=== PATIENT | female | born 1930 | race Caucasian/White ===

== ENCOUNTER 2016-09-11 11:44 | Emergency (ER) | payer MEDICARE, BC ==
[~2016-09-11] VITALS: Ht 157.5 cm; Wt 69.5 kg
[~2016-09-11 11:44] MED LIST: ASPI-611 PO; ATEN100T77 PO; CALC-603 PO; DULERA AEROSOL; FURO-35 PO; GABA-215 PO; GLUC15002 PO; LOSA50TA17 PO; MELO-11 PO; MULT-543 PO; OMEP20CA81 PO
[2016-09-11 11:46] VITALS: Ht 157.5 cm; Wt 69.5 kg
--- OUTSIDE RECORDS SUMMARY | 2016-09-11 11:49 | XMS REPORT | Continuity of Care Document ---
Author Author Lily Bertrand Ambulatory Address [facility] [place] [address] Phone Unavailable Care Team Providers Care Bias Binding Folder Name Role Phone Jonathan Lamb PP Unavailable Payers Payer name Insurance type Covered democrat ID Authorization(s) Unknown Problems Condition Effective Dates (start - stop) Clinical Status Sicca syndrome - *Chronic Peripheral neuropathy - *Chronic COPD - *Chronic Hypercholesterolemia - *Chronic Osteoarthrosis, unspecified whether generalized or localized, involving unspecified site - *Chronic Hypertension, Benign - *Chronic Elevated sed rate - *Acute Unspecified idiopathic peripheral neuropathy - *Chronic COPD - *Chronic Hypercholesterolemia - *Chronic Osteoarthrosis, unspecified whether generalized or localized, involving unspecified site - *Chronic Hypertension, Benign - *Chronic Unspecified idiopathic peripheral neuropathy - Chronic COPD - Chronic Hypercholesterolemia - Chronic Osteoarthrosis, unspecified whether generalized or localized, involving unspecified site - Chronic Hypertension, Benign - Chronic Unspecified idiopathic peripheral neuropathy - *Chronic COPD - *Chronic Hypercholesterolemia - *Chronic Osteoarthrosis, unspecified whether generalized or localized, involving unspecified site - *Chronic Hypertension, Benign - *Chronic Pain in joint, site unspecified - *Chronic Other abnormal clinical findings - *Chronic Influenza Vaccine - Unspecified idiopathic peripheral neuropathy - Chronic COPD - Chronic Hypercholesterolemia - Chronic Osteoarthrosis, unspecified whether generalized or localized, involving unspecified site - Chronic Hypertension, Benign - Chronic Unspecified idiopathic peripheral neuropathy - *Chronic COPD - *Chronic Hypercholesterolemia - *Chronic Osteoarthrosis, unspecified whether generalized or localized, involving unspecified site - *Chronic Hypertension, Benign - *Chronic Sicca syndrome - *Chronic Unspecified idiopathic peripheral neuropathy - Chronic COPD - Chronic Hypercholesterolemia - Chronic Osteoarthrosis, unspecified whether generalized or localized, involving unspecified site - Chronic Hypertension, Benign - Chronic Unspecified idiopathic peripheral neuropathy - *Chronic COPD - *Chronic Hypercholesterolemia - *Chronic Osteoarthrosis, unspecified whether generalized or localized, involving unspecified site - *Chronic Hypertension, Benign - *Chronic OSTEOARTHROS NOS-UNSPEC - BENIGN HYPERTENSION - PURE HYPERCHOLESTEROLEM - Unspecified idiopathic peripheral neuropathy - Chronic COPD - Chronic Hypercholesterolemia - Chronic Osteoarthrosis, unspecified whether generalized or localized, involving unspecified site - Chronic Hypertension, Benign - Chronic Unspecified idiopathic peripheral neuropathy - *Chronic COPD - *Chronic Hypercholesterolemia - *Chronic Osteoarthrosis, unspecified whether generalized or localized, involving unspecified site - *Chronic Hypertension, Benign - *Chronic Family History Family Member Diagnosis Age At Onset Status Sister (Unknown) Hypertension Yes Father (Unknown) Myocardial infarction Yes Father (Unknown) Diabetes Yes Mother (Unknown) Hypertension Yes Mother (Unknown) CVA (Stroke) Yes Social History Social History Element Description Quantity alcohol 1 drink Allergies, Adverse Reactions, Alerts Substance Reaction Severity Status CEFDINIR diarrhea Unknown Medications Medication Instructions Dosage Effective Dates (start - stop) Status Aspirin Low Dose 81 mg tablet,delayed release take 1 tablet (81MG) by oral route every day 81 MG - Active Multiple Vitamins Daily tablet take 1 Tablet by Oral route every day 0 - Active gabapentin 600 mg tablet take 1 tablet (600MG) by oral route 2- 3 times every day 600 MG - Active Mobic 15 mg tablet Take 0.5 tablets by mouth twice a day. - Active furosemide 20 mg tablet Take 1 tablet by mouth every day. - Active tramadol 50 mg tablet take 1 tablet (50MG) by oral route every 6 hours as needed 50 MG - Active losartan 50 mg tablet Take 1 tablet by mouth every day. - Active hydroxychloroquine 200 mg tablet take 2 (400MG) by oral route every day 400 MG - Active atenolol 100 mg tablet Take 0.5 tablets by mouth twice a day. - Active Immunizations Vaccine Date Status Comments Tdap completed - Completed reason: other registry pneumo (2 yrs or older) (PPV23) completed - Completed reason: other registry Zoster completed - Completed reason: other registry Flu (split) (3 yrs or older) completed Flu (split) (3 yrs or older) completed Results Test Name Date and Time Measure Units Reference Range Abnormal Flag Comments Unknown Vital Signs Date / Time: Height Weight Pulse Rate Blood Pressure Temperature /10:33:00 62.25 in 180.00 lbs 64 /min 110/61 mm[Hg] 98.2 F Procedures Procedure Date Unknown Encounters Encounter Location Date Patient Visit [facility] Patient Visit [facility] Patient Visit [facility] Patient Visit [facility] Patient Visit [facility] Patient Visit [facility] Patient Visit [facility] Patient Visit [facility] Patient Visit [facility] Patient [facility] Patient Visit [facility] Patient Visit [facility] Patient Visit [facility] Patient Visit [facility] Advance Directives Directive Effective Date Unknown
--- OUTSIDE RECORDS SUMMARY | 2016-09-11 11:49 | XMS REPORT | Referral Summary ---
Author Organization Unknown Address Unknown Phone Unavailable Care Team Providers Care Social Media Marketer Name Role Phone Agustin Lamb Primary Care Physician [phone] Encounter VC Date(s): 07/31/14 - 07/31/14 [facility] [place] [id number]- Discharge Diagnosis: Benign essential hypertension Discharge Diagnosis: COPD (chronic obstructive pulmonary disease) Discharge Diagnosis: OA (osteoarthritis) Discharge Diagnosis: Anemia Discharge Diagnosis: Pure hypercholesterolemia Discharge Disposition: Home or Self Care Attending Physician: Jonathan Lamb MD Admitting Physician: Jonathan Lamb MD Vital Signs Most recent to 1 oldest [Reference Range]: Temperature Tympanic 36.5 degC [36.6-38.1 degC] *LOW* (07/31/14 2:10 PM) Peripheral Pulse 72 bpm Rate [60-100 bpm] (07/31/14 2:10 PM) Respiratory Rate 18 br/min [14-20 br/min] (07/31/14 2:10 PM) Blood Pressure 140/70 mmHg [90-140/60-90 mmHg] (07/31/14 2:10 PM) Problem List Condition Effective Dates Status Health Status Informant Arthritis(Confirmed) Resolved Benign essential Active hypertension (disorder)(Confirmed ) Bronchitis(Confirmed Resolved ) Cataracts(Confirmed) Resolved Chicken Resolved pox(Confirmed) COPD (chronic Active obstructive pulmonary disease)(Confirmed) Emphysema(Confirmed) Resolved Erosive Active osteoarthritis(Confi rmed) Hereditary and Active idiopathic peripheral neuropathy (disorder)(Confirmed ) High Resolved cholesterol(Confirme d) Hypertension(Confirm Resolved ed) Obesity(Confirmed) Active patient OA Active (osteoarthritis)(Con firmed) Pure Active hypercholesterolemia (disorder)(Confirmed ) Sjogren's Active syndrome(Confirmed) Ulnar neuropathy Lt Resolved fingers(Confirmed) Allergies, Adverse Reactions, Alerts Substance Reaction Severity Status cefdinir diarrhea Active Medications Aspirin Enteric Coated 81 mg oral delayed release tablet 1 tabs, Oral, Daily, 0 Refill(s) Start Date: 11/11/13 Status: Ordered atenolol 100 mg oral tablet See Instructions, TAKE 1/2 TABLET BY MOUTH TWO TIMES A DAY, # 90 tabs, 1 Refill( s), eRx: [facility] #[id number], TAKE 1/2 TABLET BY MOUTH TWO TIMES A DAY Special Instructions: TAKE 1/2 TABLET BY MOUTH TWO TIMES A DAY Start Date: 06/23/14 Status: Ordered gabapentin 600 mg oral tablet 1 tabs, Oral, TID, 0 Refill(s) Start Date: 11/11/13 Status: Ordered losartan-hydrochlorothiazide 100 mg-25 mg oral tablet 1 tabs, Oral, Daily, # 30 tabs, 6 Refill(s), Pharmacy: [facility] #[id number] Start Date: 07/03/14 Status: Ordered multivitamin 1 tabs, Oral, Daily, 0 Refill(s) Start Date: 11/11/13 Status: Ordered omeprazole 20 mg oral delayed release capsule 1 caps, Oral, Daily, # 30 caps, 0 Refill(s), Pharmacy: [facility] #[id number] , 1 caps Oral Daily Start Date: 07/31/14 Status: Ordered Parafon Forte DSC 500 mg oral tablet 1 tabs, Oral, BID, # 20 tabs, 0 Refill(s), Pharmacy: [facility] #[id number], 1 tabs Oral BID Start Date: 07/04/14 Stop Date: 08/01/14 Status: Ordered traMADol 50 mg oral tablet 2 tabs, Oral, q6hr, as needed for pain, n dilkm, # 60 tabs, 0 Refill(s), N dilkm Special Instructions: n calvinlobrittany Start Date: 07/23/14 Status: Ordered Results No data available for this section Immunizations Vaccine Date Refusal Reason tetanus/diphth/pertuss (Tdap) adult/adol 04/21/06 influenza virus vaccine, inactivated 02/21/14 influenza virus vaccine, live 02/07/13 influenza virus vaccine, live 03/09/12 pneumococcal 23-polyvalent vaccine 04/21/06 zoster vaccine live 02/07/11 Procedures Procedure Date Related Diagnosis Body Site Mammogram 01/11/12 DEXA - Dual energy X-ray photon 04/24/07 absorptiometry Appendectomy 11/2006 Cataract extraction Cholecystectomy History of back surgery1 Remove hardware from back 1x4 Social History Social History Type Response Smoking Status Former smoker Assessment and Plan Extracted from: Title: Ambulatory Patient Education Author: Jonathan Lamb MD Date: Family Medicine Hypertension As your heart beats, it forces blood through your arteries. This force is your blood pressure. If the pressure is too high, it is called hypertension (HTN) or high blood pressure. HTN is dangerous because you may have it and not know it. High blood pressure may mean that your heart has to work harder to pump blood. Your arteries may be narrow or stiff. The extra work puts you at risk for heart disease, stroke, and other problems. Blood pressure consists of two numbers, a higher number over a lower, 110/72, for example. It is stated as "110 over 72." The ideal is below 120 for the top number (systolic ) and under 80 for the bottom (diastolic ). Write down your blood pressure today. You should pay close attention to your blood pressure if you have certain conditions such as: Heart failure. Prior heart attack. Diabetes Chronic kidney disease. Prior stroke. Multiple risk factors for heart disease. To see if you have HTN, your blood pressure should be measured while you are seated with your arm held at the level of the heart. It should be measured at least twice. A one-time elevated blood pressure reading (especially in the Emergency Department) does not mean that you need treatment. There may be conditions in which the blood pressure is different between your right and left arms. It is important to see your caregiver soon for a recheck. Most people have essential hypertension which means that there is not a specific cause. This type of high blood pressure may be lowered by changing lifestyle factors such as: Stress. Smoking. Lack of exercise. Excessive weight. Drug/tobacco/alcohol use. Eating less salt. Most people do not have symptoms from high blood pressure until it has caused damage to the body. Effective treatment can often prevent, delay or reduce that damage. TREATMENT When a cause has been identified, treatment for high blood pressure is directed at the cause. There are a large number of medications to treat HTN. These fall into several categories, and your caregiver will help you select the medicines that are best for you. Medications may have side effects. You should review side effects with your caregiver. If your blood pressure stays high after you have made lifestyle changes or started on medicines, Your medication(s) may need to be changed. Other problems may need to be addressed. Be certain you understand your prescriptions, and know how and when to take your medicine. Be sure to follow up with your caregiver within the time frame advised ( usually within two weeks) to have your blood pressure rechecked and to review your medications. If you are taking more than one medicine to lower your blood pressure, make sure you know how and at what times they should be taken. Taking two medicines at the same time can result in blood pressure that is too low. SEEK IMMEDIATE MEDICAL CARE IF: You develop a severe headache, blurred or changing vision, or confusion. You have unusual weakness or numbness, or a faint feeling. You have severe chest or abdominal pain, vomiting, or breathing problems. MAKE SURE YOU: Understand these instructions. Will watch your condition. Will get help right away if you are not doing well or get worse. Document Released: 05/08/2006 Document Revised: 07/30/2012 Document Reviewed: [facility] Patient Information 2014 [email or web address]. No follow up information was provided. Extracted from: Title: Office Visit Note Author: Jonathan Lamb MD Date: 07/31/14 Assessment/Plan Anemia We talked about her anemia. We'll keep her on meloxicam and have her take iron sulfate 324 mg 2-3 times daily. Talked about further workup. She preferred to avoid any scoping procedures if possible. I recommended a repeat CBC and 1 month. If she continues to be anemic further evaluation would be warranted. She'll continue to take her omeprazole daily. Ordered: Office Visit Level 4 Est 70734 Benign essential hypertension Blood pressure is adequately controlled. No change in current treatment plan. Medications reviewed. Follow-up in 3 months. Ordered: Office Visit Level 4 Est 73800 COPD (chronic obstructive pulmonary disease) Overall appears stable. Follow-up in 3 months. Continue current treatment plan. Ordered: Office Visit Level 4 Est 67676 OA (osteoarthritis) She'll continue to use tramadol and Tylenol as needed for her pain. If she is having worsening pain she'll let us know. Ordered: Office Visit Level 4 Est 55190 Pure hypercholesterolemia Recent laboratory studies reviewed. She has a high HDL which is somewhat protective. No changes in treatment recommended. Follow-up in 3 months. Ordered: Office Visit Level 4 Est 53739 Orders: omeprazole, 1 caps, Oral, Daily, # 30 caps, 0 Refill(s), Pharmacy: [facility] #[id number], 1 caps Oral Daily
--- OUTSIDE RECORDS SUMMARY | 2016-09-11 11:49 | XMS REPORT | Referral Summary ---
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 Inseam Leveler Name Role Phone Agustin Lamb Primary Care Physician [phone] Encounter VC Date(s): 10/30/14 - 10/30/14 [facility] [address] [place] [address] [place] [id number] [place] Discharge Diagnosis: Spinal stenosis Discharge Diagnosis: Sjogren's syndrome Discharge Disposition: 01-Home or Self Care Attending Physician: Sobia Varghese MD Admitting Physician: Sobia Varghese MD Vital Signs Most recent to 1 oldest [Reference Range]: Peripheral Pulse 84 bpm Rate [60-100 bpm] (10/30/14 1:52 PM) Respiratory Rate 16 br/min [14-20 br/min] (10/30/14 1:52 PM) Blood Pressure 147/90 mmHg [90-140/60-90 mmHg] *HI* (10/30/14 1:52 PM) Problem List Condition Effective Dates Status [...] # 90 tabs, 1 Refill( s), eRx: [facility] #[id number], TAKE 1/2 TABLET BY MOUTH TWO TIMES A DAY Start Date: 12/19/14 Status: Ordered gabapentin 600 mg oral tablet See Instructions, TAKE ONE TABLET BY MOUTH THREE TIMES A DAY, # 90 tabs, 4 Refill(s), eRx: [facility] #[id number], TAKE ONE TABLET BY MOUTH THREE TIMES A DAY Start Date: 12/03/14 Status: Ordered losartan-hydrochlorothiazide 100 mg-25 mg oral tablet See Instructions, TAKE ONE TABLET BY MOUTH DAILY, # 30 tabs, 5 Refill(s), eRx: [facility] #[id number], TAKE ONE TABLET BY MOUTH DAILY Start Date: 01/15/15 Status: Ordered multivitamin 1 tabs, Oral, Daily, 0 Refill(s) Start Date: 11/11/13 Status: Ordered omeprazole 20 mg oral delayed release capsule 1 caps, Oral, Daily, # 30 caps, 0 Refill(s), Pharmacy: [facility] #[id number] , 1 caps Oral Daily Start Date: 07/31/14 Status: Ordered Parafon Forte DSC 500 mg oral tablet See Instructions, TAKE ONE TABLET BY MOUTH TWICE A DAY, # 20 tabs, eRx: [facility] #[id number], TAKE ONE TABLET BY MOUTH TWICE A DAY Start Date: 09/23/14 Status: Ordered Percocet 5/325 oral tablet 1 tabs, Oral, TID, Pain - Breakthrough, # 30 tabs, 0 Refill(s) Start Date: 03/25/15 Status: Ordered Tylenol Extra Strength mg, Oral, q6hr, as needed for pain, 0 Refill(s) Start Date: 02/09/15 Status: Ordered Results No data available for this section Immunizations Vaccine Date Refusal Reason tetanus/diphth/pertuss (Tdap) adult/adol 04/21/06 influenza virus vaccine, inactivated 02/21/14 influenza virus vaccine, live 02/07/13 influenza virus vaccine, live 03/09/12 pneumococcal 13-valent conjugate vaccine 11/06/14 pneumococcal 23-polyvalent vaccine 04/21/06 zoster vaccine live 02/07/11 Procedures Procedure Date Related Diagnosis Body Site Mammogram 01/11/12 DEXA - Dual energy X-ray photon 04/24/07 absorptiometry Appendectomy 11/2006 Cataract extraction Cholecystectomy History of back surgery1 Remove hardware from back 1x4 Social History Social History Type Response Smoking Status Former smoker Assessment and Plan Extracted from: Title: Office Visit Note Author: Sobia Varghese MD Date: 10/30/14 Assessment/Plan 1.Sjogren's syndrome Continue with conservative measures for managing her dry mouth and dry eyes. She also appears to have dry skin. I discussed possibly trying pilocarpine for dry mouth but she believes that she does well enough. 2.Spinal stenosis I discussed possibly trying duloxetine. [facility] also reviewed this medication ather last appointment. Discussed the potential risks which may occurwith medication including change in mood, hepatotoxicity , nausea, increased risks of bleeding etc. She was recently found to be anemic on labs of unclear etiology. She has been on iron supplementation. She will follow-up with her primary care doctor next week. I will follow with her after she has been seen by her PCP. I will give her hydrocodone to take as needed but discussed that sheshould use the tramadol and the reserve the hydrocodone for when she has worse pain. Orders: HYDROcodone-acetaminophen, 1 tabs, Oral, Daily, as needed for pain, # 30 tabs, 0 Refill(s)
--- OUTSIDE RECORDS SUMMARY | 2016-09-11 11:49 | XMS REPORT | Continuity of Care Document ---
Author Author Jonathan Lamb MD [facility] Ambulatory Address [address] [place] [address] Phone Care Team Providers Care Nurse Manager Name Role Phone Jonathan Lamb PP Unavailable Payers Payer name Insurance type Covered green party ID Authorization(s) Unknown Problems Condition Effective Dates (start - stop) Clinical Status Hypertension, Benign - *Chronic COPD - *Chronic Osteoarthrosis, unspecified whether generalized or localized, involving unspecified site - *Chronic Hypercholesterolemia - *Chronic Unspecified idiopathic peripheral neuropathy - *Chronic Sjogrens syndrome - *Chronic Hypertension, Benign - *Chronic Osteoarthrosis, unspecified whether generalized or localized, involving unspecified site - *Chronic Hypercholesterolemia - *Chronic COPD - *Chronic Peripheral neuropathy - *Chronic Hypertension, Benign - *Chronic Osteoarthrosis, unspecified whether generalized or localized, involving unspecified site - *Chronic Hypercholesterolemia - *Chronic COPD - *Chronic Unspecified idiopathic peripheral neuropathy - *Chronic Elevated sed rate - *Acute Hypertension, Benign - *Chronic Osteoarthrosis, unspecified whether generalized or localized, involving unspecified site - *Chronic Hypercholesterolemia - *Chronic COPD - *Chronic Unspecified idiopathic peripheral neuropathy - *Chronic Hypertension, Benign - Chronic Osteoarthrosis, unspecified whether generalized or localized, involving unspecified site - Chronic Hypercholesterolemia - Chronic COPD - Chronic Unspecified idiopathic peripheral neuropathy - Chronic Bronchitis, Acute - *Acute COPD - *Chronic Hypertension, Benign - *Chronic Hypercholesterolemia - *Chronic COPD - Chronic Hypertension, Benign - Chronic Hypercholesterolemia - Chronic PURE HYPERCHOLESTEROLEM - BENIGN HYPERTENSION - OSTEOARTHROS NOS-UNSPEC - Hypertension, Benign - *Chronic Osteoarthrosis, unspecified whether generalized or localized, involving unspecified site - *Chronic Hypercholesterolemia - *Chronic COPD - *Chronic Unspecified idiopathic peripheral neuropathy - *Chronic Hypertension, Benign - Chronic Osteoarthrosis, unspecified whether generalized or localized, involving unspecified site - Chronic Hypercholesterolemia - Chronic COPD - Chronic Unspecified idiopathic peripheral neuropathy - Chronic Sicca syndrome - *Chronic Other abnormal clinical findings - *Chronic Pain in joint, site unspecified - *Chronic Hypertension, Benign - *Chronic Osteoarthrosis, unspecified whether generalized or localized, involving unspecified site - *Chronic Hypercholesterolemia - *Chronic COPD - *Chronic Unspecified idiopathic peripheral neuropathy - *Chronic Hypertension, Benign - Chronic Osteoarthrosis, unspecified whether generalized or localized, involving unspecified site - Chronic Hypercholesterolemia - Chronic COPD - Chronic Unspecified idiopathic peripheral neuropathy - Chronic Sicca syndrome - *Chronic Hypertension, Benign - *Chronic Osteoarthrosis, unspecified whether generalized or localized, involving unspecified site - *Chronic Hypercholesterolemia - *Chronic COPD - *Chronic Unspecified idiopathic peripheral neuropathy - *Chronic Hypertension, Benign - Chronic Osteoarthrosis, unspecified whether generalized or localized, involving unspecified site - Chronic Hypercholesterolemia - Chronic COPD - Chronic Unspecified idiopathic peripheral neuropathy - Chronic Influenza Vaccine - Family History Family Member Diagnosis Age At Onset Status Sister (Unknown) Hypertension Yes Father (Unknown) Myocardial infarction Yes Father (Unknown) Diabetes Yes Mother (Unknown) Hypertension Yes Mother (Unknown) CVA (Stroke) Yes Social History Social History Element Description Quantity alcohol 1 drink Allergies, Adverse Reactions, Alerts Substance Reaction Severity Status CEFDINIR diarrhea Unknown Medications Medication Instructions Dosage Effective Dates (start - stop) Status losartan 50 mg tablet Take 1 tablet by mouth every day. - No Longer Active Aspirin Low Dose 81 mg tablet,delayed release take 1 tablet (81MG) by oral route every day 81 MG - Active Multiple Vitamins Daily tablet take 1 Tablet by Oral route every day 0 - Active gabapentin 600 mg tablet take 1 tablet (600MG) by oral route 2- 3 times every day 600 MG - Active tramadol 50 mg tablet take 1 tablet (50MG) by oral route every 6 hours as needed 50 MG - Active furosemide 20 mg tablet Take 1 tablet by mouth every day. - Active hydroxychloroquine 200 mg tablet take 2 (400MG) by oral route every day 400 MG - Active losartan 50 mg tablet Take 1 tablet by mouth every day. - Active Mobic 15 mg tablet Take 0.5 tablets by mouth twice a day. - Active Levaquin 500 mg tablet take 1 tablet (500MG) by oral route every 24 hours 500 MG - Active atenolol 100 mg tablet [...] Height Weight Pulse Rate Blood Pressure Temperature /10:27:00 62.25 in 179.00 lbs 72 /min 130/68 mm[Hg] 98.9 F Procedures Procedure Date Unknown Encounters Encounter Location Date Patient Visit [facility] Patient Visit [facility] Patient Visit [facility] Patient Visit [facility] Patient Visit [facility] Patient Visit [facility] Patient Visit [facility] Patient Visit [facility] Patient Visit [facility] Patient Visit [facility] Patient Visit [facility] Patient [facility] Patient Visit [facility] Patient Visit [facility] Patient Visit [facility] Advance Directives Directive Effective Date Unknown
--- OUTSIDE RECORDS SUMMARY | 2016-09-11 11:49 | XMS REPORT | Referral Summary ---
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 Phone Agustin Lamb Primary Care Physician [phone] Encounter VC Date(s): 06/26/14 - 06/26/14 [facility] Rheumatology [address] [place] [address] Dr [place] [id number]- Discharge Diagnosis: Chronic osteoarthritis Discharge Diagnosis: Sjogren's syndrome Discharge Diagnosis: Biceps tendonitis on left Discharge Disposition: Home or Self Care Attending Physician: Sobia Varghese MD Admitting Physician: Sobia Varghese MD Referring Physician: Jonathan Lamb MD Vital Signs Most recent to 1 oldest [Reference Range]: Peripheral Pulse 67 bpm Rate [60-100 bpm] (06/26/14 8:50 AM) Blood Pressure 159/79 mmHg [90-140/60-90 mmHg] *HI* (06/26/14 8:50 AM) Problem List Condition Effective Dates Status Health [...] # 90 tabs, 1 Refill( s), eRx: [facility] #[id number], TAKE 1/2 TABLET BY MOUTH TWO TIMES A DAY Special Instructions: TAKE 1/2 TABLET BY MOUTH TWO TIMES A DAY Start Date: 06/23/14 Status: Ordered furosemide 20 mg oral tablet 1 tabs, Oral, Daily, 0 Refill(s) Start Date: 11/11/13 Status: Ordered gabapentin 600 mg oral tablet 1 tabs, Oral, TID, 0 Refill(s) Start Date: 11/11/13 Status: Ordered losartan 100 mg oral tablet 1 tabs, Oral, Daily, # 90 tabs, 3 Refill(s), Pharmacy: [facility] #[id number] , 1 tabs Oral Daily Start Date: 02/21/14 Status: Ordered Mobic 15 mg oral tablet See Instructions, 0.5 tabs Oral BID, 0 Refill(s), 0.5 daily for 2 weeks and then stop if pain is doing ok. Special Instructions: 0.5 tabs Oral BID Start Date: 11/11/13 Status: Ordered multivitamin 1 tabs, Oral, Daily, 0 Refill(s) Start Date: 11/11/13 Status: Ordered traMADol 50 mg oral tablet 2 tabs, Oral, q6hr, as needed for pain, n dillons, # 60 tabs, 0 Refill(s), N dillons Special Instructions: n dillons Start Date: 06/09/14 Status: Ordered Results No data available for this section Immunizations Vaccine Date Refusal Reason tetanus/diphth/pertuss (Tdap) adult/adol 04/21/06 influenza virus vaccine, inactivated 02/21/14 influenza virus vaccine, live 02/07/13 influenza virus vaccine, live 03/09/12 pneumococcal 23-polyvalent vaccine 04/21/06 zoster vaccine live 02/07/11 Procedures Procedure Date Related Diagnosis Body Site Appendectomy 11/2006 Cataract extraction Cholecystectomy History of back surgery1 Remove hardware from back 1x4 Social History Social History Type Response Smoking Status Former smoker Assessment and Plan No data available for this section
--- OUTSIDE RECORDS SUMMARY | 2016-09-11 11:49 | XMS REPORT | Referral Summary ---
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 Discharge Diagnosis: OA (osteoarthritis) Discharge Diagnosis: Benign essential hypertension Discharge Diagnosis: Pure hypercholesterolemia Discharge Diagnosis: COPD (chronic obstructive pulmonary disease) Discharge Disposition: Home or Self Care Attending Physician: Jonathan Lamb MD Admitting Physician: Jonathan Lamb MD Vital Signs Most recent to 1 oldest [Reference Range]: Temperature Tympanic 36.0 degC [36.6-38.1 degC] *LOW* (07/03/14 2:27 PM) Peripheral Pulse 68 bpm Rate [60-100 bpm] (07/03/14 2:27 PM) Respiratory Rate 18 br/min [14-20 br/min] (07/03/14 2:27 PM) Blood Pressure 144/76 mmHg [90-140/60-90 mmHg] *HI* (07/03/14 2:27 PM) Problem List Condition Effective Dates Status [...] # 90 tabs, 1 Refill( s), eRx: [facility] #[id number], TAKE 1/2 TABLET BY MOUTH TWO TIMES [...] Daily, # 90 tabs, 3 Refill(s), Pharmacy: [facility] #[id number] , 1 tabs Oral Daily Start Date: 02/21/14 Status: Suspended losartan-hydrochlorothiazide 100 mg-25 mg oral tablet 1 tabs, Oral, Daily, # 30 tabs, 6 Refill(s), Pharmacy: [facility] #[id number] Start Date: 07/03/14 Status: Ordered Mobic 15 mg oral tablet [...] dillons, # 60 tabs, 0 Refill(s), N dillobrittany Special Instructions: n dillons Start Date: 07/02/14 Status: Ordered Results No data available for [...] Released: 05/08/2006 Document Revised: 07/30/2012 Document Reviewed: [employer] Patient Information 2014 [employer]. No follow up information was provided. Extracted from: Title: Office Visit Note Author: Jonathan Lamb MD Date: 07/03/14 Assessment/Plan Benign essential hypertension Blood pressure is a little bit high here today to running high at home. Have recommended discontinuing losartan beginning losartan/HCT 100/25 once daily. She is taking furosemide once a day and I encouraged her to consider stopping that and seeing how she does with the hydrochlorothiazide. I think this will be more effective for her blood pressure. Follow-up in one month is encouraged. Ordered: Office Visit Level 4 Est 51122 COPD (chronic obstructive pulmonary disease) Stable no change in current treatment plan. Ordered: Office Visit Level 4 Est 18531 Hereditary and idiopathic peripheral neuropathy Stable no change in current treatment plan. Ordered: Office Visit Level 4 Est 68771 OA (osteoarthritis) Stable no change in current treatment plan. Ordered: Office Visit Level 4 Est 58408 Pure hypercholesterolemia Stable no change in current treatment plan. Laboratory studies ordered for 1 month. Ordered: Office Visit Level 4 Est 48975 Orders: losartan-hydrochlorothiazide, 1 tabs, Oral, Daily, # 30 tabs, 6 Refill (s), Pharmacy: [facility] #[id number]
--- OUTSIDE RECORDS SUMMARY | 2016-09-11 11:49 | XMS REPORT | Referral Summary ---
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 (disorder) Discharge Disposition: 01-Home or Self Care Attending Physician: Jonathan Lamb MD Admitting Physician: Jonathan Lamb MD Vital Signs Most recent to 1 oldest [Reference Range]: Temperature Tympanic 36.8 degC [36.6-38.1 degC] (03/25/15 10:09 AM) Peripheral Pulse 72 bpm Rate [60-100 bpm] (03/25/15 10:09 AM) Respiratory Rate 16 br/min [14-20 br/min] (03/25/15 10:09 AM) Blood Pressure 142/74 mmHg [90-140/60-90 mmHg] *HI* (03/25/15 10:09 AM) Problem List Condition Effective Dates Status [...] # 90 tabs, 1 Refill( s), eRx: [facility] #[id number], TAKE 1/2 TABLET BY MOUTH TWO TIMES A DAY Start Date: 12/19/14 Status: Ordered gabapentin 600 mg oral tablet See Instructions, TAKE ONE TABLET BY MOUTH THREE TIMES A DAY, # 90 tabs, 4 Refill(s), eRx: [facility] #[id number], TAKE ONE TABLET BY MOUTH THREE TIMES A DAY Start Date: 12/03/14 Status: Ordered losartan-hydrochlorothiazide 100 mg-25 mg oral tablet See Instructions, TAKE ONE TABLET BY MOUTH DAILY, # 30 tabs, 5 Refill(s), eRx: [facility] #[id number], TAKE ONE TABLET BY MOUTH DAILY Start Date: 01/15/15 Status: Ordered multivitamin 1 tabs, Oral, Daily, 0 Refill(s) Start Date: 11/11/13 Status: Ordered omeprazole 20 mg oral delayed release capsule 1 caps, Oral, Daily, # 30 caps, 0 Refill(s), Pharmacy: [facility] #[id number] , 1 caps Oral Daily Start Date: 07/31/14 Status: Ordered Parafon Forte DSC 500 mg oral tablet See Instructions, TAKE ONE TABLET BY MOUTH TWICE A DAY, # 20 tabs, eRx: [facility] #[id number], TAKE ONE TABLET BY MOUTH TWICE A DAY Start Date: 09/23/14 Status: Ordered Percocet 5/325 oral tablet 1 tabs, Oral, TID, Pain - Breakthrough, # 30 tabs, 0 Refill(s) Start Date: 03/25/15 Status: Ordered Tylenol Extra Strength mg, Oral, q6hr, as needed for pain, 0 Refill(s) Start Date: 02/09/15 Status: Ordered Results Hematology Most recent to 1 oldest [Reference Range]: WBC [4.8-10.8 5.8 10*3/uL 10*3/uL] (03/25/15 10:40 AM) RBC [4.00-5.20] 3.58 *LOW* (03/25/15 10:40 AM) Hgb [12.0-16.0 11.0 gm/dL gm/dL] *LOW* (03/25/15 10:40 AM) Hct [37.0-47.0 %] 32.8 % *LOW* (03/25/15 10:40 AM) MCV [82.0-99.0 fL] 91.6 fL (03/25/15 10:40 AM) MCH [27.0-32.0 pg] 30.7 pg (03/25/15 10:40 AM) MCHC [32.0-36.0 33.5 gm/dL gm/dL] (03/25/15 10:40 AM) RDW [11.5-14.5 %] 12.7 % (03/25/15 10:40 AM) Platelet [150-400 255 10*3/uL 10*3/uL] (03/25/15 10:40 AM) MPV [8.8-14.8 fL] 12.7 fL (03/25/15 10:40 AM) Immature 0.2 % Granulocytes (03/25/15 10:40 AM) [0.0-1.0 %] Neutrophils [51-75 69 % %] (03/25/15 10:40 AM) Lymphocytes [20-46 18 % %] *LOW* (03/25/15 10:40 AM) Monocytes [4-11 %] 9 % (03/25/15 10:40 AM) Eosinophils [0-4 %] 3 % (03/25/15 10:40 AM) Basophils [0-2 %] 1 % (03/25/15 10:40 AM) Neutro Absolute 4.03 10*3 [1.90-7.00 10*3] (03/25/15 10:40 AM) Lymph Absolute 1.02 10*3 [0.80-3.30 10*3] (03/25/15 10:40 AM) Cobb Absolute 0.53 10*3 [0.30-1.00 10*3] (03/25/15 10:40 AM) Eos Absolute 0.17 10*3 [0.00-0.50 10*3] (03/25/15 10:40 AM) Baso Absolute 0.05 10*3 [0.00-0.20 10*3] (03/25/15 10:40 AM) Chemistry Most recent to 1 oldest [Reference Range]: Sodium Lvl [135-144 133 mEq/L mEq/L] *LOW* (03/25/15 10:40 AM) Potassium Lvl 4.5 mEq/L [3.5-5.2 mEq/L] (03/25/15 10:40 AM) Chloride [99-111 96 mEq/L mEq/L] *LOW* (03/25/15 10:40 AM) CO2 [22-31 mEq/L] 29 mEq/L (03/25/15 10:40 AM) AGAP [3-20] 8 (03/25/15 10:40 AM) BUN [10-20 mg/dL] 24 mg/dL *HI* (03/25/15 10:40 AM) Glucose Lvl [70-99 101 mg/dL mg/dL] *HI* (03/25/15 10:40 AM) Creatinine Lvl 1.05 mg/dL [0.57-1.11 mg/dL] (03/25/15 10:40 AM) eGFR [>60 mL/min] 50 mL/min 1 *ABN* (03/25/15 10:40 AM) Calcium Lvl 10.3 mg/dL [8.9-10.5 mg/dL] (03/25/15 10:40 AM) Albumin Lvl [3.4-4.8 4.0 gm/dL gm/dL] (03/25/15 10:40 AM) Total Protein 6.5 gm/dL [6.2-8.1 gm/dL] (03/25/15 10:40 AM) Globulin [1.8-4.0 2.5 gm/dL gm/dL] (03/25/15 10:40 AM) ALT [0-55 U/L] 15 U/L (03/25/15 10:40 AM) AST [5-34 U/L] 21 U/L (03/25/15 10:40 AM) Alk Phos [40-150 62 U/L U/L] (03/25/15 10:40 AM) Bili Total [0.2-1.2 0.5 mg/dL mg/dL] (03/25/15 10:40 AM) TSH with Reflex Free 1.69 T4 [0.35-4.94] (03/25/15 10:40 AM) 1Result Comment: Multiply eGFR results by 1.21 for race. Immunizations Vaccine Date Refusal Reason tetanus/diphth/pertuss (Tdap) [...] Patient Education Author: Jonathan Lamb MD Date: 03/25/15 ENT Dizziness Dizziness is a common problem. It is a feeling of unsteadiness or light- headedness. You may feel like you are about to faint. Dizziness can lead to injury if you stumble or fall. A person of any age group can suffer from dizziness, but dizziness is more common in older adults. CAUSES Dizziness can be caused by many different things, including: Middle ear problems. Standing for too long. Infections. An allergic reaction. Aging. An emotional response to something, such as the sight of blood. Side effects of medicines. Tiredness. Problems with circulation or blood pressure. Excessive use of alcohol or medicines, or illegal drug use. Breathing too fast (hyperventilation). An irregular heart rhythm (arrhythmia). A low red blood cell count (anemia). . Vomiting, diarrhea, fever, or other illnesses that cause body fluid loss ( dehydration). Diseases or conditions such as Parkinson's disease, high blood pressure ( hypertension), diabetes, and thyroid problems. Exposure to extreme heat. DIAGNOSIS Your health care provider will ask about your symptoms, perform a physical exam , and perform an electrocardiogram (ECG) to record the electrical activity of your heart. Your health care provider may also perform other heart or blood tests to determine the cause of your dizziness. These may include: Transthoracic echocardiogram (TTE). During echocardiography, sound waves are used to evaluate how blood flows through your heart. Transesophageal echocardiogram (CARIDAD). Cardiac monitoring. This allows your health care provider to monitor your heart rate and rhythm in real time. Holter monitor. This is a portable device that records your heartbeat and can help diagnose heart arrhythmias. It allows your health care provider to track your heart activity for several days if needed. Stress tests by exercise or by giving medicine that makes the heart beat faster. TREATMENT Treatment of dizziness depends on the cause of your symptoms and can vary greatly. HOME CARE INSTRUCTIONS Drink enough fluids to keep your urine clear or pale yellow. This is especially important in very hot weather. In older adults, it is also important in cold weather. Take your medicine exactly as directed if your dizziness is caused by medicines. When taking blood pressure medicines, it is especially important to get up slowly. Rise slowly from chairs and steady yourself until you feel okay. In the morning, first sit up on the side of the bed. When you feel okay, stand slowly while holding onto something until you know your balance is fine. 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 Tighten and relax your muscles in your legs while standing. Have someone stay with you for 12 days if dizziness continues to be a problem. Do this until you feel you are well enough to stay alone. Have the person call your health care provider if he or she notices changes in you that are concerning. Do not drive or use heavy machinery if you feel dizzy. Do not drink alcohol. SEEK IMMEDIATE MEDICAL CARE IF: Your dizziness or light-headedness gets worse. You feel nauseous or vomit. You have problems talking, walking, or using your arms, hands, or legs. You feel weak. You are not thinking clearly or you have trouble forming sentences. It may take a friend or family member to notice this. You have chest pain, abdominal pain, shortness of breath, or sweating. Your vision changes. You notice any bleeding. You have side effects from medicine that seems to be getting worse rather than better. MAKE SURE YOU: Understand these instructions. Will watch your condition. Will get help right away if you are not doing well or get worse. Document Released: 11/01/2001 Document Revised: 05/13/2014 Document Reviewed: [employer] Patient Information 2015 [employer]. This information is not intended to replace advice given to you by your health care provider. Make sure you discuss any questions you have with your health care provider. No follow up information was provided. Extracted from: Title: Office Visit Note Author: Jonathan Lamb MD Date: 03/25/15 Assessment/Plan Benign essential hypertension Blood pressure appears to be adequately controlled no change in current treatment recommended. Ordered: Office Visit Level 4 Est 49722 COPD (chronic obstructive pulmonary disease) COPD appears to be stable no change in current treatment. Ordered: Office Visit Level 4 Est 62969 Dizziness It's unclear what the etiology of this problem areas. I've told her not to take Parafon forte at all. I've asked her to reduce her gabapentin to 600 mg twice a day. I've recommended some lab work as listed below. If no improvement in the dizziness over the next week she'll let me now. Ordered: CBC w/ Differential Comprehensive Metabolic Panel Office Visit Level 4 Est 33849 TSH with Reflex Free T4 Hereditary and idiopathic peripheral neuropathy (disorder) I'm concerned gabapentin may be contributing to her dizziness have asked her to reduce it to 600 mg twice a day. For neuropathy worsen she'll let us now. Ordered: CBC w/ Differential Comprehensive Metabolic Panel Office Visit Level 4 Est 06278 TSH with Reflex Free T4 Left leg pain I think this is likely neuropathic pain. We'll continue gabapentin. 100 have her discontinue tramadol and I gave her a prescription for Percocet 5/325 to be taken up to 3 times a day as needed. Orders: oxyCODONE-acetaminophen, 1 tabs, Oral, TID, Pain - Breakthrough, # 30 tabs, 0 Refill(s)
--- OUTSIDE RECORDS SUMMARY | 2016-09-11 11:50 | XMS REPORT | Referral Summary ---
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 Senior Loan Officer Name Role Phone Agustin Lamb Primary Care Physician [phone] Encounter VC Date(s): 10/30/14 - 10/30/14 [facility] [address] [place] [address] [place] [id number] [place] Discharge Diagnosis: Spinal stenosis Discharge Diagnosis: [...] pox(Confirmed) COPD (chronic Active obstructive pulmonary disease)(Confirmed) OA Active (osteoarthritis)(Con firmed) Emphysema(Confirmed) Resolved Erosive Active osteoarthritis(Confi rmed) Hereditary and Active idiopathic peripheral neuropathy (disorder)(Confirmed ) High Resolved cholesterol(Confirme d) Hypertension(Confirm Resolved ed) Obesity(Confirmed) Active patient Pure Active hypercholesterolemia (disorder)(Confirmed ) Sjogren's Active [...] # 90 tabs, 1 Refill( s), eRx: [facility] #[id number], TAKE 1/2 TABLET BY MOUTH TWO TIMES A DAY Start Date: 12/19/14 Status: Ordered gabapentin 600 mg oral tablet See Instructions, TAKE ONE TABLET BY MOUTH THREE TIMES A DAY, # 90 tabs, 1 Refill(s), eRx: [facility] #[id number], TAKE ONE TABLET BY MOUTH THREE TIMES A DAY Start Date: 04/21/15 Status: Ordered losartan-hydrochlorothiazide 100 mg-25 mg oral tablet See Instructions, TAKE ONE TABLET BY MOUTH DAILY, # 30 tabs, 5 Refill(s), eRx: [facility] #[id number], TAKE ONE TABLET BY MOUTH DAILY Start Date: 01/15/15 Status: Ordered multivitamin 1 tabs, Oral, Daily, 0 Refill(s) Start Date: 11/11/13 Status: Ordered omeprazole 20 mg oral delayed release capsule 1 caps, Oral, Daily, # 30 caps, 0 Refill(s), Pharmacy: [facility] #[id number] , 1 caps Oral Daily Start Date: 07/31/14 Status: Ordered Parafon Forte DSC 500 mg oral tablet See Instructions, TAKE ONE TABLET BY MOUTH TWICE A DAY, # 20 tabs, eRx: [facility] #[id number], TAKE ONE TABLET BY MOUTH TWICE A DAY Start Date: 09/23/14 Status: Ordered traMADol 50 mg oral tablet 100 mg 2 tabs, Oral, q6hr, as needed for pain, n dillons, # 60 tabs, 0 Refill(s) , N dillons Start Date: 05/04/15 Status: Ordered Tylenol Extra Strength mg, Oral, [...] 2.Spinal stenosis I discussed possibly trying duloxetine. [facility] also reviewed this medication ather last [...]
--- OUTSIDE RECORDS SUMMARY | 2016-09-11 11:50 | XMS REPORT | Referral Summary ---
Author Author [facility], [facility] Organization [facility] Address Unknown Phone Unavailable Care Team Providers Care Golf Ball Trimmer Name Role Phone Agustin Lamb Primary Care Physician [phone] Encounter VC Date(s): 05/11/15 - 05/11/15 [facility] [address] [place] [id number] Discharge Diagnosis: Benign essential hypertension Discharge Diagnosis: Pure hypercholesterolemia Discharge Diagnosis: COPD (chronic obstructive pulmonary disease) Discharge Diagnosis: OA (osteoarthritis) Discharge Disposition: 01-Home or Self Care Attending Physician: Jonathan Lamb MD Admitting Physician: Jonathan Lamb MD Vital Signs Most recent to 1 oldest [Reference Range]: Temperature Tympanic 36.6 degC [36.6-38.1 degC] (05/11/15 8:41 AM) Peripheral Pulse 76 bpm Rate [60-100 bpm] (05/11/15 8:41 AM) Respiratory Rate 16 br/min [14-20 br/min] (05/11/15 8:41 AM) Blood Pressure 150/88 mmHg [90-140/60-90 mmHg] *HI* (05/11/15 8:41 AM) Problem List Condition Effective Dates Status [...] 90 tabs, 1 Refill( s), eRx: [facility] #[id number], TAKE 1/2 TABLET BY MOUTH TWO TIMES A DAY Start Date: 12/19/14 Status: Ordered gabapentin 600 mg oral tablet See Instructions, TAKE ONE TABLET BY MOUTH THREE TIMES A DAY, # 90 tabs, 1 Refill(s), eRx: [facility] #[id number], TAKE ONE TABLET BY MOUTH THREE TIMES A DAY Start Date: 04/21/15 Status: Ordered losartan-hydrochlorothiazide 100 mg-25 mg oral tablet See Instructions, TAKE ONE TABLET BY MOUTH DAILY, # 30 tabs, 5 Refill(s), eRx: [facility] #[id number], TAKE ONE TABLET BY MOUTH DAILY Start Date: 01/15/15 Status: Ordered multivitamin 1 tabs, Oral, Daily, 0 Refill(s) Start Date: 11/11/13 Status: Ordered omeprazole 20 mg oral delayed release capsule 1 caps, Oral, Daily, # 30 caps, 0 Refill(s), Pharmacy: [facility] #[id number] , 1 caps Oral Daily Start Date: 07/31/14 Status: Ordered Parafon Forte DSC 500 mg oral tablet See Instructions, TAKE ONE TABLET BY MOUTH TWICE A DAY, # 20 tabs, eRx: [facility] #[id number], TAKE ONE TABLET BY MOUTH TWICE A [...] Patient Education Author: Jonathan Lamb MD Date: 05/11/15 Family Medicine Chronic Obstructive Pulmonary Disease Chronic obstructive pulmonary disease (COPD) is a common lung condition in which airflow from the lungs is limited. COPD is a general term that can be used to describe many different lung problems that limit airflow, including both chronic bronchitis and emphysema. If you have COPD, your lung function will probably never return to normal, but there are measures you can take to improve lung function and make yourself feel better. CAUSES Smoking (common). Exposure to secondhand smoke. Genetic problems. Chronic inflammatory lung diseases or recurrent infections. SYMPTOMS Shortness of breath, especially with physical activity. Deep, persistent (chronic) cough with a large amount of thick mucus. Wheezing. Rapid breaths (tachypnea). Chan or bluish discoloration (cyanosis) of the skin, especially in fingers , toes, or lips. Fatigue. Weight loss. Frequent infections or episodes when breathing symptoms become much worse ( exacerbations). Chest tightness. DIAGNOSIS Your health care provider will take a medical history and perform a physical examination to make the initial diagnosis. Additional tests for COPD may include: Lung (pulmonary) function tests. Chest X-ray. CT scan. Blood tests. TREATMENT Treatment available to help you feel better when you have COPD includes: Inhaler and nebulizer medicines. These help manage the symptoms of COPD and make your breathing more comfortable. Supplemental oxygen. Supplemental oxygen is only helpful if you have a low oxygen level in your blood. Exercise and physical activity. These are beneficial for nearly all people with COPD. Some people may also benefit from a pulmonary rehabilitation program. HOME CARE INSTRUCTIONS Take all medicines (inhaled or pills) as directed by your health care provider. Avoid rdey-evn-nxjnyxp medicines or cough syrups that dry up your airway ( such as antihistamines) and slow down the elimination of secretions unless instructed otherwise by your health care provider. If you are a smoker, the most important thing that you can do is stop smoking. Continuing to smoke will cause further lung damage and breathing trouble. Ask your health care provider for help with quitting smoking. He or she can direct you to community resources or hospitals that provide support. Avoid exposure to irritants such as smoke, chemicals, and fumes that aggravate your breathing. Use oxygen therapy and pulmonary rehabilitation if directed by your health care provider. If you require home oxygen therapy, ask your health care provider whether you should purchase a pulse oximeter to measure your oxygen level at home. Avoid contact with individuals who have a contagious illness. Avoid extreme temperature and humidity changes. Eat healthy foods. Eating smaller, more frequent meals and resting before meals may help you maintain your strength. Stay active, but balance activity with periods of rest. Exercise and physical activity will help you maintain your ability to do things you want to do. Preventing infection and hospitalization is very important when you have COPD. Make sure to receive all the vaccines your health care provider recommends , especially the pneumococcal and influenza vaccines. Ask your health care provider whether you need a pneumonia vaccine. Learn and use relaxation techniques to manage stress. Learn and use controlled breathing techniques as directed by your health care provider. Controlled breathing techniques include: Pursed lip breathing. Start by breathing in (inhaling) through your nose for 1 second. Then, purse your lips as if you were going to whistle and breathe out (exhale) through the pursed lips for 2 seconds. Diaphragmatic breathing. Start by putting one hand on your abdomen just above your waist. Inhale slowly through your nose. The hand on your abdomen should move out. Then purse your lips and exhale slowly. You should be able to feel the hand on your abdomen moving in as you exhale. Learn and use controlled coughing to clear mucus from your lungs. Controlled coughing is a series of short, progressive coughs. The steps of controlled coughing are: 1. Lean your head slightly forward. 2. Breathe in deeply using diaphragmatic breathing. 3. Try to hold your breath for 3 seconds. 4. Keep your mouth slightly open while coughing twice. 5. Spit any mucus out into a tissue. 6. Rest and repeat the steps once or twice as needed. SEEK MEDICAL CARE IF: You are coughing up more mucus than usual. There is a change in the color or thickness of your mucus. Your breathing is more labored than usual. Your breathing is faster than usual. SEEK IMMEDIATE MEDICAL CARE IF: You have shortness of breath while you are resting. You have shortness of breath that prevents you from: Being able to talk. Performing your usual physical activities. You have chest pain lasting longer than 5 minutes. Your skin color is more cyanotic than usual. You measure low oxygen saturations for longer than 5 minutes with a pulse oximeter. MAKE SURE YOU: Understand these instructions. Will watch your condition. Will get help right away if you are not doing well or get worse. Document Released: 02/15/2006 Document Revised: 09/22/2014 Document Reviewed: [facility] Patient Information 2015 [employer]. This information is not intended to replace advice given to you by your health care provider. Make sure you discuss any questions you have with your health care provider. No follow up information was provided. Extracted from: Title: Office Visit Note Author: Jonathan Lamb MD Date: 05/11/15 Assessment/Plan Benign essential hypertension Blood pressure is mildly elevated here but normal at home. Occasions and treatments reviewed no changes are recommended. Report card reviewed and provided and recent laboratory studies reviewed. Follow-up in 3 months. Ordered: Office Visit Level 4 Est 20501 COPD (chronic obstructive pulmonary disease) Chronic stable. We talked about checking an overnight oximetry but will hold off for now. She'll continue to use her oxygen on an as-needed basis no change in treatment otherwise. Ordered: Office Visit Level 4 Est 74426 OA (osteoarthritis) Chronic stable no change in current treatment. Ordered: Office Visit Level 4 Est 33396 Pure hypercholesterolemia Laboratory studies reviewed from January no change in current treatment is recommended. Ordered: Office Visit Level 4 Est 62774
--- OUTSIDE RECORDS SUMMARY | 2016-09-11 11:50 | XMS REPORT | Continuity of Care Document ---
Author Author [facility] Organization [facility] Address Unknown Phone Unavailable Allergies Medications Problems Procedures Results Encounters ACCT No. Visit Date/Time Discharge Status Pt. Type Provider Facility Loc./Unit Complaint [id number] 08/15/2013 10:19:00 08/15/2013 23 :59:59 CLS Outpatient [id number] 05/30/2013 09:32:00 05/30/2013 23 :59:59 CLS Outpatient
--- OUTSIDE RECORDS SUMMARY | 2016-09-11 11:50 | XMS REPORT | Referral Summary ---
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 Name Role Phone Agustin Lamb Primary Care Physician [phone] Encounter VC Date(s): 11/06/14 - 11/06/14 [facility] [address] [place] [phone]- [place] Discharge Diagnosis: Sjogren's syndrome Discharge Diagnosis: Erosive osteoarthritis Discharge Diagnosis: Benign essential hypertension Discharge Diagnosis: Pure hypercholesterolemia Discharge Diagnosis: COPD (chronic obstructive pulmonary disease) Discharge Diagnosis: OA (osteoarthritis) Discharge Disposition: 01-Home or Self Care Attending Physician: Jonathan Lamb MD Admitting Physician: Jonathan Lamb MD Vital Signs Most recent to 1 oldest [Reference Range]: Temperature Tympanic 36.2 degC [36.6-38.1 degC] *LOW* (11/06/14 2:33 PM) Peripheral Pulse 80 bpm Rate [60-100 bpm] (11/06/14 2:33 PM) Respiratory Rate 16 br/min [14-20 br/min] (11/06/14 2:33 PM) Blood Pressure 156/84 mmHg [90-140/60-90 mmHg] *HI* (11/06/14 2:33 PM) Problem List Condition Effective Dates Status [...] # 90 tabs, 1 Refill( s), eRx: [facility] #[id number], TAKE 1/2 TABLET BY MOUTH TWO TIMES A DAY Start Date: 12/19/14 Status: Ordered gabapentin 600 mg oral tablet See Instructions, TAKE ONE TABLET BY MOUTH THREE TIMES A DAY, # 90 tabs, 4 Refill(s), eRx: [facility] #[id number], TAKE ONE TABLET BY MOUTH THREE TIMES A DAY Start Date: 12/03/14 Status: Ordered losartan-hydrochlorothiazide 100 mg-25 mg oral tablet See Instructions, TAKE ONE TABLET BY MOUTH DAILY, # 30 tabs, 5 Refill(s), eRx: [facility] #[id number], TAKE ONE TABLET BY MOUTH DAILY Start Date: 01/15/15 Status: Ordered multivitamin 1 tabs, Oral, Daily, 0 Refill(s) Start Date: 11/11/13 Status: Ordered omeprazole 20 mg oral delayed release capsule 1 caps, Oral, Daily, # 30 caps, 0 Refill(s), Pharmacy: [facility] #[id number] , 1 caps Oral Daily Start Date: 07/31/14 Status: Ordered Parafon Forte DSC 500 mg oral tablet See Instructions, TAKE ONE TABLET BY MOUTH TWICE A DAY, # 20 tabs, eRx: [facility] #[id number], TAKE ONE TABLET BY MOUTH TWICE A [...] Released: 05/08/2006 Document Revised: 07/30/2012 Document Reviewed: [facility] Patient Information 2014 [employer]. No follow up information was provided. Extracted from: Title: Office Visit Note Author: Jonathan Lamb MD Date: 11/06/14 Assessment/Plan Benign essential hypertension Blood pressure is elevated here but consistently normal at home. No changes in current medications are recommended at this time. Recent laboratory studies are reviewed her kidney function is actually showed some improvement. We'll continue current treatment plan without change. Check in 3 months. Ordered: pneumococcal 13-valent conjugate vaccine, 0.5 mL, IntraMuscular, Once, First Dose: 11/06/14 15:00:00 CDT, Stop Date: 11/06/14 15:00:00 CDT, Form: Injection Office Visit Level 4 Est 89115 COPD (chronic obstructive pulmonary disease) Overall stable no change in current treatment. I did recommend and give Prevnar today. Follow-up in 3 months. Ordered: pneumococcal 13-valent conjugate vaccine, 0.5 mL, IntraMuscular, Once, First Dose: 11/06/14 15:00:00 CDT, Stop Date: 11/06/14 15:00:00 CDT, Form: Injection Office Visit Level 4 Est 13665 Erosive osteoarthritis We talked about her chronic pain. I've asked her to increase her gabapentin to 600 mg twice a day and see if that doesn't help. Side effects were reviewed. She may continue to use her hydrocodone and tramadol as she is doing. Ordered: Office Visit Level 4 Est 83676 Pure hypercholesterolemia Chronic stable no change in current treatment plan. Ordered: Office Visit Level 4 Est 74247 Sjogren's syndrome Overall stable. Continue follow-up with Dr. Varghese. Ordered: Office Visit Level 4 Est 36137 Orders: gabapentin, 600 mg 1 tabs, Oral, BID, # 90 tabs, 3 Refill(s), Pharmacy : [facility] #[id number], 1 tabs Oral TID
--- OUTSIDE RECORDS SUMMARY | 2016-09-11 11:50 | XMS REPORT | Referral Summary ---
Author Author [facility], [facility] Organization [facility] Address Unknown Phone Unavailable Care Team Providers Care Cosmetics And Toiletries Salesperson Name Role Phone Agustin Lamb Primary Care Physician [phone] Encounter VC Date(s): 02/01/16 - 02/01/16 [facility] [address] [place] [phone]- [place] Discharge Diagnosis: Benign essential hypertension Discharge Diagnosis: Erosive osteoarthritis Discharge Diagnosis: COPD (chronic obstructive pulmonary disease) Discharge Diagnosis: Pure hypercholesterolemia Discharge Disposition: 01-Home or Self Care Attending Physician: Jonathan Lamb MD Admitting Physician: Jonathan Lamb MD Vital Signs Most recent to 1 oldest [Reference Range]: Temperature Tympanic 36.3 degC [36.6-38.1 degC] *LOW* (02/01/16 9:39 AM) Peripheral Pulse 64 bpm Rate [60-100 bpm] (02/01/16 9:39 AM) Blood Pressure 154/66 mmHg [90-140/60-90 mmHg] *HI* (02/01/16 9:39 AM) Problem List Condition Effective Dates Status [...] # 90 tabs, 1 Refill( s), eRx: [facility] #[id number], TAKE 1/2 TABLET BY MOUTH TWO TIMES A DAY Start Date: 11/30/15 Status: Ordered chlorzoxazone 500 mg oral tablet See Instructions, TAKE ONE TABLET BY MOUTH TWICE A DAY, # 20 tabs, eRx: [facility] #[id number], TAKE ONE TABLET BY MOUTH TWICE A DAY Start Date: 10/12/15 Status: Ordered gabapentin 600 mg oral tablet See Instructions, TAKE ONE TABLET BY MOUTH THREE TIMES A DAY, # 90 tabs, 2 Refill(s), eRx: [facility] #[id number], TAKE ONE TABLET BY MOUTH THREE TIMES A DAY Start Date: 12/09/15 Status: Ordered losartan-hydrochlorothiazide 100 mg-25 mg oral tablet 1 tabs, Oral, Daily, X 90 days, # 90 tabs, 3 Refill(s), Pharmacy: [facility] #[id number] Start Date: 08/14/15 Stop Date: 08/08/16 Status: Ordered multivitamin 1 tabs, Oral, Daily, 0 Refill(s) Start Date: 11/11/13 Status: Ordered omeprazole 20 mg oral delayed release capsule 1 caps, Oral, Daily, # 30 caps, 0 Refill(s), Pharmacy: [facility] #[id number] , 1 caps Oral Daily Start Date: 07/31/14 Status: Ordered traMADol 50 mg oral tablet 100 mg 2 tabs, Oral, q6hr, as needed for pain, n dillons, # 60 tabs, 0 Refill(s) , N dillons Start Date: 01/06/16 Status: Ordered Tylenol Extra Strength mg, Oral, q6hr, as needed for pain, 0 Refill(s) Start Date: 02/09/15 Status: Ordered Results No data available for this section Immunizations Vaccine Date Refusal Reason tetanus/diphth/pertuss (Tdap) adult/adol 04/21/06 influenza virus vaccine, inactivated 02/01/16 influenza virus vaccine, inactivated 02/21/14 influenza virus [...] Author: Jonathan Lamb MD Date: Family Medicine Chronic Obstructive Pulmonary Disease Chronic obstructive pulmonary disease (COPD) is a common lung problem. In COPD, the flow of air from the lungs is limited. The way your lungs work will probably never return to normal, but there are things you can do to improve your lungs and make yourself feel better. Your doctor may treat your condition with: Medicines. Oxygen. Lung surgery. Changes to your diet. Rehabilitation. This may involve a team of specialists. HOME CARE Take all medicines as told by your doctor. Avoid medicines or cough syrups that dry up your airway (such as antihistamines) and do not allow you to get rid of thick spit. You do not need to avoid them if told differently by your doctor. If you smoke, stop. Smoking makes the problem worse. Avoid being around things that make your breathing worse (like smoke, chemicals, and fumes). Use oxygen therapy and therapy to help improve your lungs (pulmonary rehabilitation) if told by your doctor. If you need home oxygen therapy, ask your doctor if you should buy a tool to measure your oxygen level (oximeter). Avoid people who have a sickness you can catch (contagious). Avoid going outside when it is very hot, cold, or humid. Eat healthy foods. Eat smaller meals more often. Rest before meals. Stay active, but remember to also rest. Make sure to get all the shots (vaccines) your doctor recommends. Ask your doctor if you need a pneumonia shot. Learn and use tips on how to relax. Learn and use tips on how to control your breathing as told by your doctor. Try: Breathing in (inhaling) through your nose for 1 second. Then, pucker your lips and breath out (exhale) through your lips for 2 seconds. Putting one hand on your belly (abdomen). Breathe in slowly through your nose for 1 second. Your hand on your belly should move out. Pucker your lips and breathe out slowly through your lips. Your hand on your belly should move in as you breathe out. Learn and use controlled coughing to clear thick spit from your lungs. The steps are: 1.Lean your head a little forward. 2.Breathe in deeply. 3.Try to hold your breath for 3 seconds. 4.Keep your mouth slightly open while coughing 2 times. 5.Spit any thick spit out into a tissue. 6.Rest and do the steps again 1 or 2 times as needed. GET HELP IF: You cough up more thick spit than usual. There is a change in the color or thickness of the spit. It is harder to breathe than usual. Your breathing is faster than usual. GET HELP RIGHT AWAY IF: You have shortness of breath while resting. You have shortness of breath that stops you from: Being able to talk. Doing normal activities. You chest hurts for longer than 5 minutes. Your skin color is more blue than usual. Your pulse oximeter shows that you have low oxygen for longer than 5 minutes. MAKE SURE YOU: Understand these instructions. Will watch your condition. Will get help right away if you are not doing well or get worse. This information is not intended to replace advice given to you by your health care provider. Make sure you discuss any questions you have with your health care provider. Document Released: 10/24/2008 Document Revised: 05/29/2015 Document Reviewed: [facility] Patient Information 2016 [employer] [facility]. No follow up information was provided. Extracted from: Title: Office Visit Note Author: Jonathan Lamb MD Date: 02/01/16 Assessment/Plan 1.Benign essential hypertension, Essential (primary) hypertension Blood pressurehas been normal at home no change in current treatment is recommended. Previous laboratory studies reviewed. Report card reviewed and provided. Recheck in 3 months. Ordered: influenza virus vaccine, inactivated, 0.5 mL, IntraMuscular, Once, First Dose: 02/01/16 10:00:00 CDT, Stop Date: 02/01/16 10:00:00 CDT Office Visit Level 4 Est 22624 2.COPD (chronic obstructive pulmonary disease), Chronic obstructive pulmonary disease, unspecified Chronic currently stable no change in current treatment she is up-to-date on vaccinations and flu shot was given today. Follow-up in 3 months. Ordered: influenza virus vaccine, inactivated, 0.5 mL, IntraMuscular, Once, First Dose: 02/01/16 10:00:00 CDT, Stop Date: 02/01/16 10:00:00 CDT Office Visit Level 4 Est 42202 3.Erosive osteoarthritis, Erosive (osteo)arthritis Chronic relatively stable. Therapy was been helpful for her back encouraged her to continue to stay active and do her regular exercises. She has more difficulties or concerns she'll let us now. Ordered: Office Visit Level 4 Est 01411 4.Pure hypercholesterolemia, Pure hypercholesterolemia Chronic stable no change in current treatment recheck in 3 months with fasting lab. Ordered: Office Visit Level 4 Est 37155 5. Hives Not sure these are coming from. I've recommended a regular dose of either Claritin or Zyrtecfor the next few weeks and see if that will calm down. If they're worsening or she has further problems she'll let us know.
--- OUTSIDE RECORDS SUMMARY | 2016-09-11 11:50 | XMS REPORT | Referral Summary ---
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 #[id number], TAKE 1/2 TABLET BY MOUTH TWO TIMES A DAY Start Date: 12/19/14 Status: Ordered gabapentin 600 mg oral tablet See Instructions, TAKE ONE TABLET BY MOUTH THREE TIMES A DAY, # 90 tabs, 4 Refill(s), eRx: [facility] #[id number], TAKE ONE TABLET BY MOUTH THREE TIMES A DAY Start Date: 12/03/14 Status: Ordered losartan-hydrochlorothiazide 100 mg-25 mg oral tablet See Instructions, TAKE ONE TABLET BY MOUTH DAILY, # 30 tabs, 5 Refill(s), eRx: [facility] #[id number], TAKE ONE TABLET BY MOUTH DAILY Start Date: 01/15/15 Status: Ordered multivitamin 1 tabs, Oral, Daily, 0 Refill(s) Start Date: 11/11/13 Status: Ordered omeprazole 20 mg oral delayed release capsule 1 caps, Oral, Daily, # 30 caps, 0 Refill(s), Pharmacy: [facility] #[id number] , 1 caps Oral Daily Start Date: 07/31/14 Status: Ordered Parafon Forte DSC 500 mg oral tablet See Instructions, TAKE ONE TABLET BY MOUTH TWICE A DAY, # 20 tabs, eRx: [facility] #[id number], TAKE ONE TABLET BY MOUTH TWICE A [...] Extracted from: Title: Office Visit Note Author: Sobai Varghese MD Date: 10/30/14 Assessment/Plan 1.Sjogren's syndrome Continue with conservative measures for managing her dry mouth and dry eyes. She also appears to have dry skin. I discussed possibly trying pilocarpine for dry mouth but she believes that she does well enough. 2.Spinal stenosis I discussed possibly trying duloxetine. [facility] also reviewed this medication ather last appointment. [...]
--- OUTSIDE RECORDS SUMMARY | 2016-09-11 11:50 | XMS REPORT | Referral Summary ---
Author Author [facility], [facility] Organization [facility] Address Unknown Phone Unavailable Care Team Providers Care User Experience Architect Name Role Phone Agustin Lamb Primary Care Physician [phone] Encounter VC Date(s): 11/06/14 - 11/06/14 [facility] [address] [place] [phone] Discharge Diagnosis: Sjogren's syndrome Discharge Diagnosis: [...] # 90 tabs, 1 Refill( s), eRx: [facility] #[id number], TAKE 1/2 TABLET BY MOUTH TWO TIMES A DAY Start Date: 12/19/14 Status: Ordered gabapentin 600 mg oral tablet See Instructions, TAKE ONE TABLET BY MOUTH THREE TIMES A DAY, # 90 tabs, 4 Refill(s), eRx: [facility] #[id number], TAKE ONE TABLET BY MOUTH THREE TIMES A DAY Start Date: 12/03/14 Status: Ordered losartan-hydrochlorothiazide 100 mg-25 mg oral tablet See Instructions, TAKE ONE TABLET BY MOUTH DAILY, # 30 tabs, 5 Refill(s), eRx: [facility] #[id number], TAKE ONE TABLET BY MOUTH DAILY Start Date: 01/15/15 Status: Ordered multivitamin 1 tabs, Oral, Daily, 0 Refill(s) Start Date: 11/11/13 Status: Ordered omeprazole 20 mg oral delayed release capsule 1 caps, Oral, Daily, # 30 caps, 0 Refill(s), Pharmacy: [facility] #[id number] , 1 caps Oral Daily Start Date: 07/31/14 Status: Ordered Parafon Forte DSC 500 mg oral tablet See Instructions, TAKE ONE TABLET BY MOUTH TWICE A DAY, # 20 tabs, eRx: [facility] #[id number], TAKE ONE TABLET BY MOUTH TWICE A [...] Released: 05/08/2006 Document Revised: 07/30/2012 Document Reviewed: [facility] Patient Information 2014 [email or web address]. No follow up information was provided. Extracted [...] Form: Injection Office Visit Level 4 Est 28145 COPD (chronic obstructive pulmonary disease) Overall stable no change in current treatment. I did recommend and give Prevnar today. Follow-up in 3 months. Ordered: pneumococcal 13-valent conjugate vaccine, 0.5 mL, IntraMuscular, Once, First Dose: 11/06/14 15:00:00 CDT, Stop Date: 11/06/14 15:00:00 CDT, Form: Injection Office Visit Level 4 Est 87814 Erosive osteoarthritis We talked about her chronic pain. I've asked her to increase her gabapentin to 600 mg twice a day and see if that doesn't help. Side effects were reviewed. She may continue to use her hydrocodone and tramadol as she is doing. Ordered: Office Visit Level 4 Est 82724 Pure hypercholesterolemia Chronic stable no change in current treatment plan. Ordered: Office Visit Level 4 Est 43884 Sjogren's syndrome Overall stable. Continue follow-up with Dr. Varghese. Ordered: Office Visit Level 4 Est 28190 Orders: gabapentin, 600 mg 1 tabs, Oral, BID, # 90 tabs, 3 Refill(s), Pharmacy : [facility] #[id number], 1 tabs Oral TID
--- OUTSIDE RECORDS SUMMARY | 2016-09-11 11:50 | XMS REPORT | Referral Summary ---
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 Mosaic Tile Maker Name Role Phone Agustin Lamb Primary Care Physician [phone] Encounter VC Date(s): 10/30/14 - 10/30/14 [facility] [address] [place] [address] [place] [phone] [place] Discharge Diagnosis: Spinal stenosis Discharge Diagnosis: [...] # 90 tabs, 1 Refill( s), eRx: [facility] #[id number], TAKE 1/2 TABLET BY MOUTH TWO TIMES A DAY Start Date: 12/19/14 Status: Ordered gabapentin 600 mg oral tablet See Instructions, TAKE ONE TABLET BY MOUTH THREE TIMES A DAY, # 90 tabs, 4 Refill(s), eRx: [facility] #[id number], TAKE ONE TABLET BY MOUTH THREE TIMES A DAY Start Date: 12/03/14 Status: Ordered losartan-hydrochlorothiazide 100 mg-25 mg oral tablet See Instructions, TAKE ONE TABLET BY MOUTH DAILY, # 30 tabs, 5 Refill(s), eRx: [facility] #[id number], TAKE ONE TABLET BY MOUTH DAILY Start Date: 01/15/15 Status: Ordered multivitamin 1 tabs, Oral, Daily, 0 Refill(s) Start Date: 11/11/13 Status: Ordered omeprazole 20 mg oral delayed release capsule 1 caps, Oral, Daily, # 30 caps, 0 Refill(s), Pharmacy: [facility] #[id number] , 1 caps Oral Daily Start Date: 07/31/14 Status: Ordered Parafon Forte DSC 500 mg oral tablet See Instructions, TAKE ONE TABLET BY MOUTH TWICE A DAY, # 20 tabs, eRx: [facility] #[id number], TAKE ONE TABLET BY MOUTH TWICE A [...] 2.Spinal stenosis I discussed possibly trying duloxetine. [facility] also reviewed this medication ather last appointment. [...]
--- OUTSIDE RECORDS SUMMARY | 2016-09-11 11:50 | XMS REPORT | Referral Summary ---
Author Author [facility], [facility] Organization [facility] Address Unknown Phone Unavailable Care Team Providers Care Private Pilot Name Role Phone Agustin Lamb Primary Care Physician [phone] Encounter VC Date(s): 11/16/15 - 11/16/15 [facility] [place] [phone] [place] Discharge Diagnosis: COPD (chronic obstructive pulmonary disease) Discharge Diagnosis: Benign essential hypertension Discharge Diagnosis: Obesity Discharge Diagnosis: Mixed hypoglycemia Discharge Diagnosis: Mixed hyperlipidemia Discharge Diagnosis: Radicular leg pain Discharge Diagnosis: Polyosteoarthritis Discharge Disposition: 01-Home or Self Care Attending Physician: Jonathan Lamb MD Admitting Physician: Jonathan Lamb MD Vital Signs Most recent to 1 oldest [Reference Range]: Temperature Tympanic 36.0 degC [36.6-38.1 degC] *LOW* (11/16/15 9:29 AM) Peripheral Pulse 76 bpm Rate [60-100 bpm] (11/16/15 9:29 AM) Respiratory Rate 20 br/min [14-20 br/min] (11/16/15 9:29 AM) Blood Pressure 156/84 mmHg [90-140/60-90 mmHg] *HI* (11/16/15 9:29 AM) Problem List Condition Effective Dates Status [...] # 90 tabs, 1 Refill( s), eRx: [facility] #[id number], TAKE 1/2 TABLET BY MOUTH TWO TIMES A DAY Start Date: 06/10/15 Status: Ordered chlorzoxazone 500 mg oral tablet See Instructions, TAKE ONE TABLET BY MOUTH TWICE A DAY, # 20 tabs, eRx: [facility] #[id number], TAKE ONE TABLET BY MOUTH TWICE A DAY Start Date: 10/12/15 Status: Ordered gabapentin 600 mg oral tablet See Instructions, TAKE ONE TABLET BY MOUTH THREE TIMES A DAY, # 90 tabs, 2 Refill(s), eRx: [facility] #[id number], TAKE ONE TABLET BY MOUTH THREE TIMES A DAY Start Date: 08/11/15 Status: Ordered losartan-hydrochlorothiazide 100 mg-25 mg oral tablet 1 tabs, Oral, Daily, X 90 days, # 90 tabs, 3 Refill(s), Pharmacy: [facility] #[id number] Start Date: 08/14/15 Stop Date: 08/08/16 Status: Ordered multivitamin 1 tabs, Oral, Daily, 0 Refill(s) Start Date: 11/11/13 Status: Ordered omeprazole 20 mg oral delayed release capsule 1 caps, Oral, Daily, # 30 caps, 0 Refill(s), Pharmacy: [facility] #[id number] , 1 caps Oral Daily Start Date: 07/31/14 Status: Ordered traMADol 50 mg oral tablet 100 mg 2 tabs, Oral, q6hr, as needed for pain, n dillobrittany, # 60 tabs, 0 Refill(s) , N dillons Start Date: 11/16/15 Status: Ordered Tylenol Extra Strength mg, Oral, [...] Patient Education Author: Jonathan Lamb MD Date: Preventive Medicine Heart Disease Prevention Heart disease is a leading cause of . There are many things you can do to help prevent heart disease. BE PHYSICALLY ACTIVE Physical activity is good for your heart. It helps control your blood pressure, cholesterol levels, and weight. Try to be physically active every day. Ask your health care provider what activities are best for you. BE A HEALTHY WEIGHT Extra weight can strain your heart and affect your blood pressure and cholesterol levels. Lose weight with diet and exercise if recommended by your health care provider. EAT HEART-HEALTHY FOODS Follow a healthy eating plan as recommended by your health care provider or dietitian. Heart-healthy foods include: High-fiber foods. These include oat bran, oatmeal, and whole-grain breads and cereals. Fruits and vegetables. Avoid: Alcohol. Fried foods. Foods high in saturated fat. These include meats, butter, whole dairy products, shortening, and coconut or palm oil. Salty foods. These include canned food, luncheon meat, salty snacks, and fast food. KEEP YOUR CHOLESTEROL LEVELS UNDER CONTROL Cholesterol is a substance that is used for many important functions. When your cholesterol levels are high, cholesterol can stick to the insides of your blood vessels, making them narrow or clog. This can lead to chest pain (angina) and a heart attack. Keep your cholesterol levels under control as recommended by your health care provider. Have your cholesterol checked at least once a year. Target cholesterol levels (in mg/dL) for most people are: Total cholesterol below 200. LDL cholesterol below 100. HDL cholesterol above 40 in men and above 50 in women. Triglycerides below 150. KEEP YOUR BLOOD PRESSURE UNDER CONTROL Having high blood pressure (hypertension) puts you at risk for stroke and other forms of heart disease. Keep your blood pressure under control as recommended by your health care provider. Ask your health care provider if you need treatment to lower your blood pressure. If you are 1839 years of age, have your blood pressure checked every 35 years. If you are 40 years of age or older, have your blood pressure checked every year. DO NOT USE TOBACCO PRODUCTS Tobacco smoke can damage your heart and blood vessels. Do not use any tobacco products including cigarettes, chewing tobacco, or electronic cigarettes. If you need help quitting, ask your health care provider. TAKE MEDICINES DIRECTED Take medicines only as directed by your health care provider. Ask your health care provider whether you should take an aspirin every day. Taking aspirin can help reduce your risk of heart disease and stroke. FOR MORE INFORMATION To find out more about heart disease, visit the [place] [employer]'s website at www.americanheart.org This information is not intended to replace advice given to you by your health care provider. Make sure you discuss any questions you have with your health care provider. Document Released: 12/20/2004 Document Revised: 05/29/2015 Document Reviewed: [employer] Patient Information 2016 [employer]. No follow up information was provided. Extracted from: Title: Office Visit Note Author: Jonathan Lamb MD Date: 11/16/15 Assessment/Plan 1.Benign essential hypertension, Essential (primary) hypertension Blood pressures a little high here today but she's checking it at home and it'sconsistently in the normal range. Medications and treatments reviewed no changes are recommended. She'll continue to monitor at home. Follow-up in 3 months. Recent laboratory work was reviewed and report card reviewed and provided. Ordered: Office Visit Level 4 Est 93739 2.COPD (chronic obstructive pulmonary disease), Chronic obstructive pulmonary disease, unspecified Chronic and stable off of oxygen no furtherchange in treatment is recommended. Recheck in 3 months. Ordered: Office Visit Level 4 Est 59763 3.Polyosteoarthritis, Polyosteoarthritis, unspecified Chronic persistenttramadol refilled no change in treatment otherwise. Ordered: Office Visit Level 4 Est 29372 6.Mixed hyperlipidemia, Mixed hyperlipidemia Recent laboratory studies reviewed triglycerides are mildly elevated. HDL to total cholesterol ratio reasonable no change in current treatment recommended. Ordered: Office Visit Level 4 Est 37666 7.Radicular leg pain, Radiculopathy, site unspecified Recommended continuinggabapentin and refills on tramadol. I've recommended [facility] Ordered: Office Visit Level 4 Est 12022 Orders: traMADol, 100 mg 2 tabs, Oral, q6hr, as needed for pain, n larry, # 60 tabs, 0 Refill(s), N larry
--- OUTSIDE RECORDS SUMMARY | 2016-09-11 11:50 | XMS REPORT | Referral Summary ---
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 Warehouse Order Picker Name Role Phone Agustin Lamb Primary Care Physician [phone] Encounter VC Date(s): 10/30/14 - 10/30/14 [facility] [address] [place] [address] [place] [phone] [place] Discharge Diagnosis: Spinal stenosis Discharge Diagnosis: [...] # 90 tabs, 1 Refill( s), eRx: [facility] #[id number], TAKE 1/2 TABLET BY MOUTH TWO TIMES A DAY Start Date: 12/19/14 Status: Ordered gabapentin 600 mg oral tablet See Instructions, TAKE ONE TABLET BY MOUTH THREE TIMES A DAY, # 90 tabs, 4 Refill(s), eRx: [facility] #[id number], TAKE ONE TABLET BY MOUTH THREE TIMES A DAY Start Date: 12/03/14 Status: Ordered losartan-hydrochlorothiazide 100 mg-25 mg oral tablet See Instructions, TAKE ONE TABLET BY MOUTH DAILY, # 30 tabs, 5 Refill(s), eRx: [facility] #[id number], TAKE ONE TABLET BY MOUTH DAILY Start Date: 01/15/15 Status: Ordered multivitamin 1 tabs, Oral, Daily, 0 Refill(s) Start Date: 11/11/13 Status: Ordered omeprazole 20 mg oral delayed release capsule 1 caps, Oral, Daily, # 30 caps, 0 Refill(s), Pharmacy: [facility] #[id number] , 1 caps Oral Daily Start Date: 07/31/14 Status: Ordered Parafon Forte DSC 500 mg oral tablet See Instructions, TAKE ONE TABLET BY MOUTH TWICE A DAY, # 20 tabs, eRx: [facility] #[id number], TAKE ONE TABLET BY MOUTH TWICE A [...] 2.Spinal stenosis I discussed possibly trying duloxetine. [facility] also reviewed this medication ather last [...]
--- OUTSIDE RECORDS SUMMARY | 2016-09-11 11:50 | XMS REPORT | Referral Summary ---
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 Rn Chemical Dependency Name Role Phone Agustin Lamb Primary Care Physician [phone] Encounter VC Date(s): 10/30/14 - 10/30/14 [facility] [address] [place] [address] [place] [phone] [place] Discharge Diagnosis: Spinal stenosis Discharge Diagnosis: [...] [facility] #[id number], TAKE 1/2 TABLET BY MOUTH TWO TIMES A DAY Start Date: 12/19/14 Status: Ordered gabapentin 600 mg oral tablet See Instructions, TAKE ONE TABLET BY MOUTH THREE TIMES A DAY, # 90 tabs, 4 Refill(s), eRx: [facility] #[id number], TAKE ONE TABLET BY MOUTH THREE TIMES A DAY Start Date: 12/03/14 Status: Ordered losartan-hydrochlorothiazide 100 mg-25 mg oral tablet See Instructions, TAKE ONE TABLET BY MOUTH DAILY, # 30 tabs, 5 Refill(s), eRx: [facility] #[id number], TAKE ONE TABLET BY MOUTH DAILY Start Date: 01/15/15 Status: Ordered multivitamin 1 tabs, Oral, Daily, 0 Refill(s) Start Date: 11/11/13 Status: Ordered omeprazole 20 mg oral delayed release capsule 1 caps, Oral, Daily, # 30 caps, 0 Refill(s), Pharmacy: [facility] #[id number] , 1 caps Oral Daily Start Date: 07/31/14 Status: Ordered Parafon Forte DSC 500 mg oral tablet See Instructions, TAKE ONE TABLET BY MOUTH TWICE A DAY, # 20 tabs, eRx: [facility] #[id number], TAKE ONE TABLET BY MOUTH TWICE A [...] 2.Spinal stenosis I discussed possibly trying duloxetine. [place] also reviewed this medication ather last appointment. [...]
--- OUTSIDE RECORDS SUMMARY | 2016-09-11 11:50 | XMS REPORT | Referral Summary ---
Author Author [facility], [facility] Organization [facility] Address Unknown Phone Unavailable Care Team Providers Care Wool Merchant Name Role Phone Agustin Lamb Primary Care Physician [phone] Encounter VC Date(s): 11/06/14 - 11/06/14 [facility] [address] [place] [phone] [place] Discharge Diagnosis: Sjogren's syndrome Discharge Diagnosis: [...] # 90 tabs, 1 Refill( s), eRx: [facility] #[id number], TAKE 1/2 TABLET BY MOUTH TWO TIMES A DAY Start Date: 12/19/14 Status: Ordered gabapentin 600 mg oral tablet See Instructions, TAKE ONE TABLET BY MOUTH THREE TIMES A DAY, # 90 tabs, 1 Refill(s), eRx: [facility] #[id number], TAKE ONE TABLET BY MOUTH THREE TIMES A DAY Start Date: 04/21/15 Status: Ordered losartan-hydrochlorothiazide 100 mg-25 mg oral tablet See Instructions, TAKE ONE TABLET BY MOUTH DAILY, # 30 tabs, 5 Refill(s), eRx: [facility] #[id number], TAKE ONE TABLET BY MOUTH DAILY Start Date: 01/15/15 Status: Ordered multivitamin 1 tabs, Oral, Daily, 0 Refill(s) Start Date: 11/11/13 Status: Ordered omeprazole 20 mg oral delayed release capsule 1 caps, Oral, Daily, # 30 caps, 0 Refill(s), Pharmacy: [facility] #[id number] , 1 caps Oral Daily Start Date: 07/31/14 Status: Ordered Parafon Forte DSC 500 mg oral tablet See Instructions, TAKE ONE TABLET BY MOUTH TWICE A DAY, # 20 tabs, eRx: [facility] #[id number], TAKE ONE TABLET BY MOUTH TWICE A [...] Released: 05/08/2006 Document Revised: 07/30/2012 Document Reviewed: [facility] Patient Information 2014 [employer]. No follow up information was provided. Extracted [...] Form: Injection Office Visit Level 4 Est 23861 COPD (chronic obstructive pulmonary disease) Overall stable no change in current treatment. I did recommend and give Prevnar today. Follow-up in 3 months. Ordered: pneumococcal 13-valent conjugate vaccine, 0.5 mL, IntraMuscular, Once, First Dose: 11/06/14 15:00:00 CDT, Stop Date: 11/06/14 15:00:00 CDT, Form: Injection Office Visit Level 4 Est 34234 Erosive osteoarthritis We talked about her chronic pain. I've asked her to increase her gabapentin to 600 mg twice a day and see if that doesn't help. Side effects were reviewed. She may continue to use her hydrocodone and tramadol as she is doing. Ordered: Office Visit Level 4 Est 64896 Pure hypercholesterolemia Chronic stable no change in current treatment plan. Ordered: Office Visit Level 4 Est 28301 Sjogren's syndrome Overall stable. Continue follow-up with Dr. Varghese. Ordered: Office Visit Level 4 Est 86869 Orders: gabapentin, 600 mg 1 tabs, Oral, BID, # 90 tabs, 3 Refill(s), Pharmacy : [facility] #[id number], 1 tabs Oral TID
--- OUTSIDE RECORDS SUMMARY | 2016-09-11 11:50 | XMS REPORT | Referral Summary ---
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 Discharge Diagnosis: Benign essential hypertension Discharge Diagnosis: COPD (chronic obstructive pulmonary disease) Discharge Disposition: 01-Home or Self Care Attending Physician: Jonathan Lamb MD Admitting Physician: Jonathan Lamb MD Vital Signs Most recent to 1 oldest [Reference Range]: Temperature Tympanic 36.4 degC [36.6-38.1 degC] *LOW* (08/14/15 8:57 AM) Peripheral Pulse 72 bpm Rate [60-100 bpm] (08/14/15 8:57 AM) Respiratory Rate 16 br/min [14-20 br/min] (08/14/15 8:57 AM) Blood Pressure 140/70 mmHg [90-140/60-90 mmHg] (08/14/15 8:57 AM) Problem List Condition Effective Dates Status [...] 90 tabs, 1 Refill( s), eRx: [facility] #[id number], TAKE 1/2 TABLET BY MOUTH TWO TIMES A DAY Start Date: 06/10/15 Status: Ordered gabapentin 600 mg oral tablet See Instructions, TAKE ONE TABLET BY MOUTH THREE TIMES A DAY, # 90 tabs, 2 Refill(s), eRx: [facility] #[id number], TAKE ONE TABLET BY MOUTH THREE TIMES A DAY Start Date: 08/11/15 Status: Ordered losartan-hydrochlorothiazide 100 mg-25 mg oral tablet 1 tabs, Oral, Daily, X 90 days, # 90 tabs, 3 Refill(s), Pharmacy: [facility] #[id number] Start Date: 08/14/15 Stop Date: 08/08/16 Status: Ordered multivitamin 1 tabs, Oral, Daily, 0 Refill(s) Start Date: 11/11/13 Status: Ordered omeprazole 20 mg oral delayed release capsule 1 caps, Oral, Daily, # 30 caps, 0 Refill(s), Pharmacy: [facility] #[id number] , 1 caps Oral Daily Start Date: 07/31/14 Status: Ordered Parafon Forte DSC 500 mg oral tablet See Instructions, TAKE ONE TABLET BY MOUTH TWICE A DAY, # 20 tabs, 0 Refill(s), Pharmacy: [facility] #[id number], TAKE ONE TABLET BY MOUTH TWICE A DAY Start Date: 08/14/15 Status: Ordered traMADol 50 mg oral tablet 100 mg 2 tabs, Oral, q6hr, as needed for pain, n dillons, # 60 tabs, 0 Refill(s) , N dillons Start Date: 07/01/15 Status: Ordered Tylenol Extra Strength mg, Oral, [...] Patient Education Author: Jonathan Lamb MD Date: Emergency Medicine Chronic Obstructive Pulmonary Disease Chronic obstructive [...] discoloration (cyanosis) of the skin, especially in your fingers, toes, or lips. Fatigue. Weight loss. Frequent infections or episodes when breathing symptoms become much worse (exacerbations). Chest tightness. DIAGNOSIS Your health care provider will take a medical history and perform a physical examination to diagnose COPD. Additional tests for COPD may include: Lung (pulmonary) function tests. Chest X-ray. CT scan. Blood tests. TREATMENT Treatment for COPD may include: Inhaler and nebulizer medicines. These help manage the symptoms of COPD and make your breathing more comfortable. Supplemental oxygen. Supplemental oxygen is only helpful if you have a low oxygen level in your blood. Exercise and physical activity. These are beneficial for nearly all people with COPD. Lung surgery or transplant. Nutrition therapy to gain weight, if you are underweight. Pulmonary rehabilitation. This may involve working with a team of health care providers and specialists, such as respiratory, occupational, and physical therapists. HOME CARE INSTRUCTIONS Take all medicines (inhaled or pills) as directed by your health care provider. Avoid cger-upv-cpiqigm medicines or cough syrups that dry up your airway (such as antihistamines) and slow down the elimination [...] coughs. The steps of controlled coughing are: 1.Lean your head slightly forward. 2.Breathe in deeply using diaphragmatic breathing. 3.Try to hold your breath for 3 seconds. 4.Keep your mouth slightly open while coughing twice. 5.Spit any mucus out into a tissue. 6.Rest and repeat the steps once or twice [...] with your health care provider. Document Released: 02/15/2006 Document Revised: 02/24/2015 Document Reviewed: [facility] Patient Information 2015 [employer]. No follow up information was provided. Extracted from: Title: Office Visit Note Author: Jonathan Lamb MD Date: 08/14/15 Assessment/Plan Benign essential hypertension Blood pressure is well controlled. Medications and treatmentsreviewed and no changes are recommended. Report card reviewed and provided. Follow-up in 3 months with labprior to that appointment. Ordered: Office Visit Level 4 Est 40103 COPD (chronic obstructive pulmonary disease) This appears to be chronic and stable. Will schedule an overnight oximetry see if she still needs oxygen. Ordered: Office Visit Level 4 Est 89390 Hereditary and idiopathic neuropathy Chronic stable no change in current treatment. Ordered: Office Visit Level 4 Est 45050 Polyosteoarthritis Chronic and stable no change in current treatment. I did refill chlorzoxazone for her to be used when necessary warned about drowsiness andpotential increased for fall risk. Ordered: Office Visit Level 4 Est 69666 Orders: chlorzoxazone, See Instructions, TAKE ONE TABLET BY MOUTH TWICE A DAY , # 20 tabs, 0 Refill(s), Pharmacy: [facility] #[id number], TAKE ONE TABLET BY MOUTH TWICE A DAY losartan-hydrochlorothiazide, 1 tabs, Oral, Daily, X 90 days, # 90 tabs, 3 Refill(s), Pharmacy: [facility] #[id number]
--- OUTSIDE RECORDS SUMMARY | 2016-09-11 11:50 | XMS REPORT | Referral Summary ---
Author Author [facility], [facility] Organization [facility] Address Unknown Phone Unavailable Care Team Providers Care Production Scheduler Name Role Phone Agustin Lamb Primary Care Physician [phone] Encounter VC Date(s): 02/09/15 - 02/09/15 [facility] [address] [place] [phone] Discharge Diagnosis: Benign essential hypertension Discharge Diagnosis: COPD (chronic obstructive pulmonary disease) Discharge Diagnosis: Erosive osteoarthritis Discharge Diagnosis: Pure hypercholesterolemia Discharge Disposition: 01-Home or Self Care Attending Physician: Jonathan Lamb MD Admitting Physician: Jonathan Lamb MD Vital Signs Most recent to 1 oldest [Reference Range]: Temperature Tympanic 36.1 degC [36.6-38.1 degC] *LOW* (02/09/15 9:51 AM) Peripheral Pulse 64 bpm Rate [60-100 bpm] (02/09/15 9:51 AM) Blood Pressure 136/76 mmHg [90-140/60-90 mmHg] (02/09/15 9:51 AM) Problem List Condition Effective Dates Status [...] # 90 tabs, 1 Refill( s), eRx: [facility] #[id number], TAKE 1/2 TABLET BY MOUTH TWO TIMES A DAY Start Date: 06/10/15 Status: Ordered gabapentin 600 mg oral tablet See Instructions, TAKE ONE TABLET BY MOUTH THREE TIMES A DAY, # 90 tabs, 2 Refill(s), eRx: [facility] #[id number], TAKE ONE TABLET BY MOUTH THREE TIMES A DAY Start Date: 08/11/15 Status: Ordered losartan-hydrochlorothiazide 100 mg-25 mg oral tablet 1 tabs, Oral, Daily, X 90 days, # 90 tabs, 3 Refill(s), Pharmacy: [facility] #[id number] Start Date: 08/14/15 Stop Date: 08/08/16 Status: Ordered multivitamin 1 tabs, Oral, Daily, 0 Refill(s) Start Date: 11/11/13 Status: Ordered omeprazole 20 mg oral delayed release capsule 1 caps, Oral, Daily, # 30 caps, 0 Refill(s), Pharmacy: [facility] #[id number] , 1 caps Oral Daily Start Date: 07/31/14 Status: Ordered Parafon Forte DSC 500 mg oral tablet See Instructions, TAKE ONE TABLET BY MOUTH TWICE A DAY, # 20 tabs, 0 Refill(s), Pharmacy: [facility] #[id number], TAKE ONE TABLET BY MOUTH TWICE A [...] vaccine, inactivated 02/21/14 influenza virus vaccine, live 9/19/13 influenza virus vaccine, live 03/09/12 pneumococcal 13-valent [...] Visit Note Author: Jonathan Lamb MD Date: 02/09/15 Assessment/Plan Benign essential hypertension Blood pressure is adequately controlled. Report card reviewed and provided. Medications reviewed no changes recommended. Recent laboratory studies reviewed. Follow-up in 3 months. Ordered: Office Visit Level 4 Est 84379 COPD (chronic obstructive pulmonary disease) Chronic stable no change in current treatment recommended. Ordered: Office Visit Level 4 Est 21251 Erosive osteoarthritis Chronic with worsening left shoulder pain. We discussed cortisone injection as well as orthopedic referral. She's like to see an orthopedic doctor for this and we'll set her up with an appointment. Ordered: Office Visit Level 4 Est 49879 Pure hypercholesterolemia Chronic stable no change in current treatment. Laboratory studies reviewed. Ordered: Office Visit Level 4 Est 14452
--- OUTSIDE RECORDS SUMMARY | 2016-09-11 11:51 | XMS REPORT | Referral Summary ---
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 Television Script Writer Name Role Phone Agustin Lamb Primary Care Physician [phone] Encounter VC Date(s): 10/30/14 - 10/30/14 [facility] [address] [place] [address] [place] [phone] [place] Discharge Diagnosis: Spinal stenosis Discharge Diagnosis: [...] # 90 tabs, 1 Refill( s), eRx: [facility] #[id number], TAKE 1/2 TABLET BY MOUTH TWO TIMES A DAY Start Date: 12/19/14 Status: Ordered gabapentin 600 mg oral tablet See Instructions, TAKE ONE TABLET BY MOUTH THREE TIMES A DAY, # 90 tabs, 4 Refill(s), eRx: [facility] #[id number], TAKE ONE TABLET BY MOUTH THREE TIMES A DAY Start Date: 12/03/14 Status: Ordered losartan-hydrochlorothiazide 100 mg-25 mg oral tablet See Instructions, TAKE ONE TABLET BY MOUTH DAILY, # 30 tabs, 5 Refill(s), eRx: [facility] #[id number], TAKE ONE TABLET BY MOUTH DAILY Start Date: 01/15/15 Status: Ordered multivitamin 1 tabs, Oral, Daily, 0 Refill(s) Start Date: 11/11/13 Status: Ordered omeprazole 20 mg oral delayed release capsule 1 caps, Oral, Daily, # 30 caps, 0 Refill(s), Pharmacy: [facility] #[id number] , 1 caps Oral Daily Start Date: 07/31/14 Status: Ordered Parafon Forte DSC 500 mg oral tablet See Instructions, TAKE ONE TABLET BY MOUTH TWICE A DAY, # 20 tabs, eRx: [facility] #[id number], TAKE ONE TABLET BY MOUTH TWICE A [...] 2.Spinal stenosis I discussed possibly trying duloxetine. [facility] [...]
--- OUTSIDE RECORDS SUMMARY | 2016-09-11 11:51 | XMS REPORT | Referral Summary ---
Author Author [facility], [facility] Organization [facility] Address Unknown Phone Unavailable Care Team Providers Care Paraplanner Name Role Phone Agustin Lamb Primary Care Physician [phone] Encounter VC Date(s): 11/06/14 - 11/06/14 [facility] [address] [place] [phone] Discharge Diagnosis: Sjogren's syndrome Discharge Diagnosis: [...] 90 tabs, 1 Refill( s), eRx: [facility] #[id number], TAKE 1/2 TABLET BY MOUTH TWO TIMES A DAY Start Date: 12/19/14 Status: Ordered gabapentin 600 mg oral tablet See Instructions, TAKE ONE TABLET BY MOUTH THREE TIMES A DAY, # 90 tabs, 4 Refill(s), eRx: [facility] #[id number], TAKE ONE TABLET BY MOUTH THREE TIMES A DAY Start Date: 12/03/14 Status: Ordered losartan-hydrochlorothiazide 100 mg-25 mg oral tablet See Instructions, TAKE ONE TABLET BY MOUTH DAILY, # 30 tabs, 5 Refill(s), eRx: [facility] #[id number], TAKE ONE TABLET BY MOUTH DAILY Start Date: 01/15/15 Status: Ordered multivitamin 1 tabs, Oral, Daily, 0 Refill(s) Start Date: 11/11/13 Status: Ordered omeprazole 20 mg oral delayed release capsule 1 caps, Oral, Daily, # 30 caps, 0 Refill(s), Pharmacy: [facility] #[id number] , 1 caps Oral Daily Start Date: 07/31/14 Status: Ordered Parafon Forte DSC 500 mg oral tablet See Instructions, TAKE ONE TABLET BY MOUTH TWICE A DAY, # 20 tabs, eRx: [facility] #[id number], TAKE ONE TABLET BY MOUTH TWICE A [...] Released: 05/08/2006 Document Revised: 07/30/2012 Document Reviewed: [facility] Patient Information 2014 [employer]. No follow up information was provided. Extracted [...] Form: Injection Office Visit Level 4 Est 00196 COPD (chronic obstructive pulmonary disease) Overall stable no change in current treatment. I did recommend and give Prevnar today. Follow-up in 3 months. Ordered: pneumococcal 13-valent conjugate vaccine, 0.5 mL, IntraMuscular, Once, First Dose: 11/06/14 15:00:00 CDT, Stop Date: 11/06/14 15:00:00 CDT, Form: Injection Office Visit Level 4 Est 44252 Erosive osteoarthritis We talked about her chronic pain. I've asked her to increase her gabapentin to 600 mg twice a day and see if that doesn't help. Side effects were reviewed. She may continue to use her hydrocodone and tramadol as she is doing. Ordered: Office Visit Level 4 Est 50774 Pure hypercholesterolemia Chronic stable no change in current treatment plan. Ordered: Office Visit Level 4 Est 41953 Sjogren's syndrome Overall stable. Continue follow-up with Dr. Varghese. Ordered: Office Visit Level 4 Est 81562 Orders: gabapentin, 600 mg 1 tabs, Oral, BID, # 90 tabs, 3 Refill(s), Pharmacy : [facility] #[id number], 1 tabs Oral TID
[2016-09-11] MEDS ORDERED: TRAM50TA4 PO (12:02)
[2016-09-11] MEDS ORDERED: LOSA1TAB96 PO (12:02)
[2016-09-11] MEDS ORDERED: ATEN100T PO (12:02)
[2016-09-11] MEDS ORDERED: ELDERBERRY PO (12:03)
[2016-09-11] MEDS ORDERED: CHLO500T2 PO (12:04)
--- NOTE | 2016-09-11 12:08 | ERPDOC ---
Departure Disposition Decision Date: Sep 11, 2016 Disposition Decision Time: 14:26 Disposition: 01 DISCHARGED HOME, SELF-CARE Impression Impression Impression: Primary Impression: Viral syndrome Additional Impressions: Chronic anemia Hyponatremia Sciatica of right side Left shoulder pain Chronicity: chronic Qualified Codes: G89.29 - Other chronic pain; M25.512 - Pain in left shoulder Severity: Moderate Condition: Improved Seen By: Mid-level only Referrals: STEPHANIE PEDRO MD (Family) Patient Instructions: Anemia (ED), Sciatica (ED), Viral Syndrome (ED) Problems/Meds/Labs Reviewed?: Yes Medications reviewed and manag: Yes Additional Instructions: Your CBC indicates you have a viral illness. Your hemoglobin is low which appears to be chronic. Your sodium is also low. Please follow this week with Dr. Pedro for re-evaluation and follow up on hemoglobin, sodium, sciatica and shoulder pain. You may take norco 5/325m, 1-2 tabs every 4-6 hours as needed for pain. Start with 1 tab to see how you tolerated medication. This medication may cause drowsiness so avoid operating heavy machinery, driving or drinking alcohol. This medication may cause constipation so you may need to take a stool softener while taking. You may dissolve 1 Zofran 4mg ODT tab on tongue for nausea as needed. Follow up care ordered?: Yes Mental Status: Alert, Oriented Scripts Ondansetron (Zofran Odt) 4 Mg Tab.rapdis 4 MG PO Q6-8HPRN for NAUSEA &/OR VOMITING, #15 TAB Oral disintegrating tablet Prov: ALLYSON MENDIOLA BURRING WHEEL OPERATOR 09/11/16 Hydrocodone/Acetaminophen ([place] 5-325 Tablet) 5-325 Tablet 1-2 TAB PO Q4-6HPRN Y for PAIN, #30 TAB Prov: ALLYSON MENDIOLA BURRING WHEEL OPERATOR 09/11/16 HPI - General Medical General Chief Complaint: General Stated Complaint: LEFT SHOULDER PAIN, NASEAU, RIGHT HIP/BACK PAIN Time Seen by Provider: 12:07 Source: patient HPI - General Medical Initial Comments 86-year-old female presents to ER with complaint of right buttocks pain radiating into right thigh, nausea, left shoulder pain, decreased appetite and generalized malaise since 09-08-16. Patient states that she thought she might just have the "flu" but her symptoms have not improved. Patient does report that she had 4 lower back surgeries in the past so has history of this same type of back pain. Also has history of left shoulder pain for past 2 years. Admits rhinorrhea, sinus congestion, chronic cough, intermittent abdominal cramping and one diarrhea stool. Patient denies fever, chills, chest pain, SOA , dysuria, urinary frequency, recent fall or trauma. Associated Symptoms: DENIES: chest pain, diaphoresis, fever/chills, shortness of breath, weakness Allergies: Coded Allergies: cefdinir (Verified Allergy, Mild, DIARRHEA, 09/11/16) Past History Past Medical History Metabolic: hypertension Cardiac: CHF Respiratory: COPD, pneumonia Female: DENIES: renal insufficiency Neurological: DENIES: seizures Musculoskeletal: back pain Psychological: DENIES: depression Surgical History General: appendix, back, gallbladder Family History Family PMH: FOUND: NM, diabetes, hypertension Vaccines Hx Influenza Vaccination: Yes (FEB 2011) Hx Pneumococcal Vaccination: Yes (2005) Social History Current Occupational Status: retired Review of Systems Constitutional Constitutional: appetite decrease, other (malaise), DENIES: chills, dizziness, fever, weakness Eyes General: DENIES: erythema, exudate Lids/Accessories: DENIES: erythema, swelling ENMT Ears: DENIES: pain Hearing: hearing loss Sinuses: congestion, rhinorrhea Mouth/Throat: DENIES: sore throat Cardiovascular Cardiac: DENIES: chest pain, murmur Rhythm/Rate: DENIES: palpitations Pulmonary Respiratory: DENIES: cough, dyspnea GI Upper Abdomen: nausea, DENIES: pain, vomiting Lower Abdomen: pain (intermittent mild abdominal cramping), DENIES: blood in stool, diarrhea General: DENIES: dysuria, frequency, pain, urgency Musculoskeletal General: joint pain, pain, see HPI, DENIES: tenderness Integumentary Skin: DENIES: color change, itching, rash Neurological General: DENIES: ataxia, change in strength, numbness, paralysis/paresis, weakness Psychiatric Psychiatric: DENIES: anxiety, depression, nervousness Physical Exam General General Nourishment: well nourished, well developed, no acute distress, adult General Body Habitus: well groomed Vitals and Pain First Documented Vital Signs Date Time Temp Pulse Resp B/P Pulse Ox O2 Delivery O2 Flow Rate FiO2 09/11/16 11:46 97.9 70 16 188/77 98 Room Air Weight: Kilograms: 69.500 Height (feet): 5 Height (inches): 2.00 Triage Pain Scale: Eyes (brief) Eyes Brief: found: EOMI, PERRL ENMT (brief) ENMT Brief: FOUND: TM clear, TM good light reflex, mucosa moist, NOT FOUND: nasal exudate, nasal swelling, pharnyx erythema Neck (brief) Neck: FOUND: trachea midline, NOT FOUND: adenopathy, tenderness, thyromegaly Respiratory (brief) Respiratory: FOUND: clear all aden, equal bilaterally, symmetrical Cardiovascular (brief) Cardiac: FOUND: regular rate, regular rhythm Pulses: all distal extremities, equal, strong Abdomen Inspection: NOT FOUND: distention Palpation: FOUND: soft, NOT FOUND: involuntary guarding, rebound, tender, voluntary guarding (no reproducible tenderness to palpation) Auscultation: FOUND: normoactive (x4) Musculoskeletal Joint #1: Side: Right Joint: hip, knee Joint Findings: NOT FOUND: ROM limited, deformity, discoloration, instability, pain (no reproducible hip pain), swelling Joint #2: Side: Left Joint: shoulder Joint Findings: FOUND: ROM limited (which is chronic according to patient), pain (mild TTP over AC joint), NOT FOUND: deformity, discoloration, instability , swelling Joint #3: Side: Left Joint: elbow Joint Findings: NOT FOUND: instability, pain, swelling Back: NOT FOUND: spasm, spine point tenderness, tenderness Integumentary (brief) Integumentary Brief: FOUND: dry, pink, warm Neurologic (brief) Neurological Brief: FOUND: CN w/o gross def to obs Neurologic Mental Status: FOUND: alert, oriented Cranial Nerves: NOT FOUND: facial asymmetry Motor : Motor Side: bilateral Motor Location: finger extensors, foot extension, housekeeper manager strength Motor Degree: 5 Psychiatric (brief) Psychiatric Brief: FOUND: normal affect Differential Diagnoses Considering: Acute NM, Depression, Hypo/Hyperglycemia, Hypo/Hyperkalemia, Hypo/ Hypernatremia, UTI, Other (Viral illness, OA, sciatica) Progress Results/Orders Orders Procedure Category Date Status Time Iv Lock (Ed Only) EDM 09/11/16 Transmitted 12:20 Nothing By Mouth (Ed EDM 09/11/16 Transmitted Only) 12:20 Cbc W/Auto LAB 4/23/17 Complete Diff-Reflex Manual 12:20 Cmp - Comprehensive LAB 09/11/16 Complete Metabolic 12:20 Ua, Dip Wreflex LAB 09/11/16 Complete Microsc & Retail Key Holder 12:20 Normal Saline (Normal PHA 09/11/16 Complete Saline Iv) 12:20 Ondansetron Inj PHA 09/11/16 Complete (Zofran) 12:30 Troponin I W LAB 09/11/16 Complete Hemolysis Index EKG EKG 09/11/16 Logged Morphine Sulfate PHA 09/11/16 Complete (Morphine) 13:45 Lab Results Laboratory Tests Test 09/11/16 12:45 09/11/16 13:43 White Blood Count 5.2T/MM3 Red Blood Count 3.49M/MM3 Hemoglobin 7.5GM/DL Hematocrit 25.4% Mean Corpuscular Volume 72.8UM3 Mean Corpuscular Hemoglobin 21.5UUG Mean Corpuscular Hemoglobin Concent 29.5GM/DL RDW Standard Deviation 39.0FL Platelet Count 226T/MM3 Mean Platelet Volume 10.7UM3 Immature Granulocyte % (Auto) 0.0% Neutrophils (%) (Auto) 77.6% Lymphocytes (%) (Auto) 10.1% Monocytes (%) (Auto) 9.7% Eosinophils (%) (Auto) 1.4% Basophils (%) (Auto) 1.2% Absolute Immature Granulocyte (auto 0.00T/MM3 Absolute Neutrophils (auto) 4.0T/MM3 Absolute Lymphocytes (auto) 0.5T/MM3 Absolute Monocytes (auto) 0.5T/MM3 Absolute Eosinophils (auto) 0.1T/MM3 Absolute Basophils (auto) 0.1T/MM3 Turbidity < 20 Sodium Level 129MEQ/L Potassium Level 3.9MEQ/L Chloride Level 92MEQ/L Carbon Dioxide Level 26MEQ/L Anion Gap 11MEQ/L Blood Urea Nitrogen 17.0MG/DL Creatinine 1.1MG/DL Glomerular Filtration Rate Calc 47 BUN/Creatinine Ratio 16RATIO Glucose Level 114MG/DL Calculated Osmolality 252MOSM/KG Calcium Level 9.7MG/DL Total Bilirubin 0.90MG/DL Icterus Index < 2 Aspartate Amino Transf (AST/SGOT) 28U/L Alanine Aminotransferase (ALT/SGPT) 33U/L Alkaline Phosphatase 58U/L Troponin I < 0.012ng/ml Total Protein 6.6G/DL Albumin 3.9G/DL Globulin 2.7G/DL Albumin/Globulin Ratio 1.4RATIO Chemistry Specimen Hemolysis < 15 Urine Collection Type Cleancatch-midstream Urine Color Yellow Urine Turbidity Clear Urine pH 6.0 Urine Specific [place] 1.010 Urine Protein Negative Urine Glucose (UA) Negative Urine Ketones Negative Urine Blood Negative Urine Nitrite Negative Urine Bilirubin Negative Urine Urobilinogen 0.2EU/DL Urine Leukocyte Esterase Negative Urinalysis Comment Microscopic not ind. Medications Current ED Medications Sodium Chloride (Normal Saline IV) 1,000 ml @ 0 mls/hr Q0M ONCE IV Last administered on 09/11/16 12:45; Start 09/11/16 at 12:20; Stop 09/11/16 at 12:23 ; Status DC Ondansetron HCl (Zofran) 4 mg O ONCE IV Last administered on 09/11/16 12:46; Start 09/11/16 at 12:30; Stop 09/11/16 at 12:31; Status DC Morphine Sulfate (Morphine) 2 mg O ONCE IV Last administered on 09/11/16 13: 56; Start 09/11/16 at 13:45; Stop 09/11/16 at 13:46; Status DC Progress Progress WBC 5.2 with Hgb 7.5 (last Hgb in our ED in 2010 and was 8.8 with past lab indicating a chronic anemia) NA 129 Troponin < 0.012 Patient reports improvement of pain after morphine and improvement of nausea after zofran. I discussed labs with patient and patient confirmed she does have hx. of chronic anemia and was doing better so was taken off of iron. I also discussed that if feel some of her symptoms (nausea, generalized body aches, malaise) are viral related. The increased sciatic and shoulder pain may be related to barometric pressure changes. Patient instructed to follow with PCP this week for re-evaluation and follow up on anemia, sodium and joint pain. Patient and her daughter verbalized understanding of discharge instruction, close follow up with PCP and return precautions. EKG EKG : Rate: 60-100 Rhythm: sinus [place]te: normal QRS: normal Intervals: normal ST/T: normal Interpreted by: signing physician (Dr. Mancini) ALLYSON MENDIOLA APRN Sep 11, 2016 12:08
--- NOTE | 2016-09-11 12:09 | NUR ---
PROVIDER Rui MENDIOLA APRN AT BEDSIDE FOR EXAM.
--- OUTSIDE RECORDS SUMMARY | 2016-09-11 12:15 | XMS REPORT | Continuity of Care Document ---
Author Author [facility] Organization [facility] Address Unknown Phone Unavailable Allergies Medications Problems Procedures Results Encounters ACCT No. Visit Date/Time Discharge Status Pt. Type Provider Facility Loc./Unit Complaint [id number] 08/15/2013 10:19:00 08/15/2013 23 :59:59 CLS Outpatient [id number] 05/30/2013 09:32:00 05/30/2013 23 :59:59 CLS Outpatient
[2016-09-11] MEDS ORDERED: NORMAL SALINE 1,000 ML IV ONE (12:20)
[2016-09-11] MEDS ORDERED: ONDANSETRON 4mg/2ml INJECTION IV ONE (12:30)
[2016-09-11 12:51] LABS: BASOPHILS # (AUTO) 0.1 T/MM3 (0-0.2); BASOPHILS % (AUTO) 1.2 % (0-2); EOSINOPHILS # (AUTO) 0.1 T/MM3 (0-0.5); EOSINOPHILS % (AUTO) 1.4 % (0-4); HCT - HEMATOCRIT 25.4 % (36-46); HGB - HEMOGLOBIN 7.5 GM/DL (12-16); LYMPHOCYTES # (AUTO) 0.5 T/MM3 (1-4.8); LYMPHOCYTES % (AUTO) 10.1 % (23-45); MEAN CORPUSCULAR HGB 21.5 UUG (26-34); MEAN CORPUSCULAR HGB CONC(MCHC 29.5 GM/DL (31-37); MEAN CORPUSCULAR VOLUME 72.8 UM3 (80-100); MEAN PLATELET VOLUME 10.7 UM3 (9.4-12.4); MONOCYTES # (AUTO) 0.5 T/MM3 (0-0.8); MONOCYTES % (AUTO) 9.7 % (0-9.0); NEUTROPHILS % (AUTO) 77.6 % (33-66); RED BLOOD COUNT 3.49 M/MM3 (4.00-5.20); WBC - WHITE BLOOD COUNT 5.2 T/MM3 (4.5-11.0)
[2016-09-11 13:01] LABS: ALBUMIN 3.9 G/DL (3.5-5.0); ALBUMIN/GLOBULIN RATIO 1.4 RATIO (1.1-2.2); ALKALINE PHOSPHATASE 58 U/L (38-126); ALT (SGPT) 33 U/L (9-52); ANION GAP 11 MEQ/L (5-15); AST (SGOT) 28 U/L (14-36); BUN/CREATININE RATIO 16 RATIO (6-26); CALCIUM 9.7 MG/DL (8.4-10.2); CHLORIDE 92 MEQ/L (98-107); CO2 - CARBON DIOXIDE 26 MEQ/L (22-30); CREATININE 1.1 MG/DL (0.7-1.2); GLOMERULAR FILTRATION RATE 47; GLUCOSE 114 MG/DL (65-110); POTASSIUM 3.9 MEQ/L (3.6-5); SODIUM 129 MEQ/L (134-144); TOTAL PROTEIN 6.6 G/DL (6.3-8.2)
--- NOTE | 2016-09-11 13:20 | NUR ---
STATUS 500CC BOLUS COMPLETE AT THIS TIME. PT DENIES COMPLAINT AT THIS TIME. REPORTS PAIN "DOESN'T BOTHER ME" WHILE LAYING IN BED. CALL LIGHT WITHIN REACH, VSS. WILL CONTINUE TO MONITOR.
[2016-09-11] MEDS ORDERED: MORPHINE SULFATE 2 MG SYRINGE IV ONE (13:45)
[2016-09-11 13:47] LABS: BLOOD, URINE NEGATIVE (NEGATIVE); COLOR,URINE YELLOW (YELLOW); LEUKOCYTE ESTERASE ,URINE NEGATIVE (NEGATIVE); NITRITE,URINE NEGATIVE (NEGATIVE); UROBILINOGEN,URINE 0.2 EU/DL (NORMAL)
--- NOTE | 2016-09-11 13:51 | NUR ---
PROVIDER Rui MENDIOLA APRN AT BEDSIDE TO SPEAK WITH PT.
--- NOTE | 2016-09-11 14:18 | NUR ---
PROVIDER Rui MENDIOLA APRN AT BEDSIDE FOR RECTAL EXAM ACCOMP BY THIS RN.
[2016-09-11] MEDS ORDERED: ONDA4TAB7 PO (14:41)
[2016-09-11] MEDS ORDERED: HYDR-4246 PO (14:41)
[2016-09-11 15:15] VITALS: BP 151/69; PULSE 65; RESP 24; TEMP 97.9; O2SAT 96
== END 2016-09-11 15:15 | disposition home or self-care (01) ==
LOC: ED 11:44
DX: M54.31 Sciatica, right side (principal); M25.512 Pain in left shoulder; G89.29 Other chronic pain; B34.9 Viral infection, unspecified; D64.9 Anemia, unspecified; E87.1 Hypo-osmolality and hyponatremia
CPT/HCPCS: 36415; 80053; 81003; 84484; 85025; 93005; 96361; 96374; 96375; 99284; J2405; J7030

== ENCOUNTER 2016-10-13 06:54 | Day surgery (SDC) | payer MEDICARE, BC ==
[~2016-10-13] VITALS: Ht 157.5 cm; Wt 68.5 kg
[~2016-10-13 06:54] MED LIST changes: +ATEN100T PO; -ATEN100T77 PO; -CALC-603 PO; +CHLO500T2 PO; -DULERA AEROSOL; +ELDERBERRY PO; -FURO-35 PO; -GABA-215 PO; +HYDR-4246 PO; +LOSA1TAB96 PO; -LOSA50TA17 PO; -MELO-11 PO; +OMEP20CA10 PO; -OMEP20CA81 PO; +ONDA4TAB7 PO
--- OUTSIDE RECORDS SUMMARY | 2016-10-13 06:59 | XMS REPORT | Continuity of Care Document ---
Author Author [facility] Organization [facility] Address Unknown Phone Unavailable Allergies Medications Problems Procedures Results Encounters ACCT No. Visit Date/Time Discharge Status Pt. Type Provider Facility Loc./Unit Complaint [id number] 08/15/2013 10:19:00 08/15/2013 23 :59:59 CLS Outpatient [id number] 05/30/2013 09:32:00 05/30/2013 23 :59:59 CLS Outpatient
[2016-10-13] MEDS ORDERED: LR 1,000 ML IV SCH (07:00)
[2016-10-13] MEDS ORDERED: LIDOCAINE 1% (10mg/ml) 2ml SDV INJ ONE (07:00)
--- OUTSIDE RECORDS SUMMARY | 2016-10-13 07:00 | XMS REPORT | Continuity of Care Document ---
Author Author [facility] Organization [facility] Address Unknown Phone Unavailable Support Name Relationship Address Phone KLEVERTAMI Lon BERNAL Caregiver [address] [place] [address] Unavailable STEPHANIE PEDRO MD Caregiver [address] [place] [address] Unavailable KATYAMARISSAMARLON Next Of Kin [address] [place], [place] [id number] Insurance Providers Guarantor Neptali,Nicolás L Address [address] [facility] [address] [place] [address] Email [email or web address] Payer Medicare Policy Number [id number] Subscriber's Name Padma Putnamjorie Ritesh Relationship 18 Self Effective Date 97 [facility] Policy Number [id number] Subscriber's Name Nicolás Putnam Ritesh Relationship 18 Self Group Number [id number] Chief Complaint and Reason for Visit Chief Complaint General Reason for Visit Sciatica of right side Hyponatremia [id number] Left shoulder pain Chronic anemia Problems Past Problems Medical Problem Onset Date Chronic anemia Unknown Hyponatremia Unknown Left shoulder pain Unknown Sciatica of right side Unknown Viral syndrome Unknown Medications Current Home Medications Medication Dose Units Route Directions Days Qty Instructions Start Date Aspirin 81 Mg Tablet 81 Mg Oral Daily 09/02/09 Atenolol 100 Mg Tablet 50 Mg Oral Twice A Day 09/11/16 Chlorzoxazone (Parafon Forte Dsc) 500 Mg Tablet 500 Mg Oral As Needed 09/11/16 Elderberry Caps 1 Cap Oral Daily 09/11/16 Glucosamine Hcl 1,500 Mg Tablet 1,500 Mg Oral Twice A Day Hydrocodone/Acetaminophen ([place] 5-325 Tablet) 5-325 Tablet 1-2 Tab Oral Every 4-6 Hours Prn as needed for Pain 30 Tablet 09/11/16 Losartan/Hydrochlorothiazide (Losartan-Hctz 100-25 Mg Tab) 1 Each Tablet 1 Tab Oral Daily 09/11/16 Multivitamins (Multiple Vitamin) 1 Tab Tablet 1 Tab Oral Daily Ondansetron (Zofran Odt) 4 Mg Tab.rapdis 4 Mg Oral Every 6-8 Hours Prn for Nausea &/Or Vomiting 15 Tablet Oral disintegrating tablet 09/11/16 Tramadol Hcl 50 Mg Tablet 50 Mg Oral As Needed 09/11/16 Past Home Medications Medication Directions Ordered Status Miller-3 Fatty Acids (Miller-3) 1,000 Mg Capsule, 600 Mg Oral Twice A Day 09/02 Discontinued Social History Social History Problem Response Recorded Date/Time Onset Date Status Chewing Tobacco Status No 09/11/2016 12:50pm Not Applicable Not Applicable Hx Substance Use No 09/11/2016 12:50pm Not Applicable Not Applicable Hx Alcohol Use Y SOCIALLY 09/11/2016 12:50pm Not Applicable Not Applicable Query Response Start Date Stop Date Smoking Status Former smoker Hospital Discharge Instructions No hospital discharge instructions. Plan of Care Discharge Date 09/11/16 3:15pm Disposition 01 DISCHARGED HOME, SELF-CARE Condition at Discharge Improved Instructions/Education Provided Sciatica (ED) Viral Syndrome (ED) Anemia (ED) Prescriptions See Medication Section Referrals STEPHANIE PEDRO MD Address: [address] [place] [address] [phone] Additional Instructions/Education Your CBC indicates you have a viral illness. Your hemoglobin is low which appears to be chronic. Your sodium is also low. Please follow this week with Dr. Pedro for re-evaluation and follow up on hemoglobin, sodium, sciatica and shoulder pain. You may take norco 5/325m, 1-2 tabs every 4-6 hours as needed for pain. Start with 1 tab to see how you tolerated medication. This medication may cause drowsiness so avoid operating heavy machinery, driving or drinking alcohol. This medication may cause constipation so you may need to take a stool softener while taking. You may dissolve 1 Zofran 4mg ODT tab on tongue for nausea as needed. Care Plan and Goals Physician Care Plan Problem: Viral Syndrome, sciatica, chronic anemia, shoulder pain, hyponatremia Goal: Follow up with primary care provider Instructions: Take medications and follow care plan as discussed/written Functional Status No functional status results. Allergies, Adverse Reactions, Alerts Allergen Type Severity Reaction Status Last Updated Cefdinir Allergy Mild DIARRHEA Active 09/11/16 Immunizations Query Response on File Recorded Date/Time Hx Influenza Vaccination Y FEB 2011 03/26/11 12:17am Hx Pneumococcal Vaccination Y 200503/26/11 12:17am Hx Influenza Vaccination Y FEB 2011 03/26/11 12:17am Vital Signs Acute Vital Signs Vital Response Date/Time Temperature (Fahrenheit) 97.9 deg F (96.8 - 99.1) 09/11/2016 3:15pm Temperature (Calculated Celsius) 36.99591 degrees C (36.0 - 37.3) 09/11/2016 3:15pm Pulse Rate (adult) 65 bpm (60 - 100) 09/11/2016 3:15pm Respiratory Rate 24 breaths/min (10 - 20) 09/11/2016 3:15pm O2 Sat by Pulse Oximetry 96 % (90 - 100) 09/11/2016 3:15pm Blood Pressure 151/69 mm Hg 09/11/2016 3:15pm Height (Feet) 5 feet 09/11/2016 11:46am Height (Inches) 2.00 inches 09/11/2016 11:46am Weight (Kilograms) 69.500 kg 09/11/2016 11:46am Body Mass Index (BMI) 28.0 09/11/2016 11:46am Results Laboratory Results Test Name Result Units Flags Reference Collection Date/Time Result Date/ Time Comments White Blood Count 5.2 T/MM3 4.5-11.0 09/11/2016 12:45pm 09/11/2016 12: 51pm Red Blood Count 3.49 M/MM3 L 4.00-5.20 09/11/2016 12:45pm 09/11/2016 12: 51pm Hemoglobin 7.5 GM/DL L 12-16 09/11/2016 12:45pm 09/11/2016 12:51pm Hematocrit 25.4 % L 36-46 09/11/2016 12:45pm 09/11/2016 12:51pm Mean Corpuscular Volume 72.8 UM3 L 80-100 09/11/2016 12:45pm 09/11/2016 12:51pm Mean Corpuscular Hemoglobin 21.5 UUG L 26-34 09/11/2016 12:45pm 2016 12:51pm Mean Corpuscular Hemoglobin Concent 29.5 GM/DL L 31-37 09/11/2016 12: 45pm 09/11/2016 12:51pm RDW Standard Deviation 39.0 FL 36.9-50.2 09/11/2016 12:45pm 09/11/2016 12:51pm Platelet Count 226 T/MM3 130-400 09/11/2016 12:45pm 09/11/2016 12:51pm Mean Platelet Volume 10.7 UM3 9.4-12.4 09/11/2016 12:45pm 09/11/2016 12 :51pm Neutrophils (%) (Auto) 77.6 % H 33-66 09/11/2016 12:45pm 09/11/2016 12: 51pm Lymphocytes (%) (Auto) 10.1 % L 23-45 09/11/2016 12:45pm 09/11/2016 12: 51pm Monocytes (%) (Auto) 9.7 % H 0-9.0 09/11/2016 12:45pm 09/11/2016 12: 51pm Eosinophils (%) (Auto) 1.4 % 0-4 09/11/2016 12:45pm 09/11/2016 12:51pm Basophils (%) (Auto) 1.2 % 0-2 09/11/2016 12:45pm 09/11/2016 12:51pm Immature Granulocyte % (Auto) 0.0 % 0.0-0.5 09/11/2016 12:45pm 2016 12:51pm Absolute Neutrophils (auto) 4.0 T/MM3 1.8-7.7 09/11/2016 12:45pm 2016 12:51pm Absolute Lymphocytes (auto) 0.5 T/MM3 L 1-4.8 09/11/2016 12:45pm 2016 12:51pm Absolute Monocytes (auto) 0.5 T/MM3 0-0.8 09/11/2016 12:45pm 2016 12:51pm Absolute Eosinophils (auto) 0.1 T/MM3 0-0.5 09/11/2016 12:45pm 2016 12:51pm Absolute Basophils (auto) 0.1 T/MM3 0-0.2 09/11/2016 12:45pm 2016 12:51pm Absolute Immature Granulocyte (auto 0.00 T/MM3 0.00-0.03 09/11/2016 12: 45pm 09/11/2016 12:51pm Icterus Index < 2 0-7 09/11/2016 12:45pm 09/11/2016 1:01pm Chemistry Specimen Hemolysis < 15 0-25 09/11/2016 12:45pm 09/11/2016 1:25pm 0-25: Specimen Exhibited No Hemolysis. Turbidity < 20 0-20 09/11/2016 12:45pm 09/11/2016 1:01pm Sodium Level 129 MEQ/L L 134-144 09/11/2016 12:45pm 09/11/2016 1:01pm Potassium Level 3.9 MEQ/L 3.6-5 09/11/2016 12:45pm 09/11/2016 1:01pm Chloride Level 92 MEQ/L L 98-107 09/11/2016 12:45pm 09/11/2016 1:01pm Carbon Dioxide Level 26 MEQ/L 22-30 09/11/2016 12:45pm 09/11/2016 1: 01pm Anion Gap 11 MEQ/L 5-15 09/11/2016 12:45pm 09/11/2016 1:01pm Blood Urea Nitrogen 17.0 MG/DL 7-17 09/11/2016 12:45pm 09/11/2016 1: 01pm Creatinine 1.1 MG/DL 0.7-1.2 09/11/2016 12:45pm 09/11/2016 1:01pm BUN/Creatinine Ratio 16 RATIO 6-26 09/11/2016 12:45pm 09/11/2016 1: 01pm Glomerular Filtration Rate Calc 47 09/11/2016 12:45pm 09/11/2016 1: 01pm Glucose Level 114 MG/DL H 65-110 09/11/2016 12:45pm 09/11/2016 1:01pm Calculated Osmolality 252 MOSM/KG L 261-280 09/11/2016 12:45pm 2016 1:01pm Calcium Level 9.7 MG/DL 8.4-10.2 09/11/2016 12:45pm 09/11/2016 1:01pm Total Bilirubin 0.90 MG/DL 0.20-1.30 09/11/2016 12:45pm 09/11/2016 1: 01pm Alkaline Phosphatase 58 U/L 38-126 09/11/2016 12:45pm 09/11/2016 1: 01pm Total Protein 6.6 G/DL 6.3-8.2 09/11/2016 12:45pm 09/11/2016 1:01pm Albumin 3.9 G/DL 3.5-5.0 09/11/2016 12:45pm 09/11/2016 1:01pm Globulin 2.7 G/DL 2.4-3.6 09/11/2016 12:45pm 09/11/2016 1:01pm Albumin/Globulin Ratio 1.4 RATIO 1.1-2.2 09/11/2016 12:45pm 09/11/2016 1:01pm Aspartate Amino Transf (AST/SGOT) 28 U/L 14-36 09/11/2016 12:45pm 09/11 1:01pm Alanine Aminotransferase (ALT/SGPT) 33 U/L 9-52 09/11/2016 12:45pm 1:01pm Troponin I < 0.012 ng/ml 0-0.12 09/11/2016 12:45pm 09/11/2016 1:25pm Troponin values with a difference of 55% increase from orginal troponin value represent a true biological DELTA value. (%increase Calc=Orginal Troponin value, divided by subsequent Troponin value, multiplied by 100) Urine Collection Type CLEANCATCH-MIDSTREAM 09/11/2016 1:43pm 2016 1:47pm Urine Color YELLOW YELLOW 09/11/2016 1:43pm 09/11/2016 1:47pm Urine Turbidity CLEAR CLEAR 09/11/2016 1:43pm 09/11/2016 1:47pm Urine Specific Vincent 1.010 L 1.015-1.025 09/11/2016 1:43pm 2016 1:47pm Urine pH 6.0 5.0-8.0 09/11/2016 1:43pm 09/11/2016 1:47pm Urine Leukocyte Esterase NEGATIVE NEGATIVE 09/11/2016 1:43pm 2016 1:47pm Urine Nitrite NEGATIVE NEGATIVE 09/11/2016 1:43pm 09/11/2016 1:47pm Urine Protein NEGATIVE NEGATIVE 09/11/2016 1:43pm 09/11/2016 1:47pm Urine Glucose (UA) NEGATIVE NEGATIVE 09/11/2016 1:43pm 09/11/2016 1: 47pm Urine Ketones NEGATIVE NEGATIVE 09/11/2016 1:43pm 09/11/2016 1:47pm Urine Urobilinogen 0.2 EU/DL NORMAL 09/11/2016 1:43pm 09/11/2016 1: 47pm Urine Bilirubin NEGATIVE NEGATIVE 09/11/2016 1:43pm 09/11/2016 1: 47pm Urine Blood NEGATIVE NEGATIVE 09/11/2016 1:43pm 09/11/2016 1:47pm Urinalysis Comment MICROSCOPIC NOT IND. 09/11/2016 1:43pm 2016 1:47pm Procedures No known history of procedures. Encounters Encounter Location Arrival/Admit Date Discharge/Depart Date Attending Provider Departed Emergency Room [facility] 09/11/16 11:44am 09/11/16 3: 15pm TAMI ERNST DO Recent Diagnosis
[2016-10-13 07:10] VITALS: BP 143/93; PULSE 64; RESP 14; TEMP 98.8; O2SAT 96; Ht 157.5 cm; Wt 68.5 kg
[2016-10-13] MEDS: FLEET PHOSPHO-SODA 133 ML ENEMA RECTALLY PRN (07:59)
--- NOTE | 2016-10-13 09:09 | ANESPREOP ---
Anesthesia Record Date and Time DATE: 10/13/16 TIME: 09:07 Pre-Op Diagnosis Anemia Proposed Surgical Procedure EGD & COLONOSCOPY NPO since: Midnight Allergies: Coded Allergies: cefdinir (Verified Adverse Reaction, Mild, DIARRHEA, 10/13/16) Ht/Wt/BMI Height: 5 ' 2.00 " Weight: 68.500 kg BMI: 27.6 kg/m2 Vital Signs Date Time Temp Pulse Resp B/P Pulse Ox O2 Delivery O2 Flow Rate FiO2 10/13/16 07:10 98.8 64 14 143/93 96 Room Air Medications Inpatient Medications Current Medications Medications (Trade) Dose Ordered Sig/Juan Start Time Stop Time Status Last Admin Dose Admin Lactated Ringer's (Lactated Ringers) 1,000 ml @ 30 mls/hr Q24H 10/13/16 07:00 10/13/16 08:16 30 MLS/HR Sodium Biphosphate/ Sodium Phosphate (Fleet Enema) 1 enema PRN PRN 10/13/16 07:30 10/13/16 07:59 1 ENEMA Aspirin (Aspirin) 81 Mg Tablet, 81 MG PO DAILY, (Reported) Last Taken: on Unknown Date & Time Atenolol (Atenolol) 100 Mg Tablet, 50 MG PO BID, (Reported) Last Taken: on 10/13/16 0530 Chlorzoxazone (Parafon Forte Dsc) 500 Mg Tablet , 500 MG PO PRN, (Reported) Last Taken: on Unknown Date & Time Glucosamine Hcl (Glucosamine Hcl) 1,500 Mg Tablet, 1,500 MG PO BID, (Reported) Last Taken: on Unknown Date & Time Hydrocodone/Acetaminophen ([place] 5-325 Tablet) 5-325 Tablet, 1-2 TAB PO Q4-6HPRN PRN for PAIN Last Taken: on 10/13/16 0500 Losartan/Hydrochlorothiazide (Losartan-Hctz 100 -25 mg Tab) 1 Each Tablet, 1 TAB PO DAILY, (Reported) Last Taken: on 10/12/16 0700 Multivitamins (Multiple Vitamin) 1 Tab Tablet, 1 TAB PO DAILY, (Reported) Last Taken: on Unknown Date & Time Omeprazole (Omeprazole) 20 Mg Capsule.dr , 20 MG PO ACB, (Reported) Take 1 capsule, by mouth, one time a day (before breakfast). Last Taken: on Unknown Date & Time Ondansetron (Zofran Odt) 4 Mg Tab.rapdis , 4 MG PO Q6-8HPRN Oral disintegrating tablet Last Taken: on 10/12/16 0700 [Elderberry Caps] , 1 CAP PO DAILY, (Reported) Last Taken: on Unknown Date & Time Currently on Beta Ilsa: Yes Beta Ilsa Last Taken: ATENOLOL AT 0630 Medical/Surgical History Anesthesia PMH: Reports: *Dyspnea, *Hypertension, Arthritis (OA ), COPD, Pneumonia, Reflux, Denies: *Angina, *OR, Anesthesia Reactions (NO AIRWAY ISSUES) , Asthma, CHF, CVA/Stroke/TIA, Cancer, Clotting Problems, Deep Vein Thrombosis, Glaucoma, Headaches, Hepatitis, Hiatal Hernia, Malignant Hyperthermia, Rheumatic Fever, Seizures, Sleep Apnea, Tuberculosis Smoking Status: Former smoker Has pt. smoked today?: No Use Chewing Tobacco?: No Second Hand Exposure: No Substance Use Type: does not use Alcohol Intake: none HX of Last Menstrual Period: MID 40'S Past Surgical History Orthopedic Surgeries: Yes - Back surgery X 4 Abdominal Surgeries: Yes - APPY. 2006, JASSI 03/24/11 Genitourinary Surgeries: No Cardiac Surgeries: No Endocrine Surgeries: No Reproductive Surgeries: Neurological Surgeries: No Ear Surgeries: No Nose Surgeries: No Throat Surgeries: No Other Surgeries: Yes - cataract-NGUYỄN. , GANGLION TUMOR R. HAND, Anesthesia Adverse Reactions: FOUND none Family Hx of Anesthesia Advers: none Hx of Motion Sickness: No Pertinent Findings EKG Rhythm: Sinus Rhythm Physical Exam Respiratory: Lungs clear Cardiovascular: FOUND Regular rate, rhythm Airway Assessment Mallampati Score: II TMD: 3 Fingerbreadths Neck Extension: Good Overall Assessment: No Airway Concerns ASA: 3 Plan Anesthesia Plan: TIVA Discussion Discussed risks/options/alternatives of anesthesia and questions answered. Patient consents. Nursing pain assessment noted. Present: Spouse Attestation Statement Prior to the delivery of any anesthetic medication, I examined the patient, developed the plan, obtained the patient's consent and discussed the risk and benefits of the procedure with the patient/guardian. CASSIDY RUIZ CRNA October 13, 2016 09:09
[2016-10-13] MEDS ORDERED: LIDOCAINE VISCOUS 2% Oral Soln 15ml UD ONE (09:15)
[2016-10-13] MEDS ORDERED: PROPOFOL 500mg 50 ML IV ONE (09:37)
[2016-10-13] MEDS ORDERED: PROPOFOL 200mg 20 ML IV ONE (10:07)
[2016-10-13 10:20] VITALS: BP 113/56; PULSE 56; RESP 16; TEMP 96.9; O2SAT 100
[2016-10-13 10:35] VITALS: BP 117/56; PULSE 57; RESP 22; O2SAT 99
[2016-10-13 10:50] VITALS: BP 113/63; PULSE 56; RESP 21; O2SAT 98
--- NOTE | 2016-10-13 10:50 | ANESPO ---
Post-Op Note Date 10/13/16 Time: 10:50 Status Pt Participated in Evaluation: Pt participated in person Vital Signs Date Time Temp Pulse Resp B/P Pulse Ox O2 Delivery O2 Flow Rate FiO2 10/13/16 10:35 57 22 117/56 99 Room Air 10/13/16 10:20 96.9 4.00 Respiratory Function: Airway patent Cardiovascular Function: Regular pulse Telemetry Pattern: SR Mental Status: Alert/oriented Pain Level Intensity: 0 Hydration: IV infusing Complications during Recovery None apparent Follow-Up Instructions Instructions Per Surgeon CASSIDY RUIZ CRNA October 13, 2016 10:50
--- NOTE | 2016-10-14 11:46 | OPNOTEF ---
DATE OF SERVICE 10/13/2016 SURGEON Paxton Nation MD PREOPERATIVE DIAGNOSIS Personal history for anemia. POSTOPERATIVE DIAGNOSIS Personal history for anemia, hiatal hernia, distal esophagitis, rectal polyp, polyp at 25 cm from the anal verge, sigmoid diverticulosis, slight mucosal changes present at ileocecal valve, component of "friability/colitis" involving mucosa within cecum and ascending colon. PROCEDURE Esophagogastroduodenoscopy with biopsies from distal esophagus, colonoscopy with polypectomies via cold biopsy technique and snare polypectomy technique, biopsies from ileocecal valve region as well as from cecal/ascending colon region. ANESTHESIA TIVA BRIEF HISTORY/INDICATIONS The patient is an 86-year-old female who recently was sent to my office as a result of her history for anemia of uncertain etiology. It was recommended that she undergo bidirectional endoscopy for further evaluation. For completeness please refer to notes included in the patient's chart. FINDINGS Upon upper endoscopy the esophagus, stomach and duodenum were found to be without marked abnormalities with the exception the patient was found to have a small to moderate sized hiatal hernia. There was a component of distal esophagitis in addition. There was, however, no evidence of blood upon the surface of the mucosa within the esophagus, stomach or duodenum to suggest recent bleeding. Upon colonoscopy the patient was found to have numerous diverticula within the sigmoid colon region. She was found to have a fairly large polyp at 25 cm from the anal verge that was pedunculated in nature. The polyp was perhaps on the order of about 1.5 to 2 cm in greatest diameter. This polyp was able to be transected via snare polypectomy technique. The patient was found to have a polyp within the rectal vault that was on the order of about 5-6 mm in diameter and removed in its entirety via cold biopsy technique. Upon entering into the cecal region, one could see some blood upon the surface of the mucosa. The blood was irrigated off the mucosa and I did not see any marked mucosal abnormalities beneath the blood. I did spend a considerable amount of time inspecting the cecal region and ascending colon where the blood was present. One could see the ileocecal valve region. Scope was unable advanced into the terminal ileum but biopsies were obtained from the ileocecal valve region. There did appear to be some slight mucosal changes present although this did not appear to be neoplastic in nature. I did appear that the mucosa involving the cecal and ascending colon region was more friable in nature and did bleed fairly easily. Biopsies were obtained from the cecal region and ascending colon region as well via cold biopsy technique. DESCRIPTION OF PROCEDURE After informed consent was obtained, the patient was brought to the endoscopy suite, placed on the table in left lateral decubitus position. The patient subsequently underwent total intravenous anesthesia by the nurse trial management associate per my request. Formal time-out was then completed. Next an Olympus gastroscope was inserted into the oral hypopharynx and subsequently the esophagus under direct visualization. Gastroscope was advanced through the esophagus, stomach, pylorus, duodenal bulb to the second portion of the duodenum. Scope was slowly withdrawn. First and second portions of duodenum were within normal limits. No evidence of duodenitis or ulcerations were noted. Scope was withdrawn back to the prepyloric region and antrum. Again no marked mucosal abnormalities were noted. A J-maneuver was then performed. Cardia and fundus were within normal limits. The patient was found to have a small to moderate sized hiatal hernia. Scope was allowed to straighten and slowly withdrawn. The remaining corpus of the stomach was well visualized and again without noted abnormalities. Scope was withdrawn back to the squamocolumnar junction which was about 5-6 cm above the level the diaphragm. There did appear to be a component of some erythema involving the distal esophagus. I did not see any endoscopic evidence for العلي's metaplasia. As stated above, there is no evidence for blood upon the surface of the esophagus, stomach or duodenum to suggest recent bleeding. Biopsies were obtained from the distal esophagus as a result of this esophagitis that was present. Scope was then slowly withdrawn. The remaining esophageal mucosa was found to be within normal limits. Next attention was directed towards performing the colonoscopy. First, digital rectal examination was performed. Normal sphincter tone. No rectal masses were appreciated. Olympus colonoscope was inserted in the anus and into the rectal vault. One could then see a polyp on the order of about 5-6 mm in diameter within the rectal vault. This polyp was grasped and removed in its entirety via cold biopsy technique. Scope was then advanced up to about 25 cm from the anal verge where the patient was found to have a large pedunculated polyp. Snare was placed around a good portion of the polyp and the polyp was transected. This polyp was perhaps on the order of about 2 cm in diameter. There was still some residual adenomatous appearing polyp upon the stalk. The snare was then repositioned around the remaining portion of the polyp and this additional portion of the polyp was also transected via snare polypectomy technique. The two portions of the polyp that were transected were suctioned against the colonoscope and withdrawn out through the anal verge and the scope was then reinserted. Once these portions of the polyp had been retrieved, the scope was then advanced under direct visualization at all times until the cecum was ascertained. Upon entering the proximal ascending colon and cecal region one could see some fresh blood upon the surface of the mucosa. First I felt that I would likely find an underlying neoplastic process as a result of the blood upon the mucosa. Blood was however irrigated in the cecal region and proximal ascending colon region was carefully inspected and was without any type of underlying neoplastic process. It did appear that the mucosa was more friable in nature. Biopsies were obtained from the mid ascending colon region and cecal region and placed within a single container. Attempt was made at cannulating the ileocecal valve so that the terminal ileum could be inspected. This was to no avail. There did appear to be some slight changes around the ileocecal valve region of the mucosa. This did not appear however suspicious in nature. To err on the cautious side, some additional biopsies were also obtained from the ileocecal valve region. As stated above, a fair amount of time was spent carefully inspecting the cecal and the ascending colon region but I did not see any marked mucosal abnormalities to explain the blood that was noted upon the surface of the mucosa. Scope was slowly withdrawn and the colonic mucosa was continued to be carefully inspected. The patient was found to have numerous diverticula within the sigmoid colon region. No additional abnormalities were noted within the colon. Scope was then continued to be withdrawn until it was brought forth back to the rectal vault. J-maneuver was then performed. No worrisome perianal pathology was noted. Scope was allowed to straighten and withdrawn through the anal verge. The patient tolerated the procedure without difficulty and was sent back to the preop area in stable condition. We will await the biopsy results from today's EGD and colonoscopy and proceed accordingly with further recommendations thereafter. Additionally one may wish to also obtain a small bowel series on an outpatient basis for further evaluation of her small bowel given the fact that she was found to have some blood within the cecal and proximal ascending colon region. [facility]
== END 2016-10-13 11:09 | disposition home or self-care (01) ==
LOC: SCU 06:54
PROVIDERS: ATTEND Surgery
DX: K20.9 Esophagitis, unspecified (principal); D50.0 Iron deficiency anemia secondary to blood loss (chronic); K44.9 Diaphragmatic hernia without obstruction or gangrene; K62.1 Rectal polyp; D12.6 Benign neoplasm of colon, unspecified; K63.3 Ulcer of intestine; K52.89 Other specified noninfective gastroenteritis and colitis; K57.30 Diverticulosis of large intestine without perforation or abscess without bleeding; K59.01 Slow transit constipation; I10 Essential (primary) hypertension; J43.9 Emphysema, unspecified; G60.8 Other hereditary and idiopathic neuropathies; E78.00 Pure hypercholesterolemia, unspecified; M35.00 Sjogren syndrome, unspecified; G89.29 Other chronic pain; Z79.899 Other long term (current) drug therapy; Z87.891 Personal history of nicotine dependence
CPT/HCPCS: 43239; 45380; 45385; A9270; J2704; J7120

== ENCOUNTER 2017-02-15 15:24 | Inpatient (IN) ==
[2017-02-15] MEDS ORDERED: NS 1,000 ML IV ONE (15:44)
--- NOTE | 2017-02-15 16:41 | XRay Report ---
Indication: pain PROCEDURE: XR chest 1V: Encounter: Initial Comparison: March 25, 2011 Findings: The lungs are stable in appearance without new focal airspace consolidation. Calcified granulomas in the right infrahilar region and right lower lobe. There is no pleural effusion or pneumothorax. The cardiac silhouette remains moderately enlarged. The pulmonary vascularity and mediastinal contours are unchanged. Moderate to large hiatal hernia. IMPRESSION: Stable appearance of the chest without acute cardiopulmonary disease. .
--- NOTE | 2017-02-15 17:08 | Emergency Department Report ---
General Adult HPI - General Chief complaint: Fall Stated complaint: fall/dec bp Time Seen by Provider: 02/15/17 15:43 Source: patient, EMS Mode of arrival: EMS Limitations: no limitations - History of Present Illness HPI narrative: 86-year-old female presents to the emergency department with the chief complaint of a fall. Patient states she has been experiencing low blood pressure while at home. Patient states she took her blood pressure at [facility] a few days ago and it was in the 70s systolic. Patient notes that she is on a beta desiree and ARB for blood pressure control. She is still taking those medications. Patient felt lightheaded and fell prior to arrival to the emergency department today. She notes only a minor dull posterior headache where she hit her head. She denies any neck pain or discomfort. Patient denies any chest pain or shortness of breath. No other complaints or associated symptoms. Patient's blood pressure was noted to be 62/40 with EMS arrival. She was given IV fluid bolus. Patient does not note any exacerbating or remitting factors. No other complaints or associated symptoms. - Related Data Home Medications Medication Instructions Recorded Confirmed Atenolol 50 mg PO BID #0 09/11/16 02/15/17 Losartan/Hydrochlorothiazide 1 tab PO DAILY #0 09/11/16 02/15/17 [Losartan-Hctz 100-25 mg Tab] Aspirin [Zortman Aspirin] 81 mg PO DAILY 02/15/17 02/15/17 Calcium Carbonate [Calcium] 500 mg PO DAILY 02/15/17 02/15/17 Cranberry Fruit [Cranberry] 400 mg PO DAILY 02/15/17 02/15/17 Elderberry Fruit/Honey [Little 1 dose PO DAILY 02/15/17 02/15/17 Remedies Cough-Immune] Gabapentin [Neurontin] 600 mg PO TID 02/15/17 02/15/17 Glucosamine 500 mg PO DAILY 02/15/17 02/15/17 Multivitamin [One Daily] 1 each PO DAILY 02/15/17 02/15/17 Tramadol [Ultram] 50 mg PO PRN 02/15/17 02/15/17 Allergies Allergy/AdvReac Type Severity Reaction Status Date / Time cefdinir AdvReac Mild DIARRHEA Verified 02/15/17 16:05 Review of Systems Constitutional: Denies: fever, chills Eyes: Denies: eye pain, vision change ENT: Denies: ear pain, throat pain Cardiovascular: Denies: chest pain, palpitations Respiratory: Denies: cough, dyspnea, wheezes Gastrointestinal: Denies: abdominal pain, nausea, vomiting, diarrhea Genitourinary: Denies: urgency, dysuria Musculoskeletal: Denies: back pain, arthralgia Integumentary: Denies: erythema, rash Neurological: Reports: headache. Denies: numbness Psychiatric: Denies: anxiety, depression Endocrine: Denies: fatigue, heat or cold intolerance Hematological/Lymphatic: Denies: easy bleeding, easy bruising Allergic/Immunologic: Denies: facial swelling, urticaria PFSH Patient Stated Medical History Hypertension Yes Pneumonia Yes Post Menopausal Yes Surgical History: Appendectomy, cholecystectomy, Back Family History: Reviewed and noncontributory. - Social History Smoking status: Never smoker Substance use type: does not use Alcohol intake frequency: does not drink Physical Exam - Limitations Limitations: no limitations - General General appearance: alert, in no apparent distress - Normal Exams: Head:: Normocephalic without trauma Eyes:: Pupils are PERRLA w/ EOMI, No scleral icterus, irritation, or foreign bodies noted ENMT:: No facial trauma, nasal exudates, pharyngeal erythema, or exudates are noted Dental: No fractured, loose, or missing teeth noted Neck:: Full range of motion, without adenopathy, JVD, bruits or thyromegaly Chest/Respirations:: Clear all aden, with good airflow, and symmetry bilaterally Cardiovascular:: Regular rate and rhythm, without murmur or gallop, Pulses 2+ all extremities, capillary refill, <2 seconds all extremities Abdomen:: Bowel sounds positive, soft, non-tender, non-distended, no hepatosplenomegaly, masses or bruits noted Lymphatic:: No lymphadenopathy, or lymphedema noted Musculoskeletal:: No tenderness, or deformity noted, good range of motion, all extremities Integumentary:: No rashes, hives, or bruising noted, hair and nails, without abnormality Neurological:: Patient is alert, and oriented, cranial nerves, motor/sensory/ cerebellar, exams w/o gross deficits, to observation Psychiatric:: Patient exhibits, appropriate attention, emotion and affect Course Vital Signs Pulse Oximetry 91 02/15/17 15:32 Temperature 97.8 F 02/15/17 15:35 Pulse Rate 71 09/28/17 06:00 Respiratory Rate 22 02/16/17 06:00 Blood Pressure 95/56 02/16/17 06:00 Pulse Oximetry 84 L 02/16/17 06:00 Medical Decision Making - MDM Narrative Medical decision making narrative: Labs/imaging were discussed in detail with the patient and family and questions are answered. Patient is given 3 L normal saline intravenously in the emergency department. She is started on Levaquin intravenously when sepsis is considered at 1745 but no source is found. Patient does slowly show improvement in blood pressure during her emergency department stay. Patient is up to 100 systolic at time of admission. Patient's EKG is reviewed by Dr. Linares of cardiology and stat echo is ordered to be read by Dr. Linares. Patient's is admitted to the service of the hospitalist Dr. Pierre in improved condition. CT scan of the head will be obtained by Dr. Cyr when the patient's blood pressure is in an appropriate level as we are concerned for potential complication due to the hypotension with taking the patient to CT. After a negative head CT which will be obtained by the hospitalist service, the patient will be started on a heparin drip which will be initiated and managed by the hospitalist service due to the changes noted on Echo read by Dr. Linares. The heparin with started as treatment as PE is considered but unable to be ruled out with a V/Q scan or CT angiogram of the chest at this time. Heparin will be continued until V/Q scan or CTA of the chest is obtained to rule out PE. Patient is admitted to the ICU in improved condition. Patient and family are in agreement with the current plan of management. No further orders from accepting or consulting physicians who were in agreement with the current plan of management. - Differential Diagnosis dehydration, MO, metabolic process, acute renal failure - Lab Data Result diagrams: 02/16/17 03:16 02/16/17 03:16 Lab Results 02/15/17 02/15/17 02/15/17 Range/Units 16:11 16:11 16:11 WBC 13.4 H (4.5-11.0) T/MM3 RBC 3.60 L (4.00-5.20) M/MM3 Hgb 11.4 L (12-16) GM/DL Hct 34.8 L (36-46) % MCV 96.7 (80-100) UM3 MCH 31.7 (26-34) UUG MCHC 32.8 (31-37) GM/DL RDW Std Deviation 47.6 (36.9-50.2) FL Plt Count 221 (130-400) T/MM3 MPV 12.3 (9.4-12.4) UM3 Immature Gran % (Auto) 0.1 (0.0-0.5) % Neut % (Auto) 82.1 H (33-66) % Lymph % (Auto) 10.4 L (23-45) % [place] % (Auto) 6.5 (0-9.0) % Eos % (Auto) 0.7 (0-4) % Baso % (Auto) 0.2 (0-2) % Neut # (Auto) 11.0 H (1.8-7.7) T/MM3 Lymph # (Auto) 1.4 (1-4.8) T/MM3 [place] # (Auto) 0.9 H (0-0.8) T/MM3 Eos # (Auto) 0.1 (0-0.5) T/MM3 Baso # (Auto) 0.0 (0-0.2) T/MM3 Abs Immat Gran (auto) 0.02 (0.00-0.03) T/MM3 APTT (24-36) SEC Turbidity < 20 (0-20) Sodium 129 L (134-144) MEQ/L Potassium 4.6 (3.6-5) MEQ/L Chloride 91 L (98-107) MEQ/L Carbon Dioxide 24 (22-30) MEQ/L Anion Gap 14 (5-15) MEQ/L BUN 52.0 H* (7-17) MG/DL Creatinine 2.4 H (0.7-1.2) MG/DL GFR Calculation 19 BUN/Creatinine Ratio 22 (6-26) RATIO Glucose 143 H (65-110) MG/DL Calculated Osmolality 265 (261-280) MOSM/KG Calcium 9.9 (8.4-10.2) MG/DL Total Bilirubin 0.60 (0.20-1.30) MG/DL Icterus Index < 2 (0-7) AST 45 H (14-36) U/L ALT 41 (9-52) U/L Alkaline Phosphatase 76 (38-126) U/L Troponin I 0.047 (0-0.12) ng/ml Total Protein 6.6 (6.3-8.2) G/DL Albumin 3.7 (3.5-5.0) G/DL Globulin 2.9 (2.4-3.6) G/DL Albumin/Globulin Ratio 1.3 (1.1-2.2) RATIO Plasma Lactate 2.3 H (0.6-2.2) MMOL/L Procalcitonin 0.11 NG/ML Specimen Hemolysis < 15 (0-25) Ur Collection Type Urine Color (YELLOW) Urine Clarity Urine pH (5.0-8.0) Ur Specific [place] (1.015-1.025) Urine Protein (NEGATIVE) Urine Glucose (UA) (NEGATIVE) Urine Ketones (NEGATIVE) Urine Occult Blood (NEGATIVE) Urine Nitrate (NEGATIVE) Urine Bilirubin (NEGATIVE) Urine Urobilinogen (NORMAL) EU/DL Ur Leukocyte Esterase (NEGATIVE) Urinalysis Comment 02/15/17 02/15/17 Range/Units 16:11 16:27 WBC (4.5-11.0) T/MM3 RBC (4.00-5.20) M/MM3 Hgb (12-16) GM/DL Hct (36-46) % MCV (80-100) UM3 MCH (26-34) UUG MCHC (31-37) GM/DL RDW Std Deviation (36.9-50.2) FL Plt Count (130-400) T/MM3 MPV (9.4-12.4) UM3 Immature Gran % (Auto) (0.0-0.5) % Neut % (Auto) (33-66) % Lymph % (Auto) (23-45) % [place] % (Auto) (0-9.0) % Eos % (Auto) (0-4) % Baso % (Auto) (0-2) % Neut # (Auto) (1.8-7.7) T/MM3 Lymph # (Auto) (1-4.8) T/MM3 [place] # (Auto) (0-0.8) T/MM3 Eos # (Auto) (0-0.5) T/MM3 Baso # (Auto) (0-0.2) T/MM3 Abs Immat Gran (auto) (0.00-0.03) T/MM3 APTT 26.1 (24-36) SEC Turbidity (0-20) Sodium (134-144) MEQ/L Potassium (3.6-5) MEQ/L Chloride (98-107) MEQ/L Carbon Dioxide (22-30) MEQ/L Anion Gap (5-15) MEQ/L BUN (7-17) MG/DL Creatinine (0.7-1.2) MG/DL GFR Calculation BUN/Creatinine Ratio (6-26) RATIO Glucose (65-110) MG/DL Calculated Osmolality (261-280) MOSM/KG Calcium (8.4-10.2) MG/DL Total Bilirubin (0.20-1.30) MG/DL Icterus Index (0-7) AST (14-36) U/L ALT (9-52) U/L Alkaline Phosphatase (38-126) U/L Troponin I (0-0.12) ng/ml Total Protein (6.3-8.2) G/DL Albumin (3.5-5.0) G/DL Globulin (2.4-3.6) G/DL Albumin/Globulin Ratio (1.1-2.2) RATIO Plasma Lactate (0.6-2.2) MMOL/L Procalcitonin NG/ML Specimen Hemolysis (0-25) Ur Collection Type Urine, catheter Urine Color Yellow (YELLOW) Urine Clarity Clear Urine pH 5.0 (5.0-8.0) Ur Specific [place] 1.025 (1.015-1.025) Urine Protein Negative (NEGATIVE) Urine Glucose (UA) Negative (NEGATIVE) Urine Ketones Trace A (NEGATIVE) Urine Occult Blood Negative (NEGATIVE) Urine Nitrate Negative (NEGATIVE) Urine Bilirubin Negative (NEGATIVE) Urine Urobilinogen 0.2 (NORMAL) EU/DL Ur Leukocyte Esterase Negative (NEGATIVE) Urinalysis Comment Microscopic not ind. - Radiology Data CXR - No acute processes. CT HEAD - Pending. - EKG Data EKG #1 EKG results narrative: Sinus rhythm. 78 bpm. No STEMI. Right bundle-branch block. Critical Care Time Critical Care Time: Yes Total Critical Care Time: 76 Attestation: 76 minutes of critical care time was assessed to the patient due to hypotension and ongoing management of blood pressure during her emergency department stay. Patient required complex medical decision making, had potential for decompensation, and required repeated assessment at the bedside. Critical care time was spent treating the patient, documenting the medical record, updating family, and making telephone calls on the patient's behalf. Patient was admitted to the ICU for further evaluation and treatment. Disposition Clinical Impression: Acute kidney injury Hypotension Qualifiers: Hypotension type: other hypotension type Qualified Code(s): I95.89 - Other hypotension Disposition: 02 To [facility] [place] Acute Care Condition: Stable Time of Disposition: 17:30 (Admit. Dr. Pierre. ) - Seen By: physician
[2017-02-15] MEDS ORDERED: LEVOFLOXACIN PB 500 MG/100 ML BAG IV SCH (17:45)
--- NOTE | 2017-02-15 18:05 | History & Physical Report ---
<Bharti Rome - Last Filed: 02/15/17 19:55> History of Present Illness Date: 02/15/17 Chief complaint: low BP and frequent falls HPI: Patient is an 86-year-old female who was transferred by EMS to the ER following a fall. She states yesterday she fell while walking into the [place]. At that point she had a headache, but that has since resolved. Today she fell again and hit her head. She states she had profuse bleeding from her scalp, but bleeding stopped by the time she reached the emergency room. No headache today, but she does have some pain across her back and neck today. She states she's had "spells " where she feels weak and her legs just "didn't want to work." She states a week ago she felt "sick" with nausea, but no vomiting. She states she went into her doctor and they thought she may have had a virus. She states she felt sick for about 3-4 days. She has not felt back to normal since that time. She did not have any loss of consciousness with falls. She's had no recent change in her medications. She has been taking tramadol for back pain. She does report she has been taking this a bit more frequently lately. Patient was evaluated in the emergency room with her daughter at her side. At this point, she has no major complaints other than she feels achy from lying on the table for so long. She does report that off and on in the past she's had dizzy spells, but none that have caused her to fall like she has a past 2 days. She was recently treated for anemia with iron, but she states that her doctor took her off of this a month ago. She's had no black stools she's been off iron. She does reports problems with constipation and diarrhea ever since her colonoscopy and EGD in September. Her last bowel movement was today. Review of Systems All systems PM: 10-point ROS was reviewed, no additional remarkable complaints except - Constitutional Constitutional: Present: weakness (feels like her legs give out during her "spells") - Respiratory Respiratory: Present: cough (x few days) - Gastrointestinal Gastrointestinal: Present: abdominal pain (occasional cramps), constipation ( and diarrhea since colonoscopy in September.) - Musculoskeletal Musculoskeletal: Present: back pain (chronic) PFSH Medical History HTN COPD Idiopathic peripheral neuropathy Osteoarthritis Hyperlipidemia Sjogren's syndrome Chronic back pain GERD Surgical History: [facility] (11/2006), cataract surgery, cholecystectomy, back surgery 4, ganglion cyst removal from hand (), colonoscopy with polypectomy and EGD with biopsy (10/13/16) Family History: Father-coronary artery disease, diabetes, [place] Mother-hypertension, CVA Paternal grandmother-diabetes Sister-hypertension - Social History Smoking status: Former smoker (quit 20 years ago) Substance use type: does not use Alcohol intake frequency: other (drinks a mixed cocktail or wine once a week with her daughter) Housing: apartment (independent living at [facility]) Household members: none Current occupational status: retired Social history: Dr. Lamb-PCP Patient's daughter, María Morin-DPOA-H phone #[phone] Medications Home Medications Medication Instructions Recorded Confirmed Type Atenolol 50 mg PO BID #0 09/11/16 02/15/17 History Losartan/Hydrochlorothiazide 1 tab PO DAILY #0 09/11/16 02/15/17 History [Losartan-Hctz 100-25 mg Tab] Aspirin [[place] Aspirin] 81 mg PO DAILY 02/15/17 02/15/17 History Calcium Carbonate [Calcium] 500 mg PO DAILY 02/15/17 02/15/17 History Cranberry Fruit [Cranberry] 400 mg PO DAILY 02/15/17 02/15/17 History Elderberry Fruit/Honey [Little 1 dose PO DAILY 02/15/17 02/15/17 History Remedies Cough-Immune] Gabapentin [Neurontin] 600 mg PO TID 02/15/17 02/15/17 History Glucosamine 500 mg PO DAILY 02/15/17 02/15/17 History Multivitamin [One Daily] 1 each PO DAILY 02/15/17 02/15/17 History Tramadol [Ultram] 50 mg PO PRN 02/15/17 02/15/17 History Allergies Allergy/AdvReac Type Severity Reaction Status Date / Time cefdinir AdvReac Mild DIARRHEA Verified 02/15/17 16:05 Exam Vital Signs: Temperature 97.8 F 02/15/17 15:35 Pulse Rate 71 02/15/17 16:36 Respiratory Rate 23 02/15/17 16:36 Blood Pressure 68/47 02/15/17 16:36 Pulse Oximetry 90 02/15/17 16:36 Height/Weight/BMI: Height 1.6 m Weight 67 kg - Constitutional Present: no acute distress, well nourished, well developed - Routine HEENT Exam Head: Present: normocephalic, atraumatic, abrasion (posterior scalp) Eye: Present: EOMI, PERRL ENT: Present: mucous membranes moist, oropharynx clear - Routine Neck Exam Present: supple, full ROM - Routine Respiratory Exam Present: CTA bilaterally. Absent: wheezes - Routine Cardiovascular Exam Present: RRR, S1, S2. Absent: murmur - Routine Abdominal Exam Present: soft, normoactive bowel sounds, non distended. Absent: tenderness - Routine Extremities Exam Present: edema (trace bilaterally), normal capillary refill - Routine Skin Exam Present: dry, warm - Routine Neurological Exam Present: alert, oriented X3, CN II-XII intact - Routine Psychiatric Exam Present: normal affect, normal thought process, cooperative Results - Labs CBC & Chem 7: 02/15/17 16:11 02/15/17 16:11 Labs: Laboratory Tests 02/15/17 02/15/17 16:11 16:11 Plasma Lactate 2.3 H Procalcitonin 0.11 Laboratory Tests 02/15/17 16:11 Total Bilirubin 0.60 AST 45 H ALT 41 Troponin I 0.047 Total Protein 6.6 Albumin 3.7 Globulin 2.9 Albumin/Globulin Ratio 1.3 Laboratory Tests 02/15/17 16:27 Ur Collection Type Urine, catheter Urine Color Yellow Urine Clarity Clear Urine pH 5.0 Ur Specific [place] 1.025 Urine Protein Negative Urine Glucose (UA) Negative Urine Ketones Trace A Urine Occult Blood Negative Urine Nitrate Negative Urine Bilirubin Negative Urine Urobilinogen 0.2 Ur Leukocyte Esterase Negative Microbiology Results: Microbiology 02/15/17 16:21 Peripheral/Iv Start Blood Culture - Preliminary Culture Initiated - Results Pending 02/15/17 16:23 Peripheral/Iv Start Blood Culture - Preliminary Culture Initiated - Results Pending - Imaging and Cardiology Chest x-ray Additional comments: Findings: The lungs are stable in appearance without new focal airspace consolidation. Calcified granulomas in the right infrahilar region and right lower lobe. There is no pleural effusion or pneumothorax. The cardiac silhouette remains moderately enlarged. The pulmonary vascularity and mediastinal contours are unchanged. Moderate to large hiatal hernia. IMPRESSION: Stable appearance of the chest without acute cardiopulmonary disease. Assessment and Plan (1) Hypotension Current visit: Yes Status: Acute (2) Fall (on) (from) other stairs and steps, initial encounter Current visit: Yes Status: Acute (3) Acute kidney injury Current visit: Yes Status: Acute DVT Prophylaxis: SCD's, Heparin drip Resuscitation Status: Do Not Resuscitate Assessment and Plan: Impression Hypotension Acute kidney injury Frequent falls Scalp laceration Elevated lactate (POA) Leukocytosis (POA) Hyponatremia (POA) HTN COPD Idiopathic peripheral neuropathy Osteoarthritis Hyperlipidemia Sjogren's syndrome Chronic back pain GERD Plan Admit to CCU under the hospitalist service, Dr. Cyr attending. After discussion with ED doctor, did elect to give Levaquin 500 mg IV as urine results were pending - did have concern for potential of sepsis given her hypotension, elevated lactate, and leukocytosis. IV fluids for hypotension. Heparin drip (per protocol) initiated at the request of Dr. Linares as he is suspicious patient could have PE given some right heart strain seen on echo in the ED. Check CT head given her recent falls prior to starting heparin drip. Check D-Dimer. If positive, will proceed with CTA when renal function permits. Check Renal ultrasound given the acute kidney injury Magnesium, phosphorus, repeat CBC, CMP, procalcitonin in a.m. SCDs for VTE prophylaxis Hold patient's home antihypertensive medication Patient request CODE STATUS DO NOT RESUSCITATE. This order is written Upon discharge, patient's care to return to her PCP, Dr. Lamb. Hospital Course Summary Disclaimer: The visit summary below is not to be considered part of the above Progress Note. Hospital Course: Hypotension Acute kidney injury Frequent falls Scalp laceration Elevated lactate (POA) Leukocytosis (POA) Hyponatremia (POA) HTN COPD Idiopathic peripheral neuropathy Osteoarthritis Hyperlipidemia Sjogren's syndrome Chronic back pain GERD 02/15/17 - Hospital Admission to CCU Admit to CCU under the hospitalist service, Dr. Cyr attending. After discussion with ED doctor, did elect to give Levaquin 500 mg IV as urine results were pending - did have concern for potential of sepsis given her hypotension, elevated lactate, and leukocytosis. IV fluids for hypotension. Heparin drip (per protocol) initiated at the request of Dr. Linares as he is suspicious patient could have PE given some right heart strain seen on echo in the ED. Check CT head given her recent falls prior to starting heparin drip. Check D-Dimer. If positive, will proceed with CTA when renal function permits. Check Renal ultrasound given the acute kidney injury Magnesium, phosphorus, repeat CBC, CMP, procalcitonin in a.m. SCDs for VTE prophylaxis Hold patient's home antihypertensive medication Patient request CODE STATUS DO NOT RESUSCITATE. This order is written Upon discharge, patient's care to return to her PCP, Dr. Lamb. <Ethan Cyr D - Last Filed: 02/15/17 20:56> History of Present Illness Date: 02/15/17 [facility] Patient Stated Medical History Hypertension Yes Pneumonia Yes Osteoarthritis Yes Post Menopausal Yes Exam Vital Signs: Temperature 97.8 F 02/15/17 15:35 Pulse Rate 80 02/15/17 20:28 Respiratory Rate 18 02/15/17 20:28 Blood Pressure 84/57 02/15/17 19:30 Pulse Oximetry 93 02/15/17 20:28 Height/Weight/BMI: Height 1.57 m Weight 71.2 kg Body Mass Index 28.7 Results - Labs CBC & Chem 7: 02/15/17 16:11 02/15/17 16:11 Assessment and Plan (1) Hypotension Current visit: Yes Status: Acute (2) Fall (on) (from) other stairs and steps, initial encounter Current visit: Yes Status: Acute (3) Acute kidney injury Current visit: Yes Status: Acute Assessment and Plan: Impression Hypotension Acute kidney injury Frequent falls Scalp laceration Elevated lactate (POA) Leukocytosis (POA) Hyponatremia (POA) HTN COPD Idiopathic peripheral neuropathy Osteoarthritis Hyperlipidemia Sjogren's syndrome Chronic back pain GERD Have independently interviewed and examined pt. Chart reviewed. Case discussed with ED physician and my PA. Care plan developed with my supervision; agree with above. Has been feeling weak and dizzy when up. Dizziness only when up. Has had 2 falls in the past 2 days-feels weak and legs go out on her. Had some nausea and upset stomach 4 days ago. Chilled at that time. Other weakness, has been feeling okay. Breathing well-not SOA or congested. No chest pressure or pain. No loose stool. Urinating well. No skin rashes or lesions. Denies sinus congestion, pressure or pain. No mouth or tooth pain (saw dentist within the last week and had normal check up). Presents to ED secondary to weakness and falls. BP very decreased on presentation. Given 2L fluid with minimal increase. CXR showing no infiltrate or pulmonary edema. UA showing no evidence of infection. ECHO done in ED-not showing pericardia effusion. Right heart strain noted. Creatinine with elevation at 2.1. Place in impatient admission status at [facility]U for care. Lungs: clear CV: regular AB; soft nt/nd +BS EXT: no edema Skin: warm and dry. No mottling. MSE: awake alert appropriate. Communicates well. Thoughts linear Plan: Inpatient admission to [facility] CCU for treatment of significant hypotension. Anticipate greater than 2 midnights of care needed. Did have some concern for sepsis when I initially spoke with ED provider - UA not back; WBC was elevated and Lactate 2.2 -- however patient not looking like septic. Did give dose of Levaquin to have antimicrobial therapy on board in case UA showed infection. Urine returned clear. In discussion with patient, I cannot find any identifiable sources of infection. Significant hypotension still very concerning - after IVF boluses BP did increase to 90'2 systolic with MAP >65. Will continue with IVF. Hold BB and ARB as likely these agents are contributing to hypotension. Recheck Lactate due to low BP. Nation and renal US due to FIONA. Recheck CXR in am to monitor for pulmonary edema secondary to IVF use. With right heart strain, will start Heparin drip in case of PE (not able to do CTA due to FIONA). CT Brain showing no bleed. Monitor lab. Hope to see BP continue to improve and creatinine gradually improve. Time spent with patient care greater than 35 minutes. Hospital Course Summary Disclaimer: The visit summary below is not to be considered part of the above Progress Note.
[2017-02-15] MEDS ORDERED: HEPARIN 1,000unit/ml INJECTION 10ml IVP ONE (18:45)
[2017-02-15] MEDS ORDERED: NS 1,000 ML IV SCH (19:00)
[2017-02-15] MEDS: NS 1,000 ML IV SCH ×2 (19:45→23:47)
[2017-02-15] MEDS: HEPARIN DRIP 20,000 UNIT/500 ML BAG IV SCH (19:45)
[2017-02-15 19:59] VITALS: BMI 28.7
[2017-02-15] MEDS ORDERED: ONDANSETRON 4 MG/2 ML INJECTION IVP PRN (20:20)
[2017-02-15] MEDS: ACETAMINOPHEN 325 MG TABLET PO PRN (21:29)
[2017-02-16] MEDS: NS 1,000 ML IV SCH ×3 (03:14→19:50)
--- NOTE | 2017-02-16 07:13 | Pharmacy Consult ---
Pharmacy Consult-Heparin - Laboratory Information Heparin Plt Count 159 T/MM3 (130-400) 02/16/17 03:16 APTT 84.9 SEC (24-36) H 02/16/17 03:16 - Consult Information HEPARIN CONSULT (Recurring): PTT = 84.9 Sec. Platelet count = 221 T/mm3. Will adjust Heparin Drip to 880 units/hr (22 ml/hr). Will recheck PTT and adjust regimen as needed. Thank you.
[2017-02-16] MEDS: OMEPRAZOLE 20 MG CAPSULE PO SCH (07:17)
--- NOTE | 2017-02-16 08:22 | CT Scan Report ---
Indication: s/p fall, head injury PROCEDURE: CT head/brain wo con: Encounter: Initial Comparison: None Technique: Axial CT images through the head were performed without contrast. Iterative Reconstruction dose reducing technique was utilized. FINDINGS: The ventricles are of normal size, shape, and contour for the patient's age. There are extensive areas of low attenuation in the white matter which most likely represent changes from chronic microvascular ischemia. The brainstem, cerebellum, and cerebral hemispheres otherwise have a normal morphology and CT attenuation. There is no evidence of midline displacement. No hemorrhage, signs of acute territorial stroke, mass effect, mass lesions, or edema is evident. The visualized portions of the skull base, midface, and calvarium demonstrate no abnormality. The paranasal sinuses are well aerated and free of significant disease. The tympanic and mastoid cavities appear normal. Posterior scalp swelling. IMPRESSION: No acute intracranial abnormality or hemorrhage. There is a preliminary report by [facility]. .
--- NOTE | 2017-02-16 08:53 | XRay Report ---
Indication: F/U, on oxygen PROCEDURE: XR chest 1V: Encounter: Initial Comparison: February 15, 2017 Findings: The lungs are stable in appearance without new focal airspace consolidation. There is no pleural effusion or pneumothorax. The heart size, pulmonary vascularity and mediastinal contours are unchanged. IMPRESSION: Stable appearance of the chest without acute cardiopulmonary disease. .
--- NOTE | 2017-02-16 08:55 | Ultrasound Report ---
Indication: Acute kidney injury PROCEDURE: US renal BI: Encounter: Initial Comparison: None Technique: Grayscale and color Doppler sonographic imaging of both kidneys was performed. FINDINGS: Both kidneys are present with normal cortical thickness and echogenicity. No evidence for collecting system dilatation, contour deforming mass, nephrolithiasis, or abnormal perinephric fluid collection. The right kidney measures 10 cm in length, and the left kidney measures 10.4 cm in length. Granulomatous disease incidentally noted in the spleen. 2.9 cm simple appearing left renal cyst. IMPRESSION: No hydronephrosis. .
[2017-02-16] MEDS: CALCIUM CARBONATE 500 MG TABLET PO SCH (09:03)
[2017-02-16] MEDS: MULTI-VITAMIN PLAIN TABLET PO SCH (09:03)
--- NOTE | 2017-02-16 09:48 | Progress Note ---
Subjective: F/U: Profound hypotension, FIONA, Hyponatremia Doing well this morning. Slept okay. Breathing feels normal-not feeling more congested, SOA, or working to breath. No pain with breathing. Denies cough. Not having chest pressure or heaviness. No nausea or ab pain-ate breakfast without problems. Denies itching. Mentation normal, thinking well. Moving arms and legs well. No f/c. Objective Vital signs: Temperature 97.8 F 02/15/17 15:35 Pulse Rate 71 02/16/17 06:00 Respiratory Rate 22 02/16/17 06:00 Blood Pressure 95/56 02/16/17 06:00 Pulse Oximetry 84 L 02/16/17 06:00 Rhythm: Normal Sinus Rhythm Height/Weight/BMI: Height 1.57 m Weight 71.2 kg Body Mass Index 28.7 - Constitutional Present: well nourished, well developed, cooperative. Absent: combative, agitated - Routine HEENT Exam Head: Present: normocephalic, atraumatic Eye: Present: EOMI, PERRL ENT: Present: mucous membranes moist - Routine Respiratory Exam Present: CTA bilaterally. Absent: rales, respiratory distress, rhonchi, wheezes , crackles - Routine Cardiovascular Exam Present: RRR, no murmur - Routine Abdominal Exam Present: soft, normoactive bowel sounds, non distended, non tender. Absent: guarding - Routine Extremities Exam Present: no edema. Absent: cyanosis, clubbing Comments: SCD in place - Routine Musculoskeletal Exam Musculoskeletal: Present: no clubbing or cyanosis, normal strength - Routine Skin Exam Present: dry, warm. Absent: pallor, mottling - Routine Neurological Exam Present: alert, oriented X3, CN II-XII intact, moving all extremities, normal tone, vision grossly intact, hearing grossly intact. Absent: motor deficit - Routine Psychiatric Exam Present: normal affect, normal thought process, cooperative, good insight, good judgment Results - Labs CBC & Chem 7: 02/16/17 03:16 02/16/17 03:16 - Imaging and Cardiology Chest x-ray Status: image reviewed by me Additional comments: IMPRESSION: Stable appearance of the chest without acute cardiopulmonary disease. Assessment and Plan (1) Hypotension Current visit: Yes Status: Acute (2) Fall (on) (from) other stairs and steps, initial encounter Current visit: Yes Status: Acute (3) Acute kidney injury Current visit: Yes Status: Acute DVT Prophylaxis: SCD's, Heparin drip Resuscitation Status: Do Not Resuscitate Assessment and Plan: Impression Hypotension Acute kidney injury Frequent falls Scalp laceration Elevated lactate (POA) Leukocytosis (POA) Hyponatremia (POA) HTN COPD Idiopathic peripheral neuropathy Osteoarthritis Hyperlipidemia Sjogren's syndrome Chronic back pain GERD Plan Continue with NS at 125cc/hr - BP improving, creatinine showing decrease to 2.0. Urine output improving. No evidence of volume overload. No need to continue antibiotics - not seeing evidence for infection or sepsis. Continue to hold BB and ARB as BP still low (improve to 100's systolic). PT/OT to help increase strength. Will check V/Q scan to exclude PE due to right heart strain noted on ECHO and hypotension. Recheck CMP in am due to FIONA and hypotension. Will recheck CBC in am due to leukocytosis POA. As patient clinically improving, will transfer to medical floor for continuation of care. Case discussed with CCU nursing. Hospital Course Summary Disclaimer: The visit summary below is not to be considered part of the above Progress Note. Hospital Course: Hypotension Acute kidney injury Frequent falls Scalp laceration Elevated lactate (POA) Leukocytosis (POA) Hyponatremia (POA) HTN COPD Idiopathic peripheral neuropathy Osteoarthritis Hyperlipidemia Sjogren's syndrome Chronic back pain GERD 02/15/17 - Hospital Admission to CCU Admit to inpatient CCU under the hospitalist service, Dr. Cyr attending. After discussion with ED doctor, did elect to give Levaquin 500 mg IV as urine results were pending - did have concern for potential of sepsis given her hypotension, elevated lactate, and leukocytosis. IV fluids for hypotension. Heparin drip (per protocol) initiated at the request of Dr. Linares as he is suspicious patient could have PE given some right heart strain seen on echo in the ED. Check CT head given her recent falls prior to starting heparin drip. Check D-Dimer. If positive, will proceed with CTA when renal function permits. Check Renal ultrasound given the acute kidney injury Magnesium, phosphorus, repeat CBC, CMP, procalcitonin in a.m. SCDs for VTE prophylaxis Hold patient's home antihypertensive medication Patient request CODE STATUS DO NOT RESUSCITATE. This order is written Upon discharge, patient's care to return to her PCP, Dr. Lamb. 02/16/17 Continue with NS at 125cc/hr - BP improving, creatinine showing decrease to 2.0. Urine output improving. No evidence of volume overload. No need to continue antibiotics - not seeing evidence for infection or sepsis. Continue to hold BB and ARB as BP still low (improve to 100's systolic). PT/OT to help increase strength. Will check V/Q scan to exclude PE due to right heart strain noted on ECHO and hypotension. Recheck CMP in am due to FIONA and hypotension. Will recheck CBC in am due to leukocytosis POA. As patient clinically improving, will transfer to medical floor for continuation of care.
--- NOTE | 2017-02-16 10:53 | Pharmacy Consult ---
Pharmacy Consult-Heparin - Laboratory Information Heparin Plt Count 159 T/MM3 (130-400) 02/16/17 03:16 APTT 69.1 SEC (24-36) H 02/16/17 10:12 - Consult Information HEPARIN CONSULT (Recurring): PTT = 69.1 Sec. Platelet count = 159 T/mm3. Will CONTINUE Heparin Drip at 880 units/hr (22 ml/hr). Will recheck PTT and adjust regimen as needed. Thank you.
--- NOTE | 2017-02-16 13:59 | Echocardiogram ---
DATE OF PROCEDURE February 15, 2017 This is a two-dimensional echo with spectral Doppler, color-flow and M-mode. It was obtained in a patient with hypertension. Left atrial dimension is normal. Left ventricle end-diastolic dimension is normal. Left ventricular wall thickness is normal. LV systolic function is normal with ejection fraction of about 75%. Right atrium is markedly dilated. Right ventricle is markedly dilated and hypokinetic. Aortic root dimension is normal. Mitral valve annulus is calcified. Mitral valve leaflets are normal. Aortic valve shows fibrocalcific changes with no stenosis or insufficiency. Tricuspid valve shows severe tricuspid regurgitation with severe pulmonary hypertension with estimated pulmonary artery systolic pressure of 75-80. Pulmonary valve shows mild pulmonary insufficiency. There is no pericardial effusion. IMPRESSION 1. Normal LV systolic function with ejection fraction of 75%. 2. Right atrial dilation. 3. Right ventricular dilation with hypokinesia. 4. Mitral annulus calcification. 5. Aortic sclerosis. 6. Severe tricuspid regurgitation with severe pulmonary hypertension with estimated pulmonary artery systolic pressure of 75-80. 7. Mild pulmonary insufficiency. MTDD
[2017-02-16] MEDS: ACETAMINOPHEN 325 MG TABLET PO PRN ×2 (14:20→22:27)
[2017-02-16] MEDS: HEPARIN DRIP 20,000 UNIT/500 ML BAG IV SCH (16:43)
[2017-02-17] MEDS: NS 1,000 ML IV SCH ×3 (04:03→15:13)
[2017-02-17] MEDS: OMEPRAZOLE 20 MG CAPSULE PO SCH (06:42)
--- NOTE | 2017-02-17 08:04 | Pharmacy Consult ---
Pharmacy Consult-Heparin - Laboratory Information Heparin Plt Count 141 T/MM3 (130-400) 02/17/17 03:48 APTT 57.4 SEC (24-36) H 02/16/17 19:08 - Consult Information HEPARIN CONSULT (Recurring): PTT = 57.4 Sec. at 1908 on 02/16. Platelet count = 141 T/mm3. Will continue Heparin Drip to 880 units/hr (22 ml/hr). Will recheck PTT and adjust regimen as needed. Thank you.
--- OUTSIDE RECORDS SUMMARY | 2017-02-17 08:10 | External Medical Summary | Referral Summary ---
:1930 Author Organization [facility] [address] [place] [address] Care Team Providers Name Role Phone Jonathan Lamb Primary Care Physician Encounter VC Date(s): 10/30/14 - 10/30/14 [facility] [address] [place] [address] [place] [phone] [place] Discharge Diagnosis: Spinal stenosis Discharge Diagnosis: Sjogren's syndrome Discharge Disposition: 01-Home or Self Care Attending Physician: Sobia Varghese MD Admitting Physician: Sobia Varghese MD Vital Signs Most recent to oldest [Reference Range]: 1 Peripheral Pulse Rate [60-100 bpm] 84 bpm (10/30/14 1:52 PM) Respiratory Rate [14-20 br/min] 16 br/min (10/30/14 1:52 PM) Blood Pressure [90-140/60-90 mmHg] 147/90 mmHg *HI* (10/30/14 1:52 PM) Problem List Condition Effective Dates Status Health Status Informant Arthritis(Confirmed) Resolved Benign essential hypertension Active (disorder)(Confirmed) Bronchitis(Confirmed) Resolved Cataracts(Confirmed) Resolved Chicken pox(Confirmed) Resolved COPD (chronic obstructive pulmonary Active disease)(Confirmed) OA (osteoarthritis)(Confirmed) Active Emphysema(Confirmed) Resolved Erosive osteoarthritis(Confirmed) Active Hereditary and idiopathic peripheral Active neuropathy (disorder)(Confirmed) High cholesterol(Confirmed) Resolved Hypertension(Confirmed) Resolved Obesity(Confirmed) Active patient Pure hypercholesterolemia Active (disorder)(Confirmed) Sjogren's syndrome(Confirmed) Active Ulnar neuropathy Lt Resolved fingers(Confirmed) Allergies, Adverse Reactions, Alerts Substance Reaction Severity Status cefdinir diarrhea Active Medications Aspirin Enteric Coated 81 mg oral delayed release tablet 1 tabs, Oral, Daily, 0 Refill(s) Start Date: 11/11/13 Status: Orderedatenolol 100 mg oral tablet See Instructions, TAKE 1/2 TABLET BY MOUTH TWO TIMES A DAY, # 90 tabs, 1 Refill( s), eRx: [facility] #[id number], TAKE 1/2 TABLET BY MOUTH TWO TIMES A DAY Start Date: 12/19/14 Status: Orderedgabapentin 600 mg oral tablet See Instructions, TAKE ONE TABLET BY MOUTH THREE TIMES A DAY, # 90 tabs, 1 Refill(s), eRx: [facility] #[id number], TAKE ONE TABLET BY MOUTH THREE TIMES A DAY Start Date: 04/21/15 Status: Orderedlosartan-hydrochlorothiazide 100 mg-25 mg oral tablet See Instructions, TAKE ONE TABLET BY MOUTH DAILY, # 30 tabs, 5 Refill(s), eRx: [facility] #[id number], TAKE ONE TABLET BY MOUTH DAILY Start Date: 01/15/15 Status: Orderedmultivitamin 1 tabs, Oral, Daily, 0 Refill(s) Start Date: 11/11/13 Status: Orderedomeprazole 20 mg oral delayed release capsule 1 caps, Oral, Daily, # 30 caps, 0 Refill(s), Pharmacy: [facility] #[id number] , 1 caps Oral Daily Start Date: 07/31/14 Status: OrderedParafon Forte DSC 500 mg oral tablet See Instructions, TAKE ONE TABLET BY MOUTH TWICE A DAY, # 20 tabs, eRx: [facility] #[id number], TAKE ONE TABLET BY MOUTH TWICE A DAY Start Date: 09/23/14 Status: OrderedtraMADol 50 mg oral tablet 100 mg 2 tabs, Oral, q6hr, as needed for pain, n dillons, # 60 tabs, 0 Refill(s) , N dillons Start Date: 05/04/15 Status: OrderedTylenol Extra Strength mg, Oral, q6hr, as needed [...] 01/11/12 DEXA - Dual energy X-ray photon absorptiometry 04/24/07 Appendectomy 11/2006 Cataract extraction Cholecystectomy History of [...] 2.Spinal stenosis I discussed possibly trying duloxetine. [facility] also reviewed this medication ather last appointment. Discussed the potential risks which may occurwith medication includin g change in mood, hepatotoxicity, nausea, increased risks of bleeding etc. She [...]
--- OUTSIDE RECORDS SUMMARY | 2017-02-17 08:10 | External Medical Summary | Referral Summary ---
:1930 Author Organization [facility] Rhe[facility] [address] [place] [address] Care Team Providers Name Role Phone Jonathan Lamb Primary Care Physician Encounter VC Date(s): 10/30/14 - 10/30/14 [facility] [address] [place] [address] [place] [phone] [place] Discharge Diagnosis: Spinal [...] Resolved COPD (chronic obstructive pulmonary Active disease)(Confirmed) Emphysema(Confirmed) Resolved Erosive osteoarthritis(Confirmed) Active Hereditary and idiopathic peripheral Active neuropathy (disorder)(Confirmed) High cholesterol(Confirmed) Resolved Hypertension(Confirmed) Resolved Obesity(Confirmed) Active patient OA (osteoarthritis)(Confirmed) Active Pure hypercholesterolemia Active (disorder)(Confirmed) Sjogren's syndrome(Confirmed) Active [...] Refill( s), eRx: [facility] #[id number], TAKE 1/2 TABLET BY MOUTH TWO TIMES A DAY Start Date: 12/19/14 Status: Orderedgabapentin 600 mg oral tablet See Instructions, TAKE ONE TABLET BY MOUTH THREE TIMES A DAY, # 90 tabs, 4 Refill(s), eRx: [facility] #[id number], TAKE ONE TABLET BY MOUTH THREE TIMES A DAY Start Date: 12/03/14 Status: Orderedlosartan-hydrochlorothiazide 100 mg-25 mg oral tablet See Instructions, TAKE ONE TABLET BY MOUTH DAILY, # 30 tabs, 5 Refill(s), eRx: [facility] #[id number], TAKE ONE TABLET BY MOUTH DAILY Start Date: 01/15/15 Status: Orderedmultivitamin 1 tabs, Oral, Daily, 0 Refill(s) Start Date: 11/11/13 Status: Orderedomeprazole 20 mg oral delayed release capsule 1 caps, Oral, Daily, # 30 caps, 0 Refill(s), Pharmacy: [facility] #[id number] , 1 caps Oral Daily Start Date: 07/31/14 Status: OrderedParafon Forte DSC 500 mg oral tablet See Instructions, TAKE ONE TABLET BY MOUTH TWICE A DAY, # 20 tabs, eRx: [facility] #[id number], TAKE ONE TABLET BY MOUTH TWICE A DAY Start Date: 09/23/14 Status: OrderedPercocet 5/325 oral tablet 1 tabs, Oral, TID, Pain - Breakthrough, # 30 tabs, 0 Refill(s) Start Date: 03/25/15 Status: OrderedTylenol Extra Strength mg, Oral, q6hr, [...] 2.Spinal stenosis I discussed possibly trying duloxetine. Ihad also reviewed this medication ather last appointment. [...]
--- OUTSIDE RECORDS SUMMARY | 2017-02-17 08:10 | External Medical Summary | Referral Summary ---
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 Diagnosis: Polyosteoarthritis Discharge Diagnosis: Benign essential hypertension Discharge Diagnosis: COPD (chronic obstructive pulmonary disease) Discharge Disposition: 01-Home or Self Care Attending Physician: Jonathan Lamb MD Admitting Physician: Jonathan Lamb MD Vital Signs Most recent to oldest [Reference Range]: 1 Temperature Tympanic [36.6-38.1 degC] 36.4 degC *LOW* (08/14/15 8:57 AM) Peripheral Pulse Rate [60-100 bpm] 72 bpm (08/14/15 8:57 AM) Respiratory Rate [14-20 br/min] 16 br/min (08/14/15 8:57 AM) Blood Pressure [90-140/60-90 mmHg] 140/70 mmHg (08/14/15 8:57 AM) Problem List Condition Effective [...] 90 tabs, 1 Refill( s), eRx: [facility] #[id number], TAKE 1/2 TABLET BY MOUTH TWO TIMES A DAY Start Date: 06/10/15 Status: Orderedgabapentin 600 mg oral tablet See Instructions, TAKE ONE TABLET BY MOUTH THREE TIMES A DAY, # 90 tabs, 2 Refill(s), eRx: [facility] #[id number], TAKE ONE TABLET BY MOUTH THREE TIMES A DAY Start Date: 08/11/15 Status: Orderedlosartan-hydrochlorothiazide 100 mg-25 mg oral tablet 1 tabs, Oral, Daily, X 90 days, # 90 tabs, 3 Refill(s), Pharmacy: [facility] #[id number] Start Date: 08/14/15 Stop Date: 08/08/16 Status: Orderedmultivitamin 1 tabs, Oral, Daily, 0 Refill(s) Start Date: 11/11/13 Status: Orderedomeprazole 20 mg oral delayed release capsule 1 caps, Oral, Daily, # 30 caps, 0 Refill(s), Pharmacy: [facility] #[id number] , 1 caps Oral Daily Start Date: 07/31/14 Status: OrderedParafon Forte DSC 500 mg oral tablet See Instructions, TAKE ONE TABLET BY MOUTH TWICE A DAY, # 20 tabs, 0 Refill(s), Pharmacy: [facility] #[id number], TAKE ONE TABLET BY MOUTH TWICE A DAY Start Date: 08/14/15 Status: OrderedtraMADol 50 mg oral tablet 100 mg 2 tabs, Oral, q6hr, as needed for pain, n larry, # 60 tabs, 0 Refill(s) , [facility] Start Date: 07/01/15 Status: OrderedTylenol Extra Strength mg, Oral, q6hr, [...] Patient Education Author: Jonathan Lamb MD Date: 08/13 Emergency Medicine Chronic Obstructive Pulmonary Disease Chronic [...] directed by your health care provider. Avoid [id number] medicines or cough syrups that dry up your airway (such as antihistamines) and slow down the elimination of secretions unless instructed otherwise by your health care provider. If you are a smoker, the most important thing that you can do is stop smoking. Continuing to smoke will cause further lung damage and breathing trouble. Ask your health care provider for help wit h quitting smoking. He or she can direct [...] all the vaccines your health care provider recommends, especially the pneumococcal and influenz a vaccines. Ask your health care provider whether [...] move out. Then purse your lips and exhal e slowly. You should be able to feel [...] Released: 02/15/2006 Document Revised: 02/24/2015 Document Reviewed: 01/02/2014 [facility] Patient Information 2015 [employer]. No follow up information was provided. Extracted from: Title: Office Visit Note Author: Jonathan Lamb MD Date: 08/14/15 Assessment/Plan Benign essential hypertension Blood pressure is well controlled. Medications and treatmentsreviewed and no changes are recommended. Report card reviewed and provided. Follow-up in 3 months with labprior to that appointment. Ordered: Office Visit Level 4 Est 52380 COPD (chronic obstructive pulmonary disease) This appears to be chronic and stable. Will schedule an overnight oximetry see if she still needs oxygen. Ordered: Office Visit Level 4 Est 73160 Hereditary and idiopathic neuropathy Chronic stable no change in current treatment. Ordered: Office Visit Level 4 Est 52103 Polyosteoarthritis Chronic and stable no change in current treatment. I did refill chlorzoxazone for her to be used when necessary warned about drowsiness andpotential increased for fall risk. Ordered: Office Visit Level 4 Est 22436 Orders: chlorzoxazone, See Instructions, TAKE ONE TABLET BY MOUTH TWICE A DAY , # 20 tabs, 0 Refill(s), Pharmacy: [facility] #[id number], TAKE ONE TABLET BY MOUTH TWICE A DAY losartan-hydrochlorothiazide, 1 tabs, Oral, Daily, X 90 days, # 90 tabs, 3 Refill(s), Pharmacy: [facility] #[id number]
--- OUTSIDE RECORDS SUMMARY | 2017-02-17 08:10 | External Medical Summary | Referral Summary ---
:1930 Author Organization [facility] Rhe[facility]ology [address] [place] [address] Care Team Providers Name Role Phone Jonathan Lamb Primary Care Physician Encounter VC Date(s): 10/30/14 - 10/30/14 [facility] [address] [place] [address] [place] [phone] [place] Discharge Diagnosis: Spinal [...] # 90 tabs, 1 Refill( s), eRx: [facility] #[id number], TAKE 1/2 TABLET BY MOUTH TWO TIMES A DAY Start Date: 12/19/14 Status: Orderedgabapentin 600 mg oral tablet See Instructions, TAKE ONE TABLET BY MOUTH THREE TIMES A DAY, # 90 tabs, 4 Refill(s), eRx: [facility] #[id number], TAKE ONE TABLET BY MOUTH THREE TIMES A DAY Start Date: 12/03/14 Status: Orderedlosartan-hydrochlorothiazide 100 mg-25 mg oral tablet See Instructions, TAKE ONE TABLET BY MOUTH DAILY, # 30 tabs, 5 Refill(s), eRx: [facility] #[id number], TAKE ONE TABLET BY MOUTH DAILY Start Date: 01/15/15 Status: Orderedmultivitamin 1 tabs, Oral, Daily, 0 Refill(s) Start Date: 11/11/13 Status: Orderedomeprazole 20 mg oral delayed release capsule 1 caps, Oral, Daily, # 30 caps, 0 Refill(s), Pharmacy: [facility] #[id number] , 1 caps Oral Daily Start Date: 07/31/14 Status: OrderedParafon Forte DSC 500 mg oral tablet See Instructions, TAKE ONE TABLET BY MOUTH TWICE A DAY, # 20 tabs, eRx: [facility] #[id number], TAKE ONE TABLET BY MOUTH TWICE A [...]
--- OUTSIDE RECORDS SUMMARY | 2017-02-17 08:10 | External Medical Summary | Referral Summary ---
:1930 Author Organization [facility] [address] [place] [address] Care Team Providers Name Role Phone Jonathan Lamb Primary Care Physician Encounter VC Date(s): 11/06/14 - 11/06/14 [facility] [place] [phone] [place] Discharge Diagnosis: Sjogren's syndrome Discharge Diagnosis: Erosive osteoarthritis Discharge Diagnosis: Benign essential hypertension Discharge Diagnosis: Pure hypercholesterolemia Discharge Diagnosis: COPD (chronic obstructive pulmonary disease) Discharge Diagnosis: OA (osteoarthritis) Discharge Disposition: 01-Home or Self Care Attending Physician: Jonathan Lamb MD Admitting Physician: Jonathan Lamb MD Vital Signs Most recent to oldest [Reference Range]: 1 Temperature Tympanic [36.6-38.1 degC] 36.2 degC *LOW* (11/06/14 2:33 PM) Peripheral Pulse Rate [60-100 bpm] 80 bpm (11/06/14 2:33 PM) Respiratory Rate [14-20 br/min] 16 br/min (11/06/14 2:33 PM) Blood Pressure [90-140/60-90 mmHg] 156/84 mmHg *HI* (11/06/14 2:33 PM) Problem List Condition [...] 90 tabs, 1 Refill( s), eRx: [facility] #[id number], TAKE 1/2 TABLET BY MOUTH TWO TIMES A DAY Start Date: 12/19/14 Status: Orderedgabapentin 600 mg oral tablet See Instructions, TAKE ONE TABLET BY MOUTH THREE TIMES A DAY, # 90 tabs, 4 Refill(s), eRx: [facility] #[id number], TAKE ONE TABLET BY MOUTH THREE TIMES A DAY Start Date: 12/03/14 Status: Orderedlosartan-hydrochlorothiazide 100 mg-25 mg oral tablet See Instructions, TAKE ONE TABLET BY MOUTH DAILY, # 30 tabs, 5 Refill(s), eRx: [facility] #[id number], TAKE ONE TABLET BY MOUTH DAILY Start Date: 01/15/15 Status: Orderedmultivitamin 1 tabs, Oral, Daily, 0 Refill(s) Start Date: 11/11/13 Status: Orderedomeprazole 20 mg oral delayed release capsule 1 caps, Oral, Daily, # 30 caps, 0 Refill(s), Pharmacy: [facility] #[id number] , 1 caps Oral Daily Start Date: 07/31/14 Status: OrderedParafon Forte DSC 500 mg oral tablet See Instructions, TAKE ONE TABLET BY MOUTH TWICE A DAY, # 20 tabs, eRx: [facility] #[id number], TAKE ONE TABLET BY MOUTH TWICE A [...] Vaccine Date Refusal Reason tetanus/diphth/pertuss (Tdap) adult/adol 12/1/06 influenza virus vaccine, inactivated 02/21/14 influenza virus [...] Patient Education Author: Jonathan Lamb MD Date: 11/06 Family Medicine Hypertension As your heart beats, it forces blood through your arteries. This force is your blood pressure. If the pressure is too high, it is called hypertension (HTN) or high blood pressure. HTN is dangerous becau se you may have it and not know [...] (systolic ) and under 80 for the botto m (diastolic ). Write down your blood pressure [...] Released: 05/08/2006 Document Revised: 07/30/2012 Document Reviewed: 12/26/2008 [facility] Patient Information 2014 [employer] No follow up information was provided. Extracted from: Title: Office Visit Note Author: Jonathan Lamb MD Date: 11/06/14 Assessment/Plan Benign essential hypertension Blood pressure is elevated here but consistently normal at home. No changes in current medications are recommended at this time. Recent laboratory studies are revie wed her kidney function is actually showed some improvement. We'll continue current treatment plan without change. Check in 3 months. Ordered: pneumococcal 13-valent conjugate vaccine, 0.5 mL, IntraMuscular, Once, First Dose: 11/06/14 15:00:00 CDT, Stop Date: 11/06/14 15:00:00 CDT, Form: Injection Office Visit Level 4 Est 14720 COPD (chronic obstructive pulmonary disease) Overall stable no change in current treatment. I did recommend and give Prevnar today. Follow-up in 3 months. Ordered: pneumococcal 13-valent conjugate vaccine, 0.5 mL, IntraMuscular, Once, First Dose: 11/06/14 15:00:00 CDT, Stop Date: 11/06/14 15:00:00 CDT, Form: Injection Office Visit Level 4 Est 46605 Erosive osteoarthritis We talked about her chronic pain. I've asked her to increase her gabapentin to 600 mg twice a day and see if that doesn't help. Side effects were reviewed. She may luther nue to use her hydrocodone and tramadol as she is doing. Ordered: Office Visit Level 4 Est 54909 Pure hypercholesterolemia Chronic stable no change in current treatment plan. Ordered: Office Visit Level 4 Est 68733 Sjogren's syndrome Overall stable. Continue follow-up with Dr. Varghese. Ordered: Office Visit Level 4 Est 77617 Orders: gabapentin, 600 mg 1 tabs, Oral, BID, # 90 tabs, 3 Refill(s), Pharmacy: [facility] #[id number], 1 tabs Oral TID
--- OUTSIDE RECORDS SUMMARY | 2017-02-17 08:10 | External Medical Summary | Referral Summary ---
:1930 Author Organization [facility] Rhe[facility] [address] [place] [address] Care Team Providers Name Role Phone Jonathan Lamb Primary Care Physician Encounter VC Date(s): 10/30/14 - 10/30/14 [facility] [address] [place] [address] [place] [phone] [place] Discharge Diagnosis: Spinal [...] # 90 tabs, 1 Refill( s), eRx: [facility] #[id number], TAKE 1/2 TABLET BY MOUTH TWO TIMES A DAY Start Date: 12/19/14 Status: Orderedgabapentin 600 mg oral tablet See Instructions, TAKE ONE TABLET BY MOUTH THREE TIMES A DAY, # 90 tabs, 4 Refill(s), eRx: [facility] #[id number], TAKE ONE TABLET BY MOUTH THREE TIMES A DAY Start Date: 12/03/14 Status: Orderedlosartan-hydrochlorothiazide 100 mg-25 mg oral tablet See Instructions, TAKE ONE TABLET BY MOUTH DAILY, # 30 tabs, 5 Refill(s), eRx: [facility] #[id number], TAKE ONE TABLET BY MOUTH DAILY Start Date: 01/15/15 Status: Orderedmultivitamin 1 tabs, Oral, Daily, 0 Refill(s) Start Date: 11/11/13 Status: Orderedomeprazole 20 mg oral delayed release capsule 1 caps, Oral, Daily, # 30 caps, 0 Refill(s), Pharmacy: [facility] #[id number] , 1 caps Oral Daily Start Date: 07/31/14 Status: OrderedParafon Forte DSC 500 mg oral tablet See Instructions, TAKE ONE TABLET BY MOUTH TWICE A DAY, # 20 tabs, eRx: [facility] #[id number], TAKE ONE TABLET BY MOUTH TWICE A [...]
--- OUTSIDE RECORDS SUMMARY | 2017-02-17 08:10 | External Medical Summary | Referral Summary ---
:1930 Author Organization [facility] [address] [place] [address] Care Team Providers Name Role Phone Jonathan Lamb Primary Care Physician Encounter VC Date(s): 10/30/14 - 10/30/14 [facility] [address] [place] [address] [place] [phone] [place] Discharge Diagnosis: Spinal stenosis Discharge Diagnosis: Sjogren's syndrome Discharge Disposition: 01-Home or Self Care Attending Physician: Sobia aVrghese MD Admitting Physician: Sobia Varghese MD Vital [...] Refill( s), eRx: [facility] #[id number], TAKE 1/2 TABLET BY MOUTH TWO TIMES A DAY Start Date: 12/19/14 Status: Orderedgabapentin 600 mg oral tablet See Instructions, TAKE ONE TABLET BY MOUTH THREE TIMES A DAY, # 90 tabs, 4 Refill(s), eRx: [facility] #[id number], TAKE ONE TABLET BY MOUTH THREE TIMES A DAY Start Date: 12/03/14 Status: Orderedlosartan-hydrochlorothiazide 100 mg-25 mg oral tablet See Instructions, TAKE ONE TABLET BY MOUTH DAILY, # 30 tabs, 5 Refill(s), eRx: [facility] #[id number], TAKE ONE TABLET BY MOUTH DAILY Start Date: 01/15/15 Status: Orderedmultivitamin 1 tabs, Oral, Daily, 0 Refill(s) Start Date: 11/11/13 Status: Orderedomeprazole 20 mg oral delayed release capsule 1 caps, Oral, Daily, # 30 caps, 0 Refill(s), Pharmacy: [facility] #[id number] , 1 caps Oral Daily Start Date: 07/31/14 Status: OrderedParafon Forte DSC 500 mg oral tablet See Instructions, TAKE ONE TABLET BY MOUTH TWICE A DAY, # 20 tabs, eRx: [facility] #[id number], TAKE ONE TABLET BY MOUTH TWICE A [...]
--- OUTSIDE RECORDS SUMMARY | 2017-02-17 08:10 | External Medical Summary | Referral Summary ---
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) Discharge Disposition: 01-Home or Self Care Attending Physician: Jonathan Lamb MD Admitting Physician: Jonathan Lamb MD Vital Signs Most recent to oldest [Reference Range]: 1 Temperature Tympanic [36.6-38.1 degC] 36.8 degC (03/25/15 10:09 AM) Peripheral Pulse Rate [60-100 bpm] 72 bpm (03/25/15 10:09 AM) Respiratory Rate [14-20 br/min] 16 br/min (03/25/15 10:09 AM) Blood Pressure [90-140/60-90 mmHg] 142/74 mmHg *HI* (03/25/15 10:09 AM) Problem List Condition [...] s), eRx: [facility] #[id number], TAKE 1/2 TABLET BY MOUTH TWO TIMES A DAY Start Date: 12/19/14 Status: Orderedgabapentin 600 mg oral tablet See Instructions, TAKE ONE TABLET BY MOUTH THREE TIMES A DAY, # 90 tabs, 4 Refill(s), eRx: [facility] #[id number], TAKE ONE TABLET BY MOUTH THREE TIMES A DAY Start Date: 12/03/14 Status: Orderedlosartan-hydrochlorothiazide 100 mg-25 mg oral tablet See Instructions, TAKE ONE TABLET BY MOUTH DAILY, # 30 tabs, 5 Refill(s), eRx: [facility] #[id number], TAKE ONE TABLET BY MOUTH DAILY Start Date: 01/15/15 Status: Orderedmultivitamin 1 tabs, Oral, Daily, 0 Refill(s) Start Date: 11/11/13 Status: Orderedomeprazole 20 mg oral delayed release capsule 1 caps, Oral, Daily, # 30 caps, 0 Refill(s), Pharmacy: [facility] #[id number] , 1 caps Oral Daily Start Date: 07/31/14 Status: OrderedParafon Forte DSC 500 mg oral tablet See Instructions, TAKE ONE TABLET BY MOUTH TWICE A DAY, # 20 tabs, eRx: [facility] #[id number], TAKE ONE TABLET BY MOUTH TWICE A DAY Start Date: 09/23/14 Status: OrderedPercocet 5/325 oral tablet 1 tabs, Oral, TID, Pain - Breakthrough, # 30 tabs, 0 Refill(s) Start Date: 03/25/15 Status: OrderedTylenol Extra Strength mg, Oral, q6hr, as needed for pain, 0 Refill(s) Start Date: 02/09/15 Status: Ordered Results Hematology Most recent to oldest [Reference Range]: 1 WBC [4.8-10.8 10*3/uL] 5.8 10*3/uL (11/4/15 10:40 AM) RBC [4.00-5.20] 3.58 *LOW* (03/25/15 10:40 AM) Hgb [12.0-16.0 gm/dL] 11.0 gm/dL *LOW* (03/25/15 10:40 AM) Hct [37.0-47.0 %] 32.8 % *LOW* (03/25/15 10:40 AM) MCV [82.0-99.0 fL] 91.6 fL (03/25/15 10:40 AM) MCH [27.0-32.0 pg] 30.7 pg (03/25/15 10:40 AM) MCHC [32.0-36.0 gm/dL] 33.5 gm/dL (03/25/15 10:40 AM) RDW [11.5-14.5 %] 12.7 % (03/25/15 10:40 AM) Platelet [150-400 10*3/uL] 255 10*3/uL (03/25/15 10:40 AM) MPV [8.8-14.8 fL] 12.7 fL (03/25/15 10:40 AM) Immature Granulocytes [0.0-1.0 %] 0.2 % (03/25/15 10:40 AM) Neutrophils [51-75 %] 69 % (03/25/15 10:40 AM) Lymphocytes [20-46 %] 18 % *LOW* (03/25/15 10:40 AM) Monocytes [4-11 %] 9 % (03/25/15 10:40 AM) Eosinophils [0-4 %] 3 % (03/25/15 10:40 AM) Basophils [0-2 %] 1 % (03/25/15 10:40 AM) Neutro Absolute [1.90-7.00 10*3] 4.03 10*3 (03/25/15 10:40 AM) Lymph Absolute [0.80-3.30 10*3] 1.02 10*3 (03/25/15 10:40 AM) [place] Absolute [0.30-1.00 10*3] 0.53 10*3 (03/25/15 10:40 AM) Eos Absolute [0.00-0.50 10*3] 0.17 10*3 (03/25/15 10:40 AM) Baso Absolute [0.00-0.20 10*3] 0.05 10*3 (03/25/15 10:40 AM) Chemistry Most recent to oldest [Reference Range]: 1 Sodium Lvl [135-144 mEq/L] 133 mEq/L *LOW* (03/25/15 10:40 AM) Potassium Lvl [3.5-5.2 mEq/L] 4.5 mEq/L (03/25/15 10:40 AM) Chloride [99-111 mEq/L] 96 mEq/L *LOW* (03/25/15 10:40 AM) CO2 [22-31 mEq/L] 29 mEq/L (03/25/15 10:40 AM) AGAP [3-20] 8 (03/25/15 10:40 AM) BUN [10-20 mg/dL] 24 mg/dL *HI* (03/25/15 10:40 AM) Glucose Lvl [70-99 mg/dL] 101 mg/dL *HI* (03/25/15 10:40 AM) Creatinine Lvl [0.57-1.11 mg/dL] 1.05 mg/dL (03/25/15 10:40 AM) eGFR [>60 mL/min] 50 mL/min 1 *ABN* (03/25/15 10:40 AM) Calcium Lvl [8.9-10.5 mg/dL] 10.3 mg/dL (03/25/15 10:40 AM) Albumin Lvl [3.4-4.8 gm/dL] 4.0 gm/dL (03/25/15 10:40 AM) Total Protein [6.2-8.1 gm/dL] 6.5 gm/dL (03/25/15 10:40 AM) Globulin [1.8-4.0 gm/dL] 2.5 gm/dL (03/25/15 10:40 AM) ALT [0-55 U/L] 15 U/L (03/25/15 10:40 AM) AST [5-34 U/L] 21 U/L (03/25/15 10:40 AM) Alk Phos [40-150 U/L] 62 U/L (03/25/15 10:40 AM) Bili Total [0.2-1.2 mg/dL] 0.5 mg/dL (03/25/15 10:40 AM) TSH with Reflex Free T4 [0.35-4.94] 1.69 (03/25/15 10:40 AM) 1Result Comment: Multiply eGFR [...] Patient Education Author: Jonathan Lamb MD Date: 03/25 ENT Dizziness Dizziness is a common problem. It is a feeling of unsteadiness or light- headedness. You may feel like you are about to faint. Dizziness can lead to injury if you stumble or fall. A person of any age genia up can suffer from dizziness, but dizziness is [...] your heart. 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 Tighten [...] Released: 11/01/2001 Document Revised: 05/13/2014 Document Reviewed: 11/25/2011 [employer] Patient Information 2015 [employer]. This information is not intended to replace [...] recommended. Ordered: Office Visit Level 4 Est 88711 COPD (chronic obstructive pulmonary disease) COPD appears to be stable no change in current treatment. Ordered: Office Visit Level 4 Est 74367 Dizziness It's unclear what the etiology of [...] Metabolic Panel Office Visit Level 4 Est 30574 TSH with Reflex Free T4 Hereditary and idiopathic peripheral neuropathy (disorder) I'm concerned gabapentin may be contributing to her dizziness have asked her to reduce it to 600 mg twice a day. For neuropathy worsen she'll let us now. Ordered: CBC w/ Differential Comprehensive Metabolic Panel Office Visit Level 4 Est 69965 TSH with Reflex Free T4 Left leg [...]
--- OUTSIDE RECORDS SUMMARY | 2017-02-17 08:11 | External Medical Summary | Referral Summary ---
:1930 Author Organization [facility] [address] [place] [address] Care Team Providers Name Role Phone Jonathan Lamb Primary Care Physician Encounter VC Date(s): 11/06/14 - 11/06/14 [facility] [place] [phone] [place] Discharge Diagnosis: [...] s), eRx: [facility] #[id number], TAKE 1/2 TABLET BY MOUTH TWO TIMES A DAY Start Date: 12/19/14 Status: Orderedgabapentin 600 mg oral tablet See Instructions, TAKE ONE TABLET BY MOUTH THREE TIMES A DAY, # 90 tabs, 1 Refill(s), eRx: [facility] #[id number], TAKE ONE TABLET BY MOUTH THREE TIMES A DAY Start Date: 04/21/15 Status: Orderedlosartan-hydrochlorothiazide 100 mg-25 mg oral tablet See Instructions, TAKE ONE TABLET BY MOUTH DAILY, # 30 tabs, 5 Refill(s), eRx: [facility] #[id number], TAKE ONE TABLET BY MOUTH DAILY Start Date: 01/15/15 Status: Orderedmultivitamin 1 tabs, Oral, Daily, 0 Refill(s) Start Date: 11/11/13 Status: Orderedomeprazole 20 mg oral delayed release capsule 1 caps, Oral, Daily, # 30 caps, 0 Refill(s), Pharmacy: [facility] #[id number] , 1 caps Oral Daily Start Date: 07/31/14 Status: OrderedParafon Forte DSC 500 mg oral tablet See Instructions, TAKE ONE TABLET BY MOUTH TWICE A DAY, # 20 tabs, eRx: [facility] #[id number], TAKE ONE TABLET BY MOUTH TWICE A [...] 05/08/2006 Document Revised: 07/30/2012 Document Reviewed: 12/26/2008 [facility] Patient Information 2014 [employer]. No follow up information was provided. Extracted [...] Form: Injection Office Visit Level 4 Est 21506 COPD (chronic obstructive pulmonary disease) Overall stable no change in current treatment. I did recommend and give Prevnar today. Follow-up in 3 months. Ordered: pneumococcal 13-valent conjugate vaccine, 0.5 mL, IntraMuscular, Once, First Dose: 11/06/14 15:00:00 CDT, Stop Date: 11/06/14 15:00:00 CDT, Form: Injection Office Visit Level 4 Est 39188 Erosive osteoarthritis We talked about her chronic pain. I've asked her to increase her gabapentin to 600 mg twice a day and see if that doesn't help. Side effects were reviewed. She may luther nue to use her hydrocodone and tramadol as she is doing. Ordered: Office Visit Level 4 Est 11066 Pure hypercholesterolemia Chronic stable no change in current treatment plan. Ordered: Office Visit Level 4 Est 32285 Sjogren's syndrome Overall stable. Continue follow-up with Dr. Varghese. Ordered: Office Visit Level 4 Est 35847 Orders: gabapentin, 600 mg 1 tabs, Oral, BID, # 90 tabs, 3 Refill(s), Pharmacy: [facility] #[id number], 1 tabs Oral TID
--- OUTSIDE RECORDS SUMMARY | 2017-02-17 08:11 | External Medical Summary | Continuity of Care Document ---
:1930 Author Organization Via [facility] Allergies Medications Problems Procedures Results Encounters ACCT No. Visit Discharge Status Pt. Type Provider Facility Loc./Unit Complaint Date/Time [id number] 08/15/2013 08/15/2013 CLS Outpatient 10:19:00 23:59:59 [id number] 05/30/2013 05/30/2013 CLS Outpatient 09:32:00 23:59:59
--- OUTSIDE RECORDS SUMMARY | 2017-02-17 08:11 | External Medical Summary | Referral Summary ---
:1930 Author Organization [facility], Rheumatology [address] [place] [address] Care Team Providers Name Role Phone Jonathan Lamb Primary Care Physician Encounter VC Date(s): 10/30/14 - 10/30/14 [facility], Rheumatology [address] [place] [address] [place] [phone] [place] Discharge Diagnosis: Spinal [...] # 90 tabs, 1 Refill( s), eRx: [facility] #[id number], TAKE 1/2 TABLET BY MOUTH TWO TIMES A DAY Start Date: 12/19/14 Status: Orderedgabapentin 600 mg oral tablet See Instructions, TAKE ONE TABLET BY MOUTH THREE TIMES A DAY, # 90 tabs, 4 Refill(s), eRx: [facility] #[id number], TAKE ONE TABLET BY MOUTH THREE TIMES A DAY Start Date: 12/03/14 Status: Orderedlosartan-hydrochlorothiazide 100 mg-25 mg oral tablet See Instructions, TAKE ONE TABLET BY MOUTH DAILY, # 30 tabs, 5 Refill(s), eRx: [facility] #[id number], TAKE ONE TABLET BY MOUTH DAILY Start Date: 01/15/15 Status: Orderedmultivitamin 1 tabs, Oral, Daily, 0 Refill(s) Start Date: 11/11/13 Status: Orderedomeprazole 20 mg oral delayed release capsule 1 caps, Oral, Daily, # 30 caps, 0 Refill(s), Pharmacy: [facility] #[id number] , 1 caps Oral Daily Start Date: 07/31/14 Status: OrderedParafon Forte DSC 500 mg oral tablet See Instructions, TAKE ONE TABLET BY MOUTH TWICE A DAY, # 20 tabs, eRx: [facility] #[id number], TAKE ONE TABLET BY MOUTH TWICE A [...] from: Title: Office Visit Note Author: Sobia Varghees MD Date: 10/30/14 Assessment/Plan 1.Sjogren's syndrome Continue [...]
--- OUTSIDE RECORDS SUMMARY | 2017-02-17 08:11 | External Medical Summary | Referral Summary ---
:1930 Author Organization [facility], Rheumatology [address] [place] [address] Care Team Providers Name Role Phone Jonathan Lamb Primary Care Physician Encounter VC Date(s): 10/30/14 - 10/30/14 [facility], Rheumatology [address] [place] [address] [place] [phone] [place] Discharge Diagnosis: Spinal stenosis Discharge Diagnosis: Sjogren's syndrome Discharge Disposition: 01-Home or Self Care Attending Physician: Sobia Varghese MD Admitting Physician: oSbia Varghese MD Vital Signs Most recent to [...] Refill( s), eRx: [facility] #[id number], TAKE 1/2 TABLET BY MOUTH TWO TIMES A DAY Start Date: 12/19/14 Status: Orderedgabapentin 600 mg oral tablet See Instructions, TAKE ONE TABLET BY MOUTH THREE TIMES A DAY, # 90 tabs, 4 Refill(s), eRx: [facility] #[id number], TAKE ONE TABLET BY MOUTH THREE TIMES A DAY Start Date: 12/03/14 Status: Orderedlosartan-hydrochlorothiazide 100 mg-25 mg oral tablet See Instructions, TAKE ONE TABLET BY MOUTH DAILY, # 30 tabs, 5 Refill(s), eRx: [facility] #[id number], TAKE ONE TABLET BY MOUTH DAILY Start Date: 01/15/15 Status: Orderedmultivitamin 1 tabs, Oral, Daily, 0 Refill(s) Start Date: 11/11/13 Status: Orderedomeprazole 20 mg oral delayed release capsule 1 caps, Oral, Daily, # 30 caps, 0 Refill(s), Pharmacy: [facility] #[id number] , 1 caps Oral Daily Start Date: 07/31/14 Status: OrderedParafon Forte DSC 500 mg oral tablet See Instructions, TAKE ONE TABLET BY MOUTH TWICE A DAY, # 20 tabs, eRx: [facility] #[id number], TAKE ONE TABLET BY MOUTH TWICE A [...]
--- OUTSIDE RECORDS SUMMARY | 2017-02-17 08:11 | External Medical Summary | Referral Summary ---
:1930 Author Organization [facility] [address] [place] [address] Care Team Providers Name Role Phone Jonathan Lamb Primary Care Physician Encounter VC Date(s): 05/11/15 - 05/11/15 [facility] [place] [phone] [place] Discharge Diagnosis: Benign essential hypertension Discharge Diagnosis: Pure hypercholesterolemia Discharge Diagnosis: COPD (chronic obstructive pulmonary disease) Discharge Diagnosis: OA (osteoarthritis) Discharge Disposition: 01-Home or Self Care Attending Physician: Jonathan Lamb MD Admitting Physician: Jonathan Lamb MD Vital Signs Most recent to oldest [Reference Range]: 1 Temperature Tympanic [36.6-38.1 degC] 36.6 degC (05/11/15 8:41 AM) Peripheral Pulse Rate [60-100 bpm] 76 bpm (05/11/15 8:41 AM) Respiratory Rate [14-20 br/min] 16 br/min (05/11/15 8:41 AM) Blood Pressure [90-140/60-90 mmHg] 150/88 mmHg *HI* (05/11/15 8:41 AM) Problem List Condition [...] s), eRx: [facility] #[id number], TAKE 1/2 TABLET BY MOUTH TWO TIMES A DAY Start Date: 12/19/14 Status: Orderedgabapentin 600 mg oral tablet See Instructions, TAKE ONE TABLET BY MOUTH THREE TIMES A DAY, # 90 tabs, 1 Refill(s), eRx: [facility] #[id number], TAKE ONE TABLET BY MOUTH THREE TIMES A DAY Start Date: 04/21/15 Status: Orderedlosartan-hydrochlorothiazide 100 mg-25 mg oral tablet See Instructions, TAKE ONE TABLET BY MOUTH DAILY, # 30 tabs, 5 Refill(s), eRx: [facility] #[id number], TAKE ONE TABLET BY MOUTH DAILY Start Date: 01/15/15 Status: Orderedmultivitamin 1 tabs, Oral, Daily, 0 Refill(s) Start Date: 11/11/13 Status: Orderedomeprazole 20 mg oral delayed release capsule 1 caps, Oral, Daily, # 30 caps, 0 Refill(s), Pharmacy: [facility] #[id number] , 1 caps Oral Daily Start Date: 07/31/14 Status: OrderedParafon Forte DSC 500 mg oral tablet See Instructions, TAKE ONE TABLET BY MOUTH TWICE A DAY, # 20 tabs, eRx: [facility] #[id number], TAKE ONE TABLET BY MOUTH TWICE A [...] directed by your health care provider. Avoid [id number] medicines or cough syrups that dry up [...] Released: 02/15/2006 Document Revised: 09/22/2014 Document Reviewed: 01/02/2014 [facility] Patient Information 2015 [employer]. This information is not intended to replace [...] recommended. Report card reviewed and provided and recen t laboratory studies reviewed. Follow-up in 3 months. Ordered: Office Visit Level 4 Est 93735 COPD (chronic obstructive pulmonary disease) Chronic stable. We talked about checking an overnight oximetry but will hold off for now. She'll continue to use her oxygen on an as-needed basis no change in treatment otherwise. Ordered: Office Visit Level 4 Est 68482 OA (osteoarthritis) Chronic stable no change in current treatment. Ordered: Office Visit Level 4 Est 71143 Pure hypercholesterolemia Laboratory studies reviewed from January no change in current treatment is recommended. Ordered: Office Visit Level 4 Est 08657
--- OUTSIDE RECORDS SUMMARY | 2017-02-17 08:11 | External Medical Summary | Referral Summary ---
:1930 Author Organization [facility] [address] [place] [address] Care Team Providers Name Role Phone Jonathan Lamb Primary Care Physician Encounter VC Date(s): 02/09/15 - 02/09/15 [facility] [place] [address] [place] Discharge Diagnosis: Benign essential hypertension Discharge Diagnosis: COPD (chronic obstructive pulmonary disease) Discharge Diagnosis: Erosive osteoarthritis Discharge Diagnosis: Pure hypercholesterolemia Discharge Disposition: 01-Home or Self Care Attending Physician: Jonathan Lamb MD Admitting Physician: Jonathan Lamb MD Vital Signs Most recent to oldest [Reference Range]: 1 Temperature Tympanic [36.6-38.1 degC] 36.1 degC *LOW* (02/09/15 9:51 AM) Peripheral Pulse Rate [60-100 bpm] 64 bpm (02/09/15 9:51 AM) Blood Pressure [90-140/60-90 mmHg] 136/76 mmHg (02/09/15 9:51 AM) Problem List Condition Effective [...] # 90 tabs, 1 Refill( s), eRx: [facility] #[id number], TAKE 1/2 TABLET BY MOUTH TWO TIMES A DAY Start Date: 06/10/15 Status: Orderedgabapentin 600 mg oral tablet See Instructions, TAKE ONE TABLET BY MOUTH THREE TIMES A DAY, # 90 tabs, 2 Refill(s), eRx: [facility] #[id number], TAKE ONE TABLET BY MOUTH THREE TIMES A DAY Start Date: 08/11/15 Status: Orderedlosartan-hydrochlorothiazide 100 mg-25 mg oral tablet 1 tabs, Oral, Daily, X 90 days, # 90 tabs, 3 Refill(s), Pharmacy: [facility] #[id number] Start Date: 08/14/15 Stop Date: 08/08/16 Status: Orderedmultivitamin 1 tabs, Oral, Daily, 0 Refill(s) Start Date: 11/11/13 Status: Orderedomeprazole 20 mg oral delayed release capsule 1 caps, Oral, Daily, # 30 caps, 0 Refill(s), Pharmacy: [facility] #[id number] , 1 caps Oral Daily Start Date: 07/31/14 Status: OrderedParafon Forte DSC 500 mg oral tablet See Instructions, TAKE ONE TABLET BY MOUTH TWICE A DAY, # 20 tabs, 0 Refill(s), Pharmacy: [facility] #[id number], TAKE ONE TABLET BY MOUTH TWICE A DAY Start Date: 08/14/15 Status: OrderedtraMADol 50 mg oral tablet 100 mg 2 tabs, Oral, q6hr, as needed for pain, n dillons, # 60 tabs, 0 Refill(s) , N dillons Start Date: 07/01/15 Status: OrderedTylenol Extra Strength mg, Oral, q6hr, as needed for pain, 0 Refill(s) Start Date: 02/09/15 Status: Ordered Results No data available for this section Immunizations Vaccine Date Refusal Reason tetanus/diphth/pertuss (Tdap) adult/adol 04/21/06 influenza virus vaccine, inactivated 10/3/14 influenza virus vaccine, live 02/07/13 influenza virus [...] months. Ordered: Office Visit Level 4 Est 38901 COPD (chronic obstructive pulmonary disease) Chronic stable no change in current treatment recommended. Ordered: Office Visit Level 4 Est 15749 Erosive osteoarthritis Chronic with worsening left shoulder pain. We discussed cortisone injection as well as orthopedic referral. She's like to see an orthopedic doctor for this and we'll set her up with an appointment. Ordered: Office Visit Level 4 Est 61126 Pure hypercholesterolemia Chronic stable no change in current treatment. Laboratory studies reviewed. Ordered: Office Visit Level 4 Est 58854
--- OUTSIDE RECORDS SUMMARY | 2017-02-17 08:11 | External Medical Summary | Referral Summary ---
:1930 Author Organization [facility] [address] [place] [address] Care Team Providers Name Role Phone Jonathan Lamb Primary Care Physician Encounter VC Date(s): 11/06/14 - 11/06/14 [facility] [place] [address] [place] Discharge Diagnosis: [...] # 90 tabs, 1 Refill( s), eRx: [facility] #[id number], TAKE 1/2 TABLET BY MOUTH TWO TIMES A DAY Start Date: 12/19/14 Status: Orderedgabapentin 600 mg oral tablet See Instructions, TAKE ONE TABLET BY MOUTH THREE TIMES A DAY, # 90 tabs, 4 Refill(s), eRx: [facility] #[id number], TAKE ONE TABLET BY MOUTH THREE TIMES A DAY Start Date: 12/03/14 Status: Orderedlosartan-hydrochlorothiazide 100 mg-25 mg oral tablet See Instructions, TAKE ONE TABLET BY MOUTH DAILY, # 30 tabs, 5 Refill(s), eRx: [facility] #[id number], TAKE ONE TABLET BY MOUTH DAILY Start Date: 01/15/15 Status: Orderedmultivitamin 1 tabs, Oral, Daily, 0 Refill(s) Start Date: 11/11/13 Status: Orderedomeprazole 20 mg oral delayed release capsule 1 caps, Oral, Daily, # 30 caps, 0 Refill(s), Pharmacy: [facility] #[id number] , 1 caps Oral Daily Start Date: 07/31/14 Status: OrderedParafon Forte DSC 500 mg oral tablet See Instructions, TAKE ONE TABLET BY MOUTH TWICE A DAY, # 20 tabs, eRx: [facility] #[id number], TAKE ONE TABLET BY MOUTH TWICE A [...] 05/08/2006 Document Revised: 07/30/2012 Document Reviewed: 12/26/2008 [facility] Patient Information 2014 [employer]. No follow up information was provided. Extracted [...] Form: Injection Office Visit Level 4 Est 44872 COPD (chronic obstructive pulmonary disease) Overall stable no change in current treatment. I did recommend and give Prevnar today. Follow-up in 3 months. Ordered: pneumococcal 13-valent conjugate vaccine, 0.5 mL, IntraMuscular, Once, First Dose: 11/06/14 15:00:00 CDT, Stop Date: 11/06/14 15:00:00 CDT, Form: Injection Office Visit Level 4 Est 88251 Erosive osteoarthritis We talked about her chronic pain. I've asked her to increase her gabapentin to 600 mg twice a day and see if that doesn't help. Side effects were reviewed. She may luther nue to use her hydrocodone and tramadol as she is doing. Ordered: Office Visit Level 4 Est 92833 Pure hypercholesterolemia Chronic stable no change in current treatment plan. Ordered: Office Visit Level 4 Est 49670 Sjogren's syndrome Overall stable. Continue follow-up with Dr. Varghese. Ordered: Office Visit Level 4 Est 84544 Orders: gabapentin, 600 mg 1 tabs, Oral, BID, # 90 tabs, 3 Refill(s), Pharmacy: [facility] #[id number], 1 tabs Oral TID
--- OUTSIDE RECORDS SUMMARY | 2017-02-17 08:11 | External Medical Summary | Referral Summary ---
:1930 Author Organization [facility] [address] [place] [address] Care Team Providers Name Role Phone Jonatahn Lamb Primary Care Physician Encounter VC Date(s): 11/06/14 - 11/06/14 [facility] [place] [phone] [place] Discharge Diagnosis: [...] 1 Refill( s), eRx: [facility] #[id number], TAKE 1/2 TABLET BY MOUTH TWO TIMES A DAY Start Date: 12/19/14 Status: Orderedgabapentin 600 mg oral tablet See Instructions, TAKE ONE TABLET BY MOUTH THREE TIMES A DAY, # 90 tabs, 4 Refill(s), eRx: [facility] #[id number], TAKE ONE TABLET BY MOUTH THREE TIMES A DAY Start Date: 12/03/14 Status: Orderedlosartan-hydrochlorothiazide 100 mg-25 mg oral tablet See Instructions, TAKE ONE TABLET BY MOUTH DAILY, # 30 tabs, 5 Refill(s), eRx: [facility] #[id number], TAKE ONE TABLET BY MOUTH DAILY Start Date: 01/15/15 Status: Orderedmultivitamin 1 tabs, Oral, Daily, 0 Refill(s) Start Date: 11/11/13 Status: Orderedomeprazole 20 mg oral delayed release capsule 1 caps, Oral, Daily, # 30 caps, 0 Refill(s), Pharmacy: [facility] #[id number] , 1 caps Oral Daily Start Date: 07/31/14 Status: OrderedParafon Forte DSC 500 mg oral tablet See Instructions, TAKE ONE TABLET BY MOUTH TWICE A DAY, # 20 tabs, eRx: [facility] #[id number], TAKE ONE TABLET BY MOUTH TWICE A [...] 05/08/2006 Document Revised: 07/30/2012 Document Reviewed: 12/26/2008 [facility] Patient Information 2014 G3. No follow up information was provided. Extracted [...] Form: Injection Office Visit Level 4 Est 81571 COPD (chronic obstructive pulmonary disease) Overall stable no change in current treatment. I did recommend and give Prevnar today. Follow-up in 3 months. Ordered: pneumococcal 13-valent conjugate vaccine, 0.5 mL, IntraMuscular, Once, First Dose: 11/06/14 15:00:00 CDT, Stop Date: 11/06/14 15:00:00 CDT, Form: Injection Office Visit Level 4 Est 68086 Erosive osteoarthritis We talked about her chronic pain. I've asked her to increase her gabapentin to 600 mg twice a day and see if that doesn't help. Side effects were reviewed. She may luther nue to use her hydrocodone and tramadol as she is doing. Ordered: Office Visit Level 4 Est 48989 Pure hypercholesterolemia Chronic stable no change in current treatment plan. Ordered: Office Visit Level 4 Est 40779 Sjogren's syndrome Overall stable. Continue follow-up with Dr. Varghese. Ordered: Office Visit Level 4 Est 20869 Orders: gabapentin, 600 mg 1 tabs, Oral, BID, # 90 tabs, 3 Refill(s), Pharmacy: [facility] #[id number], 1 tabs Oral TID
--- OUTSIDE RECORDS SUMMARY | 2017-02-17 08:11 | External Medical Summary | Referral Summary ---
:1930 Author Organization [facility] [place] [address] Care Team Providers Name Role Phone Jonathan Lamb Primary Care Physician Encounter VC Date(s): 11/16/15 - 11/16/15 [facility] [place] [phone] [place] Discharge Diagnosis: [...] [Reference Range]: 1 Temperature Tympanic [36.6-38.1 degC] 36.0 degC *LOW* (11/16/15 9:29 AM) Peripheral Pulse Rate [60-100 bpm] 76 bpm (11/16/15 9:29 AM) Respiratory Rate [14-20 br/min] 20 br/min (11/16/15 9:29 AM) Blood Pressure [90-140/60-90 mmHg] 156/84 mmHg *HI* (11/16/15 9:29 AM) Problem List Condition [...] Refill( s), eRx: [facility] #[id number], TAKE 1/2 TABLET BY MOUTH TWO TIMES A DAY Start Date: 06/10/15 Status: Orderedchlorzoxazone 500 mg oral tablet See Instructions, TAKE ONE TABLET BY MOUTH TWICE A DAY, # 20 tabs, eRx: [facility] #[id number], TAKE ONE TABLET BY MOUTH TWICE A DAY Start Date: 10/12/15 Status: Orderedgabapentin 600 mg oral tablet See Instructions, TAKE ONE TABLET BY MOUTH THREE TIMES A DAY, # 90 tabs, 2 Refill(s), eRx: [facility] #[id number], TAKE ONE TABLET BY MOUTH THREE TIMES A DAY Start Date: 08/11/15 Status: Orderedlosartan-hydrochlorothiazide 100 mg-25 mg oral tablet 1 tabs, Oral, Daily, X 90 days, # 90 tabs, 3 Refill(s), Pharmacy: [facility] #[id number] Start Date: 08/14/15 Stop Date: 08/08/16 Status: Orderedmultivitamin 1 tabs, Oral, Daily, 0 Refill(s) Start Date: 11/11/13 Status: Orderedomeprazole 20 mg oral delayed release capsule 1 caps, Oral, Daily, # 30 caps, 0 Refill(s), Pharmacy: [facility] #[id number] , 1 caps Oral Daily Start Date: 07/31/14 Status: OrderedtraMADol 50 mg oral tablet 100 mg 2 tabs, Oral, q6hr, as needed for pain, n dillobrittany, # 60 tabs, 0 Refill(s) , N dillons Start Date: 11/16/15 Status: OrderedTylenol Extra Strength mg, Oral, q6hr, [...] Patient Education Author: Jonathan Lamb MD Date: 11/15 Preventive Medicine Heart Disease Prevention Heart disease is a leading cause of . There are many things you can do to help prevent heart disease. BE PHYSICALLY ACTIVE Physical activity is good for your heart. It helps control your blood pressure , cholesterol levels, and weight. Try to be [...] by your health care provider. Ask your [facility] care provider if you need treatment to [...] out more about heart disease, visit the [employer]'s website at www.americanheart.org This information is not intended to replace advice given to you by your health care provider. Make sure you discuss any questions you have with your health care provider. Document Released: 12/20/2004 Document Revised: 05/29/2015 Document Reviewed: 07/02/2014 [facility] [place] Patient Information 2016 [employer]. No follow up information was provided. Extracted [...] provided. Ordered: Office Visit Level 4 Est 08950 2.COPD (chronic obstructive pulmonary disease), Chronic obstructive pulmonary disease, unspecified Chronic and stable off of oxygen no furtherchange in treatment is recommended. Recheck in 3 months. Ordered: Office Visit Level 4 Est 86428 3.Polyosteoarthritis, Polyosteoarthritis, unspecified Chronic persistenttramadol refilled no change in treatment otherwise. Ordered: Office Visit Level 4 Est 48970 6.Mixed hyperlipidemia, Mixed hyperlipidemia Recent laboratory studies reviewed triglycerides are mildly elevated. HDL to total cholesterol ratio reasonable no change in current treatment recommended. Ordered: Office Visit Level 4 Est 52957 7.Radicular leg pain, Radiculopathy, site unspecified Recommended continuinggabapentin and refills on tramadol. I've recommended some [facility]. Ordered: Office Visit Level 4 Est 53126 Orders: traMADol, 100 mg 2 tabs, Oral, q6hr, as needed for pain, n dillons, # 60 tabs, 0 Refill(s), N dillons
--- OUTSIDE RECORDS SUMMARY | 2017-02-17 08:11 | External Medical Summary | Referral Summary ---
:1930 Author Organization [facility] [place] [address] Care Team Providers Name Role Phone Jonathan Lamb Primary Care Physician Encounter VC Date(s): 02/01/16 - 02/01/16 [facility] [place] [phone] [place] Discharge Diagnosis: Benign essential hypertension Discharge Diagnosis: Erosive osteoarthritis Discharge Diagnosis: COPD (chronic obstructive pulmonary disease) Discharge Diagnosis: Pure hypercholesterolemia Discharge Disposition: 01-Home or Self Care Attending Physician: Jonathan Lamb MD Admitting Physician: Jonathan Lamb MD Vital Signs Most recent to oldest [Reference Range]: 1 Temperature Tympanic [36.6-38.1 degC] 36.3 degC *LOW* (02/01/16 9:39 AM) Peripheral Pulse Rate [60-100 bpm] 64 bpm (02/01/16 9:39 AM) Blood Pressure [90-140/60-90 mmHg] 154/66 mmHg *HI* (02/01/16 9:39 AM) Problem List Condition [...] # 90 tabs, 1 Refill( s), eRx: [facility] #[id number], TAKE 1/2 TABLET BY MOUTH TWO TIMES A DAY Start Date: 11/30/15 Status: Orderedchlorzoxazone 500 mg oral tablet See Instructions, TAKE ONE TABLET BY MOUTH TWICE A DAY, # 20 tabs, eRx: [facility] #[id number], TAKE ONE TABLET BY MOUTH TWICE A DAY Start Date: 10/12/15 Status: Orderedgabapentin 600 mg oral tablet See Instructions, TAKE ONE TABLET BY MOUTH THREE TIMES A DAY, # 90 tabs, 2 Refill(s), eRx: [facility] #[id number], TAKE ONE TABLET BY MOUTH THREE TIMES A DAY Start Date: 12/09/15 Status: Orderedlosartan-hydrochlorothiazide 100 mg-25 mg oral tablet 1 tabs, Oral, Daily, X 90 days, # 90 tabs, 3 Refill(s), Pharmacy: [facility] #[id number] Start Date: 08/14/15 Stop Date: 08/08/16 Status: Orderedmultivitamin 1 tabs, Oral, Daily, 0 Refill(s) Start Date: 11/11/13 Status: Orderedomeprazole 20 mg oral delayed release capsule 1 caps, Oral, Daily, # 30 caps, 0 Refill(s), Pharmacy: [facility] #[id number] , 1 caps Oral Daily Start Date: 07/31/14 Status: OrderedtraMADol 50 mg oral tablet 100 mg 2 tabs, Oral, q6hr, as needed for pain, n dillons, # 60 tabs, 0 Refill(s) , N dillons Start Date: 01/06/16 Status: OrderedTylenol Extra Strength mg, Oral, q6hr, [...] Patient Education Author: Jonathan Lamb MD Date: 01/31 Family Medicine Chronic Obstructive Pulmonary Disease Chronic obstructive pulmonary disease (COPD) is a common lung problem. In COPD , the flow of air from the lungs is limited. The way your lungs work will probably never return to normal, but there are thi ngs you can do to improve your lungs [...] and breathe out slowly through your lips. You r hand on your belly should move in [...] Released: 10/24/2008 Document Revised: 05/29/2015 Document Reviewed: 01/02/2014 [employer] Patient Information 2016 [employer] [facility]. No follow up information was provided. Extracted from: Title: Office Visit Note Author: Jonathan Lamb MD Date: 02/01/16 Assessment/Plan 1.Benign essential hypertension, Essential (primary) hypertension Blood pressurehas been normal at home no change in current treatment is recommended. Previous laboratory studies reviewed. Report card reviewed and provided. Recheck in 3 months. Ordered: influenza virus vaccine, inactivated, 0.5 mL, IntraMuscular, Once, First Dose : 02/01/16 10:00:00 CDT, Stop Date: 02/01/16 10:00:00 CDT Office Visit Level 4 Est 17154 2.COPD (chronic obstructive pulmonary disease), Chronic obstructive pulmonary disease, unspecified Chronic currently stable no change in current treatment she is up-to-date on vaccinations and flu shot was given today. Follow-up in 3 months. Ordered: influenza virus vaccine, inactivated, 0.5 mL, IntraMuscular, Once, First Dose : 02/01/16 10:00:00 CDT, Stop Date: 02/01/16 10:00:00 CDT Office Visit Level 4 Est 99592 3.Erosive osteoarthritis, Erosive (osteo)arthritis Chronic relatively stable. Therapy was been helpful for her back encouraged her to continue to stay active and do her regular exercises. She has more difficulties or concerns she'll let us now. Ordered: Office Visit Level 4 Est 10367 4.Pure hypercholesterolemia, Pure hypercholesterolemia Chronic stable no change in current treatment recheck in 3 months with fasting lab. Ordered: Office Visit Level 4 Est 79331 5. Hives Not sure these are coming from. I've recommended a regular dose of either Claritin or Zyrtecfor the next few weeks and see if that will calm down. If they're worsening or she has further problems she'll let us know.
[2017-02-17] MEDS: MULTI-VITAMIN PLAIN TABLET PO SCH (08:42)
[2017-02-17] MEDS: CALCIUM CARBONATE 500 MG TABLET PO SCH (08:42)
[2017-02-17] MEDS ORDERED: FUROSEMIDE 20 MG/2 ML INJECTION IVP ONE (10:23)
[2017-02-17] MEDS ORDERED: BISACODYL 10 MG SUPPOSITORY RECTALLY PRN (10:35)
[2017-02-17] MEDS ORDERED: POLYETHYL GLYCOL 3350 17gm PACKET PO PRN (10:35)
--- NOTE | 2017-02-17 10:40 | Progress Note ---
Subjective: F/U: Profound hypotension, FIONA, Hyponatremia Worked with therapy today-challenging. Still feeling unsteady when up. Weak- couldn't go far. Breathing more congested-needing O2. No pain with breathing, little cough. Eating okay. Did pass stool. No f/c. Notes arthritic discomfort- would like tramadol restarted. Objective Vital signs: Temperature 97.1 F 02/17/17 07:24 Pulse Rate 84 02/17/17 07:24 Respiratory Rate 20 02/17/17 07:24 Blood Pressure 153/84 H 02/17/17 07:24 Pulse Oximetry 1 L 02/17/17 07:24 Rhythm: Normal Sinus Rhythm Height/Weight/BMI: Height 1.57 m Weight 77.1 kg Body Mass Index 28.7 - Constitutional Present: well nourished, well developed, cooperative - Routine HEENT Exam Head: Present: normocephalic, atraumatic Eye: Present: EOMI, PERRL ENT: Present: mucous membranes moist - Routine Respiratory Exam Present: decreased breath sounds, crackles (Faint crackles ), diminished air movement. Absent: rhonchi, wheezes - Routine Cardiovascular Exam Present: RRR, no murmur - Routine Abdominal Exam Present: soft, normoactive bowel sounds, non distended, non tender - Routine Extremities Exam Present: cyanosis, clubbing, edema (+1 BLE ) Comments: SCD in place - Routine Musculoskeletal Exam Musculoskeletal: Present: no clubbing or cyanosis. Absent: normal gait - Routine Skin Exam Present: dry, warm - Routine Neurological Exam Present: alert, oriented X3, CN II-XII intact, moving all extremities, vision grossly intact, hearing grossly intact. Absent: motor deficit - Routine Psychiatric Exam Present: normal affect, normal thought process, cooperative, good insight, good judgment. Absent: anxious, agitated Results - Labs CBC & Chem 7: 02/17/17 03:48 02/17/17 03:49 Assessment and Plan (1) Hypotension Current visit: Yes Status: Acute (2) Fall (on) (from) other stairs and steps, initial encounter Current visit: Yes Status: Acute (3) Acute kidney injury Current visit: Yes Status: Acute DVT Prophylaxis: SCD's, Heparin drip Resuscitation Status: Do Not Resuscitate Assessment and Plan: Impression Hypotension Acute kidney injury Chronic stage III CKD Frequent falls Scalp laceration Elevated lactate (POA) - resolved; no evidence for sepsis Leukocytosis (POA) - resolved Hyponatremia (POA) HTN COPD Idiopathic peripheral neuropathy Osteoarthritis Hyperlipidemia Sjogren's syndrome Chronic back pain GERD Plan Creatinine decreased to 1.5; Weight up from IVF resuscitation. Blood pressure increased. Potassium with decrease to 3.5. Sodium increased to 133. Will decrease NS to 75cc/hr. Lasix 20mg IV x1 to help decrease volume - monitor BP response with Lasix. Continue to hold BB and ARB. Possible use of amlodipine if BP still elevated. PT/OT working with patient - still very weak and unstable. Nursing to ambulate TID. Check on V/Q results - if negative will d/c Heparin drip. Oral potassium 20mEq x1 to normalize potassium. May restart tramadol for pain. Recheck CMP in am due to FIONA and electrolyte abnormalities. Monitor CBC due to heparin drip. 1745 Rechecked on patient this evening. Breathing easier. Worked with nursing for ambulation-still very weak. V/Q scan came back intermediate probability. Will stop Heparin drip and start low dose Lovenox. Has been accepted to IRU, but clinically I do not feel patient ready for this. In discussion with her, she also feels strength too decrease now to tolerate 3 hours of rehab a day. Case discussed with CM. Time spent with patient care 25 minutes. Hospital Course Summary Disclaimer: The visit summary below is not to be considered part of the above Progress Note. Hospital Course: Hypotension Acute kidney injury Frequent falls Scalp laceration Elevated lactate (POA) Leukocytosis (POA) Hyponatremia (POA) HTN COPD Idiopathic peripheral neuropathy Osteoarthritis Hyperlipidemia Sjogren's syndrome Chronic back pain GERD 02/15/17 - Hospital Admission to CCU Admit to inpatient CCU under the hospitalist service, Dr. Cyr attending. After discussion with ED doctor, did elect to give Levaquin 500 mg IV as urine results were pending - did have concern for potential of sepsis given her hypotension, elevated lactate, and leukocytosis. IV fluids for hypotension. Heparin drip (per protocol) initiated at the request of Dr. Linares as he is suspicious patient could have PE given some right heart strain seen on echo in the ED. Check CT head given her recent falls prior to starting heparin drip. Check D-Dimer. If positive, will proceed with CTA when renal function permits. Check Renal ultrasound given the acute kidney injury Magnesium, phosphorus, repeat CBC, CMP, procalcitonin in a.m. SCDs for VTE prophylaxis Hold patient's home antihypertensive medication Patient request CODE STATUS DO NOT RESUSCITATE. This order is written Upon discharge, patient's care to return to her PCP, Dr. Lamb. 02/16/17 Continue with NS at 125cc/hr - BP improving, creatinine showing decrease to 2.0. Urine output improving. No evidence of volume overload. No need to continue antibiotics - not seeing evidence for infection or sepsis. Continue to hold BB and ARB as BP still low (improve to 100's systolic). PT/OT to help increase strength. Will check V/Q scan to exclude PE due to right heart strain noted on ECHO and hypotension. Recheck CMP in am due to FIONA and hypotension. Will recheck CBC in am due to leukocytosis POA. As patient clinically improving, will transfer to medical floor for continuation of care. 02/17/17 Creatinine decreased to 1.5; Weight up from IVF resuscitation. Blood pressure increased. Potassium with decrease to 3.5. Sodium increased to 133. Will decrease NS to 75cc/hr. Lasix 20mg IV x1 to help decrease volume - monitor BP response with Lasix. Continue to hold BB and ARB. Possible use of amlodipine if BP still elevated. PT/OT working with patient - still very weak and unstable. Nursing to ambulate TID. Check on V/Q results - if negative will d/c Heparin drip. Oral potassium 20mEq x1 to normalize potassium. May restart tramadol for pain. Recheck CMP in am due to FIONA and electrolyte abnormalities. Monitor CBC due to heparin drip. 1744 Rechecked on patient this evening. Breathing easier. Worked with nursing for ambulation-still very weak. V/Q scan came back intermediate probability. Will stop Heparin drip and start low dose Lovenox. Has been accepted to IRU, but clinically I do not feel patient ready for this. In discussion with her, she also feels strength too decrease now to tolerate 3 hours of rehab a day.
[2017-02-17] MEDS: TRAMADOL 50 MG TABLET PO PRN ×2 (10:43→19:53)
--- NOTE | 2017-02-17 11:08 | Pharmacy Consult ---
Pharmacy Consult-Heparin - Laboratory Information Heparin Plt Count 141 T/MM3 (130-400) 02/17/17 03:48 APTT 53.8 SEC (24-36) H 02/17/17 03:48 - Consult Information HEPARIN CONSULT (Recurring): PTT = 53.8 Sec. Platelet count = 141 T/mm3. Will adjust Heparin Drip to 960 units/hr (24 ml/hr). Will recheck PTT and adjust regimen as needed. Thank you.
[2017-02-17] MEDS ORDERED: SALINE FLUSH 10ml SYRINGE ONE (11:54)
--- NOTE | 2017-02-17 13:44 | Nuclear Medicine Report ---
Indication: Right heart strain/hypotension - ? PE PROCEDURE: NM pul vent and perfuse: Comparison: None Technique: The patient received 42.3mCi aerosolized Tc-99m DTPA prior to obtaining ventilation images. Next, 6.1 mCi of Tc-99m MAA was administered intravenously prior to obtaining perfusion images in the standard 8 views. A chest x-ray from today was reviewed. Findings: Ventilation images demonstrate radiotracer uptake throughout both lungs with severely heterogeneous uptake. Multifocal areas of decreased perfusion in both lower and upper lobes. Perfusion images are also quite heterogeneous with multifocal nonsegmental perfusion defects that appear roughly matched to the ventilation deficits. No segmental or larger mismatched defect. Impression: Intermediate probability scan for pulmonary embolus, approximately 20% probability. .
--- NOTE | 2017-02-17 13:45 | XRay Report ---
Indication: 1V CXR FOR VQ PROCEDURE: XR chest 1V for NM procedure: Encounter: Initial Comparison: February 16, 2017 Findings: Chest is stable in appearance. No acute pneumonia seen. Mild hypoinflation. Calcified granulomas. No pneumothorax. Heart size and mediastinal contours are stable. Pulmonary vascularity appears normal. Impression: No change. .
--- NOTE | 2017-02-17 14:10 | Pharmacy Consult- Renal Dosing ---
[facility]-Renal Dosing - Laboratory Information 02/16/17 02/17/17 03:16 03:49 BUN 47.0 H 39.0 H Creatinine 2.0 H D 1.5 H D - Consult Information RENAL DOSING: Today's SCr = 1.5 mg/dl. Calculated CrCl = 27 ml/min. Dose of enoxaparin to be 30mg sq daily.
[2017-02-17] MEDS: HEPARIN DRIP 20,000 UNIT/500 ML BAG IV SCH (14:41)
[2017-02-17] MEDS: ENOXAPARIN 30 MG/0.3 ML INJECTION SQ SCH (15:13)
[2017-02-17] MEDS ORDERED: NS 1,000 ML IV SCH (18:00)
[2017-02-18] MEDS: OMEPRAZOLE 20 MG CAPSULE PO SCH (05:56)
[2017-02-18] MEDS: TRAMADOL 50 MG TABLET PO PRN ×2 (05:56→22:07)
[2017-02-18] MEDS: ENOXAPARIN 30 MG/0.3 ML INJECTION SQ SCH (10:41)
[2017-02-18] MEDS: ATENOLOL 50 MG TABLET PO SCH ×2 (10:41→20:41)
[2017-02-18] MEDS: MULTI-VITAMIN PLAIN TABLET PO SCH (10:42)
[2017-02-18] MEDS: CALCIUM CARBONATE 500 MG TABLET PO SCH (10:42)
[2017-02-18] MEDS: FUROSEMIDE 20 MG TABLET PO SCH (10:42)
--- NOTE | 2017-02-18 12:57 | Progress Note ---
Subjective: Doing well overall but still feels very weak. Has concerns about going back home alone. Would like to consider IRU admission and waiting to hear further plans from IRU currently. BP elevated last night and this morning; atenolol restarted. Discussed her medications, blood pressure, living situation. Daughter from [place] is planning to bring some clothing today or tomorrow. Objective Vital signs: Temperature 96.1 F L 02/18/17 11:52 Pulse Rate 89 02/18/17 11:52 Respiratory Rate 18 02/18/17 11:52 Blood Pressure 154/81 H 02/18/17 11:52 Pulse Oximetry 93 02/18/17 11:52 Rhythm: Normal Sinus Rhythm Height/Weight/BMI: Height 1.57 m Weight 76.5 kg Body Mass Index 28.7 - Constitutional Present: no acute distress, well nourished, well developed - Routine HEENT Exam Head: Present: normocephalic, atraumatic Eye: Present: EOMI, PERRL - Routine Respiratory Exam Present: decreased breath sounds. Absent: accessory muscle use, rales, rhonchi - Routine Cardiovascular Exam Present: RRR. Absent: murmur - Routine Abdominal Exam Present: soft, non distended, non tender - Routine Extremities Exam Present: normal capillary refill. Absent: cyanosis, edema - Routine Skin Exam Present: dry, warm. Absent: rash - Routine Neurological Exam Present: alert, oriented X3, normal speech - Routine Psychiatric Exam Present: normal affect, normal thought process Results - Labs CBC & Chem 7: 02/18/17 04:31 02/18/17 04:31 Assessment and Plan DVT Prophylaxis: Lovenox Resuscitation Status: Do Not Resuscitate Assessment and Plan: Impression Hypotension Acute kidney injury Chronic stage III CKD Frequent falls Scalp laceration Elevated lactate (POA) - resolved; no evidence for sepsis Leukocytosis (POA) - resolved Hyponatremia (POA) HTN COPD Idiopathic peripheral neuropathy Osteoarthritis Hyperlipidemia Sjogren's syndrome Chronic back pain GERD Anxiety Moderate PCM with albumin 2.6 Plan Creatinine improving, will monitor off of IVF today and give a dose of lasix 20 mg po x1. Encouraged protein intake. Resume atenolol and monitor today on the med to ensure no hypotension. Continue to hold losartan; may resume tomorrow. Monitor blood cultures; NGTD. Follow up on IRU screen to determine if this is a viable plan for dispo, perhaps on Monday if stable. Encouraged ambulation with assistance as able. Monitor closely given high fall risk. Orthostatic BP in AM for surveillance as well as renal panel, CBC. Discussed with CM today. Hospital Course Summary Disclaimer: The visit summary below is not to be considered part of the above Progress Note. Hospital Course: Hypotension Acute kidney injury Frequent falls Scalp laceration Elevated lactate (POA) Leukocytosis (POA) Hyponatremia (POA) HTN COPD Idiopathic peripheral neuropathy Osteoarthritis Hyperlipidemia Sjogren's syndrome Chronic back pain GERD 02/15/17 - Hospital Admission to CCU Admit to inpatient CCU under the hospitalist service, Dr. Cyr attending. After discussion with ED doctor, did elect to give Levaquin 500 mg IV as urine results were pending - did have concern for potential of sepsis given her hypotension, elevated lactate, and leukocytosis. IV fluids for hypotension. Heparin drip (per protocol) initiated at the request of Dr. Linares as he is suspicious patient could have PE given some right heart strain seen on echo in the ED. Check CT head given her recent falls prior to starting heparin drip. Check D-Dimer. If positive, will proceed with CTA when renal function permits. Check Renal ultrasound given the acute kidney injury Magnesium, phosphorus, repeat CBC, CMP, procalcitonin in a.m. SCDs for VTE prophylaxis Hold patient's home antihypertensive medication Patient request CODE STATUS DO NOT RESUSCITATE. This order is written Upon discharge, patient's care to return to her PCP, Dr. Lamb. 02/16/17 Continue with NS at 125cc/hr - BP improving, creatinine showing decrease to 2.0. Urine output improving. No evidence of volume overload. No need to continue antibiotics - not seeing evidence for infection or sepsis. Continue to hold BB and ARB as BP still low (improve to 100's systolic). PT/OT to help increase strength. Will check V/Q scan to exclude PE due to right heart strain noted on ECHO and hypotension. Recheck CMP in am due to FIONA and hypotension. Will recheck CBC in am due to leukocytosis POA. As patient clinically improving, will transfer to medical floor for continuation of care. 02/17/17 Creatinine decreased to 1.5; Weight up from IVF resuscitation. Blood pressure increased. Potassium with decrease to 3.5. Sodium increased to 133. Will decrease NS to 75cc/hr. Lasix 20mg IV x1 to help decrease volume - monitor BP response with Lasix. Continue to hold BB and ARB. Possible use of amlodipine if BP still elevated. PT/OT working with patient - still very weak and unstable. Nursing to ambulate TID. Check on V/Q results - if negative will d/c Heparin drip. Oral potassium 20mEq x1 to normalize potassium. May restart tramadol for pain. Recheck CMP in am due to FIONA and electrolyte abnormalities. Monitor CBC due to heparin drip. 1744 Rechecked on patient this evening. Breathing easier. Worked with nursing for ambulation-still very weak. V/Q scan came back intermediate probability. Will stop Heparin drip and start low dose Lovenox. Has been accepted to IRU, but clinically I do not feel patient ready for this. In discussion with her, she also feels strength too decrease now to tolerate 3 hours of rehab a day. 02/18/17 Creatinine improving, will monitor off of IVF today and give a dose of lasix 20 mg po x1. Encouraged protein intake. Resume atenolol and monitor today on the med to ensure no hypotension. Continue to hold losartan; may resume tomorrow. Monitor blood cultures; NGTD. Follow up on IRU screen to determine if this is a viable plan for dispo, perhaps on Monday if stable. Encouraged ambulation with assistance as able. Monitor closely given high fall risk. Orthostatic BP in AM for surveillance as well as renal panel, CBC.
[2017-02-19] MEDS: TRAMADOL 50 MG TABLET PO PRN ×2 (05:14→22:21)
[2017-02-19] MEDS: OMEPRAZOLE 20 MG CAPSULE PO SCH (05:59)
[2017-02-19] MEDS: CALCIUM CARBONATE 500 MG TABLET PO SCH (08:44)
[2017-02-19] MEDS: ATENOLOL 50 MG TABLET PO SCH ×2 (08:44→20:24)
[2017-02-19] MEDS: MAGNESIUM OXIDE 400 MG TABLET PO SCH ×2 (08:44→20:24)
[2017-02-19] MEDS: MULTI-VITAMIN PLAIN TABLET PO SCH (08:44)
[2017-02-19] MEDS: FUROSEMIDE 20 MG TABLET PO SCH (08:44)
[2017-02-19] MEDS: ENOXAPARIN 30 MG/0.3 ML INJECTION SQ SCH (08:45)
[2017-02-19] MEDS: LOSARTAN 100 MG TABLET PO SCH (10:29)
[2017-02-19] MEDS: MAGNESIUM SULFATE 1gm PREMIX 1 GM/100 ML BAG IV SCH ×4 (10:30→17:32)
--- NOTE | 2017-02-19 11:08 | Progress Note ---
Subjective: Feeling okay today but still feels like it is premature to transfer to rehab. No orthostasis; BP has been in the 150-160 range after resuming atenolol. Discussed replacing magnesium today as well as resuming her losartan. Edema improved on lasix. Objective Vital signs: Temperature 97.4 F 02/19/17 07:19 Pulse Rate 74 02/19/17 07:19 Respiratory Rate 18 02/19/17 07:19 Blood Pressure 153/84 H 02/19/17 07:19 Pulse Oximetry 96 02/19/17 07:19 Rhythm: Normal Sinus Rhythm Height/Weight/BMI: Height 1.57 m Weight 76.5 kg Body Mass Index 28.7 - Constitutional Present: no acute distress, well nourished, well developed - Routine HEENT Exam Head: Present: normocephalic, atraumatic Eye: Present: EOMI, PERRL ENT: Present: mucous membranes moist, oropharynx clear - Routine Respiratory Exam Present: CTA bilaterally. Absent: accessory muscle use - Routine Cardiovascular Exam Present: RRR. Absent: murmur - Routine Abdominal Exam Present: soft, non distended, non tender - Routine Extremities Exam Present: edema (trace ankles ), pulses intact, normal capillary refill - Routine Skin Exam Present: dry, warm. Absent: rash - Routine Neurological Exam Present: alert, oriented X3, normal speech - Routine Psychiatric Exam Present: normal thought process, anxious Results - Labs CBC & Chem 7: 02/19/17 04:26 02/19/17 04:26 Labs: Mg 1.5, phos 2.4 today Assessment and Plan DVT Prophylaxis: Lovenox Resuscitation Status: Do Not Resuscitate Assessment and Plan: Impression Hypotension Acute kidney injury Chronic stage III CKD Frequent falls Scalp laceration Elevated lactate (POA) - resolved; no evidence for sepsis Leukocytosis (POA) - resolved Hyponatremia (POA) HTN COPD Idiopathic peripheral neuropathy Osteoarthritis Hyperlipidemia Sjogren's syndrome Chronic back pain GERD Anxiety Moderate PCM with albumin 2.6 Plan Creatinine has normalized, off IVF, will continue lasix 20 mg daily today Replete Mg IV today and start low dose po mag oxide Encouraged protein intake and ambulation Resume losartan (atenolol restarted 02/18) and monitor today on the meds to ensure no hypotension. Monitor blood cultures; NGTD. IRU screen reviewed; may be able to DC tomorrow to rehab. Monitor closely given high fall risk. Renal panel, CBC, Mg in AM for surveillance Hospital Course Summary Disclaimer: The visit summary below is not to be considered part of the above Progress Note. Hospital Course: Hypotension Acute kidney injury Frequent falls Scalp laceration Elevated lactate (POA) Leukocytosis (POA) Hyponatremia (POA) HTN COPD Idiopathic peripheral neuropathy Osteoarthritis Hyperlipidemia Sjogren's syndrome Chronic back pain GERD 02/15/17 - Hospital Admission to CCU Admit to inpatient CCU under the hospitalist service, Dr. Cyr attending. After discussion with ED doctor, did elect to give Levaquin 500 mg IV as urine results were pending - did have concern for potential of sepsis given her hypotension, elevated lactate, and leukocytosis. IV fluids for hypotension. Heparin drip (per protocol) initiated at the request of Dr. Linares as he is suspicious patient could have PE given some right heart strain seen on echo in the ED. Check CT head given her recent falls prior to starting heparin drip. Check D-Dimer. If positive, will proceed with CTA when renal function permits. Check Renal ultrasound given the acute kidney injury Magnesium, phosphorus, repeat CBC, CMP, procalcitonin in a.m. SCDs for VTE prophylaxis Hold patient's home antihypertensive medication Patient request CODE STATUS DO NOT RESUSCITATE. This order is written Upon discharge, patient's care to return to her PCP, Dr. Lamb. 02/16/17 Continue with NS at 125cc/hr - BP improving, creatinine showing decrease to 2.0. Urine output improving. No evidence of volume overload. No need to continue antibiotics - not seeing evidence for infection or sepsis. Continue to hold BB and ARB as BP still low (improve to 100's systolic). PT/OT to help increase strength. Will check V/Q scan to exclude PE due to right heart strain noted on ECHO and hypotension. Recheck CMP in am due to FIONA and hypotension. Will recheck CBC in am due to leukocytosis POA. As patient clinically improving, will transfer to medical floor for continuation of care. 02/17/17 Creatinine decreased to 1.5; Weight up from IVF resuscitation. Blood pressure increased. Potassium with decrease to 3.5. Sodium increased to 133. Will decrease NS to 75cc/hr. Lasix 20mg IV x1 to help decrease volume - monitor BP response with Lasix. Continue to hold BB and ARB. Possible use of amlodipine if BP still elevated. PT/OT working with patient - still very weak and unstable. Nursing to ambulate TID. Check on V/Q results - if negative will d/c Heparin drip. Oral potassium 20mEq x1 to normalize potassium. May restart tramadol for pain. Recheck CMP in am due to FIONA and electrolyte abnormalities. Monitor CBC due to heparin drip. 1744 Rechecked on patient this evening. Breathing easier. Worked with nursing for ambulation-still very weak. V/Q scan came back intermediate probability. Will stop Heparin drip and start low dose Lovenox. Has been accepted to IRU, but clinically I do not feel patient ready for this. In discussion with her, she also feels strength too decrease now to tolerate 3 hours of rehab a day. 02/18/17 Creatinine improving, will monitor off of IVF today and give a dose of lasix 20 mg po x1. Encouraged protein intake. Resume atenolol and monitor today on the med to ensure no hypotension. Continue to hold losartan; may resume tomorrow. Monitor blood cultures; NGTD. Follow up on IRU screen to determine if this is a viable plan for dispo, perhaps on Monday if stable. Encouraged ambulation with assistance as able. Monitor closely given high fall risk. Orthostatic BP in AM for surveillance as well as renal panel, CBC. 02/19/17 Creatinine has normalized, off IVF, will continue lasix 20 mg daily today Replete Mg IV today and start low dose po mag oxide Encouraged protein intake and ambulation Resume losartan (atenolol restarted 02/18) and monitor today on the meds to ensure no hypotension. Monitor blood cultures; NGTD. IRU screen reviewed; may be able to DC tomorrow to rehab. Monitor closely given high fall risk. Renal panel, CBC, Mg in AM for surveillance
[2017-02-20] MEDS: TRAMADOL 50 MG TABLET PO PRN (05:43)
[2017-02-20] MEDS: OMEPRAZOLE 20 MG CAPSULE PO SCH (05:44)
[2017-02-20 07:41] VITALS: O2SAT 95
[2017-02-20] MEDS ORDERED: ENOXAPARIN 40 MG/0.4 ML INJECTION SQ SCH (09:00)
[2017-02-20] MEDS: CALCIUM CARBONATE 500 MG TABLET PO SCH (09:58)
[2017-02-20] MEDS: MAGNESIUM OXIDE 400 MG TABLET PO SCH (09:58)
[2017-02-20] MEDS: LOSARTAN 100 MG TABLET PO SCH (09:58)
[2017-02-20] MEDS: MULTI-VITAMIN PLAIN TABLET PO SCH (09:58)
[2017-02-20] MEDS: FUROSEMIDE 20 MG TABLET PO SCH (09:58)
[2017-02-20] MEDS: ATENOLOL 50 MG TABLET PO SCH (10:07)
--- NOTE | 2017-02-20 10:08 | Progress Note ---
Subjective: F/U: Severe Hypotension, FIONA Doing well today. Breathing well-not feeling congested or struggling to breath. Eating well, but did note slight nausea after breakfast this morning. Reports having this nausea sensation all summer. Working with nursing and therapy to help increase strength - feels making gains. Urinating well. No f/c. Objective Vital signs: Temperature 95.9 F L 02/20/17 07:40 Pulse Rate 71 02/20/17 07:40 Respiratory Rate 16 02/20/17 07:40 Blood Pressure 155/77 H 02/20/17 07:40 Pulse Oximetry 95 02/20/17 07:40 Rhythm: Normal Sinus Rhythm Height/Weight/BMI: Height 1.57 m Weight 74.8 kg Body Mass Index 28.7 - Constitutional Present: well nourished, well developed, cooperative - Routine HEENT Exam Head: Present: normocephalic, atraumatic Eye: Present: EOMI, PERRL ENT: Present: mucous membranes moist - Routine Respiratory Exam Present: CTA bilaterally. Absent: respiratory distress, rhonchi, stridor, wheezes, crackles - Routine Cardiovascular Exam Present: RRR, no murmur - Routine Abdominal Exam Present: soft, normoactive bowel sounds, non distended, non tender. Absent: guarding - Routine Extremities Exam Present: edema (+1 ), pulses intact. Absent: cyanosis, clubbing - Routine Musculoskeletal Exam Musculoskeletal: Present: no clubbing or cyanosis, no joint swelling - Routine Skin Exam Present: intact, dry, warm - Routine Neurological Exam Present: alert, oriented X3, CN II-XII intact, moving all extremities, vision grossly intact, hearing grossly intact. Absent: motor deficit, altered mental status - Routine Psychiatric Exam Present: normal affect, normal thought process, cooperative, good insight, good judgment. Absent: agitated Results - Labs CBC & Chem 7: 02/20/17 04:04 02/20/17 04:04 Assessment and Plan (1) Hypotension Current visit: Yes Status: Acute (2) Fall (on) (from) other stairs and steps, initial encounter Current visit: Yes Status: Acute (3) Acute kidney injury Current visit: Yes Status: Acute DVT Prophylaxis: SCD's Resuscitation Status: Do Not Resuscitate Assessment and Plan: Impression Hypotension - resolved Acute kidney injury - resolved Chronic stage III CKD Frequent falls Scalp laceration Elevated lactate (POA) - resolved; no evidence for sepsis Leukocytosis (POA) - resolved Hyponatremia (POA) HTN COPD Idiopathic peripheral neuropathy Osteoarthritis Hyperlipidemia Sjogren's syndrome Chronic back pain GERD Anxiety Moderate PCM with albumin 2.6 Plan Medically improved. Does need continue therapy to improve functional status. Hope for IRU transfer today to maximize abilities to allow for return to home. Continue with current antihypertensive - continue to monitor BP and creatinine. Patient accepted to IRU. Medically stable for discharge. Patient to f/u with Dr Lamb after discharge from IRU. See orders for details. Case discussed with CM. Time spent with patient care and discharge greater than 30 minutes. Hospital Course Summary Disclaimer: The visit summary below is not to be considered part of the above Progress Note. Hospital Course: Hypotension Acute kidney injury Frequent falls Scalp laceration Elevated lactate (POA) Leukocytosis (POA) Hyponatremia (POA) HTN COPD Idiopathic peripheral neuropathy Osteoarthritis Hyperlipidemia Sjogren's syndrome Chronic back pain GERD 02/15/17 - Hospital Admission to CCU Admit to inpatient CCU under the hospitalist service, Dr. Cyr attending. After discussion with ED doctor, did elect to give Levaquin 500 mg IV as urine results were pending - did have concern for potential of sepsis given her hypotension, elevated lactate, and leukocytosis. IV fluids for hypotension. Heparin drip (per protocol) initiated at the request of Dr. Linares as he is suspicious patient could have PE given some right heart strain seen on echo in the ED. Check CT head given her recent falls prior to starting heparin drip. Check D-Dimer. If positive, will proceed with CTA when renal function permits. Check Renal ultrasound given the acute kidney injury Magnesium, phosphorus, repeat CBC, CMP, procalcitonin in a.m. SCDs for VTE prophylaxis Hold patient's home antihypertensive medication Patient request CODE STATUS DO NOT RESUSCITATE. This order is written Upon discharge, patient's care to return to her PCP, Dr. Lamb. 02/16/17 Continue with NS at 125cc/hr - BP improving, creatinine showing decrease to 2.0. Urine output improving. No evidence of volume overload. No need to continue antibiotics - not seeing evidence for infection or sepsis. Continue to hold BB and ARB as BP still low (improve to 100's systolic). PT/OT to help increase strength. Will check V/Q scan to exclude PE due to right heart strain noted on ECHO and hypotension. Recheck CMP in am due to FIONA and hypotension. Will recheck CBC in am due to leukocytosis POA. As patient clinically improving, will transfer to medical floor for continuation of care. 02/17/17 Creatinine decreased to 1.5; Weight up from IVF resuscitation. Blood pressure increased. Potassium with decrease to 3.5. Sodium increased to 133. Will decrease NS to 75cc/hr. Lasix 20mg IV x1 to help decrease volume - monitor BP response with Lasix. Continue to hold BB and ARB. Possible use of amlodipine if BP still elevated. PT/OT working with patient - still very weak and unstable. Nursing to ambulate TID. Check on V/Q results - if negative will d/c Heparin drip. Oral potassium 20mEq x1 to normalize potassium. May restart tramadol for pain. Recheck CMP in am due to FIONA and electrolyte abnormalities. Monitor CBC due to heparin drip. 1744 Rechecked on patient this evening. Breathing easier. Worked with nursing for ambulation-still very weak. V/Q scan came back intermediate probability. Will stop Heparin drip and start low dose Lovenox. Has been accepted to IRU, but clinically I do not feel patient ready for this. In discussion with her, she also feels strength too decrease now to tolerate 3 hours of rehab a day. 02/18/17 Creatinine improving, will monitor off of IVF today and give a dose of lasix 20 mg po x1. Encouraged protein intake. Resume atenolol and monitor today on the med to ensure no hypotension. Continue to hold losartan; may resume tomorrow. Monitor blood cultures; NGTD. Follow up on IRU screen to determine if this is a viable plan for dispo, perhaps on Monday if stable. Encouraged ambulation with assistance as able. Monitor closely given high fall risk. Orthostatic BP in AM for surveillance as well as renal panel, CBC. 02/19/17 Creatinine has normalized, off IVF, will continue lasix 20 mg daily today Replete Mg IV today and start low dose po mag oxide Encouraged protein intake and ambulation Resume losartan (atenolol restarted 02/18) and monitor today on the meds to ensure no hypotension. Monitor blood cultures; NGTD. IRU screen reviewed; may be able to DC tomorrow to rehab. Monitor closely given high fall risk. Renal panel, CBC, Mg in AM for surveillance 02/20/17 Creatinine 0.9. Electrolytes normal. Medically improved. Does need continue therapy to improve functional status. Hope for IRU transfer today to maximize abilities to allow for return to home. Continue with current antihypertensive - continue to monitor BP and creatinine. Patient accepted to IRU. Medically stable for discharge. Patient to f/u with Dr Lamb after discharge from IRU. See orders for details.
--- NOTE | 2017-02-20 11:15 | Discharge Summary ---
Discharge Information Date of admission: 02/15/17 17:31 Anticipated date of discharge: 02/20/17 Attending Physician: Ethan Cry MD Primary care physician: Jonathan Lamb MD Consults: Pharmacy Consult: Heparin PT/OT - Discharge Diagnosis (1) Hypotension Status: Acute (2) Fall (on) (from) other stairs and steps, initial encounter Status: Acute (3) Acute kidney injury Status: Acute Discharge Diagnosis: Discharge diagnosis Hypotension - resolved Associated conditions and complications Acute kidney injury - resolved Chronic stage III CKD Frequent falls Scalp laceration Elevated lactate (POA) - resolved; no evidence for sepsis Leukocytosis (POA) - resolved Hyponatremia (POA) - resolved HTN COPD Idiopathic peripheral neuropathy Osteoarthritis Hyperlipidemia Sjogren's syndrome Chronic back pain GERD Anxiety Moderate PCM with albumin 2.6 - Procedures Procedures: Date of Exam: 02/15/17 Type of Exam: US echo doppler complete Left atrial dimension is normal. Left ventricle end-diastolic dimension is normal. Left ventricular wall thickness is normal. LV systolic function is normal with ejection fraction of about 75%. Right atrium is markedly dilated. Right ventricle is markedly dilated and hypokinetic. Aortic root dimension is normal. Mitral valve annulus is calcified. Mitral valve leaflets are normal. Aortic valve shows fibrocalcific changes with no stenosis or insufficiency. Tricuspid valve shows severe tricuspid regurgitation with severe pulmonary hypertension with estimated pulmonary artery systolic pressure of 75-80. Pulmonary valve shows mild pulmonary insufficiency. There is no pericardial effusion. IMPRESSION 1. Normal LV systolic function with ejection fraction of 75%. 2. Right atrial dilation. 3. Right ventricular dilation with hypokinesia. 4. Mitral annulus calcification. 5. Aortic sclerosis. 6. Severe tricuspid regurgitation with severe pulmonary hypertension with estimated pulmonary artery systolic pressure of 75-80. 7. Mild pulmonary insufficiency. - Laboratory Labs: Admit Lab 02/15/17 16:11 WBC 13.4 H RBC 3.60 L Hgb 11.4 L Hct 34.8 L MCV 96.7 Plt Count 221 Neut % (Auto) 82.1 H Lymph % (Auto) 10.4 L Admit Lab 02/15/17 16:11 Sodium 129 L Potassium 4.6 Chloride 91 L Carbon Dioxide 24 Anion Gap 14 BUN 52.0 H* Creatinine 2.4 H GFR Calculation 19 BUN/Creatinine Ratio 22 Glucose 143 H Calculated Osmolality 265 Total Bilirubin 0.60 Icterus Index < 2 AST 45 H ALT 41 Alkaline Phosphatase 76 Troponin I 0.047 Total Protein 6.6 Albumin 3.7 Plasma Lactate 2.3 H 02/20/17 04:04 02/20/17 04:04 - Radiology Radiology: Date of Exam: 02/15/17 PROCEDURE: XR chest 1V Findings: The lungs are stable in appearance without new focal airspace consolidation. Calcified granulomas in the right infrahilar region and right lower lobe. There is no pleural effusion or pneumothorax. The cardiac silhouette remains moderately enlarged. The pulmonary vascularity and mediastinal contours are unchanged. Moderate to large hiatal hernia. IMPRESSION: Stable appearance of the chest without acute cardiopulmonary disease. --- Date of Exam: 02/15/17 PROCEDURE: CT head/brain wo con FINDINGS: The ventricles are of normal size, shape, and contour for the patient' s age. There are extensive areas of low attenuation in the white matter which most likely represent changes from chronic microvascular ischemia. The brainstem, cerebellum, and cerebral hemispheres otherwise have a normal morphology and CT attenuation. There is no evidence of midline displacement. No hemorrhage, signs of acute territorial stroke,mass effect, mass lesions, or edema is evident. The visualized portions of the skull base, midface, and calvarium demonstrate no abnormality. The paranasal sinuses are well aerated and free of significant disease. The tympanic and mastoid cavities appear normal. Posterior scalp swelling. IMPRESSION: No acute intracranial abnormality or hemorrhage. - Date of Exam: 02/16/17 PROCEDURE: US renal BI FINDINGS: Both kidneys are present with normal cortical thickness and echogenicity. No evidence for collecting system dilatation, contour deforming mass, nephrolithiasis, or abnormal perinephric fluid collection. The right kidney measures 10 cm in length, and the left kidney measures 10.4 cm in length. Granulomatous disease incidentally noted in the spleen. 2.9 cm simple appearing left renal cyst. IMPRESSION: No hydronephrosis - Date of Exam: 02/17/17 PROCEDURE: NM pul vent and perfuse Findings: Ventilation images demonstrate radiotracer uptake throughout both lungs with severely heterogeneous uptake. Multifocal areas of decreased perfusion in both lower and upper lobes. Perfusion images are also quite heterogeneous with multifocal nonsegmental perfusion defects that appear roughly matched to the ventilation deficits. No segmental or larger mismatched defect. Impression: Intermediate probability scan for pulmonary embolus, approximately 20% probability. History of Present Illness HPI: Patient is an 86-year-old female who was transferred by EMS to the ER following a fall. She states yesterday she fell while walking into the [place]. At that point she had a headache, but that has since resolved. Today she fell again and hit her head. She states she had profuse bleeding from her scalp, but bleeding stopped by the time she reached the emergency room. No headache today, but she does have some pain across her back and neck today. She states she's had "spells " where she feels weak and her legs just "didn't want to work." She states a week ago she felt "sick" with nausea, but no vomiting. She states she went into her doctor and they thought she may have had a virus. She states she felt sick for about 3-4 days. She has not felt back to normal since that time. She did not have any loss of consciousness with falls. She's had no recent change in her medications. She has been taking tramadol for back pain. She does report she has been taking this a bit more frequently lately. Patient was evaluated in the emergency room with her daughter at her side. At this point, she has no major complaints other than she feels achy from lying on the table for so long. She does report that off and on in the past she's had dizzy spells, but none that have caused her to fall like she has a past 2 days. She was recently treated for anemia with iron, but she states that her doctor took her off of this a month ago. She's had no black stools she's been off iron. She does reports problems with constipation and diarrhea ever since her colonoscopy and EGD in September. Her last bowel movement was today. For complete details of the H&P refer to that document. Objective Vital signs: Temperature 95.9 F L 02/20/17 07:40 Pulse Rate 71 02/20/17 07:40 Respiratory Rate 16 02/20/17 07:40 Blood Pressure 155/77 H 02/20/17 07:40 Pulse Oximetry 95 02/20/17 07:40 Rhythm: Normal Sinus Rhythm Height/Weight/BMI: Height 1.57 m Weight 74.8 kg Body Mass Index 28.7 Hospital Course This is a general summary of the patient's hospital course. For more details refer to the complete medical record. Hospital course: Assessment Hypotension Acute kidney injury Frequent falls Scalp laceration Elevated lactate (POA) Leukocytosis (POA) Hyponatremia (POA) HTN COPD Idiopathic peripheral neuropathy Osteoarthritis Hyperlipidemia Sjogren's syndrome Chronic back pain GERD 02/15/17 - Hospital Admission to CCU Admit to inpatient CCU under the hospitalist service, Dr. Cyr attending. After discussion with ED doctor, did elect to give Levaquin 500 mg IV as urine results were pending - did have concern for potential of sepsis given her hypotension, elevated lactate, and leukocytosis. IV fluids for hypotension. Heparin drip (per protocol) initiated at the request of Dr. Linares as he is suspicious patient could have PE given some right heart strain seen on echo in the ED. Check CT head given her recent falls prior to starting heparin drip. Check D-Dimer. If positive, will proceed with CTA when renal function permits. Check Renal ultrasound given the acute kidney injury Magnesium, phosphorus, repeat CBC, CMP, procalcitonin in a.m. SCDs for VTE prophylaxis Hold patient's home antihypertensive medication Patient request CODE STATUS DO NOT RESUSCITATE. This order is written Upon discharge, patient's care to return to her PCP, Dr. Lamb. 02/16/17 Continue with NS at 125cc/hr - BP improving, creatinine showing decrease to 2.0. Urine output improving. No evidence of volume overload. No need to continue antibiotics - not seeing evidence for infection or sepsis. Continue to hold BB and ARB as BP still low (improve to 100's systolic). PT/OT to help increase strength. Will check V/Q scan to exclude PE due to right heart strain noted on ECHO and hypotension. Recheck CMP in am due to FIONA and hypotension. Will recheck CBC in am due to leukocytosis POA. As patient clinically improving, will transfer to medical floor for continuation of care. 02/17/17 Creatinine decreased to 1.5; Weight up from IVF resuscitation. Blood pressure increased. Potassium with decrease to 3.5. Sodium increased to 133. Will decrease NS to 75cc/hr. Lasix 20mg IV x1 to help decrease volume - monitor BP response with Lasix. Continue to hold BB and ARB. Possible use of amlodipine if BP still elevated. PT/OT working with patient - still very weak and unstable. Nursing to ambulate TID. Check on V/Q results - if negative will d/c Heparin drip. Oral potassium 20mEq x1 to normalize potassium. May restart tramadol for pain. Recheck CMP in am due to FIONA and electrolyte abnormalities. Monitor CBC due to heparin drip. 1745 Rechecked on patient this evening. Breathing easier. Worked with nursing for ambulation-still very weak. V/Q scan came back intermediate probability. Will stop Heparin drip and start low dose Lovenox. Has been accepted to IRU, but clinically I do not feel patient ready for this. In discussion with her, she also feels strength too decrease now to tolerate 3 hours of rehab a day. 02/18/17 Creatinine improving, will monitor off of IVF today and give a dose of lasix 20 mg po x1. Encouraged protein intake. Resume atenolol and monitor today on the med to ensure no hypotension. Continue to hold losartan; may resume tomorrow. Monitor blood cultures; NGTD. Follow up on IRU screen to determine if this is a viable plan for dispo, perhaps on Monday if stable. Encouraged ambulation with assistance as able. Monitor closely given high fall risk. Orthostatic BP in AM for surveillance as well as renal panel, CBC. 02/19/17 Creatinine has normalized, off IVF, will continue lasix 20 mg daily today Replete Mg IV today and start low dose po mag oxide Encouraged protein intake and ambulation Resume losartan (atenolol restarted 02/18) and monitor today on the meds to ensure no hypotension. Monitor blood cultures; NGTD. IRU screen reviewed; may be able to DC tomorrow to rehab. Monitor closely given high fall risk. Renal panel, CBC, Mg in AM for surveillance 02/20/17 Creatinine 0.9. Electrolytes normal. Medically improved. Does need continue therapy to improve functional status. Hope for IRU transfer today to maximize abilities to allow for return to home. Continue with current antihypertensive - continue to monitor BP and creatinine. Patient accepted to IRU. Medically stable for discharge. Patient to f/u with Dr Lamb after discharge from IRU. See orders for details. Time spent with patient: discharge greater than 30 minutes DVT Prophylaxis: SCD's Discharge Plan - Med Rec/Dispo Referrals/Follow Up: Jonathan Lamb MD [Family Provider] - (Will need to follow up with Dr Lamb 1 week after discharge from IRU. ) Major Instructions: Hypotension (GEN) Prescriptions: New Furosemide [Lasix] 20 mg PO DAILY tablet Enoxaparin Sodium [Lovenox] 40 mg SQ DAILY syringe Acetaminophen [Tylenol] 650 mg PO Q5H PRN tablet PRN Reason: Discomfort Omeprazole [Prilosec] 20 mg PO ACB capsule Potassium Chloride [K-Dur] 20 meq PO BIDWM tablet Milk of Magnesia [Mom] 30 ml PO DAILY PRN udc PRN Reason: Constipation Magnesium Oxide [Magox] 400 mg PO BID tablet Bisacodyl Supp [Dulcolax] 10 mg RECTALLY DAILY PRN supp PRN Reason: Constipation Continue Atenolol 50 mg PO BID #0 Multivitamin [One Daily] 1 each PO DAILY Gabapentin [Neurontin] 600 mg PO TID Calcium Carbonate [Calcium] 500 mg PO DAILY Cranberry Fruit [Cranberry] 400 mg PO DAILY Elderberry Fruit/Honey [Little Remedies Cough-Immune] 1 dose PO DAILY Aspirin [Hudspeth Aspirin] 81 mg PO DAILY Losartan/Hydrochlorothiazide [Losartan-Hctz 100-25 mg Tab] 1 tab PO DAILY #0 Glucosamine 500 mg PO DAILY Tramadol [Ultram] 50 mg PO PRN Discharge Instructions/Outpatient Orders: Final Provider Discharge Instructions Location: Determined By Patient - Disposition 62 To [facility] [place] INPT Rehab - Attestation Attestation Narrative: 02/20/17 11:29 I have independently interviewed and examined patient prior to discharge. See my progress note for details. Medically stable for discharge to IRU.
[2017-02-20 12:59] VITALS: BP 166/75; PULSE 74; RESP 18; TEMP 97.6
== END 2017-02-20 14:00 | DRG 315 ==
LOC: ED 15:24 → CCU 17:31 → MED 02-16 11:40
PROVIDERS: ADMIT Hospitalist; ATTEND Hospitalist

== ENCOUNTER 2017-02-20 14:26 | Inpatient (IN) ==
[2017-02-20] MEDS ORDERED: BISACODYL 10 MG SUPPOSITORY RECTALLY PRN (14:35)
[2017-02-20] MEDS ORDERED: POLYETHYL GLYCOL 3350 17gm PACKET PO PRN (14:35)
[2017-02-20 14:42] VITALS: BMI 30.5
--- NOTE | 2017-02-20 14:57 | IRU History & Physical Report ---
[facility] IRU Date: 443 Chief complaint: My legs give out and I fall HPI: Ms. Putnam is an 86-year-old female who lives independently in her own apartment by herself. Referring physician is Dr. Ethan Cyr. Her primary care physician is Dr. Jonathan Lamb. She was recently admitted to the [facility] on 02/15/2017. She had fallen twice on succeeding days prior to admission. The second time she did hit her head and there was quite a bit of scalp bleeding. In the emergency department she was noted to have a blood pressure of 68/47. Serum lactate was elevated. Blood cultures were negative however and there was no other evidence of infection or sepsis. She was admitted to the intensive care unit under the hospitalist service. She was given IV fluids. Echocardiogram revealed substantial pulmonary hypertension (RVSP = 75-80 mmHg) but with normal contractility. There was concern about possible pulmonary embolus. Her creatinine was elevated at 2.4 and for that reason a CT angiogram was not able to be performed initially. She was on heparin drip for a short time because of suspicion for pulmonary embolus, but this was discontinued subsequently. Pulmonary VQ scan was done demonstrating intermediate probability at about 20% for a pulmonary embolus. It is noted that her d-dimer was elevated although she had fallen recently which likely resulted in some bleeding/bruising and thus clotting.. She states that she has episodes where she gets very weak in the legs and suddenly she goes down. She does have a warning when she falls. She has fallen numerous times she states over the years but it has been much worse recently. She will get a warning as though her legs are getting weak and perhaps has a bit of dizziness or lightheadedness. The latter symptom has been present for about a week. She tries to grab onto something but is unable to do that at times and simply goes down. She denies loss of consciousness. There has been no seizure activity. There has been no evidence of blurred vision or visual changes although she does report some diplopia which has been improved with the use of new glasses. She was stabilized in the [facility] with IV fluids. Renal ultrasound was done demonstrating no evidence of hydronephrosis. Echocardiogram as mentioned showed normal contractility and ejection fraction but with elevated pulmonary pressures. Chest x-ray was unremarkable. She seemed to respond to the administration of IV fluids. Her creatinine was initially elevated at 2.4 but is now back to normal at 0.9 after hydration. It is also noted that she has had elevated liver enzymes and hypomagnesemia. Her platelet count initially was 113, 000 but it has normalized at present. She has had new development of hypoxemia. She has had use of oxygen with activity here in the hospital. She says that in the past with pneumonia she used oxygen for a short time at night but otherwise did not use oxygen at home. She states that she has not had a breathing test done in the past to her knowledge. Of note, she reports a 50 pound weight loss over the past 2 years. She attributes this to working harder with a recent move. She states that her appetite is fair. She has had no nausea or vomiting. In addition she is treated for chronic anemia. She had an extensive workup apparently the spring including upper GI versus EGD plus colonoscopy. A nonmalignant polyp was removed. She remains on iron supplementation. She denies any chest pain or palpitations. She denies any loss of consciousness or other neurologic changes. She does not have any stairs to climb at home. She lives independently. She does not use a walker at home. Prior level of functioning in her home was that she was independent with eating , grooming, upper and lower body dressing and modified independent with bathing. She was modified independent with toileting, bed/chair/wheelchair transfers and toilet transfers. She was independent with walking and modified independent with stair climbing. Assessment here in the hospital indicates that she is independent with eating but minimal assistance with grooming, moderate assistance with bathing, supervision with upper body dressing and moderate assistance with lower body dressing. She has moderate assistance with toileting minimal assistance with bed /chair/wheelchair transfers, total assistance with walking with a rolling walker some 20 feet. The following medical conditions are noted and require active monitoring and/or management: 1. Hypoxemia: This is a new diagnosis and of uncertain cause. She is at risk for further hypoxemia and this needs to be closely monitored for worsening. I am suspicious of underlying pulmonary disease in view of the pulmonary hypertension identified. 2. Hypotension: Has had recent episode of hypotension in conjunction with her fall. Her blood pressures need to be monitored carefully. 3. Acute kidney injury with hypomagnesemia: She has received intravenous magnesium supplement during the acute care stay. Her creatinine is improved down to 0.9 from a high of 2.4. Her creatinine and magnesium and potassium need to be monitored carefully during the rehabilitation stay. 4. Elevated liver enzymes: Etiology of this is not clear but may be related to her hypotension. This will need to be monitored as well. 5. Frequent falling episodes with leg weakness: She has had previous back surgery and is at risk for further leg weakening. She may have a degree of acquired spinal stenosis. 6. Hypoalbuminemia: She is at risk for malnutrition. She states that she has lost some 50 pounds gradually over the past 2 years. She blames this on doing more work in their move to a different location but in view of the hypoalbuminemia I am concerned about her nutritional status. The following therapies will be needed: 1. Physical therapy: for transfers and ambulation and stairs. 2. Occupational therapy: for ADL's and transfers. 3. Dietitian: She is at risk for malnutrition view of the hypoalbuminemia as well as her weight loss. We will involve the dietitian for nutritional counseling and monitoring. 4. Medical management: for the above conditions. 5. 24 hour Rehabilitation Nursing to monitor and address the following: Close monitoring of blood pressure in view of the recent hypotension, oxygen saturations in view of the new use of oxygen supplementation. [facility] Patient Stated Medical History Hypertension Yes Pneumonia Yes Osteoarthritis Yes Post Menopausal Yes Medical History Updates: Has chronic anemia. Was worked up this spring with colonoscopy and EGD with a benign polyp removed from the colon. Surgical History: Appendectomy, cholecystectomy, Back Family History: Her mother of stroke and hypertension. Father of heart attack. - Social History Smoking status: Former smoker Packs per day: 0.8 (smoked less than one pack daily between ages 20 and 67) Packs-years: 45 Substance use type: does not use Alcohol intake: current Alcohol intake frequency: a few times a month (some vodka once weekly socially) Housing: apartment Household members: none Current occupational status: retired Current residence: Apartment/Private Home Social history: Ms. Putnam's 2 years ago. She lives by herself in an apartment. 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 Review of Systems - Constitutional Constitutional: Present: fatigue, headache(s) (had transient headache shortly after her fall but this has not recurred.), weight loss (reports a 50 pound weight loss over the past 4 years). Absent: fever(s) - EENMT Eyes: Present: blurry vision, diplopia (has some diplopia but this is apparently better with the use of new glasses) Ears: Absent: ear discharge Balance: Absent: vertigo, falling to one side, ataxia Mouth/Throat: Absent: pain - Cardiovascular Cardiovascular: Present: dyspnea on exertion (reports her dyspnea as being somewhat new.). Absent: chest pain, palpitations, syncope, orthopnea, edema Rhythm: Present: regular rhythm Vascular: Absent: Raynaud's, atrophy - Respiratory Respiratory: Present: cough (reports a cough with clear and scant sputum), dyspnea, dyspnea on exertion. Absent: hemoptysis, wheezing, pain on inspiration - Gastrointestinal Gastrointestinal: Present: change in bowel habits (had colonoscopy in September 2016 with intermittent diarrhea and constipation since), constipation, diarrhea. Absent: abdominal pain, early satiety, hematemesis, hematochezia, melena, nausea - Musculoskeletal Musculoskeletal: Absent: abnormal gait, arthralgias - Integumentary/Breasts Integumentary: Absent: alopecia, erythema, lesions - Neurological Neurological: Present: frequent falls. Absent: abnormal gait, abnormal movements, abnormal speech, burning sensations, confusion, convulsions, dizziness, focal weakness, radicular pain - Psychiatric Psychiatric: Absent: abnormal sleep pattern, anhedonia, anxiety, depression, difficulty concentrating Medications Home Medications Medication Instructions Recorded Confirmed Type Atenolol 50 mg PO BID #0 09/11/16 02/15/17 History Losartan/Hydrochlorothiazide 1 tab PO DAILY #0 09/11/16 02/15/17 History [Losartan-Hctz 100-25 mg Tab] Aspirin [[place] Aspirin] 81 mg PO DAILY 02/15/17 02/15/17 History Calcium Carbonate [Calcium] 500 mg PO DAILY 02/15/17 02/15/17 History Cranberry Fruit [Cranberry] 400 mg PO DAILY 02/15/17 02/15/17 History Elderberry Fruit/Honey [Little 1 dose PO DAILY 02/15/17 02/15/17 History Remedies Cough-Immune] Gabapentin [Neurontin] 600 mg PO TID 02/15/17 02/15/17 History Glucosamine 500 mg PO DAILY 02/15/17 02/15/17 History Multivitamin [One Daily] 1 each PO DAILY 02/15/17 02/15/17 History Tramadol [Ultram] 50 mg PO PRN 02/15/17 02/15/17 History Allergies Allergy/AdvReac Type Severity Reaction Status Date / Time cefdinir AdvReac Mild DIARRHEA Verified 02/15/17 16:05 Results IRU - Labs Labs: I have reviewed the extensive inpatient notes. Exam Height/Weight/BMI: Height 1.57 m Weight 75.8 kg Body Mass Index 30.5 - Constitutional Present: no acute distress, well nourished, well developed, obese, cooperative - Routine HEENT Exam Head: Present: normocephalic. Absent: atraumatic, cushingoid faces, abrasion, laceration, hematoma Eye: Present: EOMI, PERRL. Absent: conjunctival icterus, scleral injection, conjunctivae pink ENT: Present: mucous membranes moist. Absent: oropharynx clear - Routine Neck Exam Present: supple, full ROM. Absent: JVD, carotid bruit, lymphadenopathy, thyromegaly, tenderness - Routine Chest/Breast/Axilla Exam Chest wall: Absent: tenderness - Routine Respiratory Exam Present: dyspnea, CTA bilaterally. Absent: accessory muscle use, decreased breath sounds, prolonged expiratory phase, rales, respiratory distress, rhonchi , stridor, wheezes, crackles, distant breath sounds - Routine Cardiovascular Exam Present: RRR, S1, S2, no murmur. Absent: S3, S4 - Routine Abdominal Exam Present: soft, normoactive bowel sounds, non distended, non tender. Absent: organomegaly, mass, hernia - Routine Extremities Exam Present: edema (has trace of edema at present.). Absent: cyanosis, clubbing - Routine Skin Exam Present: intact, dry, warm. Absent: cyanosis, erythema, pallor, mottling, petechiae, urticaria, lesions, jaundice - Routine Neurological Exam Present: alert, oriented X3, CN II-XII intact, moving all extremities, normal tone. Absent: sensory deficit, motor deficit - Routine Psychiatric Exam Present: normal affect, normal thought process, cooperative, good insight, good judgment Sepsis Assessment - Evaluation Confirmed Suspected Infection: No SIRS Criteria: none IRU A/P (1) Hypotension Qualifiers: Hypotension type: other hypotension type Qualified Code(s): I95.89 - Other hypotension Current visit: No Status: Resolved Patient had an episode of acute hypotension at the time of admission to acute care. After IV fluid administration her blood pressures have been stable. She will need to be monitored for her blood pressure however. (2) Fall (on) (from) other stairs and steps, initial encounter Current visit: No Status: Acute She has had frequent falls. These seem to be preceded by a warning of some kind. She is a bit vague exactly as to the warning but at least part of it is weakness in the legs. May be an element of dizziness as well. (3) Hypoxemia Current visit: Yes Status: Acute Oxygen requirements are variable. She has had use supplemental oxygen while on acute care. (4) Pulmonary hypertension Current visit: Yes Status: Acute She has evidence for severe pulmonary hypertension on echocardiogram. She likely has underlying severe lung disease. We will need to monitor oxygen carefully with activity as well as at night prior to dismissal. (5) Weight loss, abnormal Current visit: Yes Status: Chronic She reports a 50 pound weight loss over the past 4 years on a gradual basis. Reports her appetite as being adequate. (6) Hypoalbuminemia Current visit: Yes Status: Acute Albumin is consistently low. We will investigate as to whether this is related to protein calorie malnutrition. Dietary involvement will be requested. DVT Prophylaxis: Lovenox Resuscitation Status: Do Not Resuscitate (I personally interviewed the patient and she absolutely requests no heroic efforts be undertaken in the event of an arrest.) - Course Hospital Course: Hosea Nolan MD: - Interventions to Obtain Goals PT Treatment Plan: Balance/Proprioception, Functional Activities, Gait Training , Patient/Family Education OT Treatment Plan: ADL (Basic Care), Balance Training, Pt./Family Education Goals Progress/Modifications: An intensive individualized therapy program will be developed for this patient to include balance training, endurance, and increased ability to perform functional activities for home. I anticipate she will be able to return to her own apartment at modified independent level of functioning. In addition she will require 24 hour rehabilitation nursing monitoring of her oxygen saturations, blood pressure in view of the hypotension as well as dietary involvement regarding her weight loss and hypoalbuminemia. She will require active medical management and monitoring of her hypoxemia, blood pressure, electrolytes including magnesium and kidney function.
--- NOTE | 2017-02-20 15:21 | IRU 24Hr Post Admit Eval ---
24 Hr Post Admission Physical - Relevant Changes Relevant Changes: No Reviewed: I have reviewed the patient's information and concur with the finding and results of the pre-admission screen. Certification: I certify the patient for rehabilitation. - Patient Condition (1) Hypotension Status: Resolved Qualifiers: Hypotension type: other hypotension type Qualified Code(s): I95.89 - Other hypotension Code(s): I95.9 - Hypotension, unspecified Classification: Diagnosis Requiring Medical Follow Up Additional Information: Her hypotension appears to be resolved. However she will require close blood pressure monitoring to ensure it does not return. (2) Fall (on) (from) other stairs and steps, initial encounter Status: Acute Code(s): W10.8XXA - Fall (on) (from) other stairs and steps, initial encounter Classification: Present on IRF Admission, IRF Tx That Should Address Diagnosis, Diagnosis Requiring Medical Follow Up Additional Information: Has had frequent falls for some time, seemingly worsening over the past week or so. Has sudden onset of leg weakness. (3) Hypoxemia Status: Acute Code(s): R09.02 - Hypoxemia Classification: Present on IRF Admission, IRF Tx That Should Address Diagnosis, Diagnosis Requiring Medical Follow Up (4) Pulmonary hypertension Status: Acute Code(s): I27.2 - Other secondary pulmonary hypertension Classification: Present on IRF Admission, IRF Tx That Should Address Diagnosis, Diagnosis Requiring Medical Follow Up (5) Weight loss, abnormal Status: Chronic Code(s): R63.4 - Abnormal weight loss Classification: Present on IRF Admission, IRF Tx That Should Address Diagnosis, Diagnosis Requiring Medical Follow Up (6) Hypoalbuminemia Status: Acute Code(s): E88.09 - Other disorders of plasma-protein metabolism, not elsewhere classified Classification: Present on IRF Admission, IRF Tx That Should Address Diagnosis, Diagnosis Requiring Medical Follow Up - Prior Functional Status Lives With: Alone Residence Type: Apartment/Private Home Assitive Devices: None Prior Functional Status: Indep. at home or school, Used no assistive device - Current Functional Status Current Level of Function: Assessment here in the hospital indicates that she is independent with eating but minimal assistance with grooming, moderate assistance with bathing, supervision with upper body dressing and moderate assistance with lower body dressing. She has moderate assistance with toileting minimal assistance with bed /chair/wheelchair transfers, total assistance with walking with a rolling walker some 20 feet. Failed Alternative Therapy: Arrived from Acute Care Patient Requirements: The patient requires oversight by rehabilitation physician to manage their rehabilitation treatment plan and multidisciplinary approach to care that can only be provided in an IRF and requires a multidisciplinary approach to care, provided by professional PTs, OTs, STs, dieticians, RTs, rehabilitation nurses and is not available in lesser levels of care. Physical Therapy Minutes: 90 Occupational Therapy Minutes: 90 Therapy: The patient is to receive therapy at least 5 days a week. - Complications/Comorbidities Impact on Functional Outcomes: Her hypoxemia and dyspnea will likely will impact her functional recovery. The hypoxemia and dyspnea appear to be new according to the patient. Barriers to Discharge: Weakness, Endurance, Medical Limitation - Plan to Avoid Complications Plan to Avoid Complications: The patient cannot receive this care in a lesser intensive setting such as Group Home or Outpatient Therapy due to the patient requiring the following : Close monitoring of oxygen saturation, blood pressures and frequent monitoring of electrolytes and renal function. .
[2017-02-20] MEDS: TRAMADOL 50 MG TABLET PO PRN (19:56)
[2017-02-20] MEDS: ATENOLOL 50 MG TABLET PO SCH ×2 (19:57→21:00)
[2017-02-20] MEDS: MAGNESIUM OXIDE 400 MG TABLET PO SCH ×2 (19:58→21:00)
[2017-02-21] MEDS: ONDANSETRON 4 MG/2 ML INJECTION IVP PRN (04:48)
[2017-02-21] MEDS: OMEPRAZOLE 20 MG CAPSULE PO SCH (05:40)
[2017-02-21] MEDS: ACETAMINOPHEN 325 MG TABLET PO PRN (05:40)
[2017-02-21] MEDS: ATENOLOL 50 MG TABLET PO SCH ×2 (08:17→20:43)
[2017-02-21] MEDS: MULTI-VITAMIN PLAIN TABLET PO SCH (08:18)
[2017-02-21] MEDS: CALCIUM CARBONATE 500 MG TABLET PO SCH (08:18)
[2017-02-21] MEDS: LOSARTAN 100 MG TABLET PO SCH (08:18)
[2017-02-21] MEDS: MAGNESIUM OXIDE 400 MG TABLET PO SCH ×3 (08:19→20:43)
[2017-02-21] MEDS ORDERED: ENOXAPARIN 40 MG/0.4 ML INJECTION SQ SCH (09:00)
[2017-02-21] MEDS ORDERED: FUROSEMIDE 20 MG TABLET PO SCH (09:00)
--- NOTE | 2017-02-21 10:43 | IRU Progress Note ---
- Subjective/Serverity of Illness Ms. Putnam was evaluated on the IRU. She returns from her pulmonary function testing. She does report dyspnea with activity which includes even walking from her room out to the dining area. She does have a cough with "clear and milky" sputum. She denies any chest pain. She does have a smoking history but has not smoked for the past 20 years. She does have about a [id number] history of tobacco use. In addition she reports that the onset of her pulmonary problems started when she was and had severe bronchitis. She did have pneumonia about 9 years ago which apparently was bilateral and quite severe. She states that she has seen a adapted physical education teacher here in [place] in the past and was on an inhaler for a time. Has not been on anything for some time. She did use oxygen in the past at nighttime but again has not used that for at least 3 years if not more. I reviewed with her the results of her pulmonary function studies. 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 There was no improvement with bronchodilator. In addition she does have air trapping with increased residual volume. RV/TLC is 153% of predicted. Finally she does have significant reduced diffusion capacity at 31%. Even stepping 3 steps during the pulmonary function studies revealed saturations dropping to 80% on room air. Today while walking with therapy her sats did drop down into the mid 80s on room air but then rapidly responded to rest when she was sitting, with sats going back up in the 93% range on room air. I told her I would like to have Dr. Dean see her and I will give him a call in this regard. Update on medical problems as follows: 1. Hypoxemia: She does have abnormal pulmonary function studies with small airways disease, air trapping and reduced diffusion capacity. I mentioned this is related to her chronic tobacco use although previous insult from pneumonia could be a factor. She is no longer smoking. We will ask Dr. Brink to see her as well as start oxygen with activity. She will likely need to go home with oxygen. 2. Hypotension: Has had recent episode of hypotension in conjunction with her fall. Her blood pressures have remained a bit elevated. Has had no further episodes of hypotension. 3. Acute kidney injury with hypomagnesemia: Creatinine is normal as is the potassium. Sodium is a bit down at 133. She is on a low-dose of Lasix. Please see subsequent discussion. 4. Elevated liver enzymes: Etiology of this is not clear but may be related to her hypotension. We will reassess this in the morning along with the typical serologies I think this may well be related to the severe hypotension she experienced vs fatty infiltration vs other. 5. Frequent falling episodes with leg weakness: She is settling into rehabilitation and we will reassess this as time goes on. 6. Hypoalbuminemia: Her prealbumin is low at 15. She likely does have at least mild to moderate protein calorie malnutrition. Dietitian is consulted. As noted she reports a 50 pound weight loss over the past 4 years of uncertain etiology. Recent colonoscopy was negative except for a benign polyp. 7. Fluid excess: Initial weight upon admission was 67 kg. She is up to 75.8 kg and increased a bit from yesterday. She reports that her legs feel very puffy and she would like to get rid of the fluid. She is on Lasix 20 mg. She required extensive fluid resuscitation due to the hypotension and acute kidney injury. We will increase Lasix to 40 mg daily and monitor her carefully. Repeat BMP along with magnesium tomorrow Exam Vital Signs: Temperature 97.1 F 02/20/17 22:20 Pulse Rate 70 02/21/17 04:35 Respiratory Rate 22 02/21/17 04:35 Blood Pressure 145/92 H 02/21/17 04:35 Pulse Oximetry 95 02/21/17 04:35 Height/Weight/BMI: Height 1.57 m Weight 75.8 kg Body Mass Index 30.5 Comments: The patient is awake, alert and oriented and in no acute distress. She does have dyspnea with activity however. Pupils are equal. The neck is supple. Chest: Diminished breath sounds bilaterally. Cor: RR with no gallop, click nor murmur Abd: soft with normo-active bowel sounds. There are no masses, no tenderness and no guarding. Extremities: 1+ edema Weight is up from 67 kg upon admission to acute to 75.8 kg now. Results IRU - Labs Labs: Reviewed labs. Reviewed primary function studies with results as noted. IRU A/P (1) Fall (on) (from) other stairs and steps, initial encounter Current visit: No Status: Acute Has history of frequent falls. Continues to get acclimatized to rehabilitation and starting to work with therapy. (2) Hypoxemia Current visit: Yes Status: Acute She does have abnormal pulmonary function studies revealing small airways disease/obstruction without benefit from bronchodilator, air trapping with increased residual volume and reduced diffusion capacity. She will require oxygen with activity which we will order today. In addition her fluid excess may play a role at least in the diffusion capacity perhaps. We will ask Dr. Dean for his input as well. (3) Pulmonary hypertension Current visit: Yes Status: Acute Does have pulmonary pressures in the 75-80 millimeter mercury range. Likely this is related to underlying pulmonary disease chronically. (4) Weight loss, abnormal Current visit: Yes Status: Chronic She does have a 50 pound weight loss per her report over the past 4 years. Has had a recent EGD and colonoscopy. (5) Hypoalbuminemia Current visit: Yes Status: Acute She has at least mild to moderate protein calorie malnutrition with prealbumin 15. Dietitian is consulted. (6) Fluid excess Qualifiers: Hypervolemia type: other Qualified Code(s): E87.79 - Other fluid overload Current visit: Yes Status: Acute She does have fluid access based on weight gain, edema etc. Will increase Lasix to 40 mg daily and monitor electrolytes in the morning. Also add on SAM hose. She required significant fluid resuscitation due to the hypotension and acute kidney injury while on acute. (7) Elevated liver enzymes Current visit: Yes Status: Acute Uncertain how long she has had elevated liver enzymes. We will reassess in the morning as well as to hepatitis studies and mitochondrial antibody studies. Differential considerations could include the chronic lung disease (alpha-1 antitrypsin deficiency), fatty infiltration, chronic hepatitis, recent hypotension "shock liver." DVT Prophylaxis: Lovenox Resuscitation Status: Do Not Resuscitate (I personally interviewed the patient and she absolutely requests no heroic efforts be undertaken in the event of an arrest.) - Course Hospital Course: Hosea Nolan MD: 02/21/17 10:50 She is starting with therapy. Barriers to progress will include her dyspnea and reduced endurance as well as balance. She does have abnormal pulmonary function studies which are reviewed. I have placed a call to Dr. Dean's office and will discuss with him and ask him to see her. Likely she will need oxygen to go home with. She does have fluid excess and we will add on SAM hose and increase the dose of Lasix. Her electrolytes in the morning along with magnesium. In addition we will check causes of elevated liver enzymes with hepatitis B, C and mitochondrial antibody assessment. Likely however this is related to fatty infiltration. - Interventions to Obtain Goals PT Treatment Plan: Balance/Proprioception, Functional Activities, Gait Training , Patient/Family Education, Therapeutic Exercise OT Treatment Plan: ADL (Basic Care), Balance Training, IADL, Pt./Family Education, Ther. Exercise for ADL Goals Progress/Modifications: Time spent with patient and on floor reviewing data and documentin minutes Barriers to dismissal: Endurance, balance, hypoxemia Medical decision-making: Patient is quite complex. She does have fluid excess which is expected because of her fluid resuscitation from the hypotension and acute kidney injury. We will increase her Lasix in this regard. In addition we will add SAM hose. Secondly, she does have evidence of chronic lung disease with severe pulmonary hypertension, reduced diffusion capacity etc. We will add oxygen with activity and asked Dr. Dean to see her. I have a call pending with him at present. Finally, she does have elevated liver enzymes and we will assess this with the usual serologies.
--- NOTE | 2017-02-21 11:31 | Consult Note ---
<Crista Aleman - Last Filed: 02/21/17 16:40> Consult Information - Data of Consult Consult date: 02/21/17 Requesting Physician: Hosea Nolan MD Primary Care Provider: Jonathan Lamb MD Family Provider: Jonathan Lamb MD - Consult Narrative Reason for consult: Medical management, frequent falls History of present illness: Chief complaint: My legs give out and I fall. HPI: Ms. Putnam is an 86-year-old female who lives independently in her own apartment by herself. Her primary care physician is Dr. Jonathan Lamb. On 02/15/17 she presented to [facility] emergency department via EMS for evaluation after sustaining a fall. She reports that since this summer, she has had difficulty with low blood pressure and dizziness and states that she had fallen twice on succeeding days prior to admission. The second time she fell, she admits to hitting her head resulting in a significant amount of bleeding from the scalp. She denies loss of consciousness. She states she has fallen numerous times over the years but it has been much worse recently. She will get a warning as though her legs are getting weak and perhaps has a bit of dizziness or lightheadedness, especially in the past week. She denies vertigo. She tries to grab onto something but is unable to do that at times and simply goes down. She denies loss of consciousness or history of seizure activity. There has been no evidence of blurred vision or visual changes although she does report some diplopia which has been improved with the use of new glasses. Recently she states she has had occasional occipital headaches as well as nausea and pain across her upper back and neck. A week ago she was diagnosed with a "virus" by per PCP after presenting with headaches, nausea and no vomiting. She denies any chest pain, shortness of breath, abdominal pain, vomiting, dysuria, hematuria, change in vision, difficulty swallowing or localized weakness. No recent changes to her medications but admits to taking her tramadol more frequently for her chronic back pain. Upon arrival to the emergency department via EMS, she was noted to be hypotensive with a blood pressure of 68/47. She was given 3L NS for aggressive fluid resuscitation with some improvement in her blood pressure. Labs were obtained and revealed WBC 8.2, anemia with hemoglobin of 10.1 and platelets 159. She admits to a history of chronic anemia and denies any black tarry stools or blood in her stools. BMP revealed hyponatremia with sodium 129 and potassium 4.7. Elevated BUN and SCr at 47 and 2.0 respectively, concerning for acute kidney injury. Glucose stable at 118. CT head showed no acute intracranial abnormality or bleeding and CXR revealed no acute cardiopulmonary changes. Due to concern for right heart strain, an echocardiogram was obtained and revealed normal LV systolic pressure with an EF of 75%, right atrial and ventricular dilation and severe tricuspid regurgitation with severe pulmonary hypertension with estimated pulmonary artery systolic pressure of 75-80. She had elevated serum lactate and was initially started on Levaquin for empiric antimicrobial coverage which was later discontinued as her blood cultures were negative and there was no other evidence of infection or sepsis. She was admitted to the intensive care unit under the hospitalist service. There was concern about a possible pulmonary embolus, but due to her acute kidney injury, she was unable to have a CT chest angio. She was initially placed on a heparin drip for a short time because of suspicion for pulmonary embolus, but this was discontinued subsequently. The pulmonary VQ scan demonstrated intermediate probability at about 20% for a pulmonary embolus. It is noted that her d-dimer was elevated on admission although she had fallen recently which likely resulted in some bleeding/bruising and thus clotting. She was stabilized in the acute care hospital with IV fluids. She has a history of hypertension but in light of her hypotension on admission, her atenolol and Cozaar were placed on hold. Renal ultrasound was done in response to her acute kidney injury and demonstrated no evidence of hydronephrosis. She seemed to respond to the administration of IV fluids. Her creatinine was initially elevated at 2.4, but normalized to 0.8 with hydration. Of note, she reports a 50 pound weight loss over the past 2 years. She attributes this to working harder with a recent move. She states that her appetite is fair. She had an extensive workup apparently the spring including upper GI versus EGD plus colonoscopy. A nonmalignant polyp was removed. Throughout her acute admission, her labs normalized and her blood pressure improved. Her atenolol and cozaar were restarted to her home dosages without incidence. She was seen and elevated by IRU and ultimately accepted to IRU for continued intensive therapies for strengthening and improvement in functional abilities. On exam, she is seen in her room, preparing to participate in therapy. She has no acute concerns or complaints on exam but does admit to an occipital headache this morning with severe nausea which required zofran. She denies any fevers, changes in vision, chest pain, vomiting, abdominal pain or dysuria. She does admit to some shortness of breath and increased edema since her admission, reporting that her daughter had to bring her different pants because her other pants didn't fit anymore. Nursing reports that she was found to be hypoxic with ambulation on 02/20. Pulmonary function tests were obtained this morning showing signs of obstructive airway disease as well as well as poor oxygen transfer. She states that she occasional has a productive cough with clear- white sputum. She also admits to bilateral posterior neck and upper back pain. No midline tenderness or signs of meningismus. Her appetite is stable and her bowels are moving. [facility] Patient Stated Medical History Hypertension. Frequent falls. Osteoarthritis. Chronic anemia. COPD. Idiopathic peripheral neuropathy. Hypercholesterolemia. Sjogren's syndrome. Chronic back pain. GERD. Medical History Updates: Has chronic anemia. Was worked up this spring with colonoscopy and EGD with a benign polyp removed from the colon. Surgical History: Appendectomy-11/2006. Cholecystectomy. Cataract surgery. Back surgery x 4. Ganglion cyst removal from hand - 1959's. Colonscopy with polypectomy and EGD with biopsy - 10/13/16. Family History Updates: Father - CAD, DM, MS. Mother - HTN, CVA. Paternal grandmother - DM. Sister - HTN. - Social History Smoking status: Former smoker (quit 20 years ago) Substance use type: does not use Alcohol intake frequency: other (mixed cocktail or wine with daughter once a week.) Housing: apartment (Independent living at [facility] Household members: none Current occupational status: retired Current residence: Independent Living Social history: PCP - Dr. Lamb. María Morin ([facility]) - #[phone]. Review of Systems All systems PM: 10-point ROS was reviewed, no additional remarkable complaints except - Constitutional Constitutional: Present: headache(s), weakness, weight loss. Absent: fever(s) - EENMT Eyes: Absent: blurry vision, change in vision, photophobia Ears: Absent: ear discharge Balance: Present: as per HPI. Absent: vertigo, falling to one side, ataxia Nose: Absent: nosebleeds Mouth/Throat: Absent: pain, changes in swallowing - Cardiovascular Cardiovascular: Present: dyspnea on exertion, edema. Absent: chest pain, palpitations, syncope Rhythm: Present: regular rhythm Vascular: Present: pedal edema. Absent: Raynaud's, atrophy - Respiratory Respiratory: Present: cough (occassional), dyspnea on exertion. Absent: hemoptysis, wheezing, pain on inspiration, chest congestion, excessive phlegm production - Gastrointestinal Gastrointestinal: Present: constipation, diarrhea, nausea. Absent: abdominal pain, hematochezia, melena, vomiting - Genitourinary Genitourinary: Absent: dysuria, hematuria Menstruation: post menopausal - Musculoskeletal Musculoskeletal: Present: back pain, muscle weakness, neck pain. Absent: deformity - Integumentary/Breasts Integumentary: Absent: lesions, rash - Neurological Neurological: Present: dizziness, headache(s), weakness. Absent: abnormal speech, confusion - Psychiatric Psychiatric: Absent: hallucinations, panic attacks - Endocrine Endocrine: Absent: palpitations, polyuria - Hematologic/Lymphatic Hematologic/Lymphatic: Present: easy bruising - Allergic/Immunologic Allergic/Immunologic: Absent: seasonal rhinorrhea Medications Home Medications Medication Instructions Recorded Confirmed Type Atenolol 50 mg PO BID #0 09/11/16 02/20/17 History Losartan/Hydrochlorothiazide 1 tab PO DAILY #0 09/11/16 02/20/17 History [Losartan-Hctz 100-25 mg Tab] Aspirin [Thayer Aspirin] 81 mg PO DAILY 02/15/17 02/20/17 History Calcium Carbonate [Calcium] 500 mg PO DAILY 02/15/17 02/20/17 History Cranberry Fruit [Cranberry] 400 mg PO DAILY 02/15/17 02/20/17 History Elderberry Fruit/Honey [Little 1 dose PO DAILY 02/15/17 02/20/17 History Remedies Cough-Immune] Gabapentin [Neurontin] 600 mg PO TID 02/15/17 02/20/17 History Glucosamine 500 mg PO DAILY 02/15/17 02/20/17 History Multivitamin [One Daily] 1 each PO DAILY 02/15/17 02/20/17 History Tramadol [Ultram] 50 mg PO PRN 02/15/17 02/20/17 History Allergies Allergy/AdvReac Type Severity Reaction Status Date / Time cefdinir AdvReac Mild DIARRHEA Verified 02/15/17 16:05 Exam Vital Signs: Temperature 97.1 F 02/20/17 22:20 Pulse Rate 70 02/21/17 04:35 Respiratory Rate 22 02/21/17 04:35 Blood Pressure 145/92 H 02/21/17 04:35 Pulse Oximetry 95 02/21/17 04:35 Height/Weight/BMI: Height 5 ft 2 in Weight 167 lb 1.766 oz Body Mass Index 30.5 - Constitutional Present: no acute distress, well nourished, well developed, obese, cooperative - Routine HEENT Exam Head: Present: normocephalic, abrasion (scab present, no active bleeding.) Eye: Present: PERRL. Absent: conjunctival icterus ENT: Present: mucous membranes moist - Routine Neck Exam Present: supple, full ROM, tenderness (bilateral paraspinous region.), trachea midline. Absent: swelling, meningismus Comments: no midline tenderness. - Routine Chest/Breast/Axilla Exam Chest wall: Absent: tenderness, pacemaker - Routine Respiratory Exam Present: decreased breath sounds, crackles (bilateral bases). Absent: respiratory distress, stridor, wheezes - Routine Cardiovascular Exam Present: RRR, S1, S2 - Routine Abdominal Exam Present: soft, normoactive bowel sounds, non tender - Routine Extremities Exam Present: edema (2-3+ bilateral, pitting.), pulses intact - Routine Back/Spine/Pelvis Exam Back/Spine: Present: full ROM, paraspinal tenderness - Routine Skin Exam Present: intact, dry, warm. Absent: jaundice Comments: afebrile. - Routine Neurological Exam Present: alert, oriented X3, moving all extremities, hearing grossly intact, normal speech. Absent: facial asymmetry - Routine Psychiatric Exam Present: normal affect, cooperative, good insight Results - Labs CBC & Chem 7: 02/21/17 05:19 02/21/17 05:19 - Echocardiogram Echocardiogram: Date of Exam: 02/15/17 Type of Exam: US echo doppler complete Left atrial dimension is normal. Left ventricle end-diastolic dimension is normal. Left ventricular wall thickness is normal. LV systolic function is normal with ejection fraction of about 75%. Right atrium is markedly dilated. Right ventricle is markedly dilated and hypokinetic. Aortic root dimension is normal. Mitral valve annulus is calcified. Mitral valve leaflets are normal. Aortic valve shows fibrocalcific changes with no stenosis or insufficiency. Tricuspid valve shows severe tricuspid regurgitation with severe pulmonary hypertension with estimated pulmonary artery systolic pressure of 75-80. Pulmonary valve shows mild pulmonary insufficiency. There is no pericardial effusion. IMPRESSION 1. Normal LV systolic function with ejection fraction of 75%. 2. Right atrial dilation. 3. Right ventricular dilation with hypokinesia. 4. Mitral annulus calcification. 5. Aortic sclerosis. 6. Severe tricuspid regurgitation with severe pulmonary hypertension with estimated pulmonary artery systolic pressure of 75-80. 7. Mild pulmonary insufficiency. - Impressions Date of Exam: 02/16/17 PROCEDURE: US renal BI FINDINGS: Both kidneys are present with normal cortical thickness and echogenicity. No evidence for collecting system dilatation, contour deforming mass, nephrolithiasis, or abnormal perinephric fluid collection. The right kidney measures 10 cm in length, and the left kidney measures 10.4 cm in length. Granulomatous disease incidentally noted in the spleen. 2.9 cm simple appearing left renal cyst. IMPRESSION: No hydronephrosis Date of Exam: 02/17/17 PROCEDURE: NM pul vent and perfuse Findings: Ventilation images demonstrate radiotracer uptake throughout both lungs with severely heterogeneous uptake. Multifocal areas of decreased perfusion in both lower and upper lobes. Perfusion images are also quite heterogeneous with multifocal nonsegmental perfusion defects that appear roughly matched to the ventilation deficits. No segmental or larger mismatched defect. Impression: Intermediate probability scan for pulmonary embolus, approximately 20% probability. - Imaging and Cardiology Chest x-ray Status: image reviewed by me Additional comments: Date of Exam: 02/15/17 PROCEDURE: XR chest 1V Findings: The lungs are stable in appearance without new focal airspace consolidation. Calcified granulomas in the right infrahilar region and right lower lobe. There is no pleural effusion or pneumothorax. The cardiac silhouette remains moderately enlarged. The pulmonary vascularity and mediastinal contours are unchanged. Moderate to large hiatal hernia. IMPRESSION: Stable appearance of the chest without acute cardiopulmonary disease. CT scan - head Status: image reviewed by me Additional comments: Date of Exam: 02/15/17 PROCEDURE: CT head/brain wo con FINDINGS: The ventricles are of normal size, shape, and contour for the patient' s age. There are extensive areas of low attenuation in the white matter which most likely represent changes from chronic microvascular ischemia. The brainstem, cerebellum, and cerebral hemispheres otherwise have a normal morphology and CT attenuation. There is no evidence of midline displacement. No hemorrhage, signs of acute territorial stroke,mass effect, mass lesions, or edema is evident. The visualized portions of the skull base, midface, and calvarium demonstrate no abnormality. The paranasal sinuses are well aerated and free of significant disease. The tympanic and mastoid cavities appear normal. Posterior scalp swelling. IMPRESSION: No acute intracranial abnormality or hemorrhage. Assessment and Plan DVT Prophylaxis: Lovenox GI Prophylaxis: other (Priolsec) Resuscitation Status: Do Not Resuscitate Assessment and Plan: Assessment Frequent falls and gait instability, acute. Hypertension, chronic. Osteoarthritis. Hypotension, present on acute admission, resolved. Acute kidney injury, present on acute admission, resolved. Plan - 02/21/17 (Admission Consultation) 86-year-old female discharged from [facility] on 02/20/17 and accepted to IRU after repeated falls, hypotension and acute kidney injury. Agree with admission to IRU for continuation of intensive therapies for strengthening and improvement in her functional ability. Therapy and pain control per Dr. Nolan. Following admission to IRU, she was found to have hypoxemia upon ambulation. Pulmonary function tests were performed today, , confirming suspected underlying pulmonary disease including obstructive disease with poor oxygen transfer. Results reviewed and discussed with Dr. Nolan. Will consult pulmonary for further evaluation and treatment recommendations. Appreciate their time and expertise. Recent episode of hypotension in conjunction with her fall. Blood pressure normalized with fluid resuscitation. Blood pressure 145/92. Continue medications including atenolol 50mg BID and [id number]. Of note, patient's home medication list showed Losartan/HCTZ 100-25, and was changed to Losartan 100mg only during acute admission. Continue to monitor blood pressure closely. Patient complains of lightheadedness with standing. Will obtain orthostatic pressures. Concern for increased edema and significant weight gain since admission. Will monitor daily weights closely for signs of fluid overload. 2-3+ pitting edema noted to lower extremities on exam. Continue Lasix 20mg daily and will given additional 40mg po now for additional fluid motivation. Hypomagnesium noted during acute stay. SCr improved down to 0.8 from a high of 2.4. Will recheck BMP and Mg in AM to monitor electrolytes and renal function closely given recent FIONA and fluid overload. Crackles noted to bilateral lung bases on exam. Will obtain repeat CXR now as patient also reports productive cough and new hypoxemia and dyspnea. Anticipate some improvement in respiratory function with additional diuresis. Encourage incentive spirometry for pulmonary toileting. Patient complains of occipital headache as well as bilateral paraspinous upper back and neck pain. No signs of meningismus or changes in mental status. Ice pack and or heat pad to upper back and neck for pain. Hypoalbuminemia noted on admission. She is at risk for malnutrition. Prealbumin at 15.5. Will consult dietary for additional recommendations as she has lost some 50 pounds gradually over the past 2 years. She blames this on doing more work in their move to a different location but in view of the hypoalbuminemia I am concerned about her nutritional status. Upon discharge, the patient's care will be returned to her PCP, Dr. Lamb. - Time spent with patient Time with patient PN: 50 minutes Hospital Course Summary Disclaimer: The visit summary below is not to be considered part of the above Progress Note. Hospital Course: Plan - 02/21/17 (Admission Consultation) 86-year-old female discharged from [facility] on 02/20/17 and accepted to IRU after repeated falls, hypotension and acute kidney injury. Agree with admission to IRU for continuation of intensive therapies for strengthening and improvement in her functional ability. Therapy and pain control per Dr. Nolan. Following admission to IRU, she was found to have hypoxemia upon ambulation. Pulmonary function tests were performed today, , confirming suspected underlying pulmonary disease including obstructive disease with poor oxygen transfer. Results reviewed and discussed with Dr. Nolan. Will consult pulmonary for further evaluation and treatment recommendations. Appreciate their time and expertise. Recent episode of hypotension in conjunction with her fall. Blood pressure normalized with fluid resuscitation. Blood pressure 145/92. Continue medications including atenolol 50mg BID and [id number]. Of note, patient's home medication list showed Losartan/HCTZ 100-25, and was changed to Losartan 100mg only during acute admission. Continue to monitor blood pressure closely. Patient complains of lightheadedness with standing. Will obtain orthostatic pressures. Concern for increased edema and significant weight gain since admission. Will monitor daily weights closely for signs of fluid overload. 2-3+ pitting edema noted to lower extremities on exam. Continue Lasix 20mg daily and will given additional 40mg po now for additional fluid motivation. Hypomagnesium noted during acute stay. SCr improved down to 0.8 from a high of 2.4. Will recheck BMP and Mg in AM to monitor electrolytes and renal function closely given recent FIONA and fluid overload. Crackles noted to bilateral lung bases on exam. Will obtain repeat CXR now as patient also reports productive cough and new hypoxemia and dyspnea. Anticipate some improvement in respiratory function with additional diuresis. Encourage incentive spirometry for pulmonary toileting. Patient complains of occipital headache as well as bilateral paraspinous upper back and neck pain. No signs of meningismus or changes in mental status. Ice pack and or heat pad to upper back and neck for pain. Hypoalbuminemia noted on admission. She is at risk for malnutrition. Prealbumin at 15.5. Will consult dietary for additional recommendations as she has lost some 50 pounds gradually over the past 2 years. She blames this on doing more work in their move to a different location but in view of the hypoalbuminemia I am concerned about her nutritional status. Upon discharge, the patient's care will be returned to her PCP, Dr. Lamb. <Ethan Cyr - Last Filed: 02/21/17 20:40> Consult Information - Data of Consult Requesting Physician: Hosea Nolan MD Primary Care Provider: Jonathan Lamb MD Family Provider: Jonathan Lamb MD [facility] Patient Stated Medical History Hypertension Yes Pneumonia Yes Constipation Yes Other GI Yes: incontinence Hx Incontinence No Osteoarthritis Yes Post Menopausal Yes Exam Vital Signs: Temperature 97.2 F 02/21/17 16:00 Pulse Rate 128 H 02/21/17 16:00 Respiratory Rate 22 02/21/17 16:00 Blood Pressure 144/89 H 02/21/17 16:00 Pulse Oximetry 1 L 02/21/17 16:00 Height/Weight/BMI: Height 1.57 m Weight 75.8 kg Body Mass Index 30.5 Results - Labs CBC & Chem 7: 02/21/17 05:19 02/21/17 05:19 Assessment and Plan Assessment and Plan: Assessment Frequent falls and gait instability, acute. Bilateral pulmonary emboli Hypertension, chronic. Osteoarthritis. Hypotension, present on acute admission, resolved. Acute kidney injury, present on acute admission, resolved. Have independently interviewed and examined pt. Chart reviewed. Case discussed with my PA. Above care plan developed with my supervision; agree with above. Doing okay this evening. Notes some nausea this am when woke up. No ab pain. Tolerated therapy well-tiring, but feels making gains with strength and stability. Breathing okay. Some SOA and chest congestion. Notes occasional cough. No chest wall pain or pain with breathing. Lungs: decreased bilaterally, no distress on RA CV: regular AB: soft nt/nd +BS MSE: awake alert appropriate Lab: creatinine normal at 0.8. CTA: evidence of bilaterally PE. Plan: Agree with admission of patient to IRU to maximize functional status. With PE found on CTA will start Lovenox 114mg SQ daily, starting tonight. Will discuss with patient about oral agents. Monitor creatinine due to dye load and recent FIONA. Encourage therapy. Home BP medications restarted, monitor blood pressure and electrolytes. Encourage continue work with therapy. Medically stable for IRU floor activities. Hospital Course Summary Disclaimer: The visit summary below is not to be considered part of the above Progress Note.
[2017-02-21] MEDS ORDERED: FALL RISK - PHARMACY CONSULT MC ONE (11:54)
--- NOTE | 2017-02-21 12:33 | Pulmonology Consult Note ---
History of Present Illness Consult date: 02/21/17 Requesting physician: Hosea Nolan Reason for consult: dyspnea History of present illness: This is an 86 year old lady with >30 years smoking history. In 2005 she had severe pneumonia and was treated subsequently by pulmonology. She was on bronchodilators for a period after that but they were eventually stopped. She does not use O2 at home. She gets short of breath with activity and has been getting dizzy and having falls at home. She has some cough with thick sputum at times. no hemoptysis. Denies chest pain or palpitations. No known cardiac disease History of this illness by Dr Nolan indicates she was recently [facility] on 02/15/2017. She had fallen twice on succeeding days prior to admission. The second time she did hit her head and there was quite a bit of scalp bleeding. In the emergency department she was noted to have a blood pressure of 68/47. Serum lactate was elevated. Blood cultures were negative however and there was no other evidence of infection or sepsis. She was admitted to the intensive care unit under the hospitalist service. She was given IV fluids. Echocardiogram revealed substantial pulmonary hypertension ( RVSP = 75-80 mmHg) but with normal contractility. There was concern about possible pulmonary embolus. Her creatinine was elevated at 2.4 and for that reason a CT angiogram was not able to be performed initially. She was on heparin drip for a short time because of suspicion for pulmonary embolus, but this was discontinued subsequently. Pulmonary VQ scan was done demonstrating intermediate probability at about 20% for a pulmonary embolus. It is noted that her d-dimer was elevated although she had fallen recently which likely resulted in some bleeding/bruising and thus clotting.. She states that she has episodes where she gets very weak in the legs and suddenly she goes down. She does have a warning when she falls. She has fallen numerous times she states over the years but it has been much worse recently. She will get a warning as though her legs are getting weak and perhaps has a bit of dizziness or lightheadedness. The latter symptom has been present for about a week. She tries to grab onto something but is unable to do that at times and simply goes down. She denies loss of consciousness. There has been no seizure activity. There has been no evidence of blurred vision or visual changes although she does report some diplopia which has been improved with the use of new glasses. She was stabilized in the acute care hospital with IV fluids. Renal ultrasound was done demonstrating no evidence of hydronephrosis. Echocardiogram as mentioned showed normal contractility and ejection fraction but with elevated pulmonary pressures. Chest x-ray was unremarkable. She seemed to respond to the administration of IV fluids. Her creatinine was initially elevated at 2.4 but is now back to normal at 0.9 after hydration. It is also noted that she has had elevated liver enzymes and hypomagnesemia. Her platelet count initially was 113, 000 but it has normalized at present. She has had new development of hypoxemia. She has had use of oxygen with activity here in the hospital. She says that in the past with pneumonia she used oxygen for a short time at night but otherwise did not use oxygen at home. She states that she has not had a breathing test done in the past to her knowledge. Of note, she reports a 50 pound weight loss over the past 2 years. She attributes this to working harder with a recent move. She states that her appetite is fair. She has had no nausea or vomiting. In addition she is treated for chronic anemia. She had an extensive workup apparently the spring including upper GI versus EGD plus colonoscopy. A nonmalignant polyp was removed. She remains on iron supplementation. She denies any chest pain or palpitations. She denies any loss of consciousness or other neurologic changes. She does not have any stairs to climb at home. She lives independently. She does not use a walker at home. Prior level of functioning in her home was that she was independent with eating , grooming, upper and lower body dressing and modified independent with bathing. She was modified independent with toileting, bed/chair/wheelchair transfers and toilet transfers. She was independent with walking and modified independent with stair climbing. Assessment here in the hospital indicates that she is independent with eating but minimal assistance with grooming, moderate assistance with bathing, supervision with upper body dressing and moderate assistance with lower body dressing. She has moderate assistance with toileting minimal assistance with bed /chair/wheelchair transfers, total assistance with walking with a rolling walker some 20 feet. Review of Systems All systems: reviewed and no additional remarkable complaints except as stated PFSH Patient Stated Medical History Hypertension Yes Pneumonia Yes Constipation Yes Other GI Yes: incontinence Hx Incontinence No Osteoarthritis Yes Post Menopausal Yes Medical History Updates: Has chronic anemia. Was worked up this spring with colonoscopy and EGD with a benign polyp removed from the colon. Surgical History: Appendectomy-11/2006. Cholecystectomy. Cataract surgery. Back surgery x 4. Ganglion cyst removal from hand - s. Colonscopy with polypectomy and EGD with biopsy - 10/13/16. - Social History Smoking status: Former smoker (quit 20 years ago) Current residence: [facility] Medications Home Medications Medication Instructions Recorded Confirmed Type Atenolol 50 mg PO BID #0 09/11/16 02/20/17 History Losartan/Hydrochlorothiazide 1 tab PO DAILY #0 09/11/16 02/20/17 History [Losartan-Hctz 100-25 mg Tab] Aspirin [[place] Aspirin] 81 mg PO DAILY 02/15/17 02/20/17 History Calcium Carbonate [Calcium] 500 mg PO DAILY 02/15/17 02/20/17 History Cranberry Fruit [Cranberry] 400 mg PO DAILY 02/15/17 02/20/17 History Elderberry Fruit/Honey [Little 1 dose PO DAILY 02/15/17 02/20/17 History Remedies Cough-Immune] Gabapentin [Neurontin] 600 mg PO TID 02/15/17 02/20/17 History Glucosamine 500 mg PO DAILY 02/15/17 02/20/17 History Multivitamin [One Daily] 1 each PO DAILY 02/15/17 02/20/17 History Tramadol [Ultram] 50 mg PO PRN 02/15/17 02/20/17 History Allergies Allergy/AdvReac Type Severity Reaction Status Date / Time cefdinir AdvReac Mild DIARRHEA Verified 02/15/17 16:05 Exam Vital signs: Temperature 97.1 F 02/20/17 22:20 Pulse Rate 70 02/21/17 04:35 Respiratory Rate 22 02/21/17 04:35 Blood Pressure 145/92 H 02/21/17 04:35 Pulse Oximetry 95 02/21/17 04:35 - Constitutional no acute distress, well developed - Routine HEENT Exam Head: Present: normocephalic, atraumatic, abrasion Eye: Present: EOMI, PERRL Nose: moist mucous membranes - Routine Neck Exam Present: supple, full ROM - Routine Respiratory Exam Present: decreased breath sounds. Absent: wheezes - Routine Cardiovascular Exam Present: RRR. Absent: murmur - Routine Abdominal Exam Present: soft. Absent: guarding - Routine Extremities Exam Absent: cyanosis, clubbing - Routine Skin Exam Present: intact. Absent: cyanosis Results - Laboratory Findings CBC and BMP: 02/21/17 05:19 02/21/17 05:19 Abnormal lab findings: Abnormal Labs 02/20/17 02/21/17 02/21/17 15:29 05:19 05:19 RBC 3.24 L Hgb 10.2 L Hct 31.6 L Neut % (Auto) 75.7 H Lymph % (Auto) 10.4 L [place] % (Auto) 10.9 H Lymph # (Auto) 0.7 L Sodium 133 L Calculated Osmolality 258 L Prealbumin 15.5 L - Diagnostic Findings Chest x-ray: report reviewed, image reviewed Additional studies: PFT shows moderate obstructive disease. FEV1 57% pred, FVL is obstructed. DLCO very low at 28% predicted. Assessment and Plan - Assessment and Plan (1) COPD (chronic obstructive pulmonary disease) Current visit: Yes Status: Acute Moderate disease with very low DLCO. recommend neb bronchodilators and O2 at night and with exertion to keep sat >90% . Could not rule out PE on the basis of the workup. I would recommend empiric anticoagulation until definitive studies are completed.
--- NOTE | 2017-02-21 14:08 | Progress Note ---
Progress Note: I have reviewed the notes from Crista with the hospitalist service as well as Dr. Dean. Dr. Dean recommends anticoagulation until CT angiogram can be done. I reviewed this with Crista as well. We will do a CT angiogram of the chest today since her creatinine is normal.
--- NOTE | 2017-02-21 14:13 | IRU Team Meeting ---
IRU Team Meeting - Nursing Vital Signs: Vital Signs - 24 hr 02/20/17 14:31 02/20/17 22:20 02/21/17 04:35 Temperature 98.3 F 97.1 F Pulse Rate 74 72 70 Respiratory Rate 18 16 22 Blood Pressure 152/80 H 155/81 H 145/92 H Pulse Oximetry 92 94 95 Current Medications: Acetaminophen (Tylenol) 650 mg PO Q5H PRN PRN Reason: Discomfort Last Admin: 02/21/17 05:40 Dose: 650 mg Atenolol (Tenormin) 50 mg PO BID [facility] Last Admin: 02/21/17 08:17 Dose: 50 mg Bisacodyl (Dulcolax) 10 mg RECTALLY DAILY PRN PRN Reason: Constipation Calcium Carbonate (Calcium) 500 mg PO DAILY [facility] Last Admin: 02/21/17 08:18 Dose: 500 mg Enoxaparin Sodium (Lovenox) 40 mg SQ DAILY [facility] Furosemide (Lasix) 40 mg PO DAILY [facility] Furosemide (Lasix) 40 mg PO DAILY ONE Stop: 02/22/17 12:13 Losartan Potassium (Cozaar) 100 mg PO DAILY [facility] Last Admin: 02/21/17 08:18 Dose: 100 mg Magnesium Hydroxide (Mom) 30 ml PO DAILY PRN PRN Reason: Constipation Magnesium Oxide (Magox) 400 mg PO BID [facility] Last Admin: 02/21/17 08:22 Dose: 400 mg Multivitamins (Theragran) 1 tab PO DAILY [facility] Last Admin: 02/21/17 08:18 Dose: 1 tab Omeprazole (Prilosec) 20 mg PO ACB [facility] Last Admin: 02/21/17 05:40 Dose: 20 mg Ondansetron HCl (Zofran) 4 mg IVP Q6H PRN PRN Reason: Nausea Last Admin: 02/21/17 04:48 Dose: 4 mg Polyethylene Glycol (Miralax) 17 gm PO DAILY PRN PRN Reason: Constipation Potassium Chloride (K-Dur) 20 meq PO BIDWM [facility] Last Admin: 02/21/17 08:18 Dose: 20 meq Tramadol HCl (Ultram) 50 mg PO Q6H PRN PRN Reason: Pain Last Admin: 02/20/17 19:56 Dose: 50 mg Current Medical Issues: Hypoxia, chronic lung disease, pulmonary hypertension, hypertension, fluid excess Comments: I certify that I personally led the interdisciplinary team meeting and agree with comments, barriers and goals indicated. Team meeting was held in the patient's room with the patient and the following family members present: patient onlyGeorgie Young was admitted after having been evaluated and stabilized in the acute care hospital. She had fallen recently. She was quite dehydrated and had acute kidney injury. That has all resolved. She does have weight gain since admission and she feels puffy. She does have abnormal pulmonary function tests. She is dizzy and has nausea from time to time. In addition she requires oxygen to keep saturations above 90% with activity. She has been seen by Dr. Dean today. CT angiogram of the chest will be obtained. Have discussed with the hospitalist service. - Dietary Dietitian has been consulted. She does have a 50 pound weight loss over the past 4 years. She does have evidence of at least mild to moderate protein calorie malnutrition based on a low albumin and low pre-albumin. - Physical Therapy Comments: She is moderate assistance for bed/chair/wheelchair transfers. She is maximal assistance for walking 85 feet. She is walking with a front-wheeled walker. We are working toward modified independent functioning with walking and transfers. - Occupational Therapy Comments: She is contact-guard assistance for grooming and dressing as well as toilet transfers. Therapy will work with her regarding cooking light meals and cleaning as she was to return to her independent living apartment. - Goals 1. Toileting was independent functioning 2. Preparing light meals with modified independent functioning 3. Ambulation 150 feet modified independent functioning with front-wheeled walker 4. Maintain saturations 90% or greater with activity with oxygen supplementation - Barriers to Discharge Barriers to Attaining Goals: Balance, Endurance, Medical Limitation - Care Plan Anticipated DC Destination: Home, Self Care I have led this team conference and agree with the plan. Anticipated Length of Stay (days): 7
[2017-02-21] MEDS ORDERED: SALINE FLUSH 10ml SYRINGE ONE (14:17)
[2017-02-21] MEDS ORDERED: NS 100 ML ONE (14:17)
[2017-02-21] MEDS ORDERED: IOHEXOL 350mg/ml 75ml INJECTION ONE (14:17)
--- NOTE | 2017-02-21 15:06 | XRay Report ---
INDICATION: dyspnea PROCEDURE: CHEST 2-VIEWS UPRIGHT (PA & LAT) Encounter: Initial COMPARISON: February 17, 2017 FINDINGS: Interval development of left retrocardiac airspace opacity and trace bilateral effusions. Upper lung aden are clear. No pneumothorax. Heart size and mediastinal contours are stable. Upper lumbar compression fractures. Impression: New trace effusions with left lower lobe atelectasis or pneumonia. .
[2017-02-21] MEDS: ENOXAPARIN 120 MG/0.8 ML INJECTION SQ SCH (20:43)
[2017-02-22] MEDS: OMEPRAZOLE 20 MG CAPSULE PO SCH ×2 (04:04→19:52)
[2017-02-22] MEDS: CALCIUM CARBONATE 500 MG TABLET PO SCH (08:00)
[2017-02-22] MEDS: FUROSEMIDE 40 MG TABLET PO SCH (08:01)
[2017-02-22] MEDS: LOSARTAN 100 MG TABLET PO SCH (08:01)
[2017-02-22] MEDS: MULTI-VITAMIN PLAIN TABLET PO SCH (08:01)
[2017-02-22] MEDS: MAGNESIUM OXIDE 400 MG TABLET PO SCH ×2 (08:01→21:51)
[2017-02-22] MEDS: ATENOLOL 50 MG TABLET PO SCH ×2 (08:02→21:51)
--- NOTE | 2017-02-22 08:23 | CT Scan Report ---
Indication: hypoxia, pulmonary hypertension PROCEDURE: CT angio pulm emboli: Encounter: Initial Comparison: Chest x-ray from the same date Technique: Axial CT pulmonary angiographic phase images were performed through the chest after the administration of intravenous contrast. Coronal and Sagittal MIP reconstructed images were created and reviewed. Automated Exposure Control and Iterative Reconstruction dose reducing techniques were utilized. Contrast: Omnipaque 350 62 mL Findings: Pulmonary arteries: Exam is diagnostic to the subsegmental pulmonary arterial level. There are emboli within the distal main pulmonary arteries bilaterally extending into the segmental and subsegmental branches of all lobes. Interlobar pulmonary artery is affected on the right as well. Other findings: Small bilateral pleural effusions with lower lobe atelectasis. Prominent calcified granuloma in the right lower lobe. The central airways are patent. Heart is enlarged. No significant pericardial effusion. Reflux of contrast into the hepatic veins. 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 Moderate sized hiatal hernia with a partially intrathoracic stomach. Impression: 1. Bilateral pulmonary emboli with possible right heart insufficiency. Recommend cardiology evaluation. 2. Small bilateral pleural effusions. There is a preliminary report by [facility]. .
--- NOTE | 2017-02-22 10:17 | Pulmonology Progress Note ---
Subjective Principal diagnosis: SOB Interval history: Pt currently sitting in the chair, states she is doing ok just feels fatigued today. No cough or sputum but notices SOB with ambulation. Exam Vital signs: Temperature 98.1 F 02/22/17 08:00 Pulse Rate 78 02/22/17 08:00 Respiratory Rate 16 02/22/17 08:00 Blood Pressure 144/74 H 02/22/17 08:00 Pulse Oximetry 94 02/22/17 08:00 - Constitutional no acute distress, obese - Routine HEENT Exam Head: Present: normocephalic, atraumatic Eye: Present: PERRL - Routine Neck Exam Present: supple, full ROM - Routine Respiratory Exam Present: decreased breath sounds - Routine Cardiovascular Exam Present: RRR, no murmur - Routine Abdominal Exam Present: soft, normoactive bowel sounds - Routine Extremities Exam Present: edema, full ROM - Routine Skin Exam Present: intact, dry - Routine Neurological Exam Present: alert, oriented X3, CN II-XII intact - Routine Psychiatric Exam Present: normal affect, normal thought process, suicidal ideation Progress Note-A&P - Time Spent With Patient Total time spent is greater than 50% in coordination of care (as documented) at patient's floor/unit and/or counseling patient: less than 15 minutes (1) COPD (chronic obstructive pulmonary disease) Status: Acute Current Visit: Yes (2) Pulmonary embolism Status: Acute Current Visit: Yes (3) Pulmonary hypertension Status: Acute Current Visit: Yes - Assessment and Plan Pt currently on RA at rest, using O2 with ambulation. Does have moderate COPD with FEV1 57%, DLCO very low at 28%, likely associated more with PE. Currently on therapeutic dosed lovenox, will need at least 3 months of oral anticoagulation with Eliquis or xarelto. Does have pulmonary HTN noted secondary to her [place], diuresis started today per primary. Will need f/u echo in a few months to show resolution of pulmonary HTN. Cont on BT's as ordered.
--- NOTE | 2017-02-22 10:43 | IRU Progress Note ---
- Subjective/Serverity of Illness Hannah was evaluated in her room today. CT angiogram of the chest demonstrated bilateral pulmonary emboli yesterday. She was started on Lovenox 1.5 mg/kg daily. Tolerating it well. We discussed the pulmonary emboli today with her. Also discussed oral agent options. I will defer to the hospitalists to determine which agent to use. However, I did review with her the use of Coumadin versus the neuro agents. She does have easy fatigability and dyspnea with activity. However she denies any chest pain. I believe these pulmonary emboli are likely subacute and since she is now on anticoagulation it would be safe to continue therapy. However we will do this judiciously and if she is excessively short of breath we will hold therapy. She continues to complain of nausea. This is been true since the summer. She reportedly had an EGD which was unremarkable. Etiology of the nausea is unclear. She continues to have a cough. She says that she has had a cough her entire life. At home she uses recall sugar-free and will start this here. Has only scant sputum. I reviewed the echocardiogram and inserting right heart failure, right heart dilatation but normal left ventricular contractility and ejection fraction. Nation hypertension is indeed confirmed. Update on medical problems as follows: 1. Hypoxemia: At rest she is does okay on room air. However with activity she does desaturate. Likely this is a combination of her subacute pulmonary emboli plus her chronic lung disease. 2. Hypotension: Hypotension likely related to dehydration and pulmonary emboli. She is now normotensive and we are monitoring her pressures. 3. Acute kidney injury with hypomagnesemia: We will continue monitoring her renal function. Recent EGFR is 60 cc/m. 4. Elevated liver enzymes: Repeat liver enzymes are improved. Serologies are pending for hepatitis B, C and mitochondrial antibody. AST remains minimally up at 37. 5. Frequent falling episodes with leg weakness: Continues to work with therapy although is fatigued. 6. Hypoalbuminemia: Continues to demonstrate low serum albumin and a poor appetite. This in conjunction with her nausea and weight loss is of concern. Dietitian is following. 7. Fluid excess: We will check daily weights. She is urinating more she states. She is on 40 mg of Lasix daily. Potassium is elevated today but the specimen was hemolyzed likely contributing to this. Exam Vital Signs: Temperature 98.1 F 02/22/17 08:00 Pulse Rate 78 02/22/17 08:00 Respiratory Rate 16 02/22/17 08:00 Blood Pressure 144/74 H 02/22/17 08:00 Pulse Oximetry 94 02/22/17 08:00 Height/Weight/BMI: Height 1.57 m Weight 75.8 kg Body Mass Index 30.5 Comments: The patient is awake, alert and oriented and in no acute distress. Pupils are equal. The neck is supple. Chest: Reduced breath sounds are noted. May have hint of crackles in the bases but overall lungs are relatively clear. Cor: RR with no gallop, click nor murmur Abd: soft with normo-active bowel sounds. There are no masses, no tenderness and no guarding. Extremities: Does have trace to 1+ edema. We will check daily weights.. Results IRU - Labs Labs: I reviewed all labs, progress notes, consultations, previous echocardiogram, new CT angiogram of the chest etc. IRU A/P (1) Fall (on) (from) other stairs and steps, initial encounter Current visit: No Status: Acute While she is easily fatigable, we will continue therapy judiciously she is working with physical therapy and occupational therapy. (2) Hypoxemia Current visit: Yes Status: Acute Her hypoxemia is likely multifactorial and related to the subacute pulmonary emboli plus her underlying COPD. (3) Pulmonary hypertension Current visit: Yes Status: Acute Pulmonary hypertension may be acute versus chronic. Acute causes would include the pulmonary emboli and chronic causes would include her chronic obstructive pulmonary disease. (4) Weight loss, abnormal Current visit: Yes Status: Chronic (5) Hypoalbuminemia Current visit: Yes Status: Acute She has evidence for at least mild to moderate protein calorie malnutrition. She does have nausea and a poor appetite. Previous EGD this summer was reportedly normal. Continues to work with dietitian with regard to supplements and adequate nutrition. (6) Fluid excess Qualifiers: Hypervolemia type: other Qualified Code(s): E87.79 - Other fluid overload Current visit: Yes Status: Acute She is on Lasix 40 mg daily and starting to diurese. (7) Elevated liver enzymes Current visit: Yes Status: Acute Elevated liver enzymes are improved but still the AST is slightly up. Serologies are pending. (8) Pulmonary embolism Qualifiers: Pulmonary embolism type: other Chronicity: acute Acute cor pulmonale presence: with acute cor pulmonale Qualified Code(s): I26.09 - Other pulmonary embolism with acute cor pulmonale Current visit: Yes Status: Acute She has evidence for subacute pulmonary emboli with evidence of cor pulmonale ( dilated right heart and reduced contractility of right ventricle). She is on Lovenox 1.5 mg/kg. I will defer to the hospitalists with regard to choice of oral agent. (9) COPD (chronic obstructive pulmonary disease) Qualifiers: COPD type: chronic bronchitis Chronic bronchitis type: simple Qualified Code(s): J41.0 - Simple chronic bronchitis Current visit: Yes Status: Acute The patient has evidence of some degree of obstruction without evidence of response to bronchodilator. Her DLCO is markedly reduced. She has a chronic cough and chronically produces sputum on most days of the year. Dr. Dean has seen and have started her on albuterol plus ipratropium. She is receiving oxygen with activity. DVT Prophylaxis: Lovenox Resuscitation Status: Do Not Resuscitate - Course Hospital Course: Hosea Nolan MD: 02/21/17 10:50 She is starting with therapy. Barriers to progress will include her dyspnea and reduced endurance as well as balance. She does have abnormal pulmonary function studies which are reviewed. I have placed a call to Dr. Dean's office and will discuss with him and ask him to see her. Likely she will need oxygen to go home with. She does have fluid excess and we will add on SAM hose and increase the dose of Lasix. Her electrolytes in the morning along with magnesium. In addition we will check causes of elevated liver enzymes with hepatitis B, C and mitochondrial antibody assessment. Likely however this is related to fatty infiltration. 02/22/17 10:51 She has a new diagnosis of bilateral pulmonary emboli in the distal pulmonary arteries. She is now on Lovenox 1.5 mg/kg every 24 hours started yesterday. She does have some easy fatigability with activity. There is no chest pain. She is on inhaled bronchodilators. We are diuresing her with Lasix 40 mg daily. Her elevated liver enzymes are being evaluated with serologies and these are pending. AST is still elevated but the others are improved. - Interventions to Obtain Goals PT Treatment Plan: Balance/Proprioception, Functional Activities, Gait Training , Patient/Family Education, Therapeutic Exercise OT Treatment Plan: ADL (Basic Care), Balance Training, IADL, Pt./Family Education, Ther. Exercise for ADL Goals Progress/Modifications: Time spent with patient and on floor reviewing data and documentin minutes Barriers to dismissal: Dyspnea, fluid excess, easy fatigability/decreased endurance Medical decision-making: Discussed with pulmonary. Reviewed CT angiogram. Decision as to whether to continue therapy was made. She is on anticoagulation and these are subacute pulmonary emboli. We will continue therapy in a judicious manner and not excessively "push" her. Discussed with patient at length the issue of anticoagulation and plans for the future. In addition reviewed her fluid status and we will do daily weights. We will start Ricola per her request for her chronic cough. Finally, we are concerned about her weight loss, anorexia and nausea. Etiology is not clear at this time. Please note that the patient's individual plan of care was developed and documented today, requiring review of therapy notes, medical conditions and anticipated functional recovery. This required additional medical decision making with regard to interaction of the patient's medical issues with the anticipated functional recovery. Please see separate document
--- NOTE | 2017-02-22 10:57 | IRU Plan of Care ---
[facility] Overall Plan of Care - Date Date: 02/22/17 - Patient Impairments (1) Fall (on) (from) other stairs and steps, initial encounter Code(s): W10.8XXA - Fall (on) (from) other stairs and steps, initial encounter Status: Acute Classification: Present on IRF Admission, IRF Tx That Should Address Diagnosis, Diagnosis Requiring Medical Follow Up (2) Hypoxemia Code(s): R09.02 - Hypoxemia Status: Acute Classification: Present on IRF Admission, IRF Tx That Should Address Diagnosis, Diagnosis Requiring Medical Follow Up (3) Pulmonary hypertension Code(s): I27.2 - Other secondary pulmonary hypertension Status: Acute Classification: Present on IRF Admission, IRF Tx That Should Address Diagnosis, Diagnosis Requiring Medical Follow Up (4) Weight loss, abnormal Code(s): R63.4 - Abnormal weight loss Status: Chronic Classification: Present on IRF Admission, IRF Tx That Should Address Diagnosis, Diagnosis Requiring Medical Follow Up (5) Hypoalbuminemia Code(s): E88.09 - Other disorders of plasma-protein metabolism, not elsewhere classified Status: Acute Classification: Present on IRF Admission, IRF Tx That Should Address Diagnosis, Diagnosis Requiring Medical Follow Up (6) Fluid excess Qualifiers: Hypervolemia type: other Qualified Code(s): E87.79 - Other fluid overload Code(s): E87.70 - Fluid overload, unspecified Status: Acute Classification: Present on IRF Admission, IRF Tx That Should Address Diagnosis, Diagnosis Requiring Medical Follow Up (7) Elevated liver enzymes Code(s): R74.8 - Abnormal levels of other serum enzymes Status: Acute Classification: Present on IRF Admission, Diagnosis Requiring Medical Follow Up (8) Pulmonary embolism Qualifiers: Pulmonary embolism type: other Chronicity: acute Acute cor pulmonale presence: with acute cor pulmonale Qualified Code(s): I26.09 - Other pulmonary embolism with acute cor pulmonale Code(s): I26.99 - Other pulmonary embolism without acute cor pulmonale Status : Acute Classification: Present on IRF Admission, IRF Tx That Should Address Diagnosis, Diagnosis Requiring Medical Follow Up (9) COPD (chronic obstructive pulmonary disease) Qualifiers: COPD type: chronic bronchitis Chronic bronchitis type: simple Qualified Code(s): J41.0 - Simple chronic bronchitis Code(s): J44.9 - Chronic obstructive pulmonary disease, unspecified Status: Acute Classification: Present on IRF Admission, IRF Tx That Should Address Diagnosis, Diagnosis Requiring Medical Follow Up - Relevant Changes Relevant Changes: No Reviewed: I have reviewed the patient's information and concur with the finding and results of the pre-admission screen. Certification: I certify the patient for rehabilitation. - Medical Prognosis Medical Prognosis: Good Vital Signs: Last Vital Signs Temp 98.1 F 02/22/17 08:00 Pulse 78 02/22/17 08:00 Resp 16 02/22/17 08:00 BP 144/74 H 02/22/17 08:00 Pulse Ox 94 02/22/17 08:00 - Anticipated Interventions Anticipated Interventions: The patient requires inpatient IRF care for PT, OT, and/or ST for residuals remaining from recent episode of dehydration, frequent falls, recent pulmonary emboli resulting in muscular weakness and strength deficits. - Current Functional Status Failed Alternative Therapy: Arrived from Acute Care Patient Requires: The patient requires oversight by rehabilitation physician to manage their rehabilitation treatment plan and multidisciplinary approach to care that can only be provided in an IRF and requires a multidisciplinary approach to care, provided by professional PTs, OTs, STs, dieticians, RTs, rehabilitation nurses and is not available in lesser levels of care. Physical Therapy Minutes: 90 Occupational Therapy Minutes: 90 Therapy: The patient is to receive therapy at least 5 days a week. - Anticipated LOS/Outcomes Anticipated Functional Outcome: It is anticipated the patient will be able to return to her home with modified independent level of functioning Anticipated Length of Stay (days): 7 Anticipated DC Destination: Home, Self [facility] Safety Plan: The patient will be provided with the development of a Home Safety Plan for return to a home or home-like environment and and to ensure safety post discharge. - Plan to Avoid Complications Barriers to Attaining Goals: Weakness, Endurance, Medical Limitation Plan to Avoid Complications: The patient cannot receive this care in a lesser intensive setting such as Long Term or Outpatient Therapy due to the patient requiring the following : Patient requires 24 rehabilitation nursing monitoring of saturations, endurance, fluid balance as well as close medical supervision of her excess fluids and recent diagnosis of pulmonary emboli. .
[2017-02-22] MEDS ORDERED: FUROSEMIDE 40 MG TABLET PO ONE (12:12)
--- NOTE | 2017-02-22 14:46 | Progress Note ---
Progress Note: Patient reports onset of itching rash on right upper back starting yesterday some time. It is getting worse today and somewhat burning in sensation. She has splotches of red raised areas on the right upper back over the shoulder blade and trapezius. No active blisters at present but this looks like shingles. We will start famciclovir.
[2017-02-22] MEDS: MENTHOL COUGH DROPS (RICOLA) MM PRN (14:55)
[2017-02-22] MEDS ORDERED: CALAMINE TOP PRN (15:08)
[2017-02-22] MEDS: Ipratropium Inh NEB 0.02% (0.5mg/2.5ml) AEROSOL SCH ×4 (19:51→20:06)
[2017-02-22] MEDS: ALBUTEROL 2.5mg/3ml (0.083%) NEB AEROSOL SCH ×3 (19:51→20:07)
[2017-02-22] MEDS: ENOXAPARIN 120 MG/0.8 ML INJECTION SQ SCH (21:49)
[2017-02-22] MEDS: TRAMADOL 50 MG TABLET PO PRN (21:50)
[2017-02-22] MEDS: FAMCICLOVIR 500 MG TABLET PO SCH (21:50)
[2017-02-23] MEDS ORDERED: CALAMINE TOP PRN (01:30)
[2017-02-23] MEDS: OMEPRAZOLE 20 MG CAPSULE PO SCH (06:06)
[2017-02-23] MEDS: FAMCICLOVIR 500 MG TABLET PO SCH ×3 (06:06→21:12)
[2017-02-23] MEDS: MENTHOL COUGH DROPS (RICOLA) MM PRN (06:08)
[2017-02-23] MEDS: ONDANSETRON 4 MG/2 ML INJECTION IVP PRN (06:42)
[2017-02-23] MEDS ORDERED: WARFARIN - PHARMACY CONSULT MC ONE (08:38)
--- NOTE | 2017-02-23 09:18 | Pharmacy Consult ---
Pharmacy Consult-Warfarin - Consult Information We will give 6mg of warfarin p.o. today at noon. INR is ordered for today then daily. Thanks
[2017-02-23] MEDS: HYDROCORTISONE 2.5% CREAM 30gm TOP SCH ×2 (09:22→20:36)
[2017-02-23] MEDS: LOSARTAN 100 MG TABLET PO SCH (09:22)
[2017-02-23] MEDS: MAGNESIUM OXIDE 400 MG TABLET PO SCH ×2 (09:22→20:57)
[2017-02-23] MEDS: FUROSEMIDE 40 MG TABLET PO SCH (09:23)
[2017-02-23] MEDS: CALCIUM CARBONATE 500 MG TABLET PO SCH (09:23)
[2017-02-23] MEDS: ATENOLOL 50 MG TABLET PO SCH ×2 (09:23→20:57)
[2017-02-23] MEDS: MULTI-VITAMIN PLAIN TABLET PO SCH (09:23)
--- NOTE | 2017-02-23 09:40 | Progress Note ---
<Margo Harley V - Last Filed: 02/23/17 09:30> Subjective: Hannah is seen this morning in follow up while finishing breakfast in her room. She reports having constant itching to rash on the right posterior shoulder. The rash has now spread down the right arm and approximately three- quarter circumferential around upper arm. Patient denies that the rash has any pain today, but rather complains of ongoing itching. Otherwise, is doing well. Does have some shortness of breath with exertion. Denies chest pain or GI complaints. Objective Vital signs: Temperature 97.6 F 02/23/17 07:36 Pulse Rate 74 02/23/17 07:36 Respiratory Rate 24 02/23/17 07:36 Blood Pressure 131/70 02/23/17 07:36 Pulse Oximetry 92 02/23/17 07:36 Height/Weight/BMI: Height 1.57 m Weight 75.8 kg Body Mass Index 30.5 - Constitutional Present: no acute distress, well nourished, well developed - Routine HEENT Exam Eye: Present: EOMI ENT: Present: mucous membranes moist, dentition normal - Routine Respiratory Exam Present: CTA bilaterally. Absent: wheezes - Routine Cardiovascular Exam Present: RRR, S1, S2. Absent: murmur - Routine Abdominal Exam Present: soft, normoactive bowel sounds, non distended. Absent: tenderness - Routine Extremities Exam Present: normal capillary refill - Routine Back/Spine/Pelvis Exam Back/Spine: Present: full ROM - Routine Skin Exam Present: dry, warm, rash (Right posterior shoulder and Right upper arm) - Routine Neurological Exam Present: alert, oriented X3, CN II-XII intact - Routine Lymphatic Exam Lymphatic: Absent: adenopathy - Routine Psychiatric Exam Present: normal affect Results - Labs CBC & Chem 7: 02/22/17 04:50 02/23/17 05:32 Assessment and Plan Assessment and Plan: Assessment Rash Frequent falls and gait instability, acute. Bilateral pulmonary emboli Hypertension, chronic. Osteoarthritis. Hypotension, present on acute admission, resolved. Acute kidney injury, present on acute admission, resolved. Plan Initially the right posterior shoulder rash does have possibility of being shingles as it does follow a dermatome. Today, however, the rash has spread around to the right arm, not only in linear fashion but generalized upper arm. It is unclear exact etiology of the rash. We will continue on the acyclovir for viral coverage. She does complain of itching, however, no pain today. Will place hydrocortisone cream topically on the rash to see if this helps. Ask nursing staff to keep rash covered, as long as it is not having any drainage or infection in nature infectious disease nurse reports patient may leave room for therapy. Continue to utilize oxygen as needed for treatment of hypoxia given pulmonary emboli. Continue with Lovenox 114 milligrams subcutaneous every 24 hours for anticoagulation Morning laboratory reviewed, potassium was reported to be elevated at 6.4, however the SPECT this is due to hemolysis. Given the indicators significantly elevated. Will recheck at noon. Recommended doing venous stick only, not finger prick. Continue to encourage PT/OT for strengthening Hospital Course Summary Disclaimer: The visit summary below is not to be considered part of the above Progress Note. Hospital Course: Plan - 02/21/17 (Admission Consultation) 86-year-[place] [facility] [place] and accepted to IRU after repeated falls, hypotension and acute kidney injury. Agree with admission to IRU for continuation of intensive therapies for strengthening and improvement in her functional ability. Therapy and pain control per Dr. Nolan. Following admission to IRU, she was found to have hypoxemia upon ambulation. Pulmonary function tests were performed today, , confirming suspected underlying pulmonary disease including obstructive disease with poor oxygen transfer. Results reviewed and discussed with Dr. Nolan. Will consult pulmonary for further evaluation and treatment recommendations. Appreciate their time and expertise. Recent episode of hypotension in conjunction with her fall. Blood pressure normalized with fluid resuscitation. Blood pressure 145/92. Continue medications including atenolol 50mg BID and [id number]. Of note, patient's home medication list showed Losartan/HCTZ 100-25, and was changed to Losartan 100mg only during acute admission. Continue to monitor blood pressure closely. Patient complains of lightheadedness with standing. Will obtain orthostatic pressures. Concern for increased edema and significant weight gain since admission. Will monitor daily weights closely for signs of fluid overload. 2-3+ pitting edema noted to lower extremities on exam. Continue Lasix 20mg daily and will given additional 40mg po now for additional fluid motivation. Hypomagnesium noted during acute stay. SCr improved down to 0.8 from a high of 2.4. Will recheck BMP and Mg in AM to monitor electrolytes and renal function closely given recent FIONA and fluid overload. Crackles noted to bilateral lung bases on exam. Will obtain repeat CXR now as patient also reports productive cough and new hypoxemia and dyspnea. Anticipate some improvement in respiratory function with additional diuresis. Encourage incentive spirometry for pulmonary toileting. Patient complains of occipital headache as well as bilateral paraspinous upper back and neck pain. No signs of meningismus or changes in mental status. Ice pack and or heat pad to upper back and neck for pain. Hypoalbuminemia noted on admission. She is at risk for malnutrition. Prealbumin at 15.5. Will consult dietary for additional recommendations as she has lost some 50 pounds gradually over the past 2 years. She blames this on doing more work in their move to a different location but in view of the hypoalbuminemia I am concerned about her nutritional status. Upon discharge, the patient's care will be returned to her PCP, Dr. Lamb. 02/23/17 Plan Initially the right posterior shoulder rash does have possibility of being shingles as it does follow a dermatome. Today, however, the rash has spread around to the right arm, not only in linear fashion but generalized upper arm. It is unclear exact etiology of the rash. We will continue on the acyclovir for viral coverage. She does complain of itching, however, no pain today. Will place hydrocortisone cream topically on the rash to see if this helps. Ask nursing staff to keep rash covered, as long as it is not having any drainage or infection in nature infectious disease nurse reports patient may leave room for therapy. Continue to utilize oxygen as needed for treatment of hypoxia given pulmonary emboli. Continue with Lovenox 114 milligrams subcutaneous every 24 hours for anticoagulation Morning laboratory reviewed, potassium was reported to be elevated at 6.4, however the SPECT this is due to hemolysis. Given the indicators significantly elevated. Will recheck at noon. Recommended doing venous stick only, not finger prick. Continue to encourage PT/OT for strengthening <Ethan Cyr - Last Filed: 02/23/17 18:29> Objective Vital signs: Temperature 97.6 F 02/23/17 15:24 Pulse Rate 74 02/23/17 15:24 Respiratory Rate 18 02/23/17 15:24 Blood Pressure 122/66 02/23/17 15:24 Pulse Oximetry 93 02/23/17 15:24 Height/Weight/BMI: Height 1.57 m Weight 74.8 kg Body Mass Index 30.5 Results - Labs CBC & Chem 7: 02/22/17 04:50 02/23/17 14:02 Assessment and Plan Assessment and Plan: Assessment Rash Frequent falls and gait instability, acute. Bilateral pulmonary emboli Hypertension, chronic. Osteoarthritis. Hypotension, present on acute admission, resolved. Acute kidney injury, present on acute admission, resolved. Have independently interviewed and examined pt. Chart reviewed. Case discussed with my CT MANAGER. Above care plan developed with my supervision; agree with above. Doing well this evening. Feels breathing well-not having pain with breathing or congestion. Note some cough and SOA with activities. Eating well. No nausea. Lungs: decreased, no distress CV: regular MSE: awake alert appropriate Plan: Continue with Lovenox for anticoagulation. Start Coumadin per protocol. Topical steroids and oral H1 and H2 blockers from rash. Encourage continued work with therapy to maximize strength and functional abilities. Medically stable for IRU floor activities. Hospital Course Summary Disclaimer: The visit summary below is not to be considered part of the above Progress Note.
[2017-02-23] MEDS ORDERED: ONDANSETRON ODT 4 MG TABLET PO PRN (09:48)
--- NOTE | 2017-02-23 10:22 | IRU Progress Note ---
- Subjective/Serverity of Illness Odalys was evaluated in her room on the inpatient rehabilitation unit. She does report dyspnea with activity. Does have a chronic cough. She remains on oxygen supplementation. Continues to complain of an itchy rash. It is now progressed down her right arm. Margo had seen her and wondered if it may be somethingside shingles which is certainly may be. Had a cortisone was ordered and it is now covered with hydrocortisone. I actually do not see much of a rash on the arm. However perhaps it is covered by the hydrocortisone at this time. It does seem to follow a dermatome although Margo reported it seemed to be circumferential which would argue against being shingles. Nevertheless she remains on famciclovir as well as topical hydrocortisone. Her main complaint is itching in this regard. As noted, she does have dyspnea with activity. She denies any chest pain. She does have a recent diagnosis of bilateral pulmonary emboli and remains on Lovenox 1.5 mg/kg subcutaneously daily. Oral agents not yet started. She reports verbally that she seems to be diuresing well. In addition, there is evidence of good fluid output. We do not have daily weights and I asked the nurse to get that today. Update on medical problems as follows: 1. Hypoxemia: Remains on oxygen with activity. As noted previously this is likely a combination of her chronic lung disease plus the subacute pulmonary emboli. She will need further assessment of her oxygen saturations with activity etc. prior to dismissal. 2. Hypotension: Hypotension likely related to dehydration and pulmonary emboli. Her blood pressures are improved. 3. Acute kidney injury with hypomagnesemia: Magnesium 1.6 recently. Kidney function now apparently normal. 4. Elevated liver enzymes: Her serologies are still pending. 5. Frequent falling episodes with leg weakness: Continues to work with therapy although is fatigued. Because of the apparent shingles she was in isolation for some time. However we will cover these areas and hopefully get her out to be able to work with therapies 6. Hypoalbuminemia: Continues to demonstrate low serum albumin and a poor appetite. This in conjunction with her nausea and weight loss is of concern. Dietitian is following. 7. Fluid excess: As noted, we will check her weight today and compare with the previous value. Potassium is elevated once again but the specimen is quite hemolyzed. However out of an abundance of caution, the potassium supplementation has been discontinued. Exam Vital Signs: Temperature 97.6 F 02/23/17 07:36 Pulse Rate 74 02/23/17 07:36 Respiratory Rate 24 02/23/17 07:36 Blood Pressure 131/70 02/23/17 07:36 Pulse Oximetry 92 02/23/17 07:36 Height/Weight/BMI: Height 1.57 m Weight 75.8 kg Body Mass Index 30.5 Comments: The patient is awake, alert and oriented and in no acute distress. Pupils are equal. Examination of the skin reveals the rash most predominantly on the right upper trapezius area. There is a rash down her right arm but I was not able to visualize that well likely due to topical ointment at this time. This is itchy she states. None of these are open. The neck is supple. Chest: Diminished breath sounds noted along with some basilar crackles. Cor: RR with no gallop, click nor murmur Abd: soft with normo-active bowel sounds. There are no masses, no tenderness and no guarding. Extremities: There is trace of edema. Results IRU - Labs Labs: Reviewed her lab including potassium 6.4 but with a hemolyzed specimen. Serologies are pending regarding her liver enzymes. IRU A/P (1) Fall (on) (from) other stairs and steps, initial encounter Current visit: No Status: Acute Continues to need work on balance and strengthening and endurance. (2) Hypoxemia Current visit: Yes Status: Acute Remains on oxygen supplementation. Again this will need to be evaluated more thoroughly just prior to dismissal. (3) Pulmonary hypertension Current visit: Yes Status: Acute (4) Weight loss, abnormal Current visit: Yes Status: Chronic (5) Hypoalbuminemia Current visit: Yes Status: Acute Dietitian is following the patient and providing supplements as needed. (6) Fluid excess Qualifiers: Hypervolemia type: other Qualified Code(s): E87.79 - Other fluid overload Current visit: Yes Status: Acute Continues on Lasix. We will check her weights and compare with previous value. (7) Elevated liver enzymes Current visit: Yes Status: Acute (8) Pulmonary embolism Qualifiers: Pulmonary embolism type: other Chronicity: acute Acute cor pulmonale presence: with acute cor pulmonale Qualified Code(s): I26.09 - Other pulmonary embolism with acute cor pulmonale Current visit: Yes Status: Acute She remains on subcutaneous Lovenox. (9) COPD (chronic obstructive pulmonary disease) Qualifiers: COPD type: chronic bronchitis Chronic bronchitis type: simple Qualified Code(s): J41.0 - Simple chronic bronchitis Current visit: Yes Status: Acute DVT Prophylaxis: Lovenox Resuscitation Status: Do Not Resuscitate - Course Hospital Course: Hosea Nolan MD: 02/21/17 10:50 She is starting with therapy. Barriers to progress will include her dyspnea and reduced endurance as well as balance. She does have abnormal pulmonary function studies which are reviewed. I have placed a call to Dr. Dean's office and will discuss with him and ask him to see her. Likely she will need oxygen to go home with. She does have fluid excess and we will add on SAM hose and increase the dose of Lasix. Her electrolytes in the morning along with magnesium. In addition we will check causes of elevated liver enzymes with hepatitis B, C and mitochondrial antibody assessment. Likely however this is related to fatty infiltration. 02/22/17 10:51 She has a new diagnosis of bilateral pulmonary emboli in the distal pulmonary arteries. She is now on Lovenox 1.5 mg/kg every 24 hours started yesterday. She does have some easy fatigability with activity. There is no chest pain. She is on inhaled bronchodilators. We are diuresing her with Lasix 40 mg daily. Her elevated liver enzymes are being evaluated with serologies and these are pending. AST is still elevated but the others are improved. 02/23/17 10:24 Rash has gone down the right arm but in a circumferential manner. This raises the question as to whether this is truly shingles or not. Continues on Lasix. We will check daily weights. Continues on Lovenox due to the pulmonary emboli. - Interventions to Obtain Goals PT Treatment Plan: Balance/Proprioception, Functional Activities, Gait Training , Patient/Family Education, Therapeutic Exercise OT Treatment Plan: ADL (Basic Care), Balance Training, IADL, Pt./Family Education, Ther. Exercise for ADL Goals Progress/Modifications: Time spent with patient and on floor reviewing data and documentin min Barriers to dismissal: Hypoxemia, fluid excess, endurance Medical decision-making: We will reassess her weights today. The new Lasix for the time being. In addition we are assessing the right upper extremity rash as to whether this is truly zoster or not. I was draw tender believe it most likely is sensitive seems to follow a dermatome. However it is in a circumferential manner according to reports and that would be less likely for zoster. We will continue famciclovir for the time being. In addition, her potassium is elevated at 6.4 although the specimen is hemolyzed. Potassium has been discontinued. Will monitor this carefully.
--- NOTE | 2017-02-23 11:26 | Progress Note ---
Progress Note: Please see previous IRU progress note from today. Her weight is down 1 kg indicating good diuresis.
[2017-02-23] MEDS ORDERED: WARFARIN 6 MG TABLET PO SCH (12:00)
[2017-02-23] MEDS: ALBUTEROL 2.5mg/3ml (0.083%) NEB AEROSOL SCH ×3 (15:06→19:08)
[2017-02-23] MEDS: Ipratropium Inh NEB 0.02% (0.5mg/2.5ml) AEROSOL SCH ×3 (15:07→19:08)
[2017-02-23] MEDS: CETIRIZINE 10 MG TABLET PO SCH (17:00)
[2017-02-23] MEDS: ENOXAPARIN 120 MG/0.8 ML INJECTION SQ SCH (20:54)
[2017-02-23] MEDS: RANITIDINE 150 MG TABLET PO SCH (21:12)
[2017-02-24] MEDS: FAMCICLOVIR 500 MG TABLET PO SCH ×4 (06:18→21:46)
[2017-02-24] MEDS ORDERED: ALBUTEROL 2.5mg/3ml (0.083%) NEB AEROSOL PRN (06:49)
[2017-02-24] MEDS: ALBUTEROL/IPRATROPIUM 2.5mg-0.5mg/3ml NEB AEROSOL SCH ×4 (06:57→19:10)
[2017-02-24] MEDS: ATENOLOL 50 MG TABLET PO SCH ×2 (08:39→20:35)
[2017-02-24] MEDS: CETIRIZINE 10 MG TABLET PO SCH (08:40)
[2017-02-24] MEDS: FUROSEMIDE 40 MG TABLET PO SCH (08:40)
[2017-02-24] MEDS: CALCIUM CARBONATE 500 MG TABLET PO SCH (08:41)
[2017-02-24] MEDS: MAGNESIUM OXIDE 400 MG TABLET PO SCH ×2 (08:41→20:35)
[2017-02-24] MEDS: LOSARTAN 100 MG TABLET PO SCH (08:41)
[2017-02-24] MEDS: MULTI-VITAMIN PLAIN TABLET PO SCH (08:41)
[2017-02-24] MEDS: RANITIDINE 150 MG TABLET PO SCH ×2 (08:45→20:35)
[2017-02-24] MEDS: Ipratropium Inh NEB 0.02% (0.5mg/2.5ml) AEROSOL SCH ×2 (09:45→14:44)
--- NOTE | 2017-02-24 10:03 | Pulmonology Progress Note ---
Subjective Principal diagnosis: SOB Interval history: Pt currently working with PT and doing well. Some cough and white sputum noted, does have SOB on ambulation and on 1L. Exam Vital signs: Temperature 98.2 F 02/24/17 08:35 Pulse Rate 96 02/24/17 08:35 Respiratory Rate 16 02/24/17 08:35 Blood Pressure 126/66 02/24/17 08:35 Pulse Oximetry 93 02/24/17 08:35 - Constitutional no acute distress, well developed - Routine HEENT Exam Head: Present: normocephalic, atraumatic Eye: Present: PERRL - Routine Neck Exam Present: supple, full ROM - Routine Respiratory Exam Present: decreased breath sounds - Routine Cardiovascular Exam Present: RRR, no murmur - Routine Abdominal Exam Present: soft, normoactive bowel sounds - Routine Extremities Exam Present: edema, non tender, full ROM - Routine Back/Spine/Pelvis Exam Back/Spine: Present: full ROM - Routine Skin Exam Present: intact, dry - Routine Neurological Exam Present: alert, oriented X3, CN II-XII intact - Routine Psychiatric Exam Present: normal affect, normal thought process Progress Note-A&P - Time Spent With Patient Total time spent is greater than 50% in coordination of care (as documented) at patient's floor/unit and/or counseling patient: less than 15 minutes (1) COPD (chronic obstructive pulmonary disease) Status: Acute Current Visit: Yes (2) Pulmonary embolism Status: Acute Current Visit: Yes (3) Pulmonary hypertension Status: Acute Current Visit: Yes - Assessment and Plan Pt currently on 1L as she is ambulating with PT. Continues on coumadin and lovenox, INR still 1.1, will need to be on therapy for at least 3 months, needs a f/u 2D echo in a month to assess Pulm HTN. Continue on BTs A/A TID, no wheezing.
[2017-02-24] MEDS: HYDROCORTISONE 2.5% CREAM 30gm TOP SCH ×2 (11:40→20:36)
[2017-02-24] MEDS ORDERED: WARFARIN 6 MG TABLET PO SCH (12:00)
[2017-02-24] MEDS: ACETAMINOPHEN 325 MG TABLET PO PRN (15:12)
[2017-02-24] MEDS: ENOXAPARIN 120 MG/0.8 ML INJECTION SQ SCH (20:34)
[2017-02-24] MEDS: MENTHOL COUGH DROPS (RICOLA) MM PRN (22:15)
[2017-02-25] MEDS: TRAMADOL 50 MG TABLET PO PRN (01:55)
[2017-02-25] MEDS: FAMCICLOVIR 500 MG TABLET PO SCH ×3 (05:23→21:13)
[2017-02-25] MEDS: ALBUTEROL/IPRATROPIUM 2.5mg-0.5mg/3ml NEB AEROSOL SCH ×4 (06:59→18:55)
--- NOTE | 2017-02-25 08:19 | Pharmacy Consult ---
Pharmacy Consult-Warfarin - Laboratory Information 02/23/17 02/24/17 02/25/17 14:03 06:37 04:37 INR 1.05 1.10 1.37 H - Consult Information 86 y.o. Female on Warfarin protocol for treatment of PE. goal INR = 2.0 to 3.0 Will give Warfarin 5 mg po today. Pharmacy will monitor and adjust as needed. Thank you, Stephanie Weber [facility]
[2017-02-25] MEDS: ATENOLOL 50 MG TABLET PO SCH ×2 (10:32→20:18)
[2017-02-25] MEDS: MULTI-VITAMIN PLAIN TABLET PO SCH (10:33)
[2017-02-25] MEDS: CALCIUM CARBONATE 500 MG TABLET PO SCH (10:33)
[2017-02-25] MEDS: LOSARTAN 100 MG TABLET PO SCH (10:33)
[2017-02-25] MEDS: FUROSEMIDE 40 MG TABLET PO SCH (10:33)
[2017-02-25] MEDS: RANITIDINE 150 MG TABLET PO SCH ×2 (10:33→20:18)
[2017-02-25] MEDS: CETIRIZINE 10 MG TABLET PO SCH (10:33)
[2017-02-25] MEDS: HYDROCORTISONE 2.5% CREAM 30gm TOP SCH ×2 (10:34→20:18)
[2017-02-25] MEDS: MAGNESIUM OXIDE 400 MG TABLET PO SCH ×2 (10:34→20:18)
[2017-02-25] MEDS ORDERED: WARFARIN 5 MG TABLET PO SCH (12:00)
[2017-02-25] MEDS: ENOXAPARIN 120 MG/0.8 ML INJECTION SQ SCH (20:18)
[2017-02-26] MEDS: FAMCICLOVIR 500 MG TABLET PO SCH ×3 (05:11→21:00)
[2017-02-26] MEDS: ALBUTEROL/IPRATROPIUM 2.5mg-0.5mg/3ml NEB AEROSOL SCH ×4 (06:57→18:55)
--- NOTE | 2017-02-26 08:10 | Pharmacy Consult ---
Pharmacy Consult-Warfarin - Laboratory Information 02/23/17 02/24/17 02/25/17 14:03 06:37 04:37 INR 1.05 1.10 1.37 H 02/26/17 04:47 INR 1.64 H - Consult Information 86 y.o. Female on Warfarin protocol for treatment of PE. goal INR = 2.0 to 3.0 INR is subtherapeutic and Lovenox 114 mg SQ Q24H is ordered in addition to Warfarin. Will give Warfarin 5 mg po today. Pharmacy will monitor and adjust as needed. Thank you, Stephanie Weber, [facility]
[2017-02-26] MEDS: LOSARTAN 100 MG TABLET PO SCH (08:58)
[2017-02-26] MEDS: ATENOLOL 50 MG TABLET PO SCH ×2 (08:58→20:47)
[2017-02-26] MEDS: MAGNESIUM OXIDE 400 MG TABLET PO SCH ×2 (08:58→20:47)
[2017-02-26] MEDS: FUROSEMIDE 40 MG TABLET PO SCH (08:58)
[2017-02-26] MEDS: CETIRIZINE 10 MG TABLET PO SCH (08:59)
[2017-02-26] MEDS: CALCIUM CARBONATE 500 MG TABLET PO SCH (08:59)
[2017-02-26] MEDS: MULTI-VITAMIN PLAIN TABLET PO SCH (08:59)
[2017-02-26] MEDS: HYDROCORTISONE 2.5% CREAM 30gm TOP SCH ×2 (09:00→20:47)
[2017-02-26] MEDS: RANITIDINE 150 MG TABLET PO SCH ×2 (09:19→20:47)
--- NOTE | 2017-02-26 11:25 | Progress Note ---
Progress Note: Sodium is low at 128. Will hold her Lasix and limit her fluids to 1800 cc per 24 hours. Recheck BMP tomorrow.
[2017-02-26] MEDS ORDERED: WARFARIN 5 MG TABLET PO SCH (12:00)
[2017-02-26] MEDS: ACETAMINOPHEN 325 MG TABLET PO PRN (15:53)
[2017-02-26] MEDS: ENOXAPARIN 120 MG/0.8 ML INJECTION SQ SCH (20:48)
[2017-02-26] MEDS: TRAMADOL 50 MG TABLET PO PRN (22:27)
[2017-02-27] MEDS: ACETAMINOPHEN 325 MG TABLET PO PRN (02:46)
[2017-02-27] MEDS: FAMCICLOVIR 500 MG TABLET PO SCH ×3 (05:48→22:32)
[2017-02-27] MEDS: HYDROCORTISONE 2.5% CREAM 30gm TOP SCH ×3 (07:23→22:32)
--- NOTE | 2017-02-27 08:52 | Pharmacy Consult ---
Pharmacy Consult-Warfarin - Laboratory Information 02/23/17 02/24/17 02/25/17 14:03 06:37 04:37 INR 1.05 1.10 1.37 H 02/26/17 02/27/17 04:47 04:10 INR 1.64 H 1.97 H - Consult Information 86 y.o. Female on Warfarin protocol for treatment of PE. goal INR = 2.0 to 3.0 INR is slightly subtherapeutic and Lovenox 114 mg SQ Q24H is ordered in addition to Warfarin. Will give Warfarin 5 mg po today. Pharmacy will monitor and adjust as needed. Thank you, Stephanie Weber [facility]
[2017-02-27] MEDS: CALCIUM CARBONATE 500 MG TABLET PO SCH (09:19)
[2017-02-27] MEDS: CETIRIZINE 10 MG TABLET PO SCH (09:20)
[2017-02-27] MEDS: ATENOLOL 50 MG TABLET PO SCH ×2 (09:20→22:32)
[2017-02-27] MEDS: LOSARTAN 100 MG TABLET PO SCH (09:21)
[2017-02-27] MEDS: RANITIDINE 150 MG TABLET PO SCH ×2 (09:21→22:32)
[2017-02-27] MEDS: MAGNESIUM OXIDE 400 MG TABLET PO SCH ×2 (09:21→22:32)
[2017-02-27] MEDS: MULTI-VITAMIN PLAIN TABLET PO SCH (09:21)
--- NOTE | 2017-02-27 09:34 | Pulmonology Progress Note ---
Subjective Principal diagnosis: SOB Interval history: Pt currently sitting up in a chair doing well. Some cough and white sputum noted , states SOB better and not really noting any with ambulation. Exam Vital signs: Temperature 98.3 F 02/27/17 08:00 Pulse Rate 77 02/27/17 08:00 Respiratory Rate 18 02/27/17 08:00 Blood Pressure 102/60 02/27/17 08:00 Pulse Oximetry 97 02/27/17 08:00 - Constitutional no acute distress, well developed, obese - Routine HEENT Exam Head: Present: normocephalic, atraumatic Eye: Present: EOMI, PERRL - Routine Neck Exam Present: supple, full ROM - Routine Respiratory Exam Present: decreased breath sounds - Routine Cardiovascular Exam Present: RRR, no murmur - Routine Abdominal Exam Present: soft, normoactive bowel sounds - Routine Extremities Exam Present: edema, non tender, full ROM - Routine Back/Spine/Pelvis Exam Back/Spine: Present: full ROM - Routine Skin Exam Present: intact, dry - Routine Neurological Exam Present: alert, oriented X3, CN II-XII intact Progress Note-A&P - Time Spent With Patient Total time spent is greater than 50% in coordination of care (as documented) at patient's floor/unit and/or counseling patient: less than 15 minutes (1) COPD (chronic obstructive pulmonary disease) Status: Acute Current Visit: Yes (2) Pulmonary embolism Status: Acute Current Visit: Yes (3) Pulmonary hypertension Status: Acute Current Visit: Yes - Assessment and Plan Pt currently on RA and tolerating, SOB improved. Still on lovenox BID and coumadin, INR 1.9 today. Cont lovenox till INR therapeutic. Noted Pulm HTN on echo, will need another echo in a month to assess her pulm HTN secondary to her PE. Will need her to f/u with Jermaine in a month also.
[2017-02-27] MEDS: ALBUTEROL/IPRATROPIUM 2.5mg-0.5mg/3ml NEB AEROSOL SCH ×4 (09:54→19:29)
[2017-02-27] MEDS ORDERED: WARFARIN 5 MG TABLET PO SCH ×2 (12:00)
--- NOTE | 2017-02-27 15:03 | IRU Progress Note ---
- Subjective/Serverity of Illness Odalys was evaluated on the inpatient rehabilitation unit. She does make progress with regard to therapy. She is standby assistance for most transfers. She was able to ambulate some 133 feet with standby assistance to maximal assistance at times. She does get short of breath with activity although this is improved she states. She now has developed some hyponatremia. Dr. Pierre has held her Lasix and has instituted a fluid restriction. She denies any chest pain. She does have the rash involving the right upper trapezius area with some radiation down the right arm. This is painful/achy at times. While it is somewhat atypical for shingles, they are starting to make some papules (no blisters yet). I think that the fact that she had her Zostavax injection is making this somewhat atypical. She remains on famciclovir without known side effects. Appetite is reasonably good. She does have a recent diagnosis of pulmonary embolus. Her INR is 1.97 and she remains on Lovenox. She is followed by hospitalists and pulmonology as well as myself. Update on medical problems as follows: 1. Hypoxemia: Has been on room air now for some time. Saturations are 96-97. We' ll need to repeat exercise oximetry and likely overnight oximetry prior to dismissal. 2. Hypotension: This appears to have resolved at present. However there is one value of 102 systolic. 3. Acute kidney injury with hypomagnesemia: Magnesium 1.6 recently. Kidney function now apparently normal. 4. Elevated liver enzymes: Hepatitis B and C studies as well as AMA are negative.. 5. Frequent falling episodes with leg weakness: As noted, she is improving with regard to strength and ambulation as well as transfers. 6. Hypoalbuminemia: Continues to demonstrate low serum albumin and a poor appetite. This in conjunction with her nausea and weight loss is of concern. Dietitian is following. 7. Fluid excess: Her weight is improved from 75 kg down to 74.8 and now 72 kg. Her dyspnea is improved. Her edema is present but improved. 8. Hyponatremia: Sodium is down 128. Lasix has been discontinued and she is on a fluid restriction. Exam Vital Signs: Temperature 98.3 F 02/27/17 08:00 Pulse Rate 77 02/27/17 08:00 Respiratory Rate 18 02/27/17 13:24 Blood Pressure 102/60 02/27/17 08:00 Pulse Oximetry 98 02/27/17 13:24 Height/Weight/BMI: Height 1.57 m Weight 72.5 kg Body Mass Index 30.5 Comments: The patient is awake, alert and oriented and in no acute distress. Pupils are equal. The neck is supple. Chest: Reduced breath sounds with occasional basilar crackles.. Cor: RR with no gallop, click nor murmur Abd: soft with normo-active bowel sounds. There are no masses, no tenderness and no guarding. Extremities: Trace to 1+ edema noted. Sodium 128. Weight improved and decreased. Exam of skin reveals a somewhat confluent reddish rash right scapular area. Some of these are starting to be more papular. No blisters seen yet. There is evidence of a few papules down the right arm. Results IRU - Labs Labs: I reviewed all other notes and labs. IRU A/P (1) Fall (on) (from) other stairs and steps, initial encounter Current visit: No Status: Acute Please see above discussion with regard to improvement with therapies. (2) Hypoxemia Current visit: Yes Status: Acute She is now running 96-97% on room air. We'll need to assess overnight oximetry and exercise oximetry prior to dismissal. (3) Pulmonary hypertension Current visit: Yes Status: Acute As noted, she does have pulmonary hypertension. Were this is acute or chronic is not certain. We will follow this up as an outpatient. Please see Dr. Dean' s [employer] note. (4) Weight loss, abnormal Current visit: Yes Status: Chronic (5) Hypoalbuminemia Current visit: Yes Status: Acute (6) Fluid excess Qualifiers: Hypervolemia type: other Qualified Code(s): E87.79 - Other fluid overload Current visit: Yes Status: Acute Fluid balance is much improved. (7) Elevated liver enzymes Current visit: Yes Status: Acute Serologies are negative. We will reassess liver enzymes with lab tomorrow. (8) Pulmonary embolism Qualifiers: Pulmonary embolism type: other Chronicity: acute Acute cor pulmonale presence: with acute cor pulmonale Qualified Code(s): I26.09 - Other pulmonary embolism with acute cor pulmonale Current visit: Yes Status: Acute Remains on warfarin and bridging Lovenox. INR 1.97. (9) COPD (chronic obstructive pulmonary disease) Qualifiers: COPD type: chronic bronchitis Chronic bronchitis type: simple Qualified Code(s): J41.0 - Simple chronic bronchitis Current visit: Yes Status: Acute DVT Prophylaxis: Lovenox Resuscitation Status: Do Not Resuscitate - Course Hospital Course: Hosea Nolan MD: 02/21/17 10:50 She is starting with therapy. Barriers to progress will include her dyspnea and reduced endurance as well as balance. She does have abnormal pulmonary function studies which are reviewed. I have placed a call to Dr. Dean's office and will discuss with him and ask him to see her. Likely she will need oxygen to go home with. She does have fluid excess and we will add on SAM hose and increase the dose of Lasix. Her electrolytes in the morning along with magnesium. In addition we will check causes of elevated liver enzymes with hepatitis B, C and mitochondrial antibody assessment. Likely however this is related to fatty infiltration. 02/22/17 10:51 She has a new diagnosis of bilateral pulmonary emboli in the distal pulmonary arteries. She is now on Lovenox 1.5 mg/kg every 24 hours started yesterday. She does have some easy fatigability with activity. There is no chest pain. She is on inhaled bronchodilators. We are diuresing her with Lasix 40 mg daily. Her elevated liver enzymes are being evaluated with serologies and these are pending. AST is still elevated but the others are improved. 02/23/17 10:24 Rash has gone down the right arm but in a circumferential manner. This raises the question as to whether this is truly shingles or not. Continues on Lasix. We will check daily weights. Continues on Lovenox due to the pulmonary emboli. 02/27/17 15:05 Rash continues to be present in the right scapular area. This is still most likely consistent with shingles. I think it is atypical due to her previous Zostavax injection. Weight is down 3 kg overall. Sodium down at 128 and Lasix has been held. She is improving with regard to therapies. - Interventions to Obtain Goals PT Treatment Plan: Balance/Proprioception, Functional Activities, Gait Training , Patient/Family Education, Therapeutic Exercise OT Treatment Plan: ADL (Basic Care), Balance Training, IADL, Pt./Family Education, Ther. Exercise for ADL Goals Progress/Modifications: Continued physical therapy and occupational therapy as well as famciclovir. Appreciate hospitalists input as well as Dr. Dean's input. She will need exercise oximetry and overnight oximetry prior to dismissal.
[2017-02-27] MEDS: ENOXAPARIN 120 MG/0.8 ML INJECTION SQ SCH (22:32)
[2017-02-28] MEDS: TRAMADOL 50 MG TABLET PO PRN ×2 (04:33→15:04)
[2017-02-28] MEDS: FAMCICLOVIR 500 MG TABLET PO SCH ×3 (06:00→21:00)
[2017-02-28] MEDS: ALBUTEROL/IPRATROPIUM 2.5mg-0.5mg/3ml NEB AEROSOL SCH ×4 (07:00→19:01)
--- NOTE | 2017-02-28 08:34 | Pharmacy Consult ---
Pharmacy Consult-Warfarin - Laboratory Information 02/23/17 02/24/17 02/25/17 14:03 06:37 04:37 INR 1.05 1.10 1.37 H 02/26/17 02/27/17 02/28/17 04:47 04:10 04:12 INR 1.64 H 1.97 H 2.25 H - Consult Information 86 y.o. Female on Warfarin protocol for treatment of PE. goal INR = 2.0 to 3.0 Today is the first day INR has been > 2.0 and Lovenox 114 mg SQ Q24H is ordered in addition to Warfarin. Will give Warfarin 5 mg po today. Pharmacy will monitor and adjust as needed. Thank you, Stephanie Weber RPh date INR dose 02/23 1.05 6 mg 02/24 1.10 6 mg 02/25 1.37 5 mg 02/26 1.64 5 mg 02/27 1.97 5 mg 02/28 2.25 plan: 5 mg dose
[2017-02-28] MEDS: RANITIDINE 150 MG TABLET PO SCH ×2 (09:06→20:57)
[2017-02-28] MEDS: HYDROCORTISONE 2.5% CREAM 30gm TOP SCH ×2 (09:06→20:57)
[2017-02-28] MEDS: CALCIUM CARBONATE 500 MG TABLET PO SCH (09:07)
[2017-02-28] MEDS: LOSARTAN 100 MG TABLET PO SCH (09:07)
[2017-02-28] MEDS: MAGNESIUM OXIDE 400 MG TABLET PO SCH ×2 (09:07→20:57)
[2017-02-28] MEDS: ATENOLOL 50 MG TABLET PO SCH ×2 (09:07→20:57)
[2017-02-28] MEDS: CETIRIZINE 10 MG TABLET PO SCH (09:07)
[2017-02-28] MEDS: MULTI-VITAMIN PLAIN TABLET PO SCH (09:07)
--- NOTE | 2017-02-28 10:47 | IRU Progress Note ---
- Subjective/Serverity of Illness Hannah says that she is feeling stronger. Specifically she says that she has less lightheaded feelings and less nausea. She continues to have dyspnea with activity which has been chronic for her. We discussed with her the need for oxygen or not. She has been able to be on room air for the last couple of days and has done fine. I told her we would like to check exercise oximetry as well as overnight oximetry tonight in view of the pulmonary hypertension. The rash seems to be fading in her right trapezius area. Reports that her appetite is good. She did have some discomfort up the right posterior neck but that is fairly well resolved. It is noted that she does have sodium of 131 and potassium of 5.1. She is on a fluid restriction and so the sodium is improved. She is also on losartan which could account for this. Update on medical problems as follows: 1. Hypoxemia: Has not required oxygen for a couple of days. We will check overnight oximetry and exercise oximetry today. 2. Hypotension: This appears to have resolved at present. This appears to have resolved at present. 3. Acute kidney injury with hypomagnesemia: Magnesium 1.6 recently. Kidney function now apparently normal. 4. Elevated liver enzymes: Hepatitis B and C studies as well as AMA are negative. Her repeat liver enzymes remain slightly elevated for uncertain reasons. Could certainly be related to right heart failure in view of the pulmonary hypertension with passive congestion of the liver. 5. Frequent falling episodes with leg weakness: Thin use to improve and she states that she feels though she can take care of herself at home. 6. Hypoalbuminemia: Is working with dietitian and is receiving supplements. Albumin remains a little low. 7. Fluid excess: Again fluid excess appears to be improved. 8. Hyponatremia: Repeat sodium improved to 131. 9. Hyperkalemia: Please see above discussion. May be related to losartan. However we will also check a morning cortisol for adrenal insufficiency. Exam Vital Signs: Temperature 97.7 F 02/28/17 07:51 Pulse Rate 74 02/28/17 07:51 Respiratory Rate 14 02/28/17 07:51 Blood Pressure 126/65 02/28/17 07:51 Pulse Oximetry 95 02/28/17 07:51 Height/Weight/BMI: Height 1.57 m Weight 72.5 kg Body Mass Index 30.5 Comments: The patient is awake, alert and oriented and in no acute distress. Rash on right trapezius is fading nicely. I think most likely this represents. The neck is supple. Chest: Clear to auscultation bilaterally. Somewhat diminished breath sounds noted. Cor: RR with no gallop, click nor murmur Abd: soft with normo-active bowel sounds. There are no masses, no tenderness and no guarding. Extremities: Trace of edema present. Results IRU - Labs Labs: Hyponatremia and hyperkalemia noted. Reviewed liver enzymes etc. IRU A/P (1) Fall (on) (from) other stairs and steps, initial encounter Current visit: No Status: Acute She is certainly much stronger and able to care for herself at home at this time. Plan on dismissal tomorrow. (2) Hypoxemia Current visit: Yes Status: Acute She has done well for the past couple of days. We will check overnight oximetry and exercise oximetry. (3) Pulmonary hypertension Current visit: Yes Status: Acute A repeat echo will be required as an outpatient. We'll check overnight oximetry to make sure there is no nocturnal desaturation. (4) Weight loss, abnormal Current visit: Yes Status: Chronic She is receiving supplements. (5) Hypoalbuminemia Current visit: Yes Status: Acute (6) Fluid excess Qualifiers: Hypervolemia type: other Qualified Code(s): E87.79 - Other fluid overload Current visit: Yes Status: Acute (7) Elevated liver enzymes Current visit: Yes Status: Acute Elevated liver enzymes remain with negative serologies. It could well be passive congestion from right heart failure in view of the pulmonary hypertension. (8) Pulmonary embolism Qualifiers: Pulmonary embolism type: other Chronicity: acute Acute cor pulmonale presence: with acute cor pulmonale Qualified Code(s): I26.09 - Other pulmonary embolism with acute cor pulmonale Current visit: Yes Status: Acute INR is 2.22. We will stop the Lovenox. Patient education will be provided. (9) COPD (chronic obstructive pulmonary disease) Qualifiers: COPD type: chronic bronchitis Chronic bronchitis type: simple Qualified Code(s): J41.0 - Simple chronic bronchitis Current visit: Yes Status: Acute (10) Hyperkalemia Current visit: Yes Status: Acute Continues to have hyperkalemia and hyponatremia although improved for the latter. She remains on a fluid restriction. Losartan could be a factor in this. I will check a.m. cortisol for completeness. DVT Prophylaxis: Lovenox Resuscitation Status: Do Not Resuscitate - Course Hospital Course: Hosea Nolan MD: 02/21/17 10:50 She is starting with therapy. Barriers to progress will include her dyspnea and reduced endurance as well as balance. She does have abnormal pulmonary function studies which are reviewed. I have placed a call to Dr. Dean's office and will discuss with him and ask him to see her. Likely she will need oxygen to go home with. She does have fluid excess and we will add on SAM hose and increase the dose of Lasix. Her electrolytes in the morning along with magnesium. In addition we will check causes of elevated liver enzymes with hepatitis B, C and mitochondrial antibody assessment. Likely however this is related to fatty infiltration. 02/22/17 10:51 She has a new diagnosis of bilateral pulmonary emboli in the distal pulmonary arteries. She is now on Lovenox 1.5 mg/kg every 24 hours started yesterday. She does have some easy fatigability with activity. There is no chest pain. She is on inhaled bronchodilators. We are diuresing her with Lasix 40 mg daily. Her elevated liver enzymes are being evaluated with serologies and these are pending. AST is still elevated but the others are improved. 02/23/17 10:24 Rash has gone down the right arm but in a circumferential manner. This raises the question as to whether this is truly shingles or not. Continues on Lasix. We will check daily weights. Continues on Lovenox due to the pulmonary emboli. 02/27/17 15:05 Rash continues to be present in the right scapular area. This is still most likely consistent with shingles. I think it is atypical due to her previous Zostavax injection. Weight is down 3 kg overall. Sodium down at 128 and Lasix has been held. She is improving with regard to therapies. 02/28/17 10:51 She is improved from a therapy standpoint. Rash is fading and right trapezius Sodium remains low but improved. Potassium a bit elevated. We will check overnight oximetry and exercise oximetry in view of the pulmonary hypertension. - Interventions to Obtain Goals PT Treatment Plan: Balance/Proprioception, Functional Activities, Gait Training , Patient/Family Education, Therapeutic Exercise OT Treatment Plan: ADL (Basic Care), Balance Training, IADL, Pt./Family Education, Ther. Exercise for ADL Goals Progress/Modifications: Time spent with patient and on floor reviewing data and documentin minutes Barriers to dismissal: Endurance, balance, assessment of nocturnal hypoxemia, hyperkalemia Medical decision-making: We evaluated multiple issues today. The hyponatremia and hyperkalemia could be a sign of adrenal insufficiency versus losartan versus SIADH. Sodium is improved with fluid restriction and with holding the Lasix. Her edema is stable to improved. She does have history of COPD with markedly diminished diffusion capacity. We will check overnight oximetry in view of the pulmonary hypertension even though she has not required oxygen for a couple of days now. She will require follow-up of her multiple medical issues including COPD, pulmonary hypertension, pulmonary emboli as an outpatient. In addition, we stopped Lovenox today as her INR is therapeutic. We will see if we can provide patient education regarding the warfarin use.
[2017-02-28] MEDS ORDERED: WARFARIN 5 MG TABLET PO SCH (12:00)
--- NOTE | 2017-02-28 13:54 | IRU Team Meeting ---
IRU Team Meeting - Nursing Vital Signs: Vital Signs - 24 hr 02/27/17 16:00 02/27/17 16:01 02/27/17 19:29 Temperature 98.2 F Pulse Rate 79 Respiratory Rate 18 20 16 Blood Pressure 125/68 Pulse Oximetry 97 02/27/17 20:31 02/28/17 07:00 02/28/17 07:51 Temperature 98.0 F 97.7 F Pulse Rate 83 74 Respiratory Rate 20 18 14 Blood Pressure 123/66 126/65 Pulse Oximetry 93 94 95 02/28/17 12:50 Temperature Pulse Rate Respiratory Rate 18 Blood Pressure Pulse Oximetry 93 Current Medications: Acetaminophen (Tylenol) 650 mg PO Q5H PRN PRN Reason: Discomfort Last Admin: 02/27/17 02:46 Dose: 650 mg Albuterol Sulfate (Proventil Neb (0.083%)) 2.5 mg AEROSOL PRN PRN Albuterol/Ipratropium (Duoneb) 3 ml AEROSOL RTQID [facility] Last Admin: 02/28/17 12:49 Dose: 3 ml Atenolol (Tenormin) 50 mg PO BID [facility] Last Admin: 02/28/17 09:07 Dose: 50 mg Bisacodyl (Dulcolax) 10 mg RECTALLY DAILY PRN PRN Reason: Constipation Calamine/Zinc Oxide (Calamine Lotion) 1 applic TOP BID PRN Last Admin: 02/27/17 02:37 Dose: 1 applic Calcium Carbonate (Calcium) 500 mg PO DAILY [facility] Last Admin: 02/28/17 09:07 Dose: 500 mg Cetirizine HCl (Zyrtec) 10 mg PO DAILY [facility] Last Admin: 02/28/17 09:07 Dose: 10 mg Famciclovir (Famvir) 500 mg PO Q8H [facility] Last Admin: 02/28/17 06:00 Dose: 500 mg Furosemide (Lasix) 40 mg PO DAILY [facility] Last Admin: 02/26/17 08:58 Dose: 40 mg Hydrocortisone (Anusol-Hc 2.5% Cream) 1 applic TOP BID [facility] Last Admin: 02/28/17 09:06 Dose: 1 applic Losartan Potassium (Cozaar) 100 mg PO DAILY [facility] Last Admin: 02/28/17 09:07 Dose: 100 mg Magnesium Hydroxide (Mom) 30 ml PO DAILY PRN PRN Reason: Constipation Magnesium Oxide (Magox) 400 mg PO BID [facility] Last Admin: 02/28/17 09:07 Dose: 400 mg Menthol (Ricola Sf) 1 lozenge MM PRN PRN PRN Reason: Cough Last Admin: 02/24/17 22:15 Dose: 1 lozenge Multivitamins (Theragran) 1 tab PO DAILY [facility] Last Admin: 02/28/17 09:07 Dose: 1 tab Omeprazole (Prilosec) 20 mg PO ACB [facility] Last Admin: 02/23/17 06:06 Dose: 20 mg Ondansetron HCl (Zofran Po) 4 mg PO Q6H PRN PRN Reason: Nausea &/or vomiting Polyethylene Glycol (Miralax) 17 gm PO DAILY PRN PRN Reason: Constipation Last Admin: 02/21/17 22:21 Dose: 17 gm Potassium Chloride (K-Dur) 20 meq PO BIDWM [facility] Last Admin: 02/28/17 09:48 Dose: Not Given Ranitidine HCl (Zantac) 150 mg PO BID [facility] Last Admin: 02/28/17 09:06 Dose: 150 mg Tramadol HCl (Ultram) 50 mg PO Q6H PRN PRN Reason: Pain Last Admin: 02/28/17 04:33 Dose: 50 mg Warfarin Sodium (Coumadin Protocol) 0 MC NOTE [facility] Current Medical Issues: Anticoagulation for pulmonary embolus, Gomez instructed lung disease, history of hypoxemia, herpes zoster right shoulder Comments: I certify that I personally led the interdisciplinary team meeting and agree with comments, barriers and goals indicated. Team meeting was held in the patient's room with the patient and the following family members present: patient alone Hannah has improved remarkably. She has much more strength. She has no nausea no vomiting. Bowels are moving adequately. Appetite is reasonably good she states. The area on the right arm and shoulder has faded. Her INR is now therapeutic. Lovenox has been discontinued. - Physical Therapy Comments: She is in very well with physical therapy. Bed/chair/wheelchair transfers are standby assistance. She is able to ambulate 295 feet with standby assistance. She is using a rolling walker. She is tolerating this well with only minimal shortness of breath she states. - Occupational Therapy Comments: She is grooming with modified independent functioning. Upper body and lower body dressing are both standby assistance. Tub transfers are standby assistance. She has improved simply with regard to occupational and physical therapy. - Goals Goals at this point are successful and safe transition to her home environment. She will require exercise oximetry today along with overnight oximetry tonight. - Barriers to Discharge Barriers to Attaining Goals: Endurance - Care Plan Anticipated DC Destination: Home, Self Care, Home Health Service I have led this team conference and agree with the plan. Anticipated Length of Stay (days): 1
--- NOTE | 2017-02-28 20:12 | Discharge Instructions ---
Discharge Plan - Med Rec/Dispo Referrals/Follow Up: Jonathan Lamb MD [Family Provider] - (Dr. Brandon Lamb on 03/08/17 at 1:45 pm for Hosp. follow-up. [phone]. [address] [place] [address]) Prescriptions: New Atenolol [Tenormin] 50 mg PO BID #60 tablet Cetirizine [Zyrtec] 10 mg PO DAILY #0 tablet Hydrocortisone 2.5% Cream [Anusol-Hc 2.5% Cream] 1 applic TOP BID tube Losartan [Cozaar] 100 mg PO DAILY #30 tablet Magnesium Oxide [Magox] 400 mg PO BID tablet Milk of Magnesia [Mom] 30 ml PO DAILY PRN udc PRN Reason: Constipation PEG 3350 17gm PACKET [Miralax] 17 gm PO DAILY PRN packet PRN Reason: Constipation Potassium Chloride [K-Dur] 20 meq PO BIDWM #60 tablet Acetaminophen [Tylenol] 650 mg PO Q5H PRN tablet PRN Reason: Discomfort Bisacodyl Supp [Dulcolax] 10 mg RECTALLY DAILY PRN supp PRN Reason: Constipation Furosemide [Lasix] 40 mg PO DAILY #30 tablet Menthol Cough Drops [Ricola Sf] 1 lozenge MM PRN PRN lozenge PRN Reason: Cough Omeprazole [Prilosec] 20 mg PO ACB #30 capsule Ranitidine [Zantac] 150 mg PO BID #30 tablet Continue Multivitamin [One Daily] 1 each PO DAILY Calcium Carbonate [Calcium] 500 mg PO DAILY Acetaminophen [Tylenol] 650 mg PO Q5H PRN tablet PRN Reason: Discomfort Glucosamine 500 mg PO DAILY Discontinued Atenolol 50 mg PO BID #0 Cranberry Fruit [Cranberry] 400 mg PO DAILY Elderberry Fruit/Honey [Little Remedies Cough-Immune] 1 dose PO DAILY Furosemide [Lasix] 20 mg PO DAILY tablet Enoxaparin Sodium [Lovenox] 40 mg SQ DAILY syringe Omeprazole [Prilosec] 20 mg PO ACB capsule Potassium Chloride [K-Dur] 20 meq PO BIDWM tablet Losartan/Hydrochlorothiazide [Losartan-Hctz 100-25 mg Tab] 1 tab PO DAILY #0 Milk of Magnesia [Mom] 30 ml PO DAILY PRN udc PRN Reason: Constipation Magnesium Oxide [Magox] 400 mg PO BID tablet Bisacodyl Supp [Dulcolax] 10 mg RECTALLY DAILY PRN supp PRN Reason: Constipation No Action Gabapentin [Neurontin] 600 mg PO TID Aspirin [[place] Aspirin] 81 mg PO DAILY Tramadol [Ultram] 50 mg PO PRN - Disposition 01 Discharged Home, Self-Care
[2017-03-01] MEDS: FAMCICLOVIR 500 MG TABLET PO SCH ×2 (06:11→14:50)
[2017-03-01] MEDS: ALBUTEROL/IPRATROPIUM 2.5mg-0.5mg/3ml NEB AEROSOL SCH ×2 (06:51→10:23)
[2017-03-01 07:56] VITALS: BP 133/70; PULSE 72; TEMP 97.8
--- NOTE | 2017-03-01 08:16 | Pharmacy Consult ---
Pharmacy Consult-Warfarin - Laboratory Information 02/23/17 02/24/17 02/25/17 14:03 06:37 04:37 INR 1.05 1.10 1.37 H 02/26/17 02/27/17 02/28/17 04:47 04:10 04:12 INR 1.64 H 1.97 H 2.25 H 03/01/17 07:45 INR 2.03 H - Consult Information We will plan to give warfarin 6mg p.o. today at 1200. Lovenox has been discontinued. Thanks
[2017-03-01] MEDS: MAGNESIUM OXIDE 400 MG TABLET PO SCH (08:49)
[2017-03-01] MEDS: ATENOLOL 50 MG TABLET PO SCH (08:49)
[2017-03-01] MEDS: CETIRIZINE 10 MG TABLET PO SCH (08:50)
[2017-03-01] MEDS: RANITIDINE 150 MG TABLET PO SCH (08:50)
[2017-03-01] MEDS: CALCIUM CARBONATE 500 MG TABLET PO SCH (08:50)
[2017-03-01] MEDS: LOSARTAN 100 MG TABLET PO SCH (08:50)
[2017-03-01] MEDS: MULTI-VITAMIN PLAIN TABLET PO SCH (08:50)
[2017-03-01 10:25] VITALS: RESP 16; O2SAT 94
--- NOTE | 2017-03-01 10:37 | IRU Progress Note ---
- Subjective/Serverity of Illness Hannah is doing extremely well. She states that she feels as though she is able to safely care for herself at home. Her appetite is good. Her leg weakness is much improved. Still has a bit of dyspnea with activity. She denies a cough or sputum. The right trapezius/scapular rash continues to fade and continues to be consistent with herpes zoster. I think this was an attenuated case of this because she had received Zostavax injection. She denies any nausea or vomiting. Her bowels are moving. Reviewed overnight oximetry. She was transiently down into the 70% range on room air but this was for about a minute. Otherwise she was above 90% for the vast majority of the time. Exercise oximetry was done and she does not qualify for home oxygen. Exam Vital Signs: Temperature 97.8 F 03/01/17 07:55 Pulse Rate 72 03/01/17 07:55 Respiratory Rate 16 03/01/17 10:23 Blood Pressure 133/70 03/01/17 07:55 Pulse Oximetry 94 03/01/17 10:23 Height/Weight/BMI: Height 1.57 m Weight 72.5 kg Body Mass Index 30.5 Comments: The patient is awake, alert and oriented and in no acute distress. Pupils are equal. The neck is supple. Chest: Diminished breath sounds. No rales no rhonchi and no wheezes are noted. Cor: RR with no gallop, click. Systolic murmur noted. Abd: soft with normo-active bowel sounds. There are no masses, no tenderness and no guarding. Extremities: Her edema has fairly well resolved.. Results IRU - Labs Labs: Reviewed laboratory. Continues to be somewhat hyponatremic. IRU A/P (1) Fall (on) (from) other stairs and steps, initial encounter Current visit: No Status: Acute Strength is significantly improved. She is able to safely care for herself at home. (2) Hypoxemia Current visit: Yes Status: Resolved Exercise oximetry on room air as well as overnight oximetry indicate the patient does not need oxygen at home at this time. She is substantially improved in this regard. (3) Pulmonary hypertension Current visit: Yes Status: Acute She will require follow-up echocardiogram down the road. (4) Weight loss, abnormal Current visit: Yes Status: Chronic (5) Hypoalbuminemia Current visit: Yes Status: Acute (6) Fluid excess Qualifiers: Hypervolemia type: other Qualified Code(s): E87.79 - Other fluid overload Current visit: Yes Status: Resolved (7) Elevated liver enzymes Current visit: Yes Status: Acute (8) Pulmonary embolism Qualifiers: Pulmonary embolism type: other Chronicity: acute Acute cor pulmonale presence: with acute cor pulmonale Qualified Code(s): I26.09 - Other pulmonary embolism with acute cor pulmonale Current visit: Yes Status: Acute (9) COPD (chronic obstructive pulmonary disease) Qualifiers: COPD type: chronic bronchitis Chronic bronchitis type: simple Qualified Code(s): J41.0 - Simple chronic bronchitis Current visit: Yes Status: Acute (10) Hyperkalemia Current visit: Yes Status: Acute DVT Prophylaxis: Lovenox Resuscitation Status: Do Not Resuscitate - Course Hospital Course: Hosea Nolan MD: 02/21/17 10:50 She is starting with therapy. Barriers to progress will include her dyspnea and reduced endurance as well as balance. She does have abnormal pulmonary function studies which are reviewed. I have placed a call to Dr. Dean's office and will discuss with him and ask him to see her. Likely she will need oxygen to go home with. She does have fluid excess and we will add on SAM hose and increase the dose of Lasix. Her electrolytes in the morning along with magnesium. In addition we will check causes of elevated liver enzymes with hepatitis B, C and mitochondrial antibody assessment. Likely however this is related to fatty infiltration. 02/22/17 10:51 She has a new diagnosis of bilateral pulmonary emboli in the distal pulmonary arteries. She is now on Lovenox 1.5 mg/kg every 24 hours started yesterday. She does have some easy fatigability with activity. There is no chest pain. She is on inhaled bronchodilators. We are diuresing her with Lasix 40 mg daily. Her elevated liver enzymes are being evaluated with serologies and these are pending. AST is still elevated but the others are improved. 02/23/17 10:24 Rash has gone down the right arm but in a circumferential manner. This raises the question as to whether this is truly shingles or not. Continues on Lasix. We will check daily weights. Continues on Lovenox due to the pulmonary emboli. 02/27/17 15:05 Rash continues to be present in the right scapular area. This is still most likely consistent with shingles. I think it is atypical due to her previous Zostavax injection. Weight is down 3 kg overall. Sodium down at 128 and Lasix has been held. She is improving with regard to therapies. 02/28/17 10:51 She is improved from a therapy standpoint. Rash is fading and right trapezius Sodium remains low but improved. Potassium a bit elevated. We will check overnight oximetry and exercise oximetry in view of the pulmonary hypertension. 03/01/17 10:37 She has done well with therapy. The rash continues to fade. Potassium remains slightly up. Overnight oximetry and exercise oximetry indicates no need for home oxygen at this time. - Interventions to Obtain Goals PT Treatment Plan: Balance/Proprioception, Functional Activities, Gait Training , Patient/Family Education, Therapeutic Exercise OT Treatment Plan: ADL (Basic Care), Balance Training, IADL, Pt./Family Education, Ther. Exercise for ADL
[2017-03-01] MEDS: HYDROCORTISONE 2.5% CREAM 30gm TOP SCH (10:39)
--- NOTE | 2017-03-01 10:42 | Discharge Instructions ---
Discharge Plan - Med Rec/Dispo Referrals/Follow Up: Jonathan Lamb MD [Family Provider] - (Dr. Brandon Lamb on 03/08/17 at 1:45 pm for Hosp. follow-up. [phone]. [address] [place] [address]) Additional Instructions: Ask your home health nurse to draw blood for an INR blood test for your blood thinner on Monday of this week. Prescriptions: New Atenolol [Tenormin] 50 mg PO BID #60 tablet Cetirizine [Zyrtec] 10 mg PO DAILY #0 tablet Hydrocortisone 2.5% Cream [Anusol-Hc 2.5% Cream] 1 applic TOP BID tube Losartan [Cozaar] 100 mg PO DAILY #30 tablet Magnesium Oxide [Magox] 400 mg PO BID tablet Milk of Magnesia [Mom] 30 ml PO DAILY PRN udc PRN Reason: Constipation PEG 3350 17gm PACKET [Miralax] 17 gm PO DAILY PRN packet PRN Reason: Constipation Potassium Chloride [K-Dur] 20 meq PO BIDWM #60 tablet Acetaminophen [Tylenol] 650 mg PO Q5H PRN tablet PRN Reason: Discomfort Bisacodyl Supp [Dulcolax] 10 mg RECTALLY DAILY PRN supp PRN Reason: Constipation Furosemide [Lasix] 40 mg PO DAILY #30 tablet Menthol Cough Drops [Ricola Sf] 1 lozenge MM PRN PRN lozenge PRN Reason: Cough Omeprazole [Prilosec] 20 mg PO ACB #30 capsule Ranitidine [Zantac] 150 mg PO BID #30 tablet Warfarin [Coumadin] 6 mg PO NOON #30 tablet Continue Multivitamin [One Daily] 1 each PO DAILY Gabapentin [Neurontin] 600 mg PO TID Calcium Carbonate [Calcium] 500 mg PO DAILY Acetaminophen [Tylenol] 650 mg PO Q5H PRN tablet PRN Reason: Discomfort Glucosamine 500 mg PO DAILY Discontinued Atenolol 50 mg PO BID #0 Cranberry Fruit [Cranberry] 400 mg PO DAILY Elderberry Fruit/Honey [Little Remedies Cough-Immune] 1 dose PO DAILY Aspirin [[place] Aspirin] 81 mg PO DAILY Furosemide [Lasix] 20 mg PO DAILY tablet Enoxaparin Sodium [Lovenox] 40 mg SQ DAILY syringe Omeprazole [Prilosec] 20 mg PO ACB capsule Potassium Chloride [K-Dur] 20 meq PO BIDWM tablet Losartan/Hydrochlorothiazide [Losartan-Hctz 100-25 mg Tab] 1 tab PO DAILY #0 Tramadol [Ultram] 50 mg PO PRN Milk of Magnesia [Mom] 30 ml PO DAILY PRN udc PRN Reason: Constipation Magnesium Oxide [Magox] 400 mg PO BID tablet Bisacodyl Supp [Dulcolax] 10 mg RECTALLY DAILY PRN supp PRN Reason: Constipation Discharge Instructions/Outpatient Orders: Provider Discharge Instructions Location: Determined By Patient - Disposition 01 Discharged Home, Self-Care
[2017-03-01] MEDS ORDERED: WARFARIN 6 MG TABLET PO SCH (12:00)
--- NOTE | 2017-03-01 13:56 | Discharge Summary ---
Discharge Information Date of admission: 02/20/17 14:26 Anticipated date of discharge: 03/01/17 Attending Physician: Hosea Nolan MD Primary care physician: Jonathan Lamb MD Consults: 02/20/17 14:40 Physician Consult [CONS] Routine Consulting Provider: Ethan Cyr Reason For Exam: Medical management Ordering Provider has Notified Community Product Specialist: No 02/20/17 14:57 Dietary Consult [CONS] Routine Comment: Reason For Exam: 50# weight loss/2 years and hypoalbuminemia 02/21/17 10:32 Physician Consult [CONS] Routine Consulting Provider: Paxton Dean Reason For Exam: hypoxemia, abnormal PFT's Ordering Provider has Notified Community Product Specialist: Yes 02/28/17 10:56 Dietary Consult [CONS] Routine Comment: New to warfarin Reason For Exam: Please instruct in consistent Vit K diet 03/01/17 05:30 Case Management Consult [CONS] Routine Reason For Exam: Noc Ox study - Discharge Diagnosis (1) Fall (on) (from) other stairs and steps, initial encounter Status: Acute Discharge Diagnosis: Falls x 2 with closed head injury (2) Hypoxemia Status: Resolved Discharge Diagnosis: Acute hypoxemic respiratory failure, resolved (3) Pulmonary hypertension Status: Acute Discharge Diagnosis: Severe pulmonary hypertension, secondary (4) Weight loss, abnormal Status: Chronic Discharge Diagnosis: Abnormal weight loss (5) Hypoalbuminemia Status: Acute Discharge Diagnosis: Protein calorie malnutrition, moderate (6) Fluid excess Status: Resolved Discharge Diagnosis: Fluid excess, resolved (7) Elevated liver enzymes Status: Acute Discharge Diagnosis: Elevated liver enzymes, secondary to fatty infiltration (8) Pulmonary embolism Status: Acute Discharge Diagnosis: Acute pulmonary embolism, bilateral (9) COPD (chronic obstructive pulmonary disease) Status: Acute Discharge Diagnosis: COPD with markedly reduced diffusion capacity (10) Hyperkalemia Status: Acute Discharge Diagnosis: Hyperkalemia, resolved (11) Hyponatremia Status: Acute Discharge Diagnosis: Hyponatremia - Laboratory Labs: 02/26/17 04:47 03/01/17 07:46 History of Present Illness HPI: 03/01/17 13:55 Ms. Putnam is an 86-year-old white female followed by Dr. Jonathan Lamb. She had fallen recently on a couple of occasions and was admitted to acute care on 02/15/2017. She reports that her legs simply gave out from under her and they become very weak. She was hypotensive at the time of admission to acute care. She was hypoxemic. Her creatinine was elevated at around 2.4 initially. She was treated with IV fluids. Blood cultures were negative. A VQ scan was obtained due to the hypoxemia and elevated d-dimer. This showed about a 20% probability for pulmonary emboli. Her liver enzymes were elevated. She recovered from this episode after IV fluids were given. An echocardiogram demonstrated markedly elevated right ventricular systolic pressure at 75-80 mmHg consistent with fairly severe pulmonary hypertension. She was very weak after this episode and felt to be a good candidate for acute inpatient rehabilitation where she was transferred subsequently on February 20, 2017. 03/01/17 13:56 Hospital Course This is a general summary of the patient's hospital course. For more details refer to the complete medical record. The patient was admitted to the acute inpatient rehabilitation unit. She continued on oxygen for a time due to acute hypoxemic respiratory failure. Pulmonary function tests were obtained while on Rehab demonstrating some degree of obstruction but also markedly reduced diffusion capacity. She was seen in consultation by Dr. Dean who felt as though she had COPD with markedly reduced diffusion capacity. He could not rule out a pulmonary embolus. Her creatinine had improved to normal and we therefore obtained a CT angiographic exam of the chest on the acute rehab unit. This revealed high probability of bilateral pulmonary emboli. She was started on Lovenox as well as warfarin. She received warfarin education from the dietitian with regard to a consistent intake of vitamin K foods. She was able to be weaned off the oxygen while on the acute rehabilitation unit. Exercise oximetry and overnight oximetry within the 24 hours prior to dismissal indicated the patient did not require home oxygen therapy at this time. She did develop a rash on the right trapezius area which we felt was consistent with acute herpes zoster. It is noted that she has had the Zostavax injection the past which likely attenuated this response. She was treated with famciclovir and her rash did fade subsequently. It did go down the right arm to some degree. She improved while on acute rehabilitation. She became stronger. She was able to eat and drink adequately. She reports that her dyspnea is improved although still present to some degree with activity. She was seen by occupational therapy. Grooming was initially contact-guard assistance improving to modified independent functioning. Upper body dressing and lower body dressing were both contact-guard assistance initially and subsequently standby assistance. Tub transfers were initially contact-guard assistance and subsequently standby assistance. She was seen by physical therapy. Bed/chair/wheelchair transfers were moderate assistance initially followed by independent functioning. She was initially able to ambulate only 85 feet with maximal assistance. Subsequently she was able to ambulate 295 feet with modified independent functioning. She was able to initially climb only 6 stairs and subsequently 12 stairs with modified independent functioning. Sit to stand was modified independent functioning. She did have elevated liver enzymes noted. For this reason we did do hepatitis C , hepatitis B and AMA all of which were negative. Elevated liver enzymes are likely due to fatty infiltration. Could also be due to passive congestion from her pulmonary hypertension and potential right heart failure. She will follow-up with Dr. Lamb as an outpatient as well as Dr. Dean. Dr. Dean does recommend a follow-up echocardiogram as an outpatient to insure the pulmonary hypertension has improved. If it has improved it would imply this is due to the acute pulmonary emboli. She is dismissed in improved condition on 03/01/2017 on warfarin 6 mg daily. Her INR on the day of dismissal is 2.02. She will be seen at home by home health for assisted to monitor her saturations as well as occupational therapy and physical therapy. We recommend home health nurse draw her blood for an INR on March 03 for management as an outpatient by Dr. Lamb. Hospital course: Plan - 02/21/17 (Admission Consultation) 86-year-old female discharged from [facility] on 02/20/17 and accepted to IRU after repeated falls, hypotension and acute kidney injury. Agree with admission to IRU for continuation of intensive therapies for strengthening and improvement in her functional ability. Therapy and pain control per Dr. Nolan. Following admission to IRU, she was found to have hypoxemia upon ambulation. Pulmonary function tests were performed today, , confirming suspected underlying pulmonary disease including obstructive disease with poor oxygen transfer. Results reviewed and discussed with Dr. Nolan. Will consult pulmonary for further evaluation and treatment recommendations. Appreciate their time and expertise. Recent episode of hypotension in conjunction with her fall. Blood pressure normalized with fluid resuscitation. Blood pressure 145/92. Continue medications including atenolol 50mg BID and [id number]. Of note, patient's home medication list showed Losartan/HCTZ 100-25, and was changed to Losartan 100mg only during acute admission. Continue to monitor blood pressure closely. Patient complains of lightheadedness with standing. Will obtain orthostatic pressures. Concern for increased edema and significant weight gain since admission. Will monitor daily weights closely for signs of fluid overload. 2-3+ pitting edema noted to lower extremities on exam. Continue Lasix 20mg daily and will given additional 40mg po now for additional fluid motivation. Hypomagnesium noted during acute stay. SCr improved down to 0.8 from a high of 2.4. Will recheck BMP and Mg in AM to monitor electrolytes and renal function closely given recent FIONA and fluid overload. Crackles noted to bilateral lung bases on exam. Will obtain repeat CXR now as patient also reports productive cough and new hypoxemia and dyspnea. Anticipate some improvement in respiratory function with additional diuresis. Encourage incentive spirometry for pulmonary toileting. Patient complains of occipital headache as well as bilateral paraspinous upper back and neck pain. No signs of meningismus or changes in mental status. Ice pack and or heat pad to upper back and neck for pain. Hypoalbuminemia noted on admission. She is at risk for malnutrition. Prealbumin at 15.5. Will consult dietary for additional recommendations as she has lost some 50 pounds gradually over the past 2 years. She blames this on doing more work in their move to a different location but in view of the hypoalbuminemia I am concerned about her nutritional status. Upon discharge, the patient's care will be returned to her PCP, Dr. Lamb. 02/23/17 Plan Initially the right posterior shoulder rash does have possibility of being shingles as it does follow a dermatome. Today, however, the rash has spread around to the right arm, not only in linear fashion but generalized upper arm. It is unclear exact etiology of the rash. We will continue on the acyclovir for viral coverage. She does complain of itching, however, no pain today. Will place hydrocortisone cream topically on the rash to see if this helps. Ask nursing staff to keep rash covered, as long as it is not having any drainage or infection in nature infectious disease nurse reports patient may leave room for therapy. Continue to utilize oxygen as needed for treatment of hypoxia given pulmonary emboli. Continue with Lovenox 114 milligrams subcutaneous every 24 hours for anticoagulation Morning laboratory reviewed, potassium was reported to be elevated at 6.4, however the SPECT this is due to hemolysis. Given the indicators significantly elevated. Will recheck at noon. Recommended doing venous stick only, not finger prick. Continue to encourage PT/OT for strengthening Time spent with patient: 25 - 35 minutes Discharge Plan - Med Rec/Dispo Referrals/Follow Up: Jonathan Lamb MD [Family Provider] - (Dr. Brandon Lamb on 03/08/17 at 1:45 pm for Hosp. follow-up. [phone]. [address] [place] [address]) Additional Instructions: Ask your home health nurse to draw blood for an INR blood test for your blood thinner on Monday of this week. Prescriptions: New Atenolol [Tenormin] 50 mg PO BID #60 tablet Cetirizine [Zyrtec] 10 mg PO DAILY #0 tablet Hydrocortisone 2.5% Cream [Anusol-Hc 2.5% Cream] 1 applic TOP BID tube Losartan [Cozaar] 100 mg PO DAILY #30 tablet Magnesium Oxide [Magox] 400 mg PO BID tablet Milk of Magnesia [Mom] 30 ml PO DAILY PRN udc PRN Reason: Constipation PEG 3350 17gm PACKET [Miralax] 17 gm PO DAILY PRN packet PRN Reason: Constipation Potassium Chloride [K-Dur] 20 meq PO BIDWM #60 tablet Acetaminophen [Tylenol] 650 mg PO Q5H PRN tablet PRN Reason: Discomfort Bisacodyl Supp [Dulcolax] 10 mg RECTALLY DAILY PRN supp PRN Reason: Constipation Furosemide [Lasix] 40 mg PO DAILY #30 tablet Menthol Cough Drops [Ricola Sf] 1 lozenge MM PRN PRN lozenge PRN Reason: Cough Omeprazole [Prilosec] 20 mg PO ACB #30 capsule Ranitidine [Zantac] 150 mg PO BID #30 tablet Warfarin [Coumadin] 6 mg PO NOON #30 tablet Continue Multivitamin [One Daily] 1 each PO DAILY Gabapentin [Neurontin] 600 mg PO TID Calcium Carbonate [Calcium] 500 mg PO DAILY Acetaminophen [Tylenol] 650 mg PO Q5H PRN tablet PRN Reason: Discomfort Glucosamine 500 mg PO DAILY Discontinued Atenolol 50 mg PO BID #0 Cranberry Fruit [Cranberry] 400 mg PO DAILY Elderberry Fruit/Honey [Little Remedies Cough-Immune] 1 dose PO DAILY Aspirin [Craven Aspirin] 81 mg PO DAILY Furosemide [Lasix] 20 mg PO DAILY tablet Enoxaparin Sodium [Lovenox] 40 mg SQ DAILY syringe Omeprazole [Prilosec] 20 mg PO ACB capsule Potassium Chloride [K-Dur] 20 meq PO BIDWM tablet Losartan/Hydrochlorothiazide [Losartan-Hctz 100-25 mg Tab] 1 tab PO DAILY #0 Tramadol [Ultram] 50 mg PO PRN Milk of Magnesia [Mom] 30 ml PO DAILY PRN udc PRN Reason: Constipation Magnesium Oxide [Magox] 400 mg PO BID tablet Bisacodyl Supp [Dulcolax] 10 mg RECTALLY DAILY PRN supp PRN Reason: Constipation Discharge Instructions/Outpatient Orders: Provider Discharge Instructions Location: Determined By Patient - Disposition 01 Discharged Home, Self-Care
== END 2017-03-01 15:20 | disposition home health service (06) | DRG 945 ==
PROVIDERS: ADMIT Internal Medicine; ATTEND Internal Medicine

== ENCOUNTER 2017-07-29 13:14 | Inpatient (IN) ==
--- NOTE | 2017-07-29 13:25 | Emergency Department Report ---
Fall HPI - General Chief Complaint: Fall <Ronal Mancini 07/29/17 15:51> Stated Complaint: fall <Ronal Mancini 07/29/17 15:51> Time Seen by Provider: 07/29/17 13:20 <Ronal Mancini Todd 07/29/17 15:51> Source: patient <Stephanie Jordan 07/29/17 13:26> Mode of arrival: EMS <Stephanie Jordan Elpidio Todd 07/29/17 13:26> Limitations: no limitations <AlyjeradnoamStephanie Elpidio Brooks 07/29/17 13:26> - History of Present Illness HPI Narrative: Pt fell this am while at home walking [place] the [place]. Pt states she was dizzy prior to fall. She has had diarrhea for about a week without nausea or abdominal pain. She also reports a non productive cough. EMS noted RA SpO2 in the 80s. Unknown fever. Denies chest pain. 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 Denies pain from fall. Did fall yesterday states she was also dizzy prior to that fall as well. <Stephanie Jordan 07/29/17 13:26> MD complaint: fall <NikkiStephaniesherrie Brooks 07/29/17 13:26> Onset (ago): minute(s) <Stephanie Jordan 07/29/17 13:26> Fall from: standing <Stephanie Jordan 07/29/17 13:26> Place fall occurred: home <Stephanie Jordan 07/29/17 13:26> Loss of consciousness: none <Stephanie Jordan 07/29/17 13:26> Prolonged down time: no <Stephanie Jordan 07/29/17 13:26> Symptoms prior to fall: dizziness <Stephanie Jordan 07/29/17 13:26> - Related Data Home Medications Medication Instructions Recorded Confirmed Calcium Carbonate [Calcium] 500 mg PO DAILY 02/15/17 07/29/17 Gabapentin [Neurontin] 600 mg PO TID 02/15/17 07/29/17 Glucosamine 500 mg PO DAILY 02/15/17 07/29/17 Multivitamin [One Daily] 1 each PO DAILY 02/15/17 07/29/17 Tramadol [Ultram] 50 mg PO PRN PRN 07/29/17 07/29/17 Previous Rx's Medication Instructions Recorded Acetaminophen [Tylenol] 650 mg PO Q5H PRN tab 02/20/17 Acetaminophen [Tylenol] 650 mg PO Q5H PRN tab 02/28/17 Atenolol [Tenormin] 50 mg PO BID #60 tab 02/28/17 Bisacodyl Supp [Dulcolax] 10 mg RECTALLY DAILY PRN 02/28/17 suppositor Cetirizine [Zyrtec] 10 mg PO DAILY #0 tab 02/28/17 Furosemide [Lasix] 40 mg PO DAILY #30 tab 02/28/17 Hydrocortisone 2.5% Cream 1 applicatio TOP BID tube 02/28/17 [Anusol-Hc 2.5% Cream] Losartan [Cozaar] 100 mg PO DAILY #30 tab 02/28/17 Magnesium Oxide [Magox] 400 mg PO BID tab 02/28/17 Menthol Cough Drops [Ricola Sf] 1 lozenge MM PRN PRN lozenge 02/28/17 Milk of Magnesia [Mom] 30 ml PO DAILY PRN udc 02/28/17 Omeprazole [Prilosec] 20 mg PO ACB #30 cap 02/28/17 PEG 3350 17gm PACKET [Miralax] 17 gm PO DAILY PRN packet 02/28/17 Potassium Chloride [K-DUR 20 mEq 20 meq PO BIDWM #60 tab 02/28/17 Tablet] Ranitidine [Zantac] 150 mg PO BID #30 tab 02/28/17 Warfarin [Coumadin] 6 mg PO NOON #30 tab 03/01/17 <Ronal aMncini 07/29/17 15:51> Allergies Allergy/AdvReac Type Severity Reaction Status Date / Time cefdinir AdvReac Mild DIARRHEA Verified 02/15/17 16:05 <Ronal Mancini 07/29/17 15:51> Review of Systems All systems: reviewed and negative except as stated <Stephanie Jordan 03/08 13:26> Constitutional: Reports: as per HPI <Stephanie Jordan 07/29/17 13:26> Cardiovascular: Reports: as per HPI <Stephanie Jordan 07/29/17 13:26> Respiratory: Reports: as per HPI <Stephanie Jordan 07/29/17 13:26> Gastrointestinal: Reports: as per HPI <Stephanie Jordan 07/29/17 13:26> Musculoskeletal: Reports: as per HPI <Stephanie Jordan 07/29/17 13:26> Integumentary: Reports: as per HPI <Stephanie Jordan 07/29/17 13:26> Neurological: Reports: as per HPI <Stephanie Jordan 07/29/17 13:26> [facility] Patient Stated Medical History Hypertension Yes Pneumonia Yes Other Respiratory pulmonary embolis Constipation Yes Other GI Yes: incontinence Hx Incontinence No Osteoarthritis Yes Post Menopausal Yes <Ronal Mancini - 07/29/17 15:51> Medical History Updates: Has chronic anemia. Was worked up this spring with colonoscopy and EGD with a benign polyp removed from the colon. <Stephanie Jordan 07/29/17 13:26> Surgical History: Appendectomy-11/2006. Cholecystectomy. Cataract surgery. Back surgery x 4. Ganglion cyst removal from hand - s. Colonscopy with polypectomy and EGD with biopsy - 10/13/16. <Stephanie Jordan 07/29/17 13: 26> Family History Updates: Father - CAD, DM, NM. Mother - HTN, CVA. Paternal grandmother - DM. Sister - HTN. <Stephanie Jordan 07/29/17 13:26> - Social History Smoking status: Former smoker (quit 20 years ago) <Stephanie Jordan 13:26> Packs-years: 47 <Stephanie Jordan 07/29/17 13:26> Substance use type: does not use <Stephanie Jordan 07/29/17 13:26> Alcohol intake: current <Stephanie Jordan 07/29/17 13:26> Alcohol intake frequency: other (mixed cocktail or wine with daughter once a week.) <Stephanie Jordan 07/29/17 13:26> Housing: apartment (Independent living at [facility] <Stephanie Jordan 07/29/17 13:26> Household members: none <Stephanie Jordan 07/29/17 13:26> Current occupational status: retired <Stephanie Jordan 07/29/17 13:26> Current residence: Independent Living <Stephanie Jordan 07/29/17 13:26> Physical Exam - Limitations Limitations: no limitations <Stephanie Jordan 07/29/17 13:26> - General General appearance: alert, in no apparent distress <Stephanie Jordan 07/29 13:26> - Normal Exams: Head:: Normocephalic without trauma <Stephanie Jordan 07/29/17 13:26> Eyes:: Pupils are PERRLA w/ EOMI <Stephanie Jordan 07/29/17 13:26> Neck:: Full range of motion <Stephanie Jordan 07/29/17 13:26> Chest/Respirations:: Clear all aden, with good airflow, and symmetry bilaterally <Stephanie Jordan 07/29/17 13:26> Cardiovascular:: Regular rate and rhythm, without murmur or gallop, Pulses 2+ all extremities, capillary refill, <2 seconds all extremities <Stephanie Jordan 07/29/17 13:26> Abdomen:: Bowel sounds positive, soft, non-tender, non-distended <Stephanie Jordan 07/29/17 13:26> Musculoskeletal:: No tenderness, or deformity noted, good range of motion, all extremities <Stephanie Jordan 07/29/17 13:26> Integumentary:: No rashes <Stephanie Jordan 07/29/17 13:26> Neurological:: Patient is alert, and oriented, cranial nerves, motor/sensory/ cerebellar, exams w/o gross deficits, to observation <Stephanie Jordan 03/08 13:26> Psychiatric:: Patient exhibits, appropriate attention, emotion and affect < Stephanie Jordan 07/29/17 13:26> Course Vital Signs Temperature 98.9 F 07/29/17 13:15 Pulse Rate 90 07/29/17 13:15 Respiratory Rate 24 07/29/17 13:15 Blood Pressure 130/58 07/29/17 13:15 Pulse Oximetry 85 L 07/29/17 13:15 Temperature 98.9 F 07/29/17 13:15 Pulse Rate 78 07/29/17 15:30 Respiratory Rate 24 07/29/17 13:15 Blood Pressure 117/53 07/29/17 14:31 Pulse Oximetry 94 07/29/17 15:30 <Ronal Mancini - 07/29/17 15:51> Vital Signs Temperature 98.9 F 07/29/17 13:15 Pulse Rate 90 07/29/17 13:15 Respiratory Rate 24 07/29/17 13:15 Blood Pressure 130/58 07/29/17 13:15 Pulse Oximetry 85 L 07/29/17 13:15 Temperature 98.9 F 07/29/17 13:15 Pulse Rate 78 07/29/17 15:30 Respiratory Rate 24 07/29/17 13:15 Blood Pressure 117/53 07/29/17 14:31 Pulse Oximetry 94 07/29/17 15:30 <Stephanie Jordan 07/29/17 14:19> Fall - MDM Narrative Medical decision making narrative: X ray and lab consistent with a RLL pneumonia. Blood cultures obtained, IVF started. Hospitalist notified for admission. Pt and family informed and voice agreement with current plan. <Stephanie Jordan 07/29/17 14:42> - Differential Diagnosis Likely: syncope, concussion with loss of consciousness (dehydration, pneumonia, UTI) <Stephanie Jordan 07/29/17 13:26> - Lab Data Attestation: I reviewed the patient's lab results. <Stephanie Jordan 07/29 14:19> Result diagrams: 07/29/17 14:02 07/29/17 14:02 <Ronal Mancini 07/29/17 15:51> Lab Results 07/29/17 07/29/17 07/29/17 Range/Units 14:02 14:02 14:02 WBC 12.9 H (4.5-11.0) T/MM3 RBC 3.53 L (4.00-5.20) M/MM3 Hgb 9.2 L (12-16) GM/DL Hct 31.6 L (36-46) % MCV 89.5 (80-100) UM3 MCH 26.1 (26-34) UUG MCHC 29.1 L (31-37) GM/DL RDW Std Deviation 44.2 (36.9-50.2) FL Plt Count 215 (130-400) T/MM3 MPV 11.3 (9.4-12.4) UM3 Immature Gran % (Auto) Not performed Neut % (Auto) Not performed Lymph % (Auto) Not performed [place] % (Auto) Not performed Eos % (Auto) Not performed Baso % (Auto) Not performed Neut # (Auto) Not performed Lymph # (Auto) Not performed [place] # (Auto) Not performed Eos # (Auto) Not performed Baso # (Auto) Not performed Abs Immat Gran (auto) Not performed Neutrophils % (Manual) 91.0 H (33-66) % Band Neutrophils % 1.0 (0-6) % Lymphocytes % (Manual) 3.0 L (23-45) % Monocytes % (Manual) 5.0 (0-9.0) % Neutrophils # (Manual) 11.7 H (1.8-7.7) T/MM3 Band Neutrophils # 0.1 T/MM3 Lymphocytes # (Manual) 0.4 L (1-4.8) T/MM3 Monocytes # (Manual) 0.6 (0-0.8) T/MM3 RBC Morph Comment Normal INR 2.05 H (0.99-1.21) Turbidity < 20 (0-20) Sodium 138 (134-144) MEQ/L Potassium 5.0 (3.6-5) MEQ/L Chloride 98 (98-107) MEQ/L Carbon Dioxide 30 (22-30) MEQ/L Anion Gap 10 (5-15) MEQ/L BUN 30.0 H (7-17) MG/DL Creatinine 1.4 H (0.7-1.2) mg/dL GFR Calculation 36 BUN/Creatinine Ratio 21 (6-26) RATIO Glucose 139 H (65-110) MG/DL Calculated Osmolality 274 (261-280) MOSM/KG Calcium 9.7 (8.4-10.2) MG/DL Total Bilirubin 0.40 (0.20-1.30) MG/DL Icterus Index < 2 (0-7) AST 22 (14-36) U/L ALT 23 (9-52) U/L Alkaline Phosphatase 70 (38-126) U/L Total Protein 7.1 (6.3-8.2) g/dL Albumin 4.1 (3.5-5.0) g/dL Globulin 3.0 (2.4-3.6) G/DL Albumin/Globulin Ratio 1.4 (1.1-2.2) RATIO Specimen Hemolysis < 15 (0-25) Ur Collection Type Urine Color (YELLOW) Urine Clarity Urine pH (5.0-8.0) Ur Specific [place] (1.015-1.025) Urine Protein (NEGATIVE) Urine Glucose (UA) (NEGATIVE) Urine Ketones (NEGATIVE) Urine Occult Blood (NEGATIVE) Urine Nitrate (NEGATIVE) Urine Bilirubin (NEGATIVE) Urine Urobilinogen (NORMAL) EU/DL Ur Leukocyte Esterase (NEGATIVE) Urinalysis Comment 07/29/17 Range/Units 14:15 WBC (4.5-11.0) T/MM3 RBC (4.00-5.20) M/MM3 Hgb (12-16) GM/DL Hct (36-46) % MCV (80-100) UM3 MCH (26-34) UUG MCHC (31-37) GM/DL RDW Std Deviation (36.9-50.2) FL Plt Count (130-400) T/MM3 MPV (9.4-12.4) UM3 Immature Gran % (Auto) Neut % (Auto) Lymph % (Auto) [place] % (Auto) Eos % (Auto) Baso % (Auto) Neut # (Auto) Lymph # (Auto) [place] # (Auto) Eos # (Auto) Baso # (Auto) Abs Immat Gran (auto) Neutrophils % (Manual) (33-66) % Band Neutrophils % (0-6) % Lymphocytes % (Manual) (23-45) % Monocytes % (Manual) (0-9.0) % Neutrophils # (Manual) (1.8-7.7) T/MM3 Band Neutrophils # T/MM3 Lymphocytes # (Manual) (1-4.8) T/MM3 Monocytes # (Manual) (0-0.8) T/MM3 RBC Morph Comment INR (0.99-1.21) Turbidity (0-20) Sodium (134-144) MEQ/L Potassium (3.6-5) MEQ/L Chloride (98-107) MEQ/L Carbon Dioxide (22-30) MEQ/L Anion Gap (5-15) MEQ/L BUN (7-17) MG/DL Creatinine (0.7-1.2) mg/dL GFR Calculation BUN/Creatinine Ratio (6-26) RATIO Glucose (65-110) MG/DL Calculated Osmolality (261-280) MOSM/KG Calcium (8.4-10.2) MG/DL Total Bilirubin (0.20-1.30) MG/DL Icterus Index (0-7) AST (14-36) U/L ALT (9-52) U/L Alkaline Phosphatase (38-126) U/L Total Protein (6.3-8.2) g/dL Albumin (3.5-5.0) g/dL Globulin (2.4-3.6) G/DL Albumin/Globulin Ratio (1.1-2.2) RATIO Specimen Hemolysis (0-25) Ur Collection Type Urine, cath straight Urine Color Yellow (YELLOW) Urine Clarity Clear Urine pH 5.0 (5.0-8.0) Ur Specific [place] 1.015 (1.015-1.025) Urine Protein Negative (NEGATIVE) Urine Glucose (UA) Negative (NEGATIVE) Urine Ketones Negative (NEGATIVE) Urine Occult Blood Negative (NEGATIVE) Urine Nitrate Negative (NEGATIVE) Urine Bilirubin Negative (NEGATIVE) Urine Urobilinogen 0.2 (NORMAL) EU/DL Ur Leukocyte Esterase Negative (NEGATIVE) Urinalysis Comment Microscopic not ind. <Ronal Mancini - 07/29/17 15:51> Lab Results 07/29/17 07/29/17 07/29/17 Range/Units 14:02 14:02 14:02 WBC 12.9 H (4.5-11.0) T/MM3 RBC 3.53 L (4.00-5.20) M/MM3 Hgb 9.2 L (12-16) GM/DL Hct 31.6 L (36-46) % MCV 89.5 (80-100) UM3 MCH 26.1 (26-34) UUG MCHC 29.1 L (31-37) GM/DL RDW Std Deviation 44.2 (36.9-50.2) FL Plt Count 215 (130-400) T/MM3 MPV 11.3 (9.4-12.4) UM3 Immature Gran % (Auto) Not performed Neut % (Auto) Not performed Lymph % (Auto) Not performed [place] % (Auto) Not performed Eos % (Auto) Not performed Baso % (Auto) Not performed Neut # (Auto) Not performed Lymph # (Auto) Not performed [place] # (Auto) Not performed Eos # (Auto) Not performed Baso # (Auto) Not performed Abs Immat Gran (auto) Not performed Neutrophils % (Manual) 91.0 H (33-66) % Band Neutrophils % 1.0 (0-6) % Lymphocytes % (Manual) 3.0 L (23-45) % Monocytes % (Manual) 5.0 (0-9.0) % Neutrophils # (Manual) 11.7 H (1.8-7.7) T/MM3 Band Neutrophils # 0.1 T/MM3 Lymphocytes # (Manual) 0.4 L (1-4.8) T/MM3 Monocytes # (Manual) 0.6 (0-0.8) T/MM3 RBC Morph Comment Normal INR 2.05 H (0.99-1.21) Turbidity < 20 (0-20) Sodium 138 (134-144) MEQ/L Potassium 5.0 (3.6-5) MEQ/L Chloride 98 (98-107) MEQ/L Carbon Dioxide 30 (22-30) MEQ/L Anion Gap 10 (5-15) MEQ/L BUN 30.0 H (7-17) MG/DL Creatinine 1.4 H (0.7-1.2) mg/dL GFR Calculation 36 BUN/Creatinine Ratio 21 (6-26) RATIO Glucose 139 H (65-110) MG/DL Calculated Osmolality 274 (261-280) MOSM/KG Calcium 9.7 (8.4-10.2) MG/DL Total Bilirubin 0.40 (0.20-1.30) MG/DL Icterus Index < 2 (0-7) AST 22 (14-36) U/L ALT 23 (9-52) U/L Alkaline Phosphatase 70 (38-126) U/L Total Protein 7.1 (6.3-8.2) g/dL Albumin 4.1 (3.5-5.0) g/dL Globulin 3.0 (2.4-3.6) G/DL Albumin/Globulin Ratio 1.4 (1.1-2.2) RATIO Specimen Hemolysis < 15 (0-25) Ur Collection Type Urine Color (YELLOW) Urine Clarity Urine pH (5.0-8.0) Ur Specific [place] (1.015-1.025) Urine Protein (NEGATIVE) Urine Glucose (UA) (NEGATIVE) Urine Ketones (NEGATIVE) Urine Occult Blood (NEGATIVE) Urine Nitrate (NEGATIVE) Urine Bilirubin (NEGATIVE) Urine Urobilinogen (NORMAL) EU/DL Ur Leukocyte Esterase (NEGATIVE) Urinalysis Comment 07/29/17 Range/Units 14:15 WBC (4.5-11.0) T/MM3 RBC (4.00-5.20) M/MM3 Hgb (12-16) GM/DL Hct (36-46) % MCV (80-100) UM3 MCH (26-34) UUG MCHC (31-37) GM/DL RDW Std Deviation (36.9-50.2) FL Plt Count (130-400) T/MM3 MPV (9.4-12.4) UM3 Immature Gran % (Auto) Neut % (Auto) Lymph % (Auto) [place] % (Auto) Eos % (Auto) Baso % (Auto) Neut # (Auto) Lymph # (Auto) [place] # (Auto) Eos # (Auto) Baso # (Auto) Abs Immat Gran (auto) Neutrophils % (Manual) (33-66) % Band Neutrophils % (0-6) % Lymphocytes % (Manual) (23-45) % Monocytes % (Manual) (0-9.0) % Neutrophils # (Manual) (1.8-7.7) T/MM3 Band Neutrophils # T/MM3 Lymphocytes # (Manual) (1-4.8) T/MM3 Monocytes # (Manual) (0-0.8) T/MM3 RBC Morph Comment INR (0.99-1.21) Turbidity (0-20) Sodium (134-144) MEQ/L Potassium (3.6-5) MEQ/L Chloride (98-107) MEQ/L Carbon Dioxide (22-30) MEQ/L Anion Gap (5-15) MEQ/L BUN (7-17) MG/DL Creatinine (0.7-1.2) mg/dL GFR Calculation BUN/Creatinine Ratio (6-26) RATIO Glucose (65-110) MG/DL Calculated Osmolality (261-280) MOSM/KG Calcium (8.4-10.2) MG/DL Total Bilirubin (0.20-1.30) MG/DL Icterus Index (0-7) AST (14-36) U/L ALT (9-52) U/L Alkaline Phosphatase (38-126) U/L Total Protein (6.3-8.2) g/dL Albumin (3.5-5.0) g/dL Globulin (2.4-3.6) G/DL Albumin/Globulin Ratio (1.1-2.2) RATIO Specimen Hemolysis (0-25) Ur Collection Type Urine, cath straight Urine Color Yellow (YELLOW) Urine Clarity Clear Urine pH 5.0 (5.0-8.0) Ur Specific [place] 1.015 (1.015-1.025) Urine Protein Negative (NEGATIVE) Urine Glucose (UA) Negative (NEGATIVE) Urine Ketones Negative (NEGATIVE) Urine Occult Blood Negative (NEGATIVE) Urine Nitrate Negative (NEGATIVE) Urine Bilirubin Negative (NEGATIVE) Urine Urobilinogen 0.2 (NORMAL) EU/DL Ur Leukocyte Esterase Negative (NEGATIVE) Urinalysis Comment Microscopic not ind. <Stephanie Jordan 07/29/17 14:19> - Radiology Data Attestation: I reviewed the patient's radiology results. (RLL pneumonia) < Stephanie Jordan 07/29/17 14:19> - EKG Data EKG #1 EKG attestation: Yes: I reviewed and interpreted this EKG. <Stephanei Jordan 07/29/17 14:19> EKG results narrative: Sinus rhythm. 84 bpm. No STEMI. <Ronal Mancini - 07/29/17 15:51> EKG shows normal: sinus rhythm <Stephanie Jordan 07/29/17 14:19> Rate: normal <Stephanie Jordan 07/29/17 14:19> Rhythm: NSR <Stephanie Jordan 07/29/17 14:19> Disposition Clinical Impression: Syncope Qualifiers: Syncope type: vasovagal syncope Qualified Code(s): R55 - Syncope and collapse Pneumonia Qualifiers: Pneumonia type: due to unspecified organism Laterality: right Lung location: lower lobe of lung Qualified Code(s): J18.1 - Lobar pneumonia, unspecified organism <Ronal Mancini C - 07/29/17 15:51> Disposition: 02 To [facility] [place] Acute Care <Ronal Mancini C - 07/29/17 15:51> Condition: Improved <Ronal Mancini - 07/29/17 15:51> Prescriptions: No Action Multivitamin [One Daily] 1 each PO DAILY Gabapentin [Neurontin] 600 mg PO TID Calcium Carbonate [Calcium] 500 mg PO DAILY Acetaminophen [Tylenol] 650 mg PO Q5H PRN tab PRN Reason: Discomfort Atenolol [Tenormin] 50 mg PO BID #60 tab Cetirizine [Zyrtec] 10 mg PO DAILY #0 tab Hydrocortisone 2.5% Cream [Anusol-Hc 2.5% Cream] 1 applicatio TOP BID tube Losartan [Cozaar] 100 mg PO DAILY #30 tab Magnesium Oxide [Magox] 400 mg PO BID tab Milk of Magnesia [Mom] 30 ml PO DAILY PRN udc PRN Reason: Constipation PEG 3350 17gm PACKET [Miralax] 17 gm PO DAILY PRN packet PRN Reason: Constipation Potassium Chloride [K-DUR 20 mEq Tablet] 20 meq PO BIDWM #60 tab Glucosamine 500 mg PO DAILY Acetaminophen [Tylenol] 650 mg PO Q5H PRN tab PRN Reason: Discomfort Bisacodyl Supp [Dulcolax] 10 mg RECTALLY DAILY PRN suppositor PRN Reason: Constipation Furosemide [Lasix] 40 mg PO DAILY #30 tab Menthol Cough Drops [Ricola Sf] 1 lozenge MM PRN PRN lozenge PRN Reason: Cough Omeprazole [Prilosec] 20 mg PO ACB #30 cap Ranitidine [Zantac] 150 mg PO BID #30 tab Warfarin [Coumadin] 6 mg PO NOON #30 tab Tramadol [Ultram] 50 mg PO PRN PRN PRN Reason: Pain <Ronal Mancini - 07/29/17 15:51> Referrals: Jonathan Lamb MD [Family Provider] - <Ronal Mancini - 15:51> Time of Disposition: 14:42 <Stephanie Jordan - 07/29/17 14:42> - Seen By: midlevel <Stephanie Jordan - 07/29/17 14:42>
[2017-07-29] MEDS ORDERED: NS 1,000 ML IV SCH (14:30)
--- NOTE | 2017-07-29 16:47 | History & Physical Report ---
History of Present Illness Date: 07/29/17 Chief complaint: Fall, hypoxia HPI: Ms. Putnam is a very pleasant 87y/o female who still lives alone. She has had frequent falls over the last couple of years. She fell again this morning and was brought to the emergency room. She was found to be hypoxic on room air. Subsequently she was admitted. In the ER her white blood count was 12,000, hemoglobin 9.2 with hematocrit 31.6 and platelets of 215. She has 91% neutrophils. Her INR is 2.05. Her electrolytes reveal a sodium of 138, potassium 5, BUN 30 and a creatinine of 1.4. Urine analysis was unremarkable. When seen by me in her room, her daughter is in the room with her. The daughter went to her mom's house and woke her up when she got there and it was 11 AM. The patient got up to letter in and was very wobbly. This is not new. She got to the door to let her daughter in and on the way back she fell. She denies any injuries from this fall and does not hurt anywhere. She states when she goes from lying to sitting to standing she always gets a little lightheaded and wobbly. She thinks she may have gotten up too fast this morning. As far as her oxygenation goes, she had bilateral pulmonary emboli in February 2017. She was seen by Dr. Dean at that time and has subsequently had PFTs done. This showed moderate obstructive disease with below DLCO. Dr. Dean recommended nocturnal oxygen as well as oxygen with exertion. Apparently that was never set up. Currently she is on 2 L and she's setting 94%. She does have a low-grade temperature at 100. Blood pressure at 116/43 and a heart rate of 85. Chest x- ray is relatively unremarkable but I am awaiting official report. She denies fever or chills. She denies feeling short of breath at rest or with exertion. She has a cough but she states this is unchanged from her baseline cough and she denies any sputum. She denies any nausea or vomiting. She does have occasional loose stools. She states that she will go 2 to 3 days with firm stools and then she'll have a day where there much looser and shall have a couple of them in that day. She denies any black tarry stools or bloody stools. She denies any genitourinary symptoms. She does think her legs were a little more swollen today as she could not get her compression stockings on. She reports her gabapentin was just increased to 300 mg 3 times a day. She is unsure if it is helping. She has numbness and tingling in her feet as well as her hands. 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 Review of Systems All systems PM: 10-point ROS was reviewed, no additional remarkable complaints except Past Medical History Patient Stated Medical History Hypertension Yes Chronic Obstructive Pulmonary Yes Disease (COPD) Pneumonia Yes Pulmonary Embolism Yes Gastroesophageal Reflux Yes Disease Other GI Yes: incontinence WITH BOWELS Hx Incontinence Yes Osteoarthritis Yes Shingles Yes: 2017 Post Menopausal Yes Medical History Updates: Has chronic anemia. Was worked up this spring with colonoscopy and EGD with a benign polyp removed from the colon. Sjogrens. Pulm HTN Surgical History: Appendectomy-11/2006. Cholecystectomy. Cataract surgery. Back surgery x 4. Ganglion cyst removal from hand - . Colonscopy with polypectomy and EGD with biopsy - 10/13/16. Family History Updates: Mom and dad are both . Both had coronary artery disease. Dad had diabetes. - Social History Smoking status: Former smoker (quit in 1996. Smoked for over 40 years.) Alcohol intake: current Alcohol intake frequency: a few times a month Household members: none Social history: She ambulates with a walker. Medications Home Medications Medication Instructions Recorded Confirmed Type Calcium Carbonate [Calcium] 500 mg PO DAILY 02/15/17 07/29/17 History Gabapentin [Neurontin] 600 mg PO TID 02/15/17 07/29/17 History Glucosamine 500 mg PO DAILY 02/15/17 07/29/17 History Multivitamin [One Daily] 1 each PO DAILY 02/15/17 07/29/17 History Acetaminophen [Tylenol] 650 mg PO Q5H PRN tab 02/20/17 07/29/17 Rx Atenolol [Tenormin] 50 mg PO BID #60 tab 02/28/17 07/29/17 Rx Cetirizine [Zyrtec] 10 mg PO DAILY #0 tab 02/28/17 07/29/17 Rx Furosemide [Lasix] 40 mg PO DAILY #30 tab 02/28/17 07/29/17 Rx Hydrocortisone 2.5% Cream 1 applicatio TOP BID tube 02/28/17 07/29/17 Rx [Anusol-Hc 2.5% Cream] Losartan [Cozaar] 100 mg PO DAILY #30 tab 02/28/17 07/29/17 Rx Magnesium Oxide [Magox] 400 mg PO BID tab 02/28/17 07/29/17 Rx Menthol Cough Drops [Ricola Sf] 1 lozenge MM PRN PRN lozenge 02/28/17 07/29/17 Rx Omeprazole [Prilosec] 20 mg PO ACB #30 cap 02/28/17 07/29/17 Rx Potassium Chloride [K-DUR 20 mEq 20 meq PO BIDWM #60 tab 02/28/17 07/29/17 Rx Tablet] Ranitidine [Zantac] 150 mg PO BID #30 tab 02/28/17 07/29/17 Rx Tramadol [Ultram] 50 mg PO PRN PRN 07/29/17 07/29/17 History Warfarin Sodium [Coumadin] 4 mg PO HS 07/29/17 07/29/17 History Allergies Allergy/AdvReac Type Severity Reaction Status Date / Time cefdinir AdvReac Mild DIARRHEA Verified 02/15/17 16:05 Exam Vital Signs: Temperature 100.0 F 07/29/17 16:11 Pulse Rate 85 07/29/17 16:11 Respiratory Rate 16 07/29/17 16:11 Blood Pressure 116/43 07/29/17 16:11 Pulse Oximetry 96 07/29/17 16:11 Height/Weight/BMI: Height 1.57 m Weight 71.8 kg Body Mass Index 28.9 Comments: Gen: alert and oriented. NAD. Pleasant and conversive Skin: warm and dry. HEENT: NC/AT PERRL, EOMI, Sclera,lids and conjunctiva wnl. MMM. OP clear. Neck: supple. No JVD. Carotids 2+ without bruits Lungs: Diminished. No rales, rhonchi or wheezes CV: regular rate and rhythm. 2/6 RAMO without radiation to carotids, 2/6 systolic murmur at lower left sternal border. Trace edema. Pedal pulses are palpable Abd: soft. +BS. NT/ND MS: Good strength and ROM. Neuro: no focal deficit. psy: appropriate mood and affect Results - Labs CBC & Chem 7: 07/29/17 14:02 07/29/17 14:02 Assessment and Plan Assessment and Plan: Assessment and Plan: 1. Hypoxia -PFTs in February 2017 shows moderate obstructive disease with low DLCO (this was at the time of her bilateral PE diagnosis) -Echo showed right heart strain then as well. She is going to need a repeat echo soon to follow up on that -Also, she had severe Pulm HTN at that time, this needs to be re evaluated -Oxygen as needed -Will need exercise and nocturnal oximetry prior to discharge. -Resp therapy -Repeat CXR in am. -Sputum cx -Check procalcitonin and lactate 2. Frequent falls -Check orthostatic BPs. -Try to minimize pain medications 3. HTN -On atenolol and losartan at home-hold for now as blood pressures are low normal -Will start lopressor 25mg BID with hold parameters. 4. COPD -Resp therapy 5. GERD -Protonix 40mg BID -On ranitidine and omeprazole at home 6. Chronic pain -Minimize pain meds 7. HLP -Not on statin 8. H/O Bilateral PEs -On coumadin, INR therapeutic 9. Severe PHTN -I suspect that is why she is on Lasix -Will hold for now 10. Anemia -Check stool for OB, Check iron studies 11. Prophylaxis -PPI and coumadin (INR therapeutic) - Physician Narrative Narrative: Date: 07/29/17 Time: 1637 Hospital Course Summary Disclaimer: The visit summary below is not to be considered part of the above Progress Note.
[2017-07-29] MEDS ORDERED: ONDANSETRON 4 MG/2 ML INJECTION IVP PRN (17:02)
[2017-07-29] MEDS ORDERED: MENTHOL COUGH DROPS (RICOLA) MM PRN (17:04)
[2017-07-29] MEDS: LEVOFLOXACIN PB 750 MG/150 ML BAG IV SCH (17:37)
[2017-07-29] MEDS: WARFARIN 4 MG TABLET PO SCH (20:05)
[2017-07-29] MEDS: GABAPENTIN 300 MG CAPSULE PO SCH (20:05)
[2017-07-29] MEDS: MAGNESIUM OXIDE 400 MG TABLET PO SCH (20:05)
[2017-07-29] MEDS: HYDROCORTISONE 2.5% CREAM 30gm TOP SCH (20:06)
[2017-07-30] MEDS: CALCIUM CARBONATE 500 MG TABLET PO SCH (09:22)
[2017-07-30] MEDS: HYDROCORTISONE 2.5% CREAM 30gm TOP SCH ×2 (09:23→20:02)
[2017-07-30] MEDS: MAGNESIUM OXIDE 400 MG TABLET PO SCH ×2 (09:23→20:02)
[2017-07-30] MEDS: CETIRIZINE 10 MG TABLET PO SCH (09:23)
[2017-07-30] MEDS: MULTI-VITAMIN + MINERAL TABLET PO SCH (09:23)
[2017-07-30] MEDS: GLUCOSAMINE 500 MG CAPSULE PO SCH (09:23)
--- NOTE | 2017-07-30 09:47 | XRay Report ---
INDICATION: cough, weakness PROCEDURE: CHEST 2-VIEWS UPRIGHT (PA & LAT) Encounter: Initial COMPARISON: February 21, 2017 Findings: The lungs are stable in appearance without new focal airspace consolidation. Right lower lobe granuloma. There is no pleural effusion or pneumothorax. The heart size, pulmonary vascularity and mediastinal contours are unchanged. Large hiatal hernia. IMPRESSION: Stable appearance of the chest without acute cardiopulmonary disease. .
--- NOTE | 2017-07-30 10:20 | XRay Report ---
INDICATION: hypoxia, poss pna PROCEDURE: CHEST 2-VIEWS UPRIGHT (PA & LAT) Encounter: Initial COMPARISON: July 29, 2017 FINDINGS: New trace effusions. No focal consolidative pneumonia. No pleural effusion or pneumothorax. Chronic right basilar interstitial prominence. Cardiac silhouette remains enlarged. Prominent hiatal hernia. Mediastinal contours are stable. Pulmonary vascularity appears stable. Impression: New trace effusions without focal pneumonia. .
--- NOTE | 2017-07-30 11:48 | Progress Note ---
- Date 07/30/17 Subjective: Ms. Putnam is a very pleasant 87y/o female who still lives alone. She has had frequent falls over the last couple of years. She fell again this morning and was brought to the emergency room. She was found to be hypoxic on room air. Subsequently she was admitted. In the ER her white blood count was 12,000, hemoglobin 9.2 with hematocrit 31.6 and platelets of 215. She has 91% neutrophils. Her INR is 2.05. Her electrolytes reveal a sodium of 138, potassium 5, BUN 30 and a creatinine of 1.4. Urine analysis was unremarkable. When seen by me in her room, her daughter is in the room with her. The daughter went to her mom's house and woke her up when she got there and it was 11 AM. The patient got up to letter in and was very wobbly. This is not new. She got to the door to let her daughter in and on the way back she fell. She denies any injuries from this fall and does not hurt anywhere. She states when she goes from lying to sitting to standing she always gets a little lightheaded and wobbly. She thinks she may have gotten up too fast this morning. As far as her oxygenation goes, she had bilateral pulmonary emboli in February 2017. She was seen by Dr. Dean at that time and has subsequently had PFTs done. This showed moderate obstructive disease with below DLCO. Dr. Dean recommended nocturnal oxygen as well as oxygen with exertion. Apparently that was never set up. Currently she is on 2 L and she's setting 94%. She does have a low-grade temperature at 100. Blood pressure at 116/43 and a heart rate of 85. Chest x- ray is relatively unremarkable but I am awaiting official report. She denies fever or chills. She denies feeling short of breath at rest or with exertion. She has a cough but she states this is unchanged from her baseline cough and she denies any sputum. She denies any nausea or vomiting. She does have occasional loose stools. She states that she will go 2 to 3 days with firm stools and then she'll have a day where there much looser and shall have a couple of them in that day. She denies any black tarry stools or bloody stools. She denies any genitourinary symptoms. She does think her legs were a little more swollen today as she could not get her compression stockings on. She reports her gabapentin was just increased to 300 mg 3 times a day. She is unsure if it is helping. She has numbness and tingling in her feet as well as her hands. 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 This morning she is just getting back from the bathroom. She did have a good bowel movement. There was no diarrhea or constipation. No melena or hematochezia. She is wearing oxygen at 3 L. Orthostatic blood pressures do not show orthostatic hypotension. She denied feeling lightheaded or dizzy this morning when up. She denies fever or chills. She is a little short of breath with the bathroom walk. She does have a infrequent cough with some sputum production. She denies chest pain or palpitations. She denies nausea or vomiting. She denies abdominal pain. She does have chronic back pain. I watched her walk from the bathroom to the chair with a walker and a one person assessed and she is quite bent over when she ambulates. She can straighten up better when encouraged to do so. She is certainly at risk of falling in her slumped over position. Hopefully physical therapy can work with her on this. Her sputum culture is growing out a moderate amount of gram-positive cocci. Blood cultures are still pending. Chest x-ray shows no evidence of pneumonia and a trace of pleural effusions. Objective Vital signs: Temperature 98.2 F 07/30/17 07:35 Pulse Rate 67 07/30/17 08:01 Respiratory Rate 20 07/30/17 07:35 Blood Pressure 136/61 07/30/17 07:41 Pulse Oximetry 98 07/30/17 07:35 Rhythm: Second Degree AV Block Type I - Wenkebach Height/Weight/BMI: Height 1.57 m Weight 72.3 kg Body Mass Index 28.9 Comments: Gen: alert and oriented. NAD. Pleasant and conversive Skin: warm and dry. HEENT: NC/AT PERRL, EOMI, Sclera,lids and conjunctiva wnl. MMM. OP clear. Neck: supple. No JVD. Carotids 2+ without bruits Lungs: Diminished. No rales, rhonchi or wheezes CV: regular rate and rhythm. 2/6 RAMO without radiation to carotids, 2/6 systolic murmur at lower left sternal border. Trace edema. Pedal pulses are palpable Abd: soft. +BS. NT/ND MS: Good strength and ROM. Neuro: no focal deficit. psy: appropriate mood and affect Results - Labs CBC & Chem 7: 07/30/17 04:51 07/30/17 04:51 Microbiology Results: Microbiology 07/29/17 19:07 Sputum, Expectorated Gram Stain - Final 07/29/17 19:07 Sputum, Expectorated Sputum Culture - Preliminary Early growth Assessment and Plan Assessment and Plan: Assessment and Plan: 1. Hypoxia -PFTs in February 2017 shows moderate obstructive disease with low DLCO (this was at the time of her bilateral PE diagnosis) -Echo showed right heart strain then as well. She is going to need a repeat echo soon to follow up on that-will order that for tomorrow. -Also, she had severe Pulm HTN at that time, this needs to be re evaluated -Oxygen as needed -Will need exercise and nocturnal oximetry prior to discharge. -Resp therapy -Repeat CXR without evidence of pna, trace pleural effusions -Sputum cx-gram + cocci -Procalcitonin and lactate are normal -Start budesonide -Give dose of lasix -+for coronavirus HKU1 2. Frequent falls -Check orthostatic BPs-no evidence of orthostatic hypotension so far. -Try to minimize pain medications -PT 3. HTN -On atenolol and losartan at home-hold for now as blood pressures are low normal -Will start lopressor 25mg BID with hold parameters. 4. COPD -Resp therapy 5. GERD -Protonix 40mg BID -On ranitidine and omeprazole at home 6. Chronic pain -Minimize pain meds 7. HLP -Not on statin -LDL 99 in 8. H/O Bilateral PEs -On coumadin, INR therapeutic 9. Severe PHTN -I suspect that is why she is on Lasix -Will decrease dose to 20mg daily 10. Anemia -Check stool for OB-negative -Check iron studies pending 11. Prophylaxis -PPI and coumadin (INR therapeutic) - Physician Narrative Narrative: Date: 07/30/17 Time: 1144 Hospital Course Summary Disclaimer: The visit summary below is not to be considered part of the above Progress Note.
[2017-07-30] MEDS: FUROSEMIDE 20 MG TABLET PO SCH (12:55)
[2017-07-30] MEDS: TRAMADOL 50 MG TABLET PO PRN (14:09)
[2017-07-30] MEDS: ACETAMINOPHEN 325 MG TABLET PO PRN (14:09)
[2017-07-30] MEDS: LEVOFLOXACIN PB 750 MG/150 ML BAG IV SCH (17:07)
[2017-07-30] MEDS: GABAPENTIN 300 MG CAPSULE PO SCH (20:01)
[2017-07-30] MEDS: WARFARIN 4 MG TABLET PO SCH (20:02)
[2017-07-31] MEDS: TRAMADOL 50 MG TABLET PO PRN ×3 (01:16→22:05)
[2017-07-31] MEDS: ACETAMINOPHEN 325 MG TABLET PO PRN ×2 (07:34→22:05)
[2017-07-31] MEDS: GLUCOSAMINE 500 MG CAPSULE PO SCH (08:41)
[2017-07-31] MEDS: MULTI-VITAMIN + MINERAL TABLET PO SCH (08:41)
[2017-07-31] MEDS: CALCIUM CARBONATE 500 MG TABLET PO SCH (08:42)
[2017-07-31] MEDS: CETIRIZINE 10 MG TABLET PO SCH (08:42)
[2017-07-31] MEDS: FUROSEMIDE 20 MG TABLET PO SCH (08:42)
[2017-07-31] MEDS: MAGNESIUM OXIDE 400 MG TABLET PO SCH ×2 (08:42→21:28)
[2017-07-31] MEDS: HYDROCORTISONE 2.5% CREAM 30gm TOP SCH ×2 (08:43→21:28)
[2017-07-31 09:37] VITALS: BMI 29.0
--- NOTE | 2017-07-31 14:52 | Progress Note ---
- Date 07/31/17 Subjective: Hannah is seen today in follow up. She is breathing on room air without distress. She reports that overall she is feeling much better. She has been able to ambulate in the parker with assistance of nursing staff. We discussed her fall and chronic anticoagulation use. She was diagnosed with bilateral PE last February. This is the only time that she has fallen since on anti-coagulation. She is independent at home and use a walker constantly. Denies having chest pain , shortness of breath or GI concerns. Objective Vital signs: Temperature 96.2 F L 07/31/17 07:28 Pulse Rate 65 07/31/17 08:03 Respiratory Rate 20 07/31/17 07:28 Blood Pressure 158/68 H 07/31/17 07:31 Pulse Oximetry 93 07/31/17 07:28 Height/Weight/BMI: Height 1.57 m Weight 72 kg Body Mass Index 29.0 - Constitutional Present: well nourished, well developed - Routine HEENT Exam Eye: Present: EOMI ENT: Present: mucous membranes moist, dentition normal - Routine Respiratory Exam Present: CTA bilaterally. Absent: wheezes - Routine Cardiovascular Exam Present: RRR, S1, S2. Absent: murmur - Routine Abdominal Exam Present: soft, normoactive bowel sounds, non distended. Absent: tenderness - Routine Extremities Exam Present: normal capillary refill - Routine Skin Exam Present: intact, dry, warm - Routine Neurological Exam Present: alert, oriented X3, CN II-XII intact, moving all extremities - Routine Lymphatic Exam Lymphatic: Absent: adenopathy - Routine Psychiatric Exam Present: normal affect, cooperative Results - Labs CBC & Chem 7: 07/31/17 05:00 07/31/17 05:00 Microbiology Results: Microbiology 07/29/17 19:07 Sputum, Expectorated Gram Stain - Final 07/29/17 19:07 Sputum, Expectorated Sputum Culture - Preliminary Early growth 07/30/17 17:22 Peripheral/Iv Start Blood Culture - Preliminary Culture Initiated - Results Pending 07/30/17 17:14 Peripheral/Iv Start Blood Culture - Preliminary Culture Initiated - Results Pending Assessment and Plan Assessment and Plan: Assessment Hypoxia- POA- Resolved Coronavirus HKU1 Fall- ? Orthostatis Bilateral pulmonary emboli-chronically on Coumadin HTN COPD GERD Hyperlipidemia Chronic pain Plan Orthostatics remain negative Detailed discussion with patient regarding anticoagulation and fall risk. Patient does not feel that she is a fall risk as she has only fallen 1 time since starting warfarin last fall. She feels like this was an isolated incident because she was in a hurry and running late, which made her "frazzled". Given that her pulmonary emboli were bilateral. Would recommend continuing on warfarin. She will need to discuss this further with primary care provider, Dr. Lamb Home Atenolol and Cozaar on hold. Lasix decreased to 20 mg daily. Continue to encourage patient to ambulate and work with therapy for strengthening. She does utilize walker at baseline [facility] further with [facility] for discharge in the hear future Case discussed with attending, Dr Cyr, and CM. DVT Prophylaxis: Coumadin Resuscitation Status: Full Code - Time spent with patient Time with patient PN: 25 minutes - Physician Narrative Physician: Ethan Cyr MD Narrative: Date: 07/31/17 Time: 1729 Have independently interviewed and examined pt. Chart reviewed. Case discussed with CM and my [employer]. Care plan developed with my supervision; agree with above. Improving. Notes breathing easier-less SOA and congested. No pain with breathing. Denies ab pain or nausea. Oral drive improving. Lungs: decreased, mild conversational dyspnea. CV: regular AB: soft nt/nd MSE : awake alert appropriate Plan: Discussed discharge with patient-while improving, does not feel ready to return to independent living. Due to significant hypoxia noted at admission, will change admission status to inpatient for continuation of care. Will continue with Levaquin - BC not showing MRSA. Will stop vancomycin. Continue with IVF to help FIONA. Continue to work with therapy on strengthening. Monitor O2 status and lab. Hospital Course Summary Disclaimer: The visit summary below is not to be considered part of the above Progress Note. Hospital Course: 07/29- Admission 1. Hypoxia -PFTs in February 2017 shows moderate obstructive disease with low DLCO (this was at the time of her bilateral PE diagnosis) -Echo showed right heart strain then as well. She is going to need a repeat echo soon to follow up on that -Also, she had severe Pulm HTN at that time, this needs to be re evaluated -Oxygen as needed -Will need exercise and nocturnal oximetry prior to discharge. -Resp therapy -Repeat CXR in am. -Sputum cx -Check procalcitonin and lactate 2. Frequent falls -Check orthostatic BPs. -Try to minimize pain medications 3. HTN -On atenolol and losartan at home-hold for now as blood pressures are low normal -Will start lopressor 25mg BID with hold parameters. 4. COPD -Resp therapy 5. GERD -Protonix 40mg BID -On ranitidine and omeprazole at home 6. Chronic pain -Minimize pain meds 7. HLP -Not on statin 8. H/O Bilateral PEs -On coumadin, INR therapeutic 9. Severe PHTN -I suspect that is why she is on Lasix -Will hold for now 10. Anemia -Check stool for OB, Check iron studies 11. Prophylaxis -PPI and coumadin (INR therapeutic) 07/30 Continue to require 3 liters of oxygen by n/c Atenolol and Cozaar remain on hold Lasix decreased to 20mg daily INR therapeutic 07/31 Orthostatics remain negative Detailed discussion with patient regarding anticoagulation and fall risk. Patient does not feel that she is a fall risk as she has only fallen 1 time since starting warfarin last fall. She feels like this was an isolated incident because she was in a hurry and running late, which made her "frazzled". Given that her pulmonary emboli were bilateral. Would recommend continuing on warfarin. She will need to discuss this further with primary care provider, Dr. Lamb. Home Atenolol and Cozaar on hold. Lasix decreased to 20 mg daily. Continue to encourage patient to ambulate and work with therapy for strengthening. She does utilize walker at baseline. She resides independently at [facility]. Clinically improving, but not feeling she is doing well enough to go home safely. Will change to inpatient status to continue care.
[2017-07-31] MEDS: LEVOFLOXACIN PB 750 MG/150 ML BAG IV SCH (16:36)
[2017-07-31] MEDS: GABAPENTIN 300 MG CAPSULE PO SCH (21:28)
[2017-07-31] MEDS: WARFARIN 4 MG TABLET PO SCH (21:28)
[2017-07-31] MEDS ORDERED: SALINE FLUSH 10ml SYRINGE IV PRN (21:30)
[2017-08-01] MEDS: FUROSEMIDE 20 MG TABLET PO SCH (08:02)
[2017-08-01] MEDS: MAGNESIUM OXIDE 400 MG TABLET PO SCH ×2 (08:02→20:56)
[2017-08-01] MEDS: CALCIUM CARBONATE 500 MG TABLET PO SCH (08:02)
[2017-08-01] MEDS: MULTI-VITAMIN + MINERAL TABLET PO SCH (08:02)
[2017-08-01] MEDS: GLUCOSAMINE 500 MG CAPSULE PO SCH (08:02)
[2017-08-01] MEDS: CETIRIZINE 10 MG TABLET PO SCH (08:02)
[2017-08-01] MEDS: HYDROCORTISONE 2.5% CREAM 30gm TOP SCH ×2 (08:03→21:10)
[2017-08-01] MEDS: TRAMADOL 50 MG TABLET PO PRN ×3 (08:08→20:57)
[2017-08-01] MEDS: ACETAMINOPHEN 325 MG TABLET PO PRN ×3 (08:08→20:56)
[2017-08-01] MEDS ORDERED: ENOXAPARIN 40 MG/0.4 ML INJECTION SQ ONE (11:32)
[2017-08-01] MEDS ORDERED: WARFARIN - PHARMACY CONSULT MC ONE (11:32)
--- NOTE | 2017-08-01 11:59 | Progress Note ---
- Date 08/01/17 Subjective: F/U: Coronavirus HKU1, recent fall. Hannah is seen today while sitting in her recliner, watching TV. She is very pleasant on exam and is eager for discharge, hopefully today. Her only complaint is her chronic right arm pain/neuropathy from her shingles 6 months ago. She denies any cough, congestion, fevers, chills, chest pain, shortness of breath, dizziness or lightheadedness. Her appetite is good and bowels are moving. Urinary output is stable. She is breathing easily on room air and has been ambulating with her walker multiple times a day. Her weight is trending down. Anemia stable, and slightly improving (Hgb 8.3). INR subtherapeutic ( 1.80). Objective Vital signs: Temperature 95.9 F L 08/01/17 07:38 Pulse Rate 79 08/01/17 07:42 Respiratory Rate 18 08/01/17 07:38 Blood Pressure 146/67 H 08/01/17 07:42 Pulse Oximetry 96 08/01/17 07:38 Rhythm: Second Degree AV Block Type I - Wenkebach Height/Weight/BMI: Weight 153 lb 3.54 oz Comments: Sitting in her recliner, watching TV. Eager for discharge. Very pleasant on exam. - Constitutional Present: no acute distress, well nourished, well developed, cooperative Comments: Breathing easily on room air. - Routine HEENT Exam Head: Present: normocephalic, atraumatic Eye: Present: PERRL. Absent: conjunctival icterus ENT: Present: mucous membranes moist, oropharynx clear - Routine Respiratory Exam Present: CTA bilaterally. Absent: rales, respiratory distress, rhonchi, stridor , wheezes Comments: No cough or conversational dyspnea on exam. - Routine Cardiovascular Exam Present: RRR, S1, S2 - Routine Abdominal Exam Present: soft, normoactive bowel sounds, non distended, non tender - Routine Extremities Exam Present: no edema, non tender, full ROM, pulses intact - Routine Back/Spine/Pelvis Exam Back/Spine: Present: full ROM. Absent: vertebral tenderness - Routine Musculoskeletal Exam Musculoskeletal: Present: moving extremities well - Routine Skin Exam Present: dry, warm. Absent: jaundice Comments: afebrile. - Routine Neurological Exam Present: alert, oriented X3, CN II-XII intact, moving all extremities, hearing grossly intact, normal speech. Absent: facial asymmetry - Routine Lymphatic Exam Lymphatic: Absent: lymphedema - Routine Psychiatric Exam Present: normal affect, cooperative, good insight, good judgment Results - Labs CBC & Chem 7: 08/01/17 05:14 08/01/17 05:14 - Imaging and Cardiology Chest x-ray Status: image reviewed by me Additional comments: Date of Exam: 07/30/17 Type of Exam(s): XR chest 2V Reason for Exam(s): hypoxia, poss pna FINDINGS: New trace effusions. No focal consolidative pneumonia. No pleural effusion or pneumothorax. Chronic right basilar interstitial prominence. Cardiac silhouette remains enlarged. Prominent hiatal hernia. Mediastinal contours are stable. Pulmonary vascularity appears stable. Impression: New trace effusions without focal pneumonia Assessment and Plan Assessment and Plan: Assessment Hypoxia- POA- Resolved. Coronavirus HKU1 - improving. Fall- ? Orthostasis. 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 Anemia, chronic - (POA) HTN. COPD. GERD. Hyperlipidemia. 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 Leukocytosis (POA) - resolved Subtherapeutic anticoagulation on warfarin - NEW DIAGNOSIS. Low iron - NEW DIAGNOSIS. Plan - 08/01/17. Overall, Hannah is doing well and is eager for discharge home. Orthostatics remain negative. Patient ambulating well with walker in parker. Continue to encourage patient to ambulate and work with therapy for strengthening. Subtherapeutic INR (1.80). Will given Lovenox 40mg SQ now for bridge therapy. Pharmacy consulted for warfarin management. INR will need close monitoring given current antimicrobial treatment with Levaquin. History of bilateral PE. Would recommend continuation of anticoagulation. Will discuss alternative therapies with Dr. Cyr given history of erratic control of INR and risk for acute bleeding and/or clot formation. Patient may need brief home health and/or Lovenox with close monitoring of INR following discharge. Home Atenolol and Cozaar remain on hold. Lasix decreased to 20 mg daily on (home dose 40mg daily). Weight stable. Blood pressure stable. Will discuss reinitiation of atenolol and Cozaar with Dr. Cyr. She resides independently at [facility]. Family in [place]. Encourage incentive spirometry for pulmonary toileting. CXR 07/30/17 revealed new trace effusions without focal pneumonia. Breathing stable. Hgb stable at 8.3. Iron studies low. Will consult pharmacy now and given IV iron. DVT Prophylaxis: SCD's, Lovenox, Coumadin Resuscitation Status: Full Code - Time spent with patient Time with patient PN: 35 minutes - Physician Narrative Physician: Ethan Cyr MD Narrative: Date: 08/01/17 Time: 1600 Have independently interviewed and examined pt. Chart reviewed. Case discussed with CM and my PA. Care plan developed with my supervision; agree with above. Doing okay today. Breathing about the same-notes chronic cough, but not having increase chest congestion or SOA. Eating well. Bowels stable. No f/c. Lungs: decreased, upper airway noises. CV: regular AB: soft nt/nd MSE: awake alert appropriate Plan: Iron studies returned low-patient has had problems with oral iron in the past (upset stomach/constipation). Will give IV iron to help boost her iron levels. Can restart Atenolol, but at 25mg BID (home dose 50mg BID). Continue with exercises to help strength. Monitor lab. Hospital Course Summary Disclaimer: The visit summary below is not to be considered part of the above Progress Note. Hospital Course: 07/29- Admission 1. Hypoxia -PFTs in February 2017 shows moderate obstructive disease with low DLCO (this was at the time of her bilateral PE diagnosis) -Echo showed right heart strain then as well. She is going to need a repeat echo soon to follow up on that -Also, she had severe Pulm HTN at that time, this needs to be re evaluated -Oxygen as needed -Will need exercise and nocturnal oximetry prior to discharge. -Resp therapy -Repeat CXR in am. -Sputum cx -Check procalcitonin and lactate 2. Frequent falls -Check orthostatic BPs. -Try to minimize pain medications 3. HTN -On atenolol and losartan at home-hold for now as blood pressures are low normal -Will start lopressor 25mg BID with hold parameters. 4. COPD -Resp therapy 5. GERD -Protonix 40mg BID -On ranitidine and omeprazole at home 6. Chronic pain -Minimize pain meds 7. HLP -Not on statin 8. H/O Bilateral PEs -On coumadin, INR therapeutic 9. Severe PHTN -I suspect that is why she is on Lasix -Will hold for now 10. Anemia -Check stool for OB, Check iron studies 11. Prophylaxis -PPI and coumadin (INR therapeutic) 07/30 Continue to require 3 liters of oxygen by n/c Atenolol and Cozaar remain on hold Lasix decreased to 20mg daily INR therapeutic 07/31 Orthostatics remain negative Detailed discussion with patient regarding anticoagulation and fall risk. Patient does not feel that she is a fall risk as she has only fallen 1 time since starting warfarin last fall. She feels like this was an isolated incident because she was in a hurry and running late, which made her "frazzled". Given that her pulmonary emboli were bilateral. Would recommend continuing on warfarin. She will need to discuss this further with primary care provider, Dr. Lamb. Home Atenolol and Cozaar on hold. Lasix decreased to 20 mg daily. Continue to encourage patient to ambulate and work with therapy for strengthening. She does utilize walker at baseline. She resides independently at [facility]. Clinically improving, but not feeling she is doing well enough to go home safely. Will change to inpatient status to continue care. 08/01 Overall, Hannah is doing well and is eager for discharge home. Orthostatics remain negative. Patient ambulating well with walker in parker. Continue to encourage patient to ambulate and work with therapy for strengthening. Subtherapeutic INR (1.80). Will given Lovenox 40mg SQ now for bridge therapy. Pharmacy consulted for warfarin management. INR will need close monitoring given current antimicrobial treatment with Levaquin. History of bilateral PE. Would recommend continuation of anticoagulation. Will discuss alternative therapies with Dr. Cyr given history of erratic control of INR and risk for acute bleeding and/or clot formation. Patient may need brief home health and/or Lovenox with close monitoring of INR following discharge. Home Atenolol and Cozaar remain on hold. Lasix decreased to 20 mg daily on (home dose 40mg daily). Weight stable. Blood pressure stable. Will discuss reinitiation of atenolol and Cozaar with Dr. Cyr. Restart atenolol at 25mg BID - hold Cozaar. She resides independently at [facility]. Family in [place]. Encourage incentive spirometry for pulmonary toileting. CXR 07/30/17 revealed new trace effusions without focal pneumonia. Breathing stable. Hgb stable at 8.3. Iron studies low. Will consult pharmacy now and given IV iron.
[2017-08-01] MEDS ORDERED: IRON - PHARMACY CONSULT MC ONE (12:13)
--- NOTE | 2017-08-01 13:13 | Pharmacy Consult ---
Pharmacy Consult-Warfarin - Laboratory Information 08/01/17 05:14 INR 1.80 H - Consult Information Warfarin consult noted by Ritesh SHAHID for Ms Putnam, who has been on warfarin 4mg daily in house and at home. Below target INR. Will give 5mg warfarin today and continue to follow. Thank you.
--- NOTE | 2017-08-01 13:27 | Pharmacy Consult ---
Pharmacy Consult-Iron - Laboratory Information Iron Labs 08/01/17 05:14 Hgb 8.3 L Hct 27.9 L - Consult Information IV IRON CONSULT: Dx: Chronic Anemia: Will give TDI (Total Dose Infusion) over 4 hours. Actual body weight = 50.1kg Hgb Level = 5.4 g/dL Calculated Dosing weight = 50.1 kg Total dose needed: 1700 mg (34 mL) Will give test dose of 25mg IV push over 30 seconds. Watch VS q 15 minutes x 1 hr. (watching for anaphylaxis, respiratory distress, hives.) If no reaction will give full dose in NS 500ml TRA 125ml/hr. Watch VS q 1 hr during infusion. Thank you.
[2017-08-01] MEDS ORDERED: INFED 100mg/2ml INJ TEST DOSE IVP ONE (13:30)
[2017-08-01] MEDS ORDERED: SOLU-MEDROL 125mg/2ml INJ (HIVES-ANAPHYLAXIS) IVP PRN (13:30)
[2017-08-01] MEDS ORDERED: BENADRYL 50 MG/ML INJ (HIVES-ANAPHYLAXIS) IVP PRN (13:30)
[2017-08-01] MEDS ORDERED: EPINEPHRINE 1mg/ml INJ (ANAPHYAXIS ONLY) IM PRN (13:30)
[2017-08-01] MEDS ORDERED: WARFARIN 5 MG TABLET PO ONE (14:00)
[2017-08-01] MEDS ORDERED: IRON DEXTRAN 1,400 MG in NS 500ml 500 ML IV SCH (14:50)
[2017-08-01] MEDS ORDERED: NS IV SCH (15:15)
[2017-08-01] MEDS ORDERED: IRON DEXTRAN IV SCH (15:15)
[2017-08-01] MEDS: GABAPENTIN 300 MG CAPSULE PO SCH (20:55)
[2017-08-01] MEDS: ATENOLOL 25 MG TABLET PO SCH (20:56)
[2017-08-02 07:46] VITALS: BP 153/78; RESP 18; TEMP 96.5; O2SAT 95
[2017-08-02] MEDS: CALCIUM CARBONATE 500 MG TABLET PO SCH (09:01)
[2017-08-02] MEDS: FUROSEMIDE 20 MG TABLET PO SCH (09:01)
[2017-08-02] MEDS: CETIRIZINE 10 MG TABLET PO SCH (09:01)
[2017-08-02] MEDS: GLUCOSAMINE 500 MG CAPSULE PO SCH (09:01)
[2017-08-02] MEDS: MAGNESIUM OXIDE 400 MG TABLET PO SCH (09:01)
[2017-08-02] MEDS: ATENOLOL 25 MG TABLET PO SCH (09:01)
[2017-08-02] MEDS: MULTI-VITAMIN + MINERAL TABLET PO SCH (09:01)
[2017-08-02] MEDS: HYDROCORTISONE 2.5% CREAM 30gm TOP SCH (09:02)
[2017-08-02] MEDS: TRAMADOL 50 MG TABLET PO PRN (09:04)
[2017-08-02] MEDS: ACETAMINOPHEN 325 MG TABLET PO PRN (09:04)
--- NOTE | 2017-08-02 09:09 | Progress Note ---
- Date 08/02/17 Subjective: F/U: Coronavirus HKU1, recent fall, iron deficiency anemia. Hannah is seen while eating breakfast. She reports that she is doing great and is eager for discharge home. She received IV iron yesterday (08/01/17) due to significant iron deficiency and tolerated it well. She denies any complaints or concerns. No chest pain, shortness of breath, abdominal pain, nausea, vomiting or dysuria. Her appetite is stable and bowels are moving. Urinary output is stable. Blood pressure slightly elevated this morning. Atenolol was restarted yesterday, though at decreased dose of 25mg BID (home dose was 50mg BID). Objective Vital signs: Temperature 96.5 F L 08/02/17 07:45 Pulse Rate 77 08/02/17 07:45 Respiratory Rate 18 08/02/17 07:45 Blood Pressure 153/78 H 08/02/17 07:45 Pulse Oximetry 95 08/02/17 07:45 Rhythm: Second Degree AV Block Type I - Wenkebach Height/Weight/BMI: Weight 155 lb 6.814 oz Comments: Eating breakfast in chair. - Constitutional Present: well nourished, well developed, cooperative Comments: Very pleasant. - Routine HEENT Exam Head: Present: normocephalic, atraumatic Eye: Present: PERRL. Absent: conjunctival icterus ENT: Present: mucous membranes moist, oropharynx clear - Routine Respiratory Exam Present: CTA bilaterally. Absent: prolonged expiratory phase, rales, respiratory distress, rhonchi, stridor, wheezes - Routine Cardiovascular Exam Present: RRR, S1, S2, murmur - Routine Abdominal Exam Present: soft, normoactive bowel sounds, non distended, non tender - Routine Extremities Exam Present: edema (trace), non tender, full ROM, pulses intact - Routine Back/Spine/Pelvis Exam Back/Spine: Present: full ROM. Absent: vertebral tenderness - Routine Musculoskeletal Exam Musculoskeletal: Present: moving extremities well - Routine Skin Exam Present: dry, warm. Absent: jaundice Comments: afebrile. - Routine Neurological Exam Present: alert, oriented X3, CN II-XII intact, moving all extremities, hearing grossly intact, normal speech. Absent: facial asymmetry - Routine Lymphatic Exam Lymphatic: Absent: lymphedema - Routine Psychiatric Exam Present: normal affect, cooperative, good insight, good judgment Results - Labs CBC & Chem 7: 08/02/17 04:49 08/02/17 04:49 Assessment and Plan Assessment and Plan: Assessment Hypoxia- POA- Resolved. Coronavirus HKU1 - improving. Fall- ? Orthostasis. 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 Anemia, chronic - (POA) HTN. COPD. GERD. Hyperlipidemia. 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 Leukocytosis (POA) - resolved Subtherapeutic anticoagulation on warfarin - NEW DIAGNOSIS. Low iron - NEW DIAGNOSIS. Plan - 08/02/17. Discharge home was delayed due to iron deficiency requiring IV iron. Anticipate discharge home today. Continue to encourage patient to ambulate and work with therapy for strengthening. INR stable at 2.03 . History of bilateral PE. Would recommend continuation of anticoagulation. Atenolol restarted at lower dose of 25mg BID. Monitor blood pressure and signs of orthostasis closely. Cozaar remain on hold. Lasix decreased to 20 mg daily on 07/30/17 (home dose 40mg daily). Weight stable. Ger Will discharge to home. Patient to restart oral iron due to deficiency-will take Vit C with iron. Continue with Atenolol at 25mg BID. Will try changing to Norvasc 5mg for BP control. Lasix decreased to 20mg daily. Home health set up. Continue IS. F/U with Dr Lamb in about 1 week. See orders for details. DVT Prophylaxis: SCD's, Coumadin Resuscitation Status: Full Code - Time spent with patient Time with patient PN: 25 minutes - Physician Narrative Physician: Ethan Cyr MD Narrative: Date: 08/02/17 Time: 1345 Have independently interviewed and examined pt. Chart reviewed. Case discussed with BELLO and my PA. Care plan developed with my supervision; agree with above. Doing well this afternoon. Breathing well. Moving more. Appetite stable. No f/ c. Feels ready to go home. Lungs: decreased, no distress CV: regular MSE: awake alert appropriate Plan: Will discharge to home. Patient to restart oral iron due to deficiency- will take Vit C with iron. Continue with Atenolol at 25mg BID. Will try changing to Norvasc 5mg for BP control. Lasix decreased to 20mg daily. Home health set up. Continue IS. F/U with Dr Lamb in about 1 week. See orders for details. Hospital Course Summary Disclaimer: The visit summary below is not to be considered part of the above Progress Note. Hospital Course: 07/29- Admission 1. Hypoxia -PFTs in February 2017 shows moderate obstructive disease with low DLCO (this was at the time of her bilateral PE diagnosis) -Echo showed right heart strain then as well. She is going to need a repeat echo soon to follow up on that -Also, she had severe Pulm HTN at that time, this needs to be re evaluated -Oxygen as needed -Will need exercise and nocturnal oximetry prior to discharge. -Resp therapy -Repeat CXR in am. -Sputum cx -Check procalcitonin and lactate 2. Frequent falls -Check orthostatic BPs. -Try to minimize pain medications 3. HTN -On atenolol and losartan at home-hold for now as blood pressures are low normal -Will start lopressor 25mg BID with hold parameters. 4. COPD -Resp therapy 5. GERD -Protonix 40mg BID -On ranitidine and omeprazole at home 6. Chronic pain -Minimize pain meds 7. HLP -Not on statin 8. H/O Bilateral PEs -On coumadin, INR therapeutic 9. Severe PHTN -I suspect that is why she is on Lasix -Will hold for now 10. Anemia -Check stool for OB, Check iron studies 11. Prophylaxis -PPI and coumadin (INR therapeutic) 07/30 Continue to require 3 liters of oxygen by n/c Atenolol and Cozaar remain on hold Lasix decreased to 20mg daily INR therapeutic 07/31 Orthostatics remain negative Detailed discussion with patient regarding anticoagulation and fall risk. Patient does not feel that she is a fall risk as she has only fallen 1 time since starting warfarin last fall. She feels like this was an isolated incident because she was in a hurry and running late, which made her "frazzled". Given that her pulmonary emboli were bilateral. Would recommend continuing on warfarin. She will need to discuss this further with primary care provider, Dr. Lamb. Home Atenolol and Cozaar on hold. Lasix decreased to 20 mg daily. Continue to encourage patient to ambulate and work with therapy for strengthening. She does utilize walker at baseline. She resides independently at [facility]. Clinically improving, but not feeling she is doing well enough to go home safely. Will change to inpatient status to continue care. 08/01 Overall, Hannah is doing well and is eager for discharge home. Orthostatics remain negative. Patient ambulating well with walker in parker. Continue to encourage patient to ambulate and work with therapy for strengthening. Subtherapeutic INR (1.80). Will given Lovenox 40mg SQ now for bridge therapy. Pharmacy consulted for warfarin management. INR will need close monitoring given current antimicrobial treatment with Levaquin. History of bilateral PE. Would recommend continuation of anticoagulation. Will discuss alternative therapies with Dr. Cyr given history of erratic control of INR and risk for acute bleeding and/or clot formation. Patient may need brief home health and/or Lovenox with close monitoring of INR following discharge. Home Atenolol and Cozaar remain on hold. Lasix decreased to 20 mg daily on (home dose 40mg daily). Weight stable. Blood pressure stable. Will discuss reinitiation of atenolol and Cozaar with Dr. Cyr. Restart atenolol at 25mg BID - hold Cozaar. She resides independently at [facility]. Family in [place]. Encourage incentive spirometry for pulmonary toileting. CXR 07/30/17 revealed new trace effusions without focal pneumonia. Breathing stable. Hgb stable at 8.3. Iron studies low. Will consult pharmacy now and given IV iron. 08/02/17 - Discharge Discharge home was delayed due to iron deficiency requiring IV iron. Anticipate discharge home today. Continue to encourage patient to ambulate and work with therapy for strengthening. INR stable at 2.03 . History of bilateral PE. Would recommend continuation of anticoagulation. Atenolol restarted at lower dose of 25mg BID. Monitor blood pressure and signs of orthostasis closely. Cozaar remain on hold. Lasix decreased to 20 mg daily on 07/30/17 (home dose 40mg daily). Weight stable.
--- NOTE | 2017-08-02 09:09 | Pharmacy Consult ---
Pharmacy Consult-Warfarin - Laboratory Information 08/01/17 08/02/17 05:14 04:49 INR 1.80 H 2.03 H - Consult Information COUMADIN CONSULT: MG is a 87 yo female who was admitted for a fall and hypoxia. Patient has had bilateral pulmonary emboli and has been on warfarin 4 mg daily (according to history). Date INR Dose 08/01 1.80 5 mg 08/02 2.03 Plan 4 mg I am giving Warfarin 4 mg p.o. today per the home dose as the INR is 2.03. The Pharmacy will continue to monitor the INR's and adjust the dosage of the Coumadin accordingly. Thank you for the Warfarin Dosing Protocol, Navneet Arevalo RPh.
[2017-08-02 09:31] VITALS: PULSE 76
[2017-08-02] MEDS ORDERED: WARFARIN 4 MG TABLET PO SCH (12:00)
--- NOTE | 2017-08-02 14:13 | Discharge Summary ---
Discharge Information Date of admission: 07/31/17 17:30 Anticipated date of discharge: 08/02/17 Attending Physician: Ethan Cyr MD Primary care physician: Jonathan Lamb MD Consults: PT/OT Discharge diagnosis Hypoxia- POA- Resolved. Associated conditions and complications Coronavirus HKU1 - improving Fall- ? 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 2017 Leukocytosis (POA) - resolved - Procedures Procedures: IV Iron infusion 08/01/17 - Laboratory Labs: Admit Lab 07/29/17 14:02 WBC 12.9 H Hgb 9.2 L Hct 31.6 L MCV 89.5 Plt Count 215 Neutrophils % (Manual) 91.0 H Band Neutrophils % 1.0 Lymphocytes % (Manual) 3.0 L Monocytes % (Manual) 5.0 Admit Lab 07/29/17 07/29/17 14:02 17:21 Sodium 138 Potassium 5.0 Chloride 98 Carbon Dioxide 30 Anion Gap 10 BUN 30.0 H Creatinine 1.4 H GFR Calculation 36 BUN/Creatinine Ratio 21 Glucose 139 H Calculated Osmolality 274 Calcium 9.7 Total Bilirubin 0.40 AST 22 ALT 23 Alkaline Phosphatase 70 Total Protein 7.1 Albumin 4.1 Globulin 3.0 Albumin/Globulin Ratio 1.4 Plasma Lactate 1.7 INR (Admit/Discharge listed) 07/29/17 08/02/17 14:02 04:49 INR 2.05 H 2.03 H Occult Blood 07/30/17 10:29 Stool Occult Blood Negative Iron Levels 07/30/17 07:54 Iron 39 TIBC 389 % Saturation 10 Ferritin 14.0 Respiratory Panel 07/29/17 17:46 Coronavirus HKU1 (PCR) Detected A 08/02/17 04:49 08/02/17 04:49 - Radiology Radiology: Date of Exam: 07/29/17 PROCEDURE: CHEST 2-VIEWS UPRIGHT (PA & LAT) Findings: The lungs are stable in appearance without new focal airspace consolidation. Right lower lobe granuloma. There is no pleural effusion or pneumothorax. The heart size, pulmonary vascularity and mediastinal contours are unchanged. Large hiatal hernia. IMPRESSION: Stable appearance of the chest without acute cardiopulmonary disease. Date of Exam: 07/30/17 PROCEDURE: CHEST 2-VIEWS UPRIGHT (PA & LAT) FINDINGS: New trace effusions. No focal consolidative pneumonia. No pleural effusion or pneumothorax. Chronic right basilar interstitial prominence. Cardiac silhouette remains enlarged. Prominent hiatal hernia. Mediastinal contours are stable. Pulmonary vascularity appears stable. Impression: New trace effusions without focal pneumonia. History of Present Illness HPI: Ms. Putnam is a very pleasant 87y/o female who still lives alone. She has had frequent falls over the last couple of years. She fell again this morning and was brought to the emergency room. She was found to be hypoxic on room air. Subsequently she was admitted. In the ER her white blood count was 12,000, hemoglobin 9.2 with hematocrit 31.6 and platelets of 215. She has 91% neutrophils. Her INR is 2.05. Her electrolytes reveal a sodium of 138, potassium 5, BUN 30 and a creatinine of 1.4. Urine analysis was unremarkable. When seen by me in her room, her daughter is in the room with her. The daughter went to her mom's house and woke her up when she got there and it was 11 AM. The patient got up to letter in and was very wobbly. This is not new. She got to the door to let her daughter in and on the way back she fell. She denies any injuries from this fall and does not hurt anywhere. She states when she goes from lying to sitting to standing she always gets a little lightheaded and wobbly. She thinks she may have gotten up too fast this morning. As far as her oxygenation goes, she had bilateral pulmonary emboli in February 2017. She was seen by Dr. Dean at that time and has subsequently had PFTs done. This showed moderate obstructive disease with below DLCO. Dr. Dean recommended nocturnal oxygen as well as oxygen with exertion. Apparently that was never set up. Currently she is on 2 L and she's setting 94%. She does have a low-grade temperature at 100. Blood pressure at 116/43 and a heart rate of 85. Chest x- ray is relatively unremarkable but I am awaiting official report. She denies fever or chills. She denies feeling short of breath at rest or with exertion. She has a cough but she states this is unchanged from her baseline cough and she denies any sputum. She denies any nausea or vomiting. She does have occasional loose stools. She states that she will go 2 to 3 days with firm stools and then she'll have a day where there much looser and shall have a couple of them in that day. She denies any black tarry stools or bloody stools. She denies any genitourinary symptoms. She does think her legs were a little more swollen today as she could not get her compression stockings on. She reports her gabapentin was just increased to 300 mg 3 times a day. She is unsure if it is helping. She has numbness and tingling in her feet as well as her hands. 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 For complete details of the H&P refer to that document. Objective Vital signs: Temperature 96.5 F L 08/02/17 07:45 Pulse Rate 76 08/02/17 08:05 Respiratory Rate 18 08/02/17 07:45 Blood Pressure 153/78 H 08/02/17 07:45 Pulse Oximetry 95 08/02/17 07:45 Height/Weight/BMI: Weight 70.5 kg Hospital Course This is a general summary of the patient's hospital course. For more details refer to the complete medical record. Hospital course: 07/29- Admission 1. Hypoxia -PFTs in February 2017 shows moderate obstructive disease with low DLCO (this was at the time of her bilateral PE diagnosis) -Echo showed right heart strain then as well. She is going to need a repeat echo soon to follow up on that -Also, she had severe Pulm HTN at that time, this needs to be re evaluated -Oxygen as needed -Will need exercise and nocturnal oximetry prior to discharge. -Resp therapy -Repeat CXR in am. -Sputum cx -Check procalcitonin and lactate 2. Frequent falls -Check orthostatic BPs. -Try to minimize pain medications 3. HTN -On atenolol and losartan at home-hold for now as blood pressures are low normal 4. COPD -Resp therapy 5. GERD -Protonix 40mg BID -On ranitidine and omeprazole at home 6. Chronic pain -Minimize pain meds 7. HLP -Not on statin 8. H/O Bilateral PEs -On coumadin, INR therapeutic 9. Severe PHTN -I suspect that is why she is on Lasix -Will hold for now 10. Anemia -Check stool for OB, Check iron studies 11. Prophylaxis -PPI and coumadin (INR therapeutic) 07/30 Continue to require 3 liters of oxygen by n/c Atenolol and Cozaar remain on hold Lasix decreased to 20mg daily 1 of 2 blood cultures positive - Levaquin started INR therapeutic 07/31 Orthostatics remain negative Detailed discussion with patient regarding anticoagulation and fall risk. Patient does not feel that she is a fall risk as she has only fallen 1 time since starting warfarin last fall. She feels like this was an isolated incident because she was in a hurry and running late, which made her "frazzled". Given that her pulmonary emboli were bilateral. Would recommend continuing on warfarin. She will need to discuss this further with primary care provider, Dr. Lamb. Home Atenolol and Cozaar on hold. Lasix decreased to 20 mg daily. Continue to encourage patient to ambulate and work with therapy for strengthening. She does utilize walker at baseline. She resides independently at [facility]. 1 of 2 BC positive for Strep viridans. Suspect contamination as patient without other markers for sepsis. Clinically improving, but not feeling she is doing well enough to go home safely. Will change to inpatient status to continue care. 08/01 Overall, Hannah is doing well and is eager for discharge home. Orthostatics remain negative. Patient ambulating well with walker in parker. Continue to encourage patient to ambulate and work with therapy for strengthening. Subtherapeutic INR (1.80). Will given Lovenox 40mg SQ now for bridge therapy. Pharmacy consulted for warfarin management. INR will need close monitoring given current antimicrobial treatment with Levaquin. History of bilateral PE. Would recommend continuation of anticoagulation. Will discuss alternative therapies with Dr. Cyr given history of erratic control of INR and risk for acute bleeding and/or clot formation. Patient may need brief home health and/or Lovenox with close monitoring of INR following discharge. Home Atenolol and Cozaar remain on hold. Lasix decreased to 20 mg daily on (home dose 40mg daily). Weight stable. Blood pressure stable. Will discuss reinitiation of atenolol and Cozaar with Dr. Cyr. Restart atenolol at 25mg BID - hold Cozaar. She resides independently at [facility]. Family in [place]. Encourage incentive spirometry for pulmonary toileting. CXR 07/30/17 revealed new trace effusions without focal pneumonia. Breathing stable. Hgb stable at 8.3. Iron studies low. Will consult pharmacy now and given IV iron. 08/02/17 - Discharge Continue to encourage patient to ambulate and work with therapy for strengthening. INR stable at 2.03 . History of bilateral PE. Would recommend continuation of anticoagulation. Will discharge to home. May restart oral iron with breakfast - recommend vitamin C with iron. Atenolol decreased to 25mg BID, Lasix decreased to 20mg daily. Will change Cozaar to Norvasc 5mg daily. Home health set up - recommend rechecking INR and BMP in 1 week secondary to medication use--results to Dr Lamb. F/U with Dr Lamb in 1 week. See orders for details. Time spent with patient: discharge greater than 30 minutes Resuscitation Status: Full Code Discharge Plan - Discharge Disposition Discharge Date: 08/02/17 Disposition: 86 Home Health Service *Condition: Improved Reason For Visit (Visit label in EMR): fall hypoxia - Discharge Medications *Discharge Medications: New Atenolol [Tenormin] 25 mg PO BID #60 tab Ferrous Sulfate [Iron] 325 mg PO WB #1 bottle Furosemide [Lasix] 20 mg PO DAILY #30 tab Amlodipine [Norvasc] 5 mg PO DAILY #30 tab Ascorbic Acid [Vitamin C] 500 mg PO WB #1 bottle Continue Multivitamin [One Daily] 1 each PO DAILY Gabapentin [Neurontin] 600 mg PO TID Calcium Carbonate [Calcium] 500 mg PO DAILY Acetaminophen [Tylenol] 650 mg PO Q5H PRN tab PRN Reason: Discomfort Cetirizine [Zyrtec] 10 mg PO DAILY #0 tab Hydrocortisone 2.5% Cream [Anusol-Hc 2.5% Cream] 1 applicatio TOP BID tube Magnesium Oxide [Magox] 400 mg PO BID tab Glucosamine 500 mg PO DAILY Menthol Cough Drops [Ricola Sf] 1 lozenge MM PRN PRN lozenge PRN Reason: Cough Omeprazole [Prilosec] 20 mg PO ACB #30 cap Ranitidine [Zantac] 150 mg PO BID #30 tab Tramadol [Ultram] 50 mg PO PRN PRN PRN Reason: Pain Warfarin Sodium [Coumadin] 4 mg PO HS Discontinued Atenolol [Tenormin] 50 mg PO BID #60 tab Losartan [Cozaar] 100 mg PO DAILY #30 tab Potassium Chloride [K-DUR 20 mEq Tablet] 20 meq PO BIDWM #60 tab Furosemide [Lasix] 40 mg PO DAILY #30 tab - Discharge Packet/Instructions *Diet: Low sodium *Activity: As tolerated *Pain Management/Treatment: Tylenol and tramadol as needed *Wound Care: n/a Additional Instructions: Use Incentive Spirometer 4 times a day for 1 week to help breathing. Take Iron and Vitamin C daily with breakfast. May try sport rub to help shingle pain. Start home Coumadin (warfarin) on 08/03. You had a dose of Coumadin in hospital on the . *Expected Signs/Symptoms: Improvement of strength and breathing *Notify Physician if: Temp >100.4. Increasing shortness of air. *During Business Hours Contact: Dr Lamb *After Business Hours Contact: Call [facility] and have Dr Lamb or his covering provider contacted. *Pending Lab/Results: No Pending Lab - Referrals/Follow Up *Referrals/Follow Up: Jonathan Lamb MD [Family Provider] - 1 Week (Hospital follow up - Norvasc replaceing Cozaar. Lasix decreased from 40 to 20mg daily. Atenolol decreased to 25mg BID. ) - Patient Handouts Patient Handouts: Fall Prevention for Older Adults (GEN), Hypoxia (GEN) - Dismissal Complete Discharge Instructions are:: Complete Physician Narrative - Narrative Physician: Ethan Cyr MD Attestation Narrative: Date: 08/02/17 Time: 2237 I have independently interviewed and examined patient prior to discharge. See my progress note for details. Medically stable for discharge to home.
[2017-08-02] MEDS ORDERED: LEVOFLOXACIN PB 750 MG/150 ML BAG IV SCH (16:00)
== END 2017-08-02 15:40 | disposition home health service (06) | DRG 192 ==
LOC: MED 13:14 → ED 13:14 → SUATTDRO 15:37 → MED 15:50
PROVIDERS: ADMIT Internal Medicine Cardiovascular Disease; ATTEND Hospitalist